=== PATIENT | male | born 1970 | race Caucasian/White ===

== ENCOUNTER → 2016-12-30 | Outpatient (CLI) | payer MEDICARE, MEDICAID ==
[~2016-12-30] MED LIST: CARI350T19 PO; CYMB60CA3 PO; DICY20TA11 PO; HCTZ PO; Ibuprofen PO; Lisinopril PO; PANT40TA2 PO; SIMV20TA2 PO; TOPA100T PO; Vicodin PO; ZOLP-189 PO
[2016-12-30 17:01] LABS: BLOOD UREA NITROGEN 7 MG/DL (7-18); CREATININE FOR GFR 1.09 MG/DL (0.70-1.30); GLOMERULAR FILTRATION RATE > 60.0 (>60)
== END ==
LOC: M LAB 15:53
PROVIDERS: ATTEND Neurological Surgery
DX: I10 Essential (primary) hypertension (principal); R73.9 Hyperglycemia, unspecified; K21.9 Gastro-esophageal reflux disease without esophagitis; E78.00 Pure hypercholesterolemia, unspecified; I73.9 Peripheral vascular disease, unspecified; R74.8 Abnormal levels of other serum enzymes

== ENCOUNTER → 2017-08-11 | Outpatient (REF) | payer MEDICARE, MEDICAID ==
[2017-08-11 14:13] LABS: MEAN CORPUSCULAR HEMOGLOBIN 32.9 pg (27.0-33.0); MEAN CORPUSCULAR HGB CONC 35.4 g/dl (32.0-36.5); MEAN CORPUSCULAR VOLUME 92.8 fl (80.0-96.0); RED CELL DISTRIBUTION WIDTH 12.6 % (11.5-14.5); WHITE BLOOD COUNT 14.8 10^3/uL (4.0-10.0)
[2017-08-11 15:02] LABS: ALBUMIN 4.1 GM/DL (3.2-5.2); ALBUMIN/GLOBULIN RATIO 1.03 (1.00-1.93); ALKALINE PHOSPHATASE 98 U/L (45-117); ALT/SGPT 66 U/L (12-78); ANION GAP 10 MEQ/L (8-16); AST/SGOT 40 U/L (15-37); BILIRUBIN,TOTAL 0.6 MG/DL (0.2-1.0); BLOOD UREA NITROGEN 14 MG/DL (7-18); CALCIUM LEVEL 8.9 MG/DL (8.5-10.1); CARBON DIOXIDE LEVEL 26 MEQ/L (21-32); CHLORIDE LEVEL 102 MEQ/L (98-107); CHOLESTEROL LEVEL 145 MG/DL (<200); CREATININE FOR GFR 1.02 MG/DL (0.70-1.30); GLOMERULAR FILTRATION RATE > 60.0 (>60); GLUCOSE, FASTING 93 MG/DL (70-105); POTASSIUM SERUM 3.6 MEQ/L (3.5-5.1); SODIUM LEVEL 138 MEQ/L (136-145); TOTAL PROTEIN 8.1 GM/DL (6.4-8.2); TRIGLYCERIDES LEVEL 244 MG/DL (<150)
== END ==
LOC: M SFHCPLAZ 11:15
PROVIDERS: ATTEND Nurse Practitioner Adult Health
DX: I10 Essential (primary) hypertension (principal); E78.2 Mixed hyperlipidemia; R73.9 Hyperglycemia, unspecified; Z23 Encounter for immunization
CPT/HCPCS: 36415; 80053; 80061; 83036; 85027; 90686; G0008; G0463

== ENCOUNTER → 2018-02-09 | Outpatient (REF) | payer MEDICARE, MEDICAID ==
[2018-02-09 13:37] LABS: HEMATOCRIT 39.8 % (42.0-52.0); HEMOGLOBIN 13.6 g/dl (14.0-18.0); MEAN CORPUSCULAR HEMOGLOBIN 30.2 pg (27.0-33.0); MEAN CORPUSCULAR HGB CONC 34.2 g/dl (32.0-36.5); MEAN CORPUSCULAR VOLUME 88.4 fl (80.0-96.0); PLATELET COUNT, AUTOMATED 344 10^3/uL (150-450); RED CELL DISTRIBUTION WIDTH 12.6 % (11.5-14.5); WHITE BLOOD COUNT 14.8 10^3/uL (4.0-10.0)
[2018-02-09 14:05] LABS: ALBUMIN/GLOBULIN RATIO 0.93 (1.00-1.93); ALKALINE PHOSPHATASE 102 U/L (45-117); ALT/SGPT 42 U/L (12-78); ANION GAP 6 MEQ/L (8-16); AST/SGOT 15 U/L (7-37); BILIRUBIN,TOTAL 0.5 MG/DL (0.2-1.0); BLOOD UREA NITROGEN 11 MG/DL (7-18); CALCIUM LEVEL 8.8 MG/DL (8.5-10.1); CARBON DIOXIDE LEVEL 28 MEQ/L (21-32); CHLORIDE LEVEL 106 MEQ/L (98-107); CREATININE FOR GFR 0.87 MG/DL (0.70-1.30); GLOMERULAR FILTRATION RATE > 60.0 (>60); GLUCOSE, FASTING 83 MG/DL (70-100); POTASSIUM SERUM 3.9 MEQ/L (3.5-5.1); SODIUM LEVEL 140 MEQ/L (136-145); TOTAL PROTEIN 8.3 GM/DL (6.4-8.2)
== END ==
LOC: M SFHCPLAZ 11:58
DX: I10 Essential (primary) hypertension (principal)
CPT/HCPCS: 80053

== ENCOUNTER 2018-04-28 17:33 | Emergency (ER) | payer MEDICARE, MEDICAID ==
[2018-04-28 20:07] LABS: HEMATOCRIT 36.9 % (42.0-52.0); HEMOGLOBIN 12.3 g/dl (13.5-17.5); MEAN CORPUSCULAR HEMOGLOBIN 29.1 pg (27.0-33.0); MEAN CORPUSCULAR HGB CONC 33.3 g/dl (32.0-36.5); MEAN CORPUSCULAR VOLUME 87.4 fl (80.0-96.0); PLATELET COUNT, AUTOMATED 347 10^3/uL (150-450); RED BLOOD COUNT 4.22 10^6/uL (4.30-6.10); RED CELL DISTRIBUTION WIDTH 12.8 % (11.5-14.5)
[2018-04-28 20:11] LABS: ADD MANUAL DIFFER YES; DIFF SLIDE NUMBER 406; POSITIVE DIFF POS FLAG; POSITIVE MORPH POS FLAG; WHITE BLOOD COUNT 13.4 10^3/uL (4.0-10.0)
[2018-04-28 20:27] LABS: ANION GAP 6 MEQ/L (8-16); BLOOD UREA NITROGEN 9 MG/DL (7-18); CALCIUM LEVEL 8.6 MG/DL (8.5-10.1); CARBON DIOXIDE LEVEL 26 MEQ/L (21-32); CHLORIDE LEVEL 107 MEQ/L (98-107); CREATININE FOR GFR 1.21 MG/DL (0.70-1.30); GLOMERULAR FILTRATION RATE > 60.0 (>60); GLUCOSE, FASTING 89 MG/DL (70-100); POTASSIUM SERUM 4.2 MEQ/L (3.5-5.1); SODIUM LEVEL 139 MEQ/L (136-145)
[2018-04-28 20:30] LABS: LACTIC ACID SEPSIS PROTOCOL 0.8 MMOL/L (0.4-2.0)
[2018-04-28 20:41] LABS: ATYPICAL LYMPH 9 % (0-5); LYMPHOCYTES 39 % (16-52); MONOCYTES 5 % (0-8); NEUTROPHILS 47 % (35-75); PLATELET ESTIMATE NORMAL (NORMAL)
[2018-04-28] MEDS: MORPHINE 10 MG/ML 1ML VIAL (J2270) IM (21:01)
[2018-04-28] MEDS: CLINDAMYCIN 150 MG CAP PO (21:35)
== END 2018-04-28 21:41 | disposition home or self-care (01) ==
LOC: M ED 17:33
DX: L03.116 Cellulitis of left lower limb (principal); I10 Essential (primary) hypertension; G43.909 Migraine, unspecified, not intractable, without status migrainosus; K21.9 Gastro-esophageal reflux disease without esophagitis; F32.9 Major depressive disorder, single episode, unspecified; Z87.01 Personal history of pneumonia (recurrent); Z79.82 Long term (current) use of aspirin; Z79.899 Other long term (current) drug therapy; Z88.0 Allergy status to penicillin; Z88.8 Allergy status to other drugs, medicaments and biological substances
CPT/HCPCS: J2270

== ENCOUNTER 2018-09-05 13:47 | Inpatient (IN) | payer MEDICARE, MEDICAID ==
[2018-09-05] MEDS: amLODIPine 10 MG TAB PO (00:20)
[2018-09-05 14:36] LABS: BEDSIDE GLUCOSE 96 MG/DL (70-105)
[2018-09-05 15:06] LABS: BASO % 0.3 % (0.0-1.0); EOS # 0.1 10^3/uL (0.0-0.50); EOS % 0.7 % (0.0-3.0); HEMATOCRIT 36.4 % (42.0-52.0); IMMATURE GRANULOCYTE % 0.4 % (0-3.0); LYMPH # 1.8 10^3/uL (1.5-4.5); LYMPH % 14.4 % (24.0-44.0); MEAN CORPUSCULAR HEMOGLOBIN 30.1 pg (27.0-33.0); MEAN CORPUSCULAR VOLUME 91.2 fl (80.0-96.0); MONO # 0.9 10^3/uL (0.0-0.8); MONO % 7.1 % (0.0-5.0); NEUTROPHILS # 9.6 10^3/uL (1.8-7.7); NEUTROPHILS % 77.1 % (36.0-66.0); PLATELET COUNT, AUTOMATED 224 10^3/uL (150-450); RED BLOOD COUNT 3.99 10^6/uL (4.30-6.10); RED CELL DISTRIBUTION WIDTH 13.2 % (11.5-14.5); WHITE BLOOD COUNT 12.5 10^3/uL (4.0-10.0)
[2018-09-05 15:07] LABS: VENOUS BASE EXCESS -5.1 (-2.0-2.0); VENOUS O2 SATURATION 72.7 % (60.0-80.0); VENOUS PARTIAL PRESSURE CO2 63.9 mmHg (38.0-50.0); VENOUS PARTIAL PRESSURE O2 43.6 mmHg (30.0-50.0); VENOUS PH 7.192 UNITS (7.330-7.430); VENOUS STANDARD HCO3 19.7 MEQ/L; VENOUS TOTAL CO2 25.9 MEQ/L (24.0-28.0)
[2018-09-05 15:27] LABS: AMMONIA 30 uMOL/L (<32)
[2018-09-05 15:30] LABS: LACTIC ACID SEPSIS PROTOCOL 1.9 MMOL/L (0.4-2.0)
[2018-09-05 15:49] LABS: KETONE, URINE AUTO RFX NEGATIVE (NEGATIVE); LEUKOCYTE ESTERASE UR AUTO RFX NEGATIVE (NEGATIVE); MUCUS, URINE RFX SMALL (NEGATIVE); NITRITE, URINE AUTO RFX NEGATIVE (NEGATIVE); RBC, URINE AUTO RFX 0 /HPF (0-3); SQUAM EPITHELIAL CELL UR AURFX 0 /HPF (0-6); WBC, URINE AUTO RFX 6 /HPF (0-3)
[2018-09-05 16:18] LABS: AMPHETAMINES LEVEL URINE NEGATIVE (NEGATIVE); BARBITURATES URINE NEGATIVE (NEGATIVE); BENZODIAZEPINES URINE NEGATIVE (NEGATIVE); CANNABINOIDS URINE POSITIVE (NEGATIVE); COCAINE METABOLITE URINE NEGATIVE (NEGATIVE); METHADONE URINE NEGATIVE (NEGATIVE); OPIATES URINE POSITIVE (NEGATIVE); PHENCYCLIDINE URINE NEGATIVE (NEGATIVE)
[2018-09-05 16:46] LABS: ACETAMINOPHEN LEVEL < 2.0 UG/ML (10.0-30.0); ALBUMIN 3.8 GM/DL (3.2-5.2); ALBUMIN/GLOBULIN RATIO 1.06 (1.00-1.93); ALKALINE PHOSPHATASE 91 U/L (45-117); ALT/SGPT 132 U/L (12-78); ANION GAP 7 MEQ/L (8-16); AST/SGOT 496 U/L (7-37); BILIRUBIN,DIRECT 0.2 MG/DL (0.0-0.2); BILIRUBIN,TOTAL 0.6 MG/DL (0.2-1.0); BLOOD UREA NITROGEN 22 MG/DL (7-18); CALCIUM LEVEL 8.1 MG/DL (8.5-10.1); CARBON DIOXIDE LEVEL 25 MEQ/L (21-32); CHLORIDE LEVEL 104 MEQ/L (98-107); CPK CREATINE PHOSPHOKINASE 18491 U/L (39-308); CREATININE FOR GFR 1.96 MG/DL (0.70-1.30); ETHYL ALCOHOL (ETHANOL) < 0.003 % (0.000-0.010); GLOMERULAR FILTRATION RATE 38.7 (>56); GLUCOSE, FASTING 93 MG/DL (70-100); MB/CK RELATIVE INDEX 3.01 (< OR =4); POTASSIUM SERUM 4.7 MEQ/L (3.5-5.1); SALICYLATE LEVEL 4.1 MG/DL (5.0-30.0); SODIUM LEVEL 136 MEQ/L (136-145); THYROID STIMULATING HORMONE 0.547 uIU/ML (0.358-3.740); TOTAL PROTEIN 7.4 GM/DL (6.4-8.2); TROPONIN I < 0.02 NG/ML (< 0.10)
[2018-09-05 16:47] LABS: CK-MB VALUE MASS 557.3 NG/ML (<3.6)
[2018-09-05] MEDS: NS 1,000 ML IV ×3 (16:48→21:18)
[2018-09-05 17:04] LABS: MYOGLOBIN SCREEN, URINE POSITIVE (NEGATIVE)
[2018-09-05] MEDS ORDERED: ONDANSETRON 4MG/2ML VIAL (J2405) IV (17:30)
[2018-09-05] MEDS ORDERED: BISACODYL 10 MG SUPP PR (17:30)
[2018-09-05 19:33] LABS: ABG BASE EXCESS -7.1 (-2.0-2.0); ABG HCO3 19.4 MEQ/L (22.0-26.0); ABG O2 SATURATION 98.4 % (95.0-99.0); ABG PARTIAL PRESSURE CO2 42.8 mmHg (35.0-45.0); ABG PARTIAL PRESSURE O2 131.7 mmHg (75.0-100.0); ABG STANDARD HCO3 18.7 MEQ/L (22.0-26.0); ABG TOTAL CO2 20.7 MEQ/L (22.0-29.0); ABG pH (ARTERIAL) 7.274 UNITS (7.350-7.450)
[2018-09-05] MEDS ORDERED: IPRATROPIUM 0.5MG/ALBUTEROL 2.5MG INH SOL UD 3ML (DUONEB)(J7620) NEB (19:45)
[2018-09-05] MEDS: HEPARIN SOD (PORCINE) 5000 UNITS/ML VIAL SC (21:17)
[2018-09-05] MEDS: ATORVASTATIN 20 MG TAB PO (21:19)
[2018-09-06] MEDS: CLOPIDOGREL 75 MG TAB PO ×2 (00:19→09:24)
[2018-09-06] MEDS: ACETAMINOPHEN TAB 650MG DOSE (2X325MG) PO (04:03)
[2018-09-06 04:39] LABS: HEMOGLOBIN 11.1 g/dl (13.5-17.5); MEAN CORPUSCULAR HEMOGLOBIN 29.6 pg (27.0-33.0); MEAN CORPUSCULAR HGB CONC 32.6 g/dl (32.0-36.5); MEAN CORPUSCULAR VOLUME 90.7 fl (80.0-96.0); PLATELET COUNT, AUTOMATED 197 10^3/uL (150-450); RED BLOOD COUNT 3.75 10^6/uL (4.30-6.10); RED CELL DISTRIBUTION WIDTH 13.2 % (11.5-14.5); WHITE BLOOD COUNT 11.8 10^3/uL (4.0-10.0)
[2018-09-06] MEDS: NS 1,000 ML IV ×2 (04:59→11:44)
[2018-09-06 05:03] LABS: ANION GAP 4 MEQ/L (8-16); BLOOD UREA NITROGEN 16 MG/DL (7-18); CALCIUM LEVEL 7.7 MG/DL (8.5-10.1); CARBON DIOXIDE LEVEL 25 MEQ/L (21-32); CHLORIDE LEVEL 110 MEQ/L (98-107); CREATININE FOR GFR 1.08 MG/DL (0.70-1.30); GLOMERULAR FILTRATION RATE > 60.0 (>56); GLUCOSE, FASTING 93 MG/DL (70-100); POTASSIUM SERUM 4.2 MEQ/L (3.5-5.1); SODIUM LEVEL 139 MEQ/L (136-145)
[2018-09-06] MEDS: HEPARIN SOD (PORCINE) 5000 UNITS/ML VIAL SC ×2 (06:40→14:20)
[2018-09-06 08:12] LABS: ABG BASE EXCESS -3.8 (-2.0-2.0); ABG HCO3 23.2 MEQ/L (22.0-26.0); ABG O2 SATURATION 99.4 % (95.0-99.0); ABG PARTIAL PRESSURE CO2 50.6 mmHg (35.0-45.0); ABG PARTIAL PRESSURE O2 208.2 mmHg (75.0-100.0); ABG STANDARD HCO3 21.4 MEQ/L (22.0-26.0); ABG TOTAL CO2 24.8 MEQ/L (22.0-29.0)
[2018-09-06] MEDS: amLODIPine 10 MG TAB PO (09:24)
[2018-09-06] MEDS: ASPIRIN 81 MG ENTERIC TAB PO (09:24)
[2018-09-06] MEDS: OMEPRAZOLE 20 MG CAP PO (09:24)
[2018-09-06 10:02] LABS: ALBUMIN 3.1 GM/DL (3.2-5.2); ALBUMIN/GLOBULIN RATIO 0.78 (1.00-1.93); ALKALINE PHOSPHATASE 79 U/L (45-117); ALT/SGPT 194 U/L (12-78); AST/SGOT 841 U/L (7-37); BILIRUBIN,DIRECT 0.2 MG/DL (0.0-0.2); BILIRUBIN,TOTAL 0.6 MG/DL (0.2-1.0); CPK CREATINE PHOSPHOKINASE 25765 U/L (39-308); TOTAL PROTEIN 7.1 GM/DL (6.4-8.2)
[2018-09-06] MEDS: GABAPENTIN 300 MG CAP PO (14:21)
[2018-09-06] MEDS: CYCLOBENZAPRINE 10 MG TAB PO (14:21)
[2018-09-06] MEDS: CARISOPRODOL 350 MG TAB PO (15:05)
[2018-09-06] MEDS ORDERED: HEPARIN DRIP 25,000 UNITS in APPROPRIATE DILUENT 1 EA IV (15:29)
[2018-09-06] MEDS ORDERED: HEPARIN SOD (PORCINE) 5000 UNITS/ML VIAL IV (15:30)
[2018-09-06 16:02] LABS: HEMATOCRIT 36.3 % (42.0-52.0); HEMOGLOBIN 12.2 g/dl (13.5-17.5); MEAN CORPUSCULAR HEMOGLOBIN 29.9 pg (27.0-33.0); MEAN CORPUSCULAR HGB CONC 33.6 g/dl (32.0-36.5); PLATELET COUNT, AUTOMATED 215 10^3/uL (150-450); RED BLOOD COUNT 4.08 10^6/uL (4.30-6.10); RED CELL DISTRIBUTION WIDTH 12.9 % (11.5-14.5); WHITE BLOOD COUNT 11.4 10^3/uL (4.0-10.0)
[2018-09-06 16:16] LABS: PARTIAL THROMBOPLASTIN TIME 27.7 SECONDS (25.4-37.6)
[2018-09-06] MEDS: HEPARIN DRIP 25,000 UNITS in APPROPRIATE DILUENT 1 EA IV (16:35)
[2018-09-07 10:15] LABS: HEPATITIS B SURFACE ANTIGEN NEGATIVE (NEGATIVE)
[2018-09-07 10:41] LABS: HEPATITIS C VIRUS ABY INDEX < 0.0 INDEX (<0.8)
[2018-09-07 10:42] LABS: HEPATITIS B CORE ANTIBODY IGM NEGATIVE (NEGATIVE)
[2018-09-07 10:45] LABS: HEPATITIS A ANTIBODY IGM NEGATIVE (NEGATIVE)
== END 2018-09-06 19:03 | disposition short-term general hospital (02) | DRG 189 ==
LOC: M ED 13:47 → M ED INP 17:18 → M ICU 23:39
PROVIDERS: Internal Medicine
PROC: 5A09357 Assistance with Respiratory Ventilation, Less than 24 Consecutive Hours, Continuous Positive Airway Pressure (ICD-10-PCS; principal; 2018-09-05)
DX: J96.02 Acute respiratory failure with hypercapnia (principal); G93.41 Metabolic encephalopathy; M62.82 Rhabdomyolysis; E87.4 Mixed disorder of acid-base balance; R41.82 Altered mental status, unspecified; I10 Essential (primary) hypertension; E78.00 Pure hypercholesterolemia, unspecified; G47.33 Obstructive sleep apnea (adult) (pediatric); G89.29 Other chronic pain; I25.10 Atherosclerotic heart disease of native coronary artery without angina pectoris; I70.303 Unspecified atherosclerosis of unspecified type of bypass graft(s) of the extremities, bilateral legs; Z98.62 Peripheral vascular angioplasty status; Z79.891 Long term (current) use of opiate analgesic; Z89.422 Acquired absence of other left toe(s); K58.9 Irritable bowel syndrome, unspecified; Z79.02 Long term (current) use of antithrombotics/antiplatelets; Z79.82 Long term (current) use of aspirin; Z79.899 Other long term (current) drug therapy; Z88.0 Allergy status to penicillin; Z88.8 Allergy status to other drugs, medicaments and biological substances

== ENCOUNTER 2018-12-02 11:49 | Inpatient (IN) | payer MEDICARE, MEDICAID ==
[~2018-12-02] VITALS: Ht 182.9 cm; Wt 113.4 kg
[~2018-12-02 11:49] MED LIST changes: +AMLO10TA5 PO; +ASPI1TAB15 PO; +ASPI81TAEC PO; +ATOR40TA75 PO; +CLEO300C2 PO; +CLOP75TA2 PO; +CYCL10TA PO; +DOXY100T PO; +GABA-843 PO; +IBUPOTC PO; +LASI20TA3 PO; +LEVA1TAB2 PO; +LISI-538 PO; +MORP15TASA PO; +NORC1TAB4 PO; +NORCOTAB PO; +OMEP40CA2 PO; +PLAV1TAB2 PO
[2018-12-02 12:18] LABS: BASO # 0.1 10^3/uL (0.0-0.2); BASO % 0.4 % (0.0-1.0); EOS # 0.1 10^3/uL (0.0-0.50); EOS % 0.6 % (0.0-3.0); HEMATOCRIT 40.4 % (42.0-52.0); HEMOGLOBIN 13.3 g/dl (13.5-17.5); LYMPH # 3.1 10^3/uL (1.5-4.5); LYMPH % 16.4 % (24.0-44.0); MEAN CORPUSCULAR HEMOGLOBIN 29.9 pg (27.0-33.0); MEAN CORPUSCULAR HGB CONC 32.9 g/dl (32.0-36.5); MEAN CORPUSCULAR VOLUME 90.8 fl (80.0-96.0); MONO # 1.3 10^3/uL (0.0-0.8); MONO % 6.7 % (0.0-5.0); NEUTROPHILS # 14.2 10^3/uL (1.8-7.7); NEUTROPHILS % 75.4 % (36.0-66.0); PLATELET COUNT, AUTOMATED 325 10^3/uL (150-450); RED BLOOD COUNT 4.45 10^6/uL (4.30-6.10); WHITE BLOOD COUNT 18.9 10^3/uL (4.0-10.0)
[2018-12-02 12:28] LABS: INR 0.92; PROTHROMBIN TIME 12.4 SECONDS (12.1-14.4)
--- NOTE | 2018-12-02 12:30 | REP ---
Chest one-view HISTORY: Chest pain Comparison: 09/05/2018 Linear densities are present in the left lower lobe consistent with scar. The right lung is clear. There is blunting of the left costophrenic angle due to pleural thickening. The heart is normal in size. The pulmonary vasculature is normal in appearance. Impression: No acute disease. Electronically Signed by Eliezer Morgan MD 12/02/2018 12:21 P
[2018-12-02] MEDS ORDERED: ASPI1TAB20 PO (12:32)
[2018-12-02] MEDS ORDERED: LISI-538 PO (12:32)
[2018-12-02] MEDS ORDERED: FURO20TA2 PO (12:32)
[2018-12-02] MEDS ORDERED: AMLO10TA5 PO (12:32)
[2018-12-02 12:59] LABS: ALBUMIN 3.8 GM/DL (3.2-5.2); ALT/SGPT 28 U/L (12-78); BILIRUBIN,TOTAL 0.4 MG/DL (0.2-1.0); BLOOD UREA NITROGEN 20 MG/DL (7-18); CALCIUM LEVEL 8.5 MG/DL (8.5-10.1); CARBON DIOXIDE LEVEL 21 MEQ/L (21-32); CHLORIDE LEVEL 106 MEQ/L (98-107); CPK CREATINE PHOSPHOKINASE 435 U/L (39-308); CREATININE FOR GFR 2.46 MG/DL (0.70-1.30); GLOMERULAR FILTRATION RATE 29.8 (>56); GLUCOSE, FASTING 116 MG/DL (70-100); LIPASE 149 U/L (73-393); POTASSIUM SERUM 4.7 MEQ/L (3.5-5.1); SODIUM LEVEL 139 MEQ/L (136-145); TOTAL PROTEIN 8.2 GM/DL (6.4-8.2); TROPONIN I < 0.02 NG/ML (< 0.10)
[2018-12-02] MEDS ORDERED: HEPARIN DRIP 25,000 UNITS in APPROPRIATE DILUENT 1 EA IV SCH (13:19)
[2018-12-02] MEDS ORDERED: NS 500 ML IV ONE (13:30)
[2018-12-02] MEDS ORDERED: HEPARIN SOD (PORCINE) 5000 UNITS/ML VIAL IV ONE (13:30)
[2018-12-02] MEDS ORDERED: GABA-843 PO (13:41)
[2018-12-02] MEDS ORDERED: FLUTISP (13:41)
[2018-12-02 14:48] LABS: INR 1.05; PROTHROMBIN TIME 13.8 SECONDS (12.1-14.4)
[2018-12-02 14:49] LABS: PARTIAL THROMBOPLASTIN TIME 65.9 SECONDS (25.4-37.6)
[2018-12-02 14:51] LABS: D-DIMER QUANT 411.4 ng/ml (<500)
[2018-12-02] MEDS ORDERED: ACETAMINOPHEN TAB 650MG DOSE (2X325MG) PO PRN (15:45)
[2018-12-02] MEDS ORDERED: ONDANSETRON 4MG/2ML VIAL (J2405) IV PRN (15:45)
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
[2018-12-02 18:00] VITALS: BP 125/77
[2018-12-02] MEDS ORDERED: GLUCAGON FOR INJ 1 MG VIAL (J1610) SC PRN (19:00)
[2018-12-02] MEDS ORDERED: DEXTROSE 50% 50 ML SYRINGE IV PRN (19:00)
[2018-12-02] MEDS ORDERED: GLUCOSE 4 GM CHEW TABLET PO PRN (19:00)
[2018-12-02 20:00] VITALS: BP 138/73
[2018-12-02] MEDS: HEPARIN SOD (PORCINE) 5000 UNITS/ML VIAL IV PRN (20:01)
[2018-12-02] MEDS: HumaLOG INSULIN (NovoLOG) PER UNIT SC SCH (20:36)
[2018-12-02] MEDS: DOCUSATE SODIUM 100 MG CAP PO SCH (21:00)
[2018-12-02] MEDS: NORCO, ANEXSIA 5/325MG TABLET (HYDROcodone/ACETAMINOPHEN) PO PRN (22:27)
[2018-12-03] VITALS: BP 121/64
[2018-12-03 04:00] VITALS: BP 119/64
[2018-12-03] MEDS ORDERED: LIDOCAINE 2% MDV 20 ML VIAL As Ordered ONE (06:49)
[2018-12-03] MEDS ORDERED: HEPARIN 1,000 UNITS/ML 10ML VIAL (FOR RADIOLOGY& DIALYSIS ONLY) As Ordered ONE (06:49)
[2018-12-03] MEDS ORDERED: MIDAZOLAM INJ 2 MG/2 ML VIAL (J2250) As Ordered ONE (06:49)
[2018-12-03] MEDS ORDERED: fentaNYL 100 MCG/2 ML INJECTION (J3010) As Ordered ONE (06:49)
[2018-12-03] MEDS ORDERED: ISOVUE-300 61% 50ML VIAL (Q9967) As Ordered ONE (06:50)
[2018-12-03] MEDS: HEPARIN DRIP 25,000 UNITS in APPROPRIATE DILUENT 1 EA IV SCH ×2 (07:11→21:48)
[2018-12-03] MEDS: HumaLOG INSULIN (NovoLOG) PER UNIT SC SCH ×4 (07:27→20:46)
--- NOTE | 2018-12-03 07:33 | ECGEPIP ---
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
[2018-12-03 08:00] VITALS: BP 119/67
[2018-12-03] MEDS ORDERED: LISINOPRIL 20 MG TAB PO SCH (09:00)
[2018-12-03] MEDS: DOCUSATE SODIUM 100 MG CAP PO SCH ×2 (09:00→20:46)
[2018-12-03] MEDS ORDERED: ASPIRIN 325 MG TAB PO PRN (09:30)
[2018-12-03] MEDS ORDERED: FLUTICASONE PROP 0.05% NASAL SPRAY 16 GM (FLONASE) PRN (09:30)
[2018-12-03] MEDS ORDERED: FUROSEMIDE 20 MG TAB PO PRN (09:30)
[2018-12-03] MEDS: HEPARIN SOD (PORCINE) 5000 UNITS/ML VIAL IV PRN (09:40)
[2018-12-03] MEDS: CLOPIDOGREL 75 MG TAB PO SCH (10:19)
[2018-12-03] MEDS: OMEPRAZOLE 20 MG CAP PO SCH (10:19)
[2018-12-03] MEDS: amLODIPine 10 MG TAB PO SCH (10:20)
[2018-12-03] MEDS: GABAPENTIN 300 MG CAP PO SCH ×3 (10:20→20:46)
[2018-12-03 11:25] VITALS: BP 109/53
--- NOTE | 2018-12-03 12:17 | IPNPDOC ---
Subjective Date Seen The patient was seen on 12/03/18. Subjective Chief Complaint/HPI C/o pain in Lt foot. Objective Physical Examination General Exam: Positive: Alert, Mild Distress Eye Exam: Positive: PERRLA, EOMI ENT Exam: Positive: Atraumatic Neck Exam: Positive: Supple, +2 carotid pulse wo bruit Chest Exam: Positive: Clear to auscultation, Normal air movement; Negative: Rales, Rhonchi, Wheezing, Diminished, Other Heart Exam: Positive: Rate Normal, Regular Rhythm, Normal S1, Normal S2; Negative: Gallops, Murmurs, Rubs, Other Abdomen Exam: Positive: Normal bowel sounds, Soft; Negative: Tenderness, Mass, Other Extremity Exam: Positive: Edema (Lt stump foot mild edema and cold), Other (Lt stump nonhealing wound 2 x 1 x 0.2 cm w/o purulent discharge.); Negative: Clubbing, Cyanosis, Normal pulses (Lt: PA and FA pulses not palpable, exam unsatisfactory d/t noncooperation. DP and PT pulseless by Doppler. Rt Dp and PT audible by Doppler), Tenderness, Swelling Assessment /Plan Assessment 1. Occlusive PVD with acute LLE ischemia Pt was planed for an urgent angiogram but is put on hold now because of elevated Cr 2.46. On Heparin drip. 2. Nonhealing wound Lt stump with leukocytosis 18.9, afebrile 3. J CARLOS? Cr 2.46, No known Hx CKD Plan/VTE VTE Prophylaxis Ordered?: Yes Plan 1. Continue current management 2. Continue Heparin drip as directed. 4. Restart home Plavix 75 mg daily 5. Dressing change daily 6. Nephrology consult for elevated Cr 2.46. 7. Planing to do thrombolysis tomorrow VS[facility]O Vital Signs Date Time Temp Pulse Resp B/P (MAP) Pulse Ox O2 Delivery O2 Flow Rate FiO2 12/03/18 11:25 98.7 86 18 109/53 (71) 97 Room Air I&O- Last 24 Hours up to 6 AM 12/03/18 05:59 Intake Total 645 ml Output Total 1000 ml Balance -355 ml Laboratory Data 24H LABS Laboratory Tests 2 12/02/18 12:06: Immature Granulocyte % (Auto) 0.5, White Blood Count 18.9H, Red Blood Count 4.45, Hemoglobin 13.3L, Hematocrit 40.4L, Mean Corpuscular Volume 90.8, Mean Corpuscular Hemoglobin 29.9, Mean Corpuscular Hemoglobin Concent 32.9, Red Cell Distribution Width 13.2, Platelet Count 325, Neutrophils (%) (Auto) 75.4H, Lymphocytes (%) (Auto) 16.4L, Monocytes (%) (Auto) 6.7H, Eosinophils (%) (Auto) 0.6, Basophils (%) (Auto) 0.4, Neutrophils # (Auto) 14.2H, Lymphocytes # (Auto) 3.1, Monocytes # (Auto) 1.3H, Eosinophils # (Auto) 0.1, Basophils # (Auto) 0.1, Nucleated Red Blood Cells % (auto) 0.0, Prothrombin Time 12.4, Prothromb Time International Ratio 0.92, Anion Gap 12, Glomerular Filtration Rate 29.8L, Blood Urea Nitrogen 20H, Creatinine 2.46H, Sodium Level 139, Potassium Level 4.7, Chloride Level 106, Carbon Dioxide Level 21, Calcium Level 8.5, Aspartate Amino Transf (AST/SGOT) 34, Alanine Aminotransferase (ALT/SGPT) 28, Total Creatine Kinase 435H, Alkaline Phosphatase 104, Total Bilirubin 0.4, Total Protein 8.2, Albumin 3.8, Creatine Kinase MB 17.0H, Creatine Kinase MB Relative Index 4.00, Troponin I < 0.02, Albumin/Globulin Ratio 0.86L, Lipase 149 12/02/18 14:16: Prothrombin Time 13.8, Prothromb Time International Ratio 1.05, Activated Partial Thromboplast Time 65.9H, D-Dimer, Quantitative 411.40, Lactic Acid Level 1.6 12/02/18 18:57: Activated Partial Thromboplast Time 34.4 12/02/18 20:19: Bedside Glucose (Misc Panel) 99 12/03/18 01:47: Activated Partial Thromboplast Time 69.2H 12/03/18 06:35: Bedside Glucose (Misc Panel) 84 12/03/18 08:08: Activated Partial Thromboplast Time 49.5H CBC/BMP Laboratory Tests 12/02/18 12:06 Red Blood Count 4.45, Mean Corpuscular Volume 90.8, Mean Corpuscular Hemoglobin 29.9, Mean Corpuscular Hemoglobin Concent 32.9, Red Cell Distribution Width 13.2, Neutrophils (%) (Auto) 75.4 H, Lymphocytes (%) (Auto) 16.4 L, Monocytes (%) (Auto) 6.7 H, Eosinophils (%) (Auto) 0.6, Basophils (%) (Auto) 0.4, Neutrophils # (Auto) 14.2 H, Lymphocytes # (Auto) 3.1, Monocytes # (Auto) 1.3 H, Eosinophils # (Auto) 0.1, Basophils # (Auto) 0.1, Calcium Level 8.5, Aspartate Amino Transf (AST/SGOT) 34, Alanine Aminotransferase (ALT/SGPT) 28, Total Creatine Kinase 435 H, Alkaline Phosphatase 104, Total Bilirubin 0.4, Total Protein 8.2, Albumin 3.8 Microbiology Microbiology 12/02/18 Blood Culture, Received Pending 12/02/18 Blood Culture, Received Pending TIGRE WICK PA-C Dec 03, 2018 12:16
[2018-12-03] MEDS: NORCO, ANEXSIA 5/325MG TABLET (HYDROcodone/ACETAMINOPHEN) PO PRN ×2 (13:09→20:48)
[2018-12-03 16:00] VITALS: BP 139/73
[2018-12-03] MEDS: CYCLOBENZAPRINE 10 MG TAB PO PRN (16:49)
[2018-12-03 20:00] VITALS: BP 135/75
[2018-12-03] MEDS: ATORVASTATIN 20 MG TAB PO SCH (20:46)
[2018-12-03] MEDS ORDERED: NS 1,000 ML IV SCH (22:45)
[2018-12-04] VITALS (11 sets, daily range): BP systolic 116–170; BP diastolic 55–78
[2018-12-04] MEDS: CYCLOBENZAPRINE 10 MG TAB PO PRN (00:59)
[2018-12-04] MEDS: HEPARIN SOD (PORCINE) 5000 UNITS/ML VIAL IV PRN (00:59)
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
[2018-12-04 05:23] LABS: BASO # 0.1 10^3/uL (0.0-0.2); BASO % 0.4 % (0.0-1.0); EOS # 0.3 10^3/uL (0.0-0.50); HEMATOCRIT 34.6 % (42.0-52.0); HEMOGLOBIN 11.7 g/dl (13.5-17.5); LYMPH # 3.4 10^3/uL (1.5-4.5); LYMPH % 27.8 % (24.0-44.0); MEAN CORPUSCULAR HEMOGLOBIN 29.8 pg (27.0-33.0); MEAN CORPUSCULAR HGB CONC 33.8 g/dl (32.0-36.5); MEAN CORPUSCULAR VOLUME 88.3 fl (80.0-96.0); MONO # 0.8 10^3/uL (0.0-0.8); MONO % 6.7 % (0.0-5.0); NEUTROPHILS # 7.7 10^3/uL (1.8-7.7); NEUTROPHILS % 62.8 % (36.0-66.0); PLATELET COUNT, AUTOMATED 253 10^3/uL (150-450); RED BLOOD COUNT 3.92 10^6/uL (4.30-6.10); WHITE BLOOD COUNT 12.2 10^3/uL (4.0-10.0)
[2018-12-04 06:00] LABS: BLOOD UREA NITROGEN 13 MG/DL (7-18); CALCIUM LEVEL 8.3 MG/DL (8.5-10.1); CARBON DIOXIDE LEVEL 27 MEQ/L (21-32); CHLORIDE LEVEL 106 MEQ/L (98-107); CREATININE FOR GFR 1.07 MG/DL (0.70-1.30); GLOMERULAR FILTRATION RATE > 60.0 (>56); GLUCOSE, FASTING 97 MG/DL (70-100); POTASSIUM SERUM 3.7 MEQ/L (3.5-5.1); SODIUM LEVEL 139 MEQ/L (136-145)
[2018-12-04 06:12] LABS: BLOOD UREA NITROGEN 14 MG/DL (7-18); CALCIUM LEVEL 8.2 MG/DL (8.5-10.1); CARBON DIOXIDE LEVEL 26 MEQ/L (21-32); CHLORIDE LEVEL 106 MEQ/L (98-107); CREATININE FOR GFR 1.05 MG/DL (0.70-1.30); GLOMERULAR FILTRATION RATE > 60.0 (>56); GLUCOSE, FASTING 92 MG/DL (70-100); POTASSIUM SERUM 3.9 MEQ/L (3.5-5.1); SODIUM LEVEL 139 MEQ/L (136-145)
[2018-12-04 06:13] LABS: ALBUMIN 3.5 GM/DL (3.2-5.2); PHOSPHORUS LEVEL 2.2 MG/DL (2.5-4.9)
[2018-12-04] MEDS ORDERED: fentaNYL 100 MCG/2 ML INJECTION (J3010) As Ordered ONE ×2 (06:39→11:35)
[2018-12-04] MEDS ORDERED: LIDOCAINE 2% MDV 20 ML VIAL As Ordered ONE (06:39)
[2018-12-04] MEDS ORDERED: HEPARIN 1,000 UNITS/ML 10ML VIAL (FOR RADIOLOGY& DIALYSIS ONLY) As Ordered ONE (06:39)
[2018-12-04] MEDS ORDERED: MIDAZOLAM INJ 2 MG/2 ML VIAL (J2250) As Ordered ONE ×2 (06:39→11:36)
[2018-12-04] MEDS ORDERED: ISOVUE-300 61% 50ML VIAL (Q9967) As Ordered ONE (06:40)
[2018-12-04] MEDS: HumaLOG INSULIN (NovoLOG) PER UNIT SC SCH ×3 (07:30→17:30)
[2018-12-04] MEDS: GABAPENTIN 300 MG CAP PO SCH ×3 (08:53→20:37)
[2018-12-04] MEDS: amLODIPine 10 MG TAB PO SCH (08:53)
[2018-12-04] MEDS: OMEPRAZOLE 20 MG CAP PO SCH (08:53)
[2018-12-04] MEDS: DOCUSATE SODIUM 100 MG CAP PO SCH ×3 (08:53→20:37)
[2018-12-04] MEDS: CLOPIDOGREL 75 MG TAB PO SCH (08:53)
[2018-12-04] MEDS ORDERED: LACTATED RINGER'S 1000 ML IV ONE (10:15)
--- NOTE | 2018-12-04 10:17 | IPNPDOC ---
Subjective Date Seen The patient was seen on 12/04/18. Subjective Chief Complaint/HPI C/o LLE soreness /pain from Lt groin down to the foot. Slept a lot since admission. Pt hasn't had good sleep over past 4 days d/t increasing leg pain. Objective Physical Examination General Exam: Positive: Alert, Mild Distress Eye Exam: Positive: PERRLA, EOMI ENT Exam: Positive: Atraumatic Neck Exam: Positive: Supple, +2 carotid pulse wo bruit Chest Exam: Positive: Clear to auscultation, Normal air movement; Negative: Rales, Rhonchi, Wheezing, Diminished, Other Heart Exam: Positive: Rate Normal, Regular Rhythm, Normal S1, Normal S2; Negative: Gallops, Murmurs, Rubs, Other Abdomen Exam: Positive: Normal bowel sounds, Soft; Negative: Tenderness, Mass, Other Extremity Exam: Positive: Edema (Lt stump foot mild edema and cold), Other (Lt stump nonhealing wound 2 x 1 x 0.2 cm w/o purulent discharge.); Negative: Clubbing, Cyanosis, Normal pulses (Lt: PT monophsic, DP not audible. Rt DP and PT audible triphsic), Tenderness, Swelling Assessment /Plan Assessment 1. Occlusive PVD with acute LLE ischemia On Heparin drip with some improvement. Pt was planed for an urgent angiogram but is put on hold now because of elevated Cr 2.46. 2. Nonhealing wound Lt stump with leukocytosis 12.2 vs 18.9, afebrile 3. J CARLOS resolved Cr 1.05 vs 2.46 Plan/VTE VTE Prophylaxis Ordered?: Yes Plan Continue current management Clindamycin 600 mg IV q6 hrs Cipro 400 mg IV q12 hrs LR 1000 cc gtt, 500 cc bolus then 125 cc /hr during angiogram with contrast per Dr Wasserman. Plan to have angiogram LLE today. VS, I&O, 24H, Fishbone Vital Signs/I&O Vital Signs Date Time Temp Pulse Resp B/P (MAP) Pulse Ox O2 Delivery O2 Flow Rate FiO2 12/04/18 08:53 70 126/68 12/04/18 08:00 98.7 18 96 Room Air I&O- Last 24 Hours up to 6 AM 12/04/18 06:00 Intake Total 1780 ml Output Total 3175 ml Balance -1395 ml Laboratory Data 24H LABS Laboratory Tests 2 12/03/18 12:06: Bedside Glucose (Misc Panel) 94 12/03/18 15:27: Activated Partial Thromboplast Time 127.2*H 12/03/18 16:52: Bedside Glucose (Misc Panel) 91 12/03/18 20:44: Bedside Glucose (Misc Panel) 98 12/04/18 00:20: Activated Partial Thromboplast Time 48.3H 12/04/18 04:55: Activated Partial Thromboplast Time 133.5*H, Immature Granulocyte % (Auto) 0.3, White Blood Count 12.2H, Red Blood Count 3.92L, Hemoglobin 11.7L, Hematocrit 34.6L, Mean Corpuscular Volume 88.3, Mean Corpuscular Hemoglobin 29.8, Mean Corpuscular Hemoglobin Concent 33.8, Red Cell Distribution Width 12.9, Platelet Count 253, Neutrophils (%) (Auto) 62.8, Lymphocytes (%) (Auto) 27.8, Monocytes (%) (Auto) 6.7H, Eosinophils (%) (Auto) 2.0, Basophils (%) (Auto) 0.4, Neutro phils # (Auto) 7.7, Lymphocytes # (Auto) 3.4, Monocytes # (Auto) 0.8, Eosinophils # (Auto) 0.3, Basophils # (Auto) 0.1, Nucleated Red Blood Cells % (auto) 0.0, Blood Urea Nitrogen 14, Creatinine 1.05, Sodium Level 139, Potassium Level 3.9, Chloride Level 106, Carbon Dioxide Level 26, Anion Gap 7L, Glomerular Filtration Rate > 60.0, Calcium Level 8.3L, Phosphorus Level 2.2L, Albumin 3.5 CBC/BMP Laboratory Tests 12/04/18 04:55 Red Blood Count 3.92 L, Mean Corpuscular Volume 88.3, Mean Corpuscular Hemoglobin 29.8, Mean Corpuscular Hemoglobin Concent 33.8, Red Cell Distribution Width 12.9, Neutrophils (%) (Auto) 62.8, Lymphocytes (%) (Auto) 27.8, Monocytes (%) (Auto) 6.7 H, Eosinophils (%) (Auto) 2.0, Basophils (%) (Auto) 0.4, Neutrophils # (Auto) 7.7, Lymphocytes # (Auto) 3.4, Monocytes # (Auto) 0.8, Eosinophils # (Auto) 0.3, Basophils # (Auto) 0.1, Anion Gap 7 L, Calcium Level 8.3 L Microbiology Microbiology 12/02/18 Blood Culture - Preliminary, Resulted No growth after 24 hours . All specim... 12/02/18 Blood Culture - Preliminary, Resulted No growth after 24 hours . All specim... TIGRE WICK PA-C Dec 04, 2018 10:17
[2018-12-04] MEDS ORDERED: CLINDAMYCIN 600 MG in APPROPRIATE DILUENT 1 EA IV SCH (11:00)
[2018-12-04] MEDS: CIPROFLOXACIN 400 MG in APPROPRIATE DILUENT 1 EA IV SCH ×2 (11:14→22:30)
[2018-12-04] MEDS ORDERED: LR 500 ML IV SCH (11:15)
[2018-12-04] MEDS ORDERED: ALTEPLASE 2 MG/2 ML VIAL (J2997 PER 1MG) As Ordered ONE (12:16)
[2018-12-04] MEDS ORDERED: ALTEPLASE RECOMBINANT 10 MG in APPROPRIATE DILUENT 1 EA IV ONE (12:30)
[2018-12-04] MEDS: ALTEPLASE RECOMBINANT 25 MG in NS 225 ML IV SCH (13:19)
[2018-12-04] MEDS: HEPARIN DRIP 25,000 UNITS in APPROPRIATE DILUENT 1 EA IV SCH (13:20)
[2018-12-04] MEDS: NORCO, ANEXSIA 5/325MG TABLET (HYDROcodone/ACETAMINOPHEN) PO PRN ×2 (13:57→20:37)
[2018-12-04 14:04] LABS: INR 1.07
[2018-12-04 18:25] LABS: INR 1.11; PROTHROMBIN TIME 14.5 SECONDS (12.1-14.4)
[2018-12-04 18:33] LABS: HEMATOCRIT 32.8 % (42.0-52.0); HEMOGLOBIN 11.4 g/dl (13.5-17.5)
[2018-12-04] MEDS: CLINDAMYCIN 600 MG in APPROPRIATE DILUENT 1 EA IV SCH (19:24)
[2018-12-04] MEDS: ATORVASTATIN 20 MG TAB PO SCH (20:37)
[2018-12-05] VITALS (20 sets, daily range): BP systolic 85–176; BP diastolic 46–86
[2018-12-05 00:14] LABS: HEMATOCRIT 32.6 % (42.0-52.0); HEMOGLOBIN 11.3 g/dl (13.5-17.5)
[2018-12-05 00:27] LABS: INR 1.1; PROTHROMBIN TIME 14.3 SECONDS (12.1-14.4)
[2018-12-05] MEDS: CLINDAMYCIN 600 MG in APPROPRIATE DILUENT 1 EA IV SCH ×4 (01:36→19:46)
[2018-12-05 06:04] LABS: BASO % 0.4 % (0.0-1.0); EOS # 0.2 10^3/uL (0.0-0.50); EOS % 1.9 % (0.0-3.0); HEMATOCRIT 28.9 % (42.0-52.0); HEMOGLOBIN 9.9 g/dl (13.5-17.5); LYMPH # 2.7 10^3/uL (1.5-4.5); LYMPH % 23.7 % (24.0-44.0); MEAN CORPUSCULAR HGB CONC 34.3 g/dl (32.0-36.5); MEAN CORPUSCULAR VOLUME 87.6 fl (80.0-96.0); MONO # 1.1 10^3/uL (0.0-0.8); MONO % 9.6 % (0.0-5.0); NEUTROPHILS # 7.3 10^3/uL (1.8-7.7); NEUTROPHILS % 64.2 % (36.0-66.0); PLATELET COUNT, AUTOMATED 242 10^3/uL (150-450); WHITE BLOOD COUNT 11.4 10^3/uL (4.0-10.0)
[2018-12-05] MEDS: HEPARIN DRIP 25,000 UNITS in APPROPRIATE DILUENT 1 EA IV SCH (06:10)
[2018-12-05 06:17] LABS: INR 1.12; PROTHROMBIN TIME 14.6 SECONDS (12.1-14.4)
[2018-12-05 06:31] LABS: BLOOD UREA NITROGEN 9 MG/DL (7-18); CALCIUM LEVEL 8.4 MG/DL (8.5-10.1); CARBON DIOXIDE LEVEL 25 MEQ/L (21-32); CHLORIDE LEVEL 104 MEQ/L (98-107); CREATININE FOR GFR 0.87 MG/DL (0.70-1.30); GLOMERULAR FILTRATION RATE > 60.0 (>56); GLUCOSE, FASTING 99 MG/DL (70-100); POTASSIUM SERUM 3.6 MEQ/L (3.5-5.1); SODIUM LEVEL 138 MEQ/L (136-145)
[2018-12-05] MEDS: CLOPIDOGREL 75 MG TAB PO SCH (08:10)
[2018-12-05] MEDS: GABAPENTIN 300 MG CAP PO SCH ×3 (08:10→21:05)
[2018-12-05] MEDS: OMEPRAZOLE 20 MG CAP PO SCH (08:10)
[2018-12-05] MEDS: DOCUSATE SODIUM 100 MG CAP PO SCH ×2 (08:11→21:05)
[2018-12-05] MEDS: amLODIPine 10 MG TAB PO SCH (08:11)
[2018-12-05] MEDS: CIPROFLOXACIN 400 MG in APPROPRIATE DILUENT 1 EA IV SCH ×2 (09:17→21:05)
--- NOTE | 2018-12-05 10:59 | IPN ---
DATE OF SERVICE: 12/04/2018 SUBJECTIVE: Patient was seen and examined at the bedside today morning. The patient was given IV fluid hydration overnight. He has a good urine output. His renal function has improved back to the baseline. He still reports mild amount of pain in the left leg. He is still on heparin drip. He denies any active complaints. OBJECTIVE: VITAL SIGNS: Temperature is 98.7 degrees Fahrenheit, blood pressure 126/68, pulse is 70, respiratory rate of 18, saturating 96% on room air. INTAKE AND OUTPUT: Urine output recorded as 2.6 liters yesterday, 2.3 liters so far today since overnight. Weight on the bed scale is 117.1 kg. PHYSICAL EXAMINATION: GENERAL: Patient is awake, alert and oriented times three, morbidly obese, laying in bed, in no apparent distress. HEAD/NECK EXAM: Extraocular muscles intact. Pupils equally round and reactive to light. Mucous membranes are moist. Neck is supple. There is no jugular venous distention (JVD). CARDIOVASCULAR: S1, S2, regular heart rate. No murmur, rub or gallop. Trace edema of the bilateral lower extremities. RESPIRATORY: Chest is clear to auscultation bilaterally. Bilateral equal air entry. No rales or rhonchi. ABDOMEN: Abdomen is soft, obese. Positive bowel sounds. Nontender. No organomegaly. MUSCULOSKELETAL: Decreased pulses seen in the left leg. Right lower extremity has old surgical scar in the right groin. CENTRAL NERVOUS SYSTEM: No focal deficit. Power is 5/5 in all extremities. PSYCH: Normal mood and affect. LABORATORY REVIEW: CBC showed a WBC of 12.2, hemoglobin 11.7 and platelets are 253. PTT 14.1. BMP today morning showed sodium 139, potassium 3.9, chloride 106, bicarbonate 26, BUN 14, creatinine 1.05, calcium 8.2, phosphorus 2.2, albumin 3.5. Microbiology: Blood cultures are negative so far. CURRENT INPATIENT MEDICATIONS: Patient's medications were all reviewed by me. His IV fluids have finished now. No other change in the medications today as compared with yesterday. His CRESENCIO inhibitor and Lasix were stopped yesterday. ASSESSMENT AND PLAN: 1. Acute renal failure. It was secondary to use of CRESENCIO inhibitor and diuretic along with aspirin at home. The patient's blood pressures are soft. CRESENCIO inhibitor was held yesterday. With IV fluid hydration overnight, his renal function has improved back to his baseline. It is okay to do the angiogram at this point. 2. Acute left lower extremity ischemia. The patient is currently on heparin drip. He is scheduled for an angiogram in the afternoon. I discussed the contrast induced prophylaxis with the vascular surgery PA. The patient needs to get 500 mL of normal saline bolus right before the procedure and after the procedure he will need to continue normal saline at 125 mL/hr for a total of one liter. 3. Hypertension. Blood pressure is acceptable. He has a soft blood pressure. CRESENCIO inhibitors are on hold. It is okay to continue metoprolol with holding parameters. 4. Peripheral vascular disease. Continue current dose of Plavix and heparin drip. The patient is going to get tPA in the left leg. 5. Leukocytosis. The patient has a nonhealing wound in the left transmetatarsal amputation site. Decision to do antibiotics is as per vascular surgery.
[2018-12-05 12:52] LABS: INR 1.05; PROTHROMBIN TIME 13.9 SECONDS (12.1-14.4)
[2018-12-05] MEDS: ALTEPLASE RECOMBINANT 25 MG in NS 225 ML IV SCH (13:18)
[2018-12-05 13:47] LABS: HEMATOCRIT 34.7 % (42.0-52.0)
[2018-12-05] MEDS: CYCLOBENZAPRINE 10 MG TAB PO PRN (13:47)
[2018-12-05] MEDS: NORCO, ANEXSIA 5/325MG TABLET (HYDROcodone/ACETAMINOPHEN) PO PRN (13:48)
[2018-12-05 18:16] LABS: HEMATOCRIT 34.8 % (42.0-52.0); HEMOGLOBIN 12.2 g/dl (13.5-17.5)
[2018-12-05 18:33] LABS: INR 1.05; PROTHROMBIN TIME 13.9 SECONDS (12.1-14.4)
[2018-12-05] MEDS: ATORVASTATIN 20 MG TAB PO SCH (21:05)
[2018-12-06] VITALS (22 sets, daily range): BP systolic 102–143; BP diastolic 51–81
[2018-12-06] MEDS: HEPARIN DRIP 25,000 UNITS in APPROPRIATE DILUENT 1 EA IV SCH ×2 (00:22→18:01)
[2018-12-06 00:36] LABS: HEMATOCRIT 33.8 % (42.0-52.0); HEMOGLOBIN 11.8 g/dl (13.5-17.5)
[2018-12-06 00:48] LABS: INR 1.02; PROTHROMBIN TIME 13.5 SECONDS (12.1-14.4)
[2018-12-06 00:50] LABS: PARTIAL THROMBOPLASTIN TIME 31.5 SECONDS (25.4-37.6)
[2018-12-06] MEDS: CLINDAMYCIN 600 MG in APPROPRIATE DILUENT 1 EA IV SCH ×4 (02:00→20:07)
[2018-12-06 06:40] LABS: BASO % 0.4 % (0.0-1.0); EOS # 0.3 10^3/uL (0.0-0.50); EOS % 3.2 % (0.0-3.0); HEMATOCRIT 34.9 % (42.0-52.0); HEMOGLOBIN 12.1 g/dl (13.5-17.5); LYMPH # 2.8 10^3/uL (1.5-4.5); LYMPH % 26.6 % (24.0-44.0); MEAN CORPUSCULAR HGB CONC 34.7 g/dl (32.0-36.5); MEAN CORPUSCULAR VOLUME 86.4 fl (80.0-96.0); MONO # 0.8 10^3/uL (0.0-0.8); MONO % 7.6 % (0.0-5.0); NEUTROPHILS # 6.5 10^3/uL (1.8-7.7); NEUTROPHILS % 61.8 % (36.0-66.0); PLATELET COUNT, AUTOMATED 240 10^3/uL (150-450); RED BLOOD COUNT 4.04 10^6/uL (4.30-6.10); WHITE BLOOD COUNT 10.5 10^3/uL (4.0-10.0)
[2018-12-06 06:53] LABS: INR 1.05; PROTHROMBIN TIME 13.8 SECONDS (12.1-14.4)
[2018-12-06 06:54] LABS: PARTIAL THROMBOPLASTIN TIME 33.5 SECONDS (25.4-37.6)
[2018-12-06 07:04] LABS: BLOOD UREA NITROGEN 10 MG/DL (7-18); CALCIUM LEVEL 8.4 MG/DL (8.5-10.1); CARBON DIOXIDE LEVEL 24 MEQ/L (21-32); CHLORIDE LEVEL 105 MEQ/L (98-107); CREATININE FOR GFR 0.88 MG/DL (0.70-1.30); GLOMERULAR FILTRATION RATE > 60.0 (>56); GLUCOSE, FASTING 106 MG/DL (70-100); POTASSIUM SERUM 3.7 MEQ/L (3.5-5.1); SODIUM LEVEL 138 MEQ/L (136-145)
[2018-12-06] MEDS: CIPROFLOXACIN 400 MG in APPROPRIATE DILUENT 1 EA IV SCH ×2 (09:34→21:40)
[2018-12-06] MEDS: GABAPENTIN 300 MG CAP PO SCH ×3 (09:34→20:08)
[2018-12-06] MEDS: amLODIPine 10 MG TAB PO SCH (09:39)
[2018-12-06] MEDS: OMEPRAZOLE 20 MG CAP PO SCH (09:40)
[2018-12-06] MEDS: DOCUSATE SODIUM 100 MG CAP PO SCH ×2 (09:40→20:08)
[2018-12-06] MEDS: CLOPIDOGREL 75 MG TAB PO SCH (09:40)
--- NOTE | 2018-12-06 12:30 | IPN ---
DATE OF SERVICE: 12/05/2018 SUBJECTIVE: Patient was seen and examined at the bedside today morning in the intensive care unit (ICU). The patient is afebrile, hemodynamically stable. The patient has a very good urine output. His renal function is stable. Creatinine has improved back to baseline. The patient got the angiogram of the left lower extremity done yesterday. He is currently on tPA and heparin drip. He reports that his left leg pain and numbness is getting better. OBJECTIVE: VITAL SIGNS: Temperature is 98.2 degrees Fahrenheit, blood pressure 138/69, pulse is 81, respiratory rate of 20, saturating 95% on room air. INTAKE AND OUTPUT: Urine output recorded as 2.3 liters yesterday, 2.8 liters so far today since overnight. Weight on the bed scale is 116.8 kg. PHYSICAL EXAMINATION: GENERAL: Patient is awake, alert and oriented times three, laying in bed, obese, in no apparent distress. HEAD/NECK EXAM: Extraocular muscles intact. Pupils equally round and reactive to light. Mucous membranes are moist. Neck is supple. There is no jugular venous distention (JVD). CARDIOVASCULAR: S1, S2, regular heart rate. No murmur, rub or gallop. RESPIRATORY: Chest is clear to auscultation bilaterally. Bilateral equal air entry. No rales or rhonchi. ABDOMEN: Abdomen is soft, obese. Positive bowel sounds. Nontender. No organomegaly. MUSCULOSKELETAL: Left leg has improved pulsation. Transmetatarsal amputation site is covered with a dressing. CENTRAL NERVOUS SYSTEM: No focal deficit. Power is 5/5 in bilateral upper extremities. LABORATORY REVIEW: CBC showed a WBC of 11.4, hemoglobin 12 and platelets are 242. BMP showed sodium 138, potassium 3.6, chloride 104, bicarbonate 25, BUN 9, creatinine 0.87, calcium 8.4. CURRENT INPATIENT MEDICATIONS: Patient is currently on heparin drip. He is also on ciprofloxacin 400 mg every 12 hours and clindamycin 600 mg every 6 hours. He is also on tPA. No other change in the medications today as compared with yesterday. ASSESSMENT AND PLAN: 1. Acute kidney injury. The patient's renal function continues to improve. Creatinine is down to 0.8, which is close to his baseline. He got IV fluid hydration before and during the IV contrast study. Continue to monitor renal function. 2. Acute left lower extremity ischemia. Status post angiogram of the left leg. The patient is currently on heparin and tPA. Contrast induced nephropathy can manifest up to 48 hours. I would monitor the patient for the next 24 hours as well. 3. Hypertension. Blood pressure is acceptable. Continue metoprolol. Lisinopril was held on admission because of acute renal failure. If his renal function stays stable, I would resume his CRESENCIO inhibitor tomorrow morning.
[2018-12-06 12:45] LABS: HEMATOCRIT 36.2 % (42.0-52.0); HEMOGLOBIN 12.5 g/dl (13.5-17.5)
[2018-12-06 12:59] LABS: PROTHROMBIN TIME 13.3 SECONDS (12.1-14.4)
[2018-12-06 13:00] LABS: PARTIAL THROMBOPLASTIN TIME 34.3 SECONDS (25.4-37.6)
[2018-12-06] MEDS: ALTEPLASE RECOMBINANT 25 MG in NS 225 ML IV SCH (13:33)
[2018-12-06] MEDS: NORCO, ANEXSIA 5/325MG TABLET (HYDROcodone/ACETAMINOPHEN) PO PRN (18:02)
[2018-12-06] MEDS: CYCLOBENZAPRINE 10 MG TAB PO PRN (18:02)
[2018-12-06 18:22] LABS: HEMATOCRIT 34.3 % (42.0-52.0); HEMOGLOBIN 12.1 g/dl (13.5-17.5)
[2018-12-06 18:55] LABS: INR 0.97
[2018-12-06 18:56] LABS: PARTIAL THROMBOPLASTIN TIME 30.2 SECONDS (25.4-37.6)
[2018-12-06] MEDS: ATORVASTATIN 20 MG TAB PO SCH (20:08)
[2018-12-07] VITALS (18 sets, daily range): BP systolic 119–153; BP diastolic 56–88
[2018-12-07] MEDS: NORCO, ANEXSIA 5/325MG TABLET (HYDROcodone/ACETAMINOPHEN) PO PRN ×2 (00:23→17:38)
[2018-12-07 01:00] LABS: HEMATOCRIT 34.4 % (42.0-52.0); HEMOGLOBIN 11.9 g/dl (13.5-17.5)
[2018-12-07 01:11] LABS: INR 0.95; PROTHROMBIN TIME 12.8 SECONDS (12.1-14.4)
[2018-12-07] MEDS: CLINDAMYCIN 600 MG in APPROPRIATE DILUENT 1 EA IV SCH ×4 (01:49→20:26)
[2018-12-07 06:20] LABS: BASO % 0.4 % (0.0-1.0); EOS # 0.4 10^3/uL (0.0-0.50); EOS % 3.5 % (0.0-3.0); HEMATOCRIT 33.6 % (42.0-52.0); HEMOGLOBIN 11.8 g/dl (13.5-17.5); LYMPH # 3.7 10^3/uL (1.5-4.5); LYMPH % 32.9 % (24.0-44.0); MEAN CORPUSCULAR HEMOGLOBIN 29.5 pg (27.0-33.0); MEAN CORPUSCULAR HGB CONC 35.1 g/dl (32.0-36.5); MONO # 0.8 10^3/uL (0.0-0.8); MONO % 7.3 % (0.0-5.0); NEUTROPHILS # 6.3 10^3/uL (1.8-7.7); NEUTROPHILS % 55.6 % (36.0-66.0); PLATELET COUNT, AUTOMATED 216 10^3/uL (150-450); WHITE BLOOD COUNT 11.3 10^3/uL (4.0-10.0)
[2018-12-07 06:34] LABS: INR 0.99; PROTHROMBIN TIME 13.2 SECONDS (12.1-14.4)
[2018-12-07 06:45] LABS: BLOOD UREA NITROGEN 11 MG/DL (7-18); CALCIUM LEVEL 8.2 MG/DL (8.5-10.1); CARBON DIOXIDE LEVEL 23 MEQ/L (21-32); CHLORIDE LEVEL 106 MEQ/L (98-107); CREATININE FOR GFR 0.98 MG/DL (0.70-1.30); GLOMERULAR FILTRATION RATE > 60.0 (>56); GLUCOSE, FASTING 93 MG/DL (70-100); POTASSIUM SERUM 3.8 MEQ/L (3.5-5.1); SODIUM LEVEL 139 MEQ/L (136-145)
[2018-12-07] MEDS: GABAPENTIN 300 MG CAP PO SCH ×3 (08:29→20:28)
[2018-12-07] MEDS: OMEPRAZOLE 20 MG CAP PO SCH (08:30)
[2018-12-07] MEDS: DOCUSATE SODIUM 100 MG CAP PO SCH ×2 (08:30→20:27)
[2018-12-07] MEDS: CLOPIDOGREL 75 MG TAB PO SCH (08:30)
[2018-12-07] MEDS: amLODIPine 10 MG TAB PO SCH (08:30)
[2018-12-07] MEDS ORDERED: FUROSEMIDE 20 MG TAB PO SCH (09:00)
[2018-12-07] MEDS: CIPROFLOXACIN 400 MG in APPROPRIATE DILUENT 1 EA IV SCH ×2 (10:00→22:00)
[2018-12-07] MEDS: HEPARIN DRIP 25,000 UNITS in APPROPRIATE DILUENT 1 EA IV SCH (10:58)
[2018-12-07 13:29] LABS: HEMATOCRIT 35.8 % (42.0-52.0); HEMOGLOBIN 12.7 g/dl (13.5-17.5)
[2018-12-07] MEDS: ALTEPLASE RECOMBINANT 25 MG in NS 225 ML IV SCH (13:38)
[2018-12-07 13:43] LABS: INR 0.96; PROTHROMBIN TIME 12.9 SECONDS (12.1-14.4)
[2018-12-07] MEDS ORDERED: fentaNYL 100 MCG/2 ML INJECTION (J3010) As Ordered ONE (15:16)
[2018-12-07] MEDS ORDERED: MIDAZOLAM INJ 2 MG/2 ML VIAL (J2250) As Ordered ONE (15:17)
[2018-12-07] MEDS ORDERED: LIDOCAINE 2% MDV 20 ML VIAL As Ordered ONE (15:17)
[2018-12-07] MEDS ORDERED: ISOVUE-300 61% 50ML VIAL (Q9967) As Ordered ONE (15:17)
[2018-12-07] MEDS: CYCLOBENZAPRINE 10 MG TAB PO PRN (17:38)
[2018-12-07] MEDS ORDERED: MOM 30ML SUSPENSION UDC PO PRN (18:00)
[2018-12-07] MEDS ORDERED: BISACODYL 10 MG SUPP PR PRN (18:45)
--- NOTE | 2018-12-07 19:47 | IPN ---
DATE: 12/07/2018 SUBJECTIVE: Patient seen and examined this morning at the bedside. Denies any acute overnight events or complaints. He has been having some issues from the right inguinal surgical site and Dr. Gaviria is taking him back to the operating room (OR) this evening for further vascular intervention. VITAL SIGNS: Temperature 98.4, pulse 72, respiratory rate 18, blood pressure 136/85, saturating 97% on room air. Intake yesterday was 2300, urine output yesterday was 1600, net positive 730 mL. Weight on the bed scale today is not recorded. General: Patient is seen lying in bed, comfortable, awake, alert, oriented. No focal deficit. Extraocular muscles are intact. Tongue is moist. Neck is supple. Jugular veins are not elevated. Cardiac: S1, S2, regular rate and rhythm. No murmur, rub, or gallop. Respiratory: Lungs are clear to auscultation bilaterally. No crackle or rale. Abdomen: Soft and nontender. Positive bowel sounds. Musculoskeletal: Left leg with improved pulsation. Dressing present on the right groin. Neurologic: No focal deficit. Oriented, interactive, conversational. LABORATORY: White count 11.3, hemoglobin 11.8. Sodium 139, potassium 3.8, bicarbonate 23, BUN 11, creatinine 0.9. INPATIENT MEDICATIONS: He received a dose of Lasix 20 mg times one this morning orally. His remainder of medications are unchanged from prior. PROBLEMS: 1. Occlusive peripheral vascular disease with left lower extremity ischemia, status post angiogram and vascular intervention, now on a heparin drip and alteplase. Patient informs me that he is going back for further vascular intervention this evening. Given that there is probably going to be contrast administration, I would hold off on resuming his angiotensin-converting enzyme (CRESENCIO) inhibitor or his diuretic. He did get one dose of 20 mg Lasix this morning and further doses have been discontinued. 2. Status post acute kidney injury (J CARLOS). Renal function has recovered to the patient's baseline. His electrolytes and volume status are acceptable. I had planned to resume him back on his home diuretic and low dose CRESENCIO inhibitor; however, he is going for repeat vascular intervention this evening. Hence, we will continue to hold all potential nephrotoxics given that he is going to likely have further contrast administration.
[2018-12-07] MEDS: ATORVASTATIN 20 MG TAB PO SCH (20:26)
--- NOTE | 2018-12-07 21:44 | IPN ---
DATE: 12/06/2018 SUBJECTIVE: Patient is seen and examined this morning at the bedside in the intensive care unit. He denies any acute overnight events or issues. He has had a brisk urine output, made four liters in the past 24 hours. Denies any shortness of breath. He reports his left leg pain is improving. VITAL SIGNS: Temperature 98.0, pulse 78, respiratory rate 18, blood pressure 115/57, saturating 96% on room air. Intake yesterday was 2600. Urine output yesterday was 4050. Net negative 1435. Weight on the bed scale today is 113.4 kg, which is decreased from prior. General: The patient is seen lying in bed, awake, alert, oriented times three, in no distress. Extraocular muscles are intact. Mucous membranes are moist. Neck is supple. There is no jugular venous distention. Cardiac: S1, S2, regular heart rate. No murmur, rub, or gallop. Lungs are clear to auscultation bilaterally. No rales or rhonchi. Abdomen is soft and obese, and there are bowel sounds. Nontender. Genitourinary shows no suprapubic fullness. Musculoskeletal: There is some fullness of the left leg. There is no edema on the right lower extremity. Neurologic: Oriented. No focal deficit. LABORATORY: Hemoglobin 12.1. Sodium 138, potassium 3.7, bicarbonate 24, creatinine 0.8. INPATIENT MEDICATIONS: Reviewed by myself. He continues on alteplase and a heparin drip. His remainder of medications are unchanged from prior. PROBLEMS: 1. Acute kidney injury (J CARLOS) on chronic kidney disease stage II. His J CARLOS has resolved. His renal function is at his baseline. He received IV fluid pre- and post-contrast administration. He does not require any further IV fluid. 2. Hypertension. Blood pressures are well controlled. He continues on amlodipine. At home, he takes lisinopril 20 mg daily. This was held because of the initial J CARLOS, and I would continue to hold the lisinopril given that his systolic is 110 to 120s and well controlled with amlodipine alone. He also takes Lasix 20 mg at home daily, but given his four liter urine output yesterday and his down trending daily weight, I would continue to hold the Lasix at present.
[2018-12-08] VITALS: BP 137/76
[2018-12-08] MEDS: CLINDAMYCIN 600 MG in APPROPRIATE DILUENT 1 EA IV SCH (02:59)
[2018-12-08 03:00] VITALS: BP 135/79
[2018-12-08] MEDS: NORCO, ANEXSIA 5/325MG TABLET (HYDROcodone/ACETAMINOPHEN) PO PRN ×2 (03:04→17:29)
[2018-12-08 04:52] LABS: BASO # 0.1 10^3/uL (0.0-0.2); BASO % 0.4 % (0.0-1.0); EOS # 0.3 10^3/uL (0.0-0.50); EOS % 2.2 % (0.0-3.0); HEMATOCRIT 39.5 % (42.0-52.0); HEMOGLOBIN 13.5 g/dl (13.5-17.5); LYMPH # 3.2 10^3/uL (1.5-4.5); LYMPH % 23.4 % (24.0-44.0); MEAN CORPUSCULAR HEMOGLOBIN 30.2 pg (27.0-33.0); MEAN CORPUSCULAR HGB CONC 34.2 g/dl (32.0-36.5); MEAN CORPUSCULAR VOLUME 88.4 fl (80.0-96.0); MONO # 0.8 10^3/uL (0.0-0.8); NEUTROPHILS # 9.3 10^3/uL (1.8-7.7); NEUTROPHILS % 67.7 % (36.0-66.0); PLATELET COUNT, AUTOMATED 217 10^3/uL (150-450); RED BLOOD COUNT 4.47 10^6/uL (4.30-6.10); WHITE BLOOD COUNT 13.8 10^3/uL (4.0-10.0)
[2018-12-08 05:17] LABS: BLOOD UREA NITROGEN 13 MG/DL (7-18); CALCIUM LEVEL 8.8 MG/DL (8.5-10.1); CARBON DIOXIDE LEVEL 18 MEQ/L (21-32); CHLORIDE LEVEL 105 MEQ/L (98-107); CREATININE FOR GFR 1.18 MG/DL (0.70-1.30); GLOMERULAR FILTRATION RATE > 60.0 (>56); GLUCOSE, FASTING 117 MG/DL (70-100); MAGNESIUM LEVEL 1.9 MG/DL (1.8-2.4); POTASSIUM SERUM 4.2 MEQ/L (3.5-5.1); SODIUM LEVEL 132 MEQ/L (136-145)
[2018-12-08 08:00] VITALS: BP 163/78
[2018-12-08] MEDS: DOCUSATE SODIUM 100 MG CAP PO SCH ×2 (08:23→20:55)
[2018-12-08] MEDS: GABAPENTIN 300 MG CAP PO SCH ×3 (08:24→20:55)
[2018-12-08] MEDS: CLOPIDOGREL 75 MG TAB PO SCH (08:24)
[2018-12-08] MEDS: OMEPRAZOLE 20 MG CAP PO SCH (08:24)
[2018-12-08] MEDS: amLODIPine 10 MG TAB PO SCH (08:25)
[2018-12-08] MEDS ORDERED: NS 1,000 ML IV SCH (09:45)
[2018-12-08] MEDS: CIPROFLOXACIN 500 MG TAB PO SCH ×2 (11:35→17:25)
[2018-12-08] MEDS: CLINDAMYCIN 150 MG CAP PO SCH ×3 (11:35→20:54)
[2018-12-08] MEDS: APIXABAN 2.5 MG TAB (ELIQUIS) PO SCH ×2 (11:35→20:55)
[2018-12-08 12:00] VITALS: BP 155/83
--- NOTE | 2018-12-08 15:36 | IPNPDOC ---
Subjective Date Seen The patient was seen on 12/08/18. Subjective Chief Complaint/HPI LLE pain and coldness and numbness resolved. No c/o. Objective Physical Examination General Exam: Positive: Alert, Mild Distress Eye Exam: Positive: PERRLA, EOMI ENT Exam: Positive: Atraumatic Neck Exam: Positive: Supple, +2 carotid pulse wo bruit Chest Exam: Positive: Clear to auscultation, Normal air movement; Negative: Rales, Rhonchi, Wheezing, Diminished, Other Heart Exam: Positive: Rate Normal, Regular Rhythm, Normal S1, Normal S2; Negative: Gallops, Murmurs, Rubs, Other Abdomen Exam: Positive: Normal bowel sounds, Soft; Negative: Tenderness, Mass, Other Extremity Exam: Positive: Edema (Lt stump foot mild edema and warm.), Normal pulses (Lt: PT + DP audible. Rt DP and PT audible triphsic), Other (Lt stump nonhealing wound 2 x 1 x 0.2 cm w/o purulent discharge.); Negative: Clubbing, Cyanosis, Tenderness, Swelling Assessment /Plan Assessment 1. Occlusive PVD with acute LLE ischemia Symptoms resolved with thrombolysis and anticoagulation 2. Nonhealing wound Lt stump with leukocytosis 13.8, afebrile On IV clindamycin and IV Cipro. No Sx/S infection Plan/VTE VTE Prophylaxis Ordered?: Yes Plan Continue Plavix 75 mg daily Start Eliquis 2.5 mg po bid DC IV Clindamycin and IV Cirpo Start Clindamycin 300 mg po tid Start Cipro 500 mg po bid. Dressing change daily Transfer to floor Plan to DC home tomorrow. VS, I&O, 24H, Hector Vital Signs/I&O Vital Signs Date Time Temp Pulse Resp B/P (MAP) Pulse Ox O2 Delivery O2 Flow Rate FiO2 12/08/18 12:00 98.8 79 16 155/83 (107) 98 Room Air I&O- Last 24 Hours up to 6 AM 12/08/18 06:00 Intake Total 1724 ml Output Total 900 ml Balance 824 ml Laboratory Data 24H LABS Laboratory Tests 2 12/08/18 04:37: Immature Granulocyte % (Auto) 0.3, White Blood Count 13.8H, Red Blood Count 4.47, Hemoglobin 13.5, Hematocrit 39.5L, Mean Corpuscular Volume 88.4, Mean Corpuscular Hemoglobin 30.2, Mean Corpuscular Hemoglobin Concent 34.2, Red Cell Distribution Width 12.6, Platelet Count 217, Neutrophils (%) (Auto) 67.7H, Lymphocytes (%) (Auto) 23.4L, Monocytes (%) (Auto) 6.0H, Eosinophils (%) (Auto) 2.2, Basophils (%) (Auto) 0.4, Neutrophils # (Auto) 9.3H, Lymphocytes # (Auto) 3.2, Monocytes # (Auto) 0.8, Eosinophils # (Auto) 0.3, Basophils # (Auto) 0.1, Nucleated Red Blood Cells % (auto) 0.0, Anion Gap 9, Glomerular Filtration Rate > 60.0, Blood Urea Nitrogen 13, Creatinine 1.18, Sodium Level 132#L, Potassium Level 4.2, Chloride Level 105, Carbon Dioxide Level 18L, Calcium Level 8.8, Magnesium Level 1.9 CBC/BMP Laboratory Tests 12/08/18 04:37 Red Blood Count 4.47, Mean Corpuscular Volume 88.4, Mean Corpuscular Hemoglobin 30.2, Mean Corpuscular Hemoglobin Concent 34.2, Red Cell Distribution Width 12. 6, Neutrophils (%) (Auto) 67.7 H, Lymphocytes (%) (Auto) 23.4 L, Monocytes (%) (Auto) 6.0 H, Eosinophils (%) (Auto) 2.2, Basophils (%) (Auto) 0.4, Neutrophils # (Auto) 9.3 H, Lymphocytes # (Auto) 3.2, Monocytes # (Auto) 0.8, Eosinophils # (Auto) 0.3, Basophils # (Auto) 0.1, Calcium Level 8.8 Microbiology Microbiology 12/02/18 Blood Culture - Final, Complete NO GROWTH AFTER 5 DAYS 12/02/18 Blood Culture - Final, Complete NO GROWTH AFTER 5 DAYS TIGRE WICK PA-C Dec 08, 2018 15:36
[2018-12-08 16:00] VITALS: BP 147/70
--- NOTE | 2018-12-08 18:46 | IPNPDOC ---
Text Note Date of Service The patient was seen on 12/08/18. NOTE SUBJECTIVE: Patient was examined this morning in the ICU. There were no overn ight activities to report. He continues to be afebrile. Denies chest pain, denies nausea, denied vomiting, denies changes in vision. Denies shortness of breath, or difficulty breathing. He underwent a recent vascular procedure performed by Dr. Gaviria. He tolerated the procedure without difficulty. SUBJECTIVE VITAL SIGNS: See Below General: Elderly gentleman, resting comfortably in bed with the lights off. Easily awoken, alert and oriented 3 ENT: Mucous membranes are moist. Neck is supple. There is no jugular venous distention. Cardiac: S1, S2, regular heart rate. No murmur, rub, or gallop. Lungs: CTAB Abdomen: soft and obese,Nontender. Genitourinary shows no suprapubic fullness. no bryant cath Musculoskeletal: No edema, no cyanosis, no deformities Neurologic: Oriented. No focal deficit. LABORATORY: Reviewed see below PROBLEMS: 1. Acute kidney injury (J CARLOS) on chronic kidney disease stage II. Renal function has returned back to baseline. He had a total of 1100 milliliters of urine output yesterday, as of today, patient has a total of 650 mL of urine production. He is currently optimized fluid lopez. 2. Hypertension. Patient was previously controlled on amlodipine, lasix and lisinopril. His blood pressure appears to be well-controlled on the amlodipine. If that stops being the case, beta blockers can use for blood pressure control. His lisinopril and Lasix, which where both being used for blood pressure control where held due to his kidney injury. Continue to hold VS,Fishbone, I+O VS, Fishbone, I+O Laboratory Tests 12/08/18 04:37 Red Blood Count 4.47, Mean Corpuscular Volume 88.4, Mean Corpuscular Hemoglobin 30.2, Mean Corpuscular Hemoglobin Concent 34.2, Red Cell Distribution Width 12.6, Neutrophils (%) (Auto) 67.7 H, Lymphocytes (%) (Auto) 23.4 L, Monocytes (%) (Auto) 6.0 H, Eosinophils (%) (Auto) 2.2, Basophils (%) (Auto) 0.4, Neutrophils # (Auto) 9.3 H, Lymphocytes # (Auto) 3.2, Monocytes # (Auto) 0.8, Eosinophils # (Auto) 0.3, Basophils # (Auto) 0.1, Calcium Level 8.8 Vital Signs Date Time Temp Pulse Resp B/P (MAP) Pulse Ox O2 Delivery O2 Flow Rate FiO2 12/08/18 18:00 16 12/08/18 17:29 103 149/75 100 Room Air 12/08/18 16:00 98.9 I&O- Last 24 Hours up to 6 AM 12/08/18 06:00 Intake Total 1724 ml Output Total 900 ml Balance 824 ml GME ATTESTATION GME ATTESTATION My faculty preceptor for this patient encounter was physically present during the encounter and was fully available. All aspects of the patient interview, examination, medical decision making process, and medical care plan development were reviewed and approved by the faculty preceptor. The faculty preceptor is aware and concurs with the plan as stated in the body of this note and will attest to such by his/her cosignature. BELLA TOMPKINS DO Dec 08, 2018 18:46
[2018-12-08 20:00] VITALS: BP 124/67
[2018-12-08] MEDS: ATORVASTATIN 20 MG TAB PO SCH (20:55)
[2018-12-09 04:00] VITALS: BP 129/71
[2018-12-09 05:08] LABS: BASO % 0.3 % (0.0-1.0); EOS # 0.3 10^3/uL (0.0-0.50); EOS % 2.1 % (0.0-3.0); HEMATOCRIT 34.8 % (42.0-52.0); HEMOGLOBIN 12.1 g/dl (13.5-17.5); LYMPH # 3.4 10^3/uL (1.5-4.5); LYMPH % 24.7 % (24.0-44.0); MEAN CORPUSCULAR HGB CONC 34.8 g/dl (32.0-36.5); MEAN CORPUSCULAR VOLUME 86.4 fl (80.0-96.0); MONO % 7.4 % (0.0-5.0); NEUTROPHILS # 8.8 10^3/uL (1.8-7.7); NEUTROPHILS % 65.1 % (36.0-66.0); PLATELET COUNT, AUTOMATED 278 10^3/uL (150-450); RED BLOOD COUNT 4.03 10^6/uL (4.30-6.10); WHITE BLOOD COUNT 13.6 10^3/uL (4.0-10.0)
[2018-12-09 05:23] LABS: BLOOD UREA NITROGEN 12 MG/DL (7-18); CALCIUM LEVEL 8.6 MG/DL (8.5-10.1); CARBON DIOXIDE LEVEL 27 MEQ/L (21-32); CHLORIDE LEVEL 105 MEQ/L (98-107); CREATININE FOR GFR 1.03 MG/DL (0.70-1.30); GLOMERULAR FILTRATION RATE > 60.0 (>56); GLUCOSE, FASTING 94 MG/DL (70-100); POTASSIUM SERUM 3.8 MEQ/L (3.5-5.1); SODIUM LEVEL 136 MEQ/L (136-145)
[2018-12-09] MEDS: CIPROFLOXACIN 500 MG TAB PO SCH (06:51)
[2018-12-09] MEDS: APIXABAN 2.5 MG TAB (ELIQUIS) PO SCH (08:28)
[2018-12-09] MEDS: CLOPIDOGREL 75 MG TAB PO SCH (08:28)
[2018-12-09] MEDS: GABAPENTIN 300 MG CAP PO SCH (08:28)
[2018-12-09] MEDS: OMEPRAZOLE 20 MG CAP PO SCH (08:28)
[2018-12-09] MEDS: CLINDAMYCIN 150 MG CAP PO SCH (08:28)
[2018-12-09 08:32] VITALS: BP 127/72
[2018-12-09] MEDS: DOCUSATE SODIUM 100 MG CAP PO SCH (08:32)
[2018-12-09] MEDS: amLODIPine 10 MG TAB PO SCH (08:32)
[2018-12-09 08:33] VITALS: BP 127/72
[2018-12-09] MEDS ORDERED: CIPR-249 PO (14:32)
[2018-12-09] MEDS ORDERED: ELIQ2.5T PO (14:32)
[2018-12-09] MEDS ORDERED: CLEO150C PO ×2 (14:32→14:35)
--- NOTE | 2018-12-09 14:46 | IPNPDOC ---
Subjective Date Seen The patient was seen on 12/09/18. Subjective Chief Complaint/HPI Doing well and no c/o. Ready to go home. Objective Physical Examination General Exam: Positive: Alert, Mild Distress Eye Exam: Positive: PERRLA, EOMI ENT Exam: Positive: Atraumatic Neck Exam: Positive: Supple, +2 carotid pulse wo bruit Chest Exam: Positive: Clear to auscultation, Normal air movement; Negative: Rales, Rhonchi, Wheezing, Diminished, Other Heart Exam: Positive: Rate Normal, Regular Rhythm, Normal S1, Normal S2; Negative: Gallops, Murmurs, Rubs, Other Abdomen Exam: Positive: Normal bowel sounds, Soft; Negative: Tenderness, Mass, Other Extremity Exam: Positive: Edema (Lt stump foot mild edema and warm.), Normal pulses (Lt: PT + DP audible. Rt DP and PT audible triphsic), Other (Lt stump nonhealing wound improved w/ mini drainage); Negative: Clubbing, Cyanosis, Tenderness, Swelling Assessment /Plan Assessment 1. Occlusive PVD with acute LLE ischemia, s/p thrombolysis Pt was successfully revascularized with thrombolysis and anticoagulation. His distal pulses remain audible and solid. Ready for DC home. 2. Nonhealing wound Lt stump with leukocytosis 13.3 vs 13.8, afebrile, No Sx/S infection, likely reactive. On po clindamycin and Cipro. Plan/VTE VTE Prophylaxis Ordered?: Yes Plan DC home today Continue on Eliquis 2.5 mg bid x 30 days with 5 refills Continue on Plavix 75 mg daily Continue on Cipro 500 mg bid x 30 days Continue on Clindamycin 300 mg tid x 30 days Dressing change with optifoam daily F/u with Dr Gaviria in 1 week VS, I&O, 24H, Hector Vital Signs/I&O Vital Signs Date Time Temp Pulse Resp B/P (MAP) Pulse Ox O2 Delivery O2 Flow Rate FiO2 12/09/18 08:33 98.3 80 16 127/72 (90) 96 Room Air I&O- Last 24 Hours up to 6 AM 12/09/18 06:00 Intake Total 880 ml Output Total 800 ml Balance 80 ml Laboratory Data 24H LABS Laboratory Tests 2 12/09/18 04:47: Immature Granulocyte % (Auto) 0.4, White Blood Count 13.6H, Red Blood Count 4.03L, Hemoglobin 12.1L, Hematocrit 34.8L, Mean Corpuscular Volume 86.4, Mean Corpuscular Hemoglobin 30.0, Mean Corpuscular Hemoglobin Concent 34.8, Red Cell Distribution Width 12.6, Platelet Count 278, Neutrophils (%) (Auto) 65.1, Lymphocytes (%) (Auto) 24.7, Monocytes (%) (Auto) 7.4H, Eosinophils (%) (Auto) 2.1, Basophils (%) (Auto) 0.3, Neutrophils # (Auto) 8.8H, Lymphocytes # (Auto) 3.4, Monocytes # (Auto) 1.0H, Eosinophils # (Auto) 0.3, Basophils # (Auto) 0.0, Nucleated Red Blood Cells % (auto) 0.0, Anion Gap 4L, Glomerular Filtration Rate > 60.0, Blood Urea Nitrogen 12, Creatinine 1.03, Sodium Level 136, Potassium Level 3.8, Chloride Level 105, Carbon Dioxide Level 27, Calcium Level 8.6 CBC/BMP Laboratory Tests 12/09/18 04:47 Red Blood Count 4.03 L, Mean Corpuscular Volume 86.4, Mean Corpuscular Hemoglobin 30.0, Mean Corpuscular Hemoglobin Concent 34.8, Red Cell Distribution Width 12.6, Neutrophils (%) (Auto) 65.1, Lymphocytes (%) (Auto) 24.7, Monocytes (%) (Auto) 7.4 H, Eosinophils (%) (Auto) 2.1, Basophils (%) (Auto) 0.3, Neutrophils # (Auto) 8.8 H, Lymphocytes # (Auto) 3.4, Monocytes # (Auto) 1.0 H, Eosinophils # (Auto) 0.3, Basophils # (Auto) 0.0, Calcium Level 8.6 Microbiology Microbiology 12/02/18 Blood Culture - Final, Complete NO GROWTH AFTER 5 DAYS 12/02/18 Blood Culture - Final, Complete NO GROWTH AFTER 5 DAYS TIGRE WICK PA-C Dec 09, 2018 14:45
--- NOTE | 2018-12-09 15:24 | DS.PDOC ---
Discharge Summary General Date of Admission Dec 02, 2018 at 16:07 Date of Discharge 12/09/18 Attending Physician: Jose Gaviria MD Discharge Summary PROCEDURES PERFORMED DURING STAY: Angiogram LLE ADMITTING DIAGNOSES: 1. Occlusive PVD with acute LLE ischemia 2. Nonhealing stump wound of lt foot s/p TMA 3. Chest pain on unclear cause DISCHARGE DIAGNOSES: 1. Occlusive PVD with resolution of acute LLE ischemia 2. Nonhealing stump wound of lt foot s/p TMA COMPLICATIONS/CHIEF COMPLAINT: Peripheral Vascular Disease. HISTORY OF PRESENT ILLNESS: A 48 yo male with severe BLE PVD presents to ER this morning with Left chest pain and left groin pain, thigh pain and numbness all the ways down to Left foot stump. 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 In February,, pt has ischemia and gangrene of his left 1st-3rd toes. An angiogram showed complete occlusion of his Lt LOU and EIA. The tibial vessel down to ankle was complete occluded with collateral flow into the foot and toes. Pt underwent Lt femoral endarterectomy as well as recanalization and thrombectomy and angioplasty stenting of the Lt LOU and EIA on 02/19/18. Pt has a wound on the dorsum of his foot from ischemia and also underwent amputation of his toes with closure of the wound on 03/19/18. Pt has been following up with Dr Gaviria. His Lt stump wound has mostly healed except a small opening in mid-lateral aspect of dorsal stump. Pt was hospitalized on 09/05/18 with syncope and rhabdomyolysis. Pt was taking excessive narcotics for his LLE pain. An arterial US was performed with finding of completely occluded iliac stent. Pt was transferred to Dr Lu at [facility] d/t Dr Gaviria's absence for illness. Pt was doing well during his most recent office visit in October. Pt stated he started pain up all night with Lt groin, then Lt thigh, numbness and coldness all the way down to the stump foot. He started constant left sided chest pain since 6:00 am. So he was brought to ER for evaluation. Trop wnl, EKG wnl. LLE distal is pulseless. Dr Gaviria of vascular surgery was consulted for further evaluation and management. Pt was admitted with acute LLE ischemia. Heparin drip was started in ER. HOSPITAL COURSE: Pt was started with thrombolysis and anticoagulation. Angiogram LLE 12/04/18 demonstrated complete occlusion of the Lt LOU stent that has resolved on repeat angiogram on 12/07/18. His LLE pain, coldness and numbness and tingling have resolved completely with solid distal pulses. Pt was switched on Eliquis 2.5 mg bid. Since admission, pt was also put on empirical IV Clindamycin and IV Cipro for his nonhealing stump wound. The wound has improved significantly as well. His chest pain was self limited and all workups were negative. Pt was doing well and ready for discharge. Pt was discharged on Eliquis, Plavix, PO Cipro and Clindamycin. Pt's will jeronimo the dressing for his stump wound daily. DISCHARGE MEDICATIONS: Please see below. ALLERGIES: Please see below. PHYSICAL EXAMINATION ON DISCHARGE: VITAL SIGNS: Please see below. GENERAL: AAO x3 HEENT: NCAD, LOIDA, EOMI NECK: Supple, no carotid bruits CARDIOVASCULAR EXAMINATION: RRR, no G/M/R, PP: Lt DP and PT audible solid, Rt DP and PT palpable RESPIRATORY EXAMINATION: CTAB ABDOMINAL EXAMINATION: BS nl, NT/ND, no mass EXTREMITIES: No C/C/E in RLE. LLE: s/p TMA, warm with good perfusion, a stump wound improved with mini serous drainage on dressing SKIN: moist and warm NEUROLOGICAL EXAMINATION: CN 2-12, motor and sensation intact, no focal deficits PSYCHIATRIC EXAMINATION: Appropriate mood and affect LABORATORY DATA: Please see below. IMAGING: Angiogram LLE x2 PROGNOSIS: Good ACTIVITY: As tolerated. DIET: DASH Diet DISCHARGE PLAN: discharge today DISPOSITION: home. DISCHARGE INSTRUCTIONS: Continue dressing change of Lt foot ulcer daily with optifoam Smoking cessation ITEMS TO FOLLOWUP ON ON OUTPATIENT: F/u with Dr Gaviria in 1 week DISCHARGE CONDITION: good TIME SPENT ON DISCHARGE: Greater than 60 minutes. Vital Signs/I&Os Vital Signs Date Time Temp Pulse Resp B/P (MAP) Pulse Ox O2 Delivery O2 Flow Rate FiO2 12/09/18 08:33 98.3 80 16 127/72 (90) 96 Room Air I&O- Last 24 Hours up to 6 AM 12/09/18 06:00 Intake Total 880 ml Output Total 800 ml Balance 80 ml Laboratory Data Labs 24H Laboratory Tests 2 12/09/18 04:47: Immature Granulocyte % (Auto) 0.4, White Blood Count 13.6H, Red Blood Count 4.03L, Hemoglobin 12.1L, Hematocrit 34.8L, Mean Corpuscular Volume 86.4, Mean Corpuscular Hemoglobin 30.0, Mean Corpuscular Hemoglobin Concent 34.8, Red Cell Distribution Width 12.6, Platelet Count 278, Neutrophils (%) (Auto) 65.1, Lymphocytes (%) (Auto) 24.7, Monocytes (%) (Auto) 7.4H, Eosinophils (%) (Auto) 2.1, Basophils (%) (Auto) 0.3, Neutrophils # (Auto) 8.8H, Lymphocytes # (Auto) 3.4, Monocytes # (Auto) 1.0H, Eosinophils # (Auto) 0.3, Basophils # (Auto) 0.0, Nucleated Red Blood Cells % (auto) 0.0, Anion Gap 4L, Glomerular Filtration Rate > 60.0, Blood Urea Nitrogen 12, Creatinine 1.03, Sodium Level 136, Potassium Level 3.8, Chloride Level 105, Carbon Dioxide Level 27, Calcium Level 8.6 CBC/BMP Laboratory Tests 12/09/18 04:47 Red Blood Count 4.03 L, Mean Corpuscular Volume 86.4, Mean Corpuscular Hemoglobin 30.0, Mean Corpuscular Hemoglobin Concent 34.8, Red Cell Distribution Width 12.6, Neutrophils (%) (Auto) 65.1, Lymphocytes (%) (Auto) 24.7, Monocytes (%) (Auto) 7.4 H, Eosinophils (%) (Auto) 2.1, Basophils (%) (Auto) 0.3, Neutrophils # (Auto) 8.8 H, Lymphocytes # (Auto) 3.4, Monocytes # (Auto) 1.0 H, Eosinophils # (Auto) 0.3, Basophils # (Auto) 0.0, Calcium Level 8.6 Microbiology Microbiology 12/02/18 Blood Culture - Final, Complete NO GROWTH AFTER 5 DAYS 12/02/18 Blood Culture - Final, Complete NO GROWTH AFTER 5 DAYS Discharge Medications Scheduled Amlodipine Besylate (Amlodipine Besylate) 10 Mg Tab, 10 MG PO DAILY, (Reported) Apixaban Base (Eliquis) 2.5 Mg Tab, 2.5 MG PO BID for PVD with ALI s/p thrombolysis Atorvastatin Calcium (Atorvastatin Calcium) 40 Mg Tab, 40 MG PO QHS, (Reported) Ciprofloxacin HCl (Cipro) 500 Mg Tab, 500 MG PO BID@,18 for Nonhealing wound Clindamycin Hcl (Cleocin) 150 Mg Cap, 300 MG PO TID for nonhealing wound Clopidogrel Bisulfate (Plavix) 75 Mg Tab, 75 MG PO DAILY, (Reported) Gabapentin (Gabapentin) 300 Mg Cap, 300 MG PO TID, (Reported) Lisinopril (Lisinopril) 20 Mg Tab, 20 MG PO DAILY, (Reported) Omeprazole (Omeprazole) 40 Mg Cap, 40 MG PO DAILY, (Reported) Scheduled PRN Aspirin (Aspirin) 325 Mg Tab, 325 MG PO BID PRN for PAIN / FEVER, (Reported) Cyclobenzaprine HCl (Cyclobenzaprine HCl) 10 Mg Tab, 10 MG PO TID PRN for MUSCLE SPASMS, (Reported) Fluticasone Propionate (Fluticasone Propionate) 50 Mcg/Act Spr, 2 SPRAY NA DAILY PRN for NASAL CONGESTION, (Reported) Furosemide (Furosemide) 20 Mg Tab, 20 MG PO DAILY PRN for LEG EDEMA, (Reported) Allergies Coded Allergies: Pregabalin (Verified Allergy, Severe, SEIZURES BLACKOUTS, 04/28/18) Penicillins (Verified Allergy, Intermediate, HIVES, 04/28/18) HIVES Penicillins Cross Reactors (Verified Allergy, Intermediate, HIVES, 04/28/18) TIGRE BURNS PA-C Dec 09, 2018 15:24
--- NOTE | 2018-12-11 07:51 | REPIR ---
DATE OF PROCEDURE: 12/07/2018 ATTENDING SURGEON: Dr. Jessica Gaviria VULCANIZER RUBBER PLATE: Jen Germain and Marie De Guzman PREOPERATIVE DIAGNOSIS: Occluded left common iliac artery status post angioplasty and stenting. Left lower extremity ischemia. Slow healing left transmetatarsal amputation wound. Aortoiliac atherosclerotic arterial occlusive disease. Chronic renal insufficiency. Acute kidney injury. Tobacco use with smoking of cigarettes. POSTOPERATIVE DIAGNOSIS: Occluded left common iliac artery status post angioplasty and stenting. Left lower extremity ischemia. Slow healing left transmetatarsal amputation wound. Aortoiliac atherosclerotic arterial occlusive disease. Chronic renal insufficiency. Acute kidney injury. Tobacco use with smoking of cigarettes. PROCEDURE: Left iliofemoral arterial thrombolysis followup, abdominal aortogram, pelvic aortogram with iliofemoral angiography, MYNX closure of the right common femoral arteriotomy. INDICATION: The patient is a 48-year-old male who presented with pain and coldness of the left lower extremity and was found to have occlusion of his left common iliac artery stent which had previously occluded and required restenting and reoccluded a second time. The patient has been undergoing thrombolysis with improved flow into the left lower extremity and relief of symptoms. The patient will undergo a left iliofemoral arterial thrombolysis followup with possible angioplasty stent and/or atherectomy. Risks, benefits and alternative treatment options were discussed with the patient. The procedure was described and explained to the patient in detail including drawing of pictures demonstrating the procedure and pertinent anatomy. Alternative options included but were not limited to, no intervention. Benefits included, but were not limited to, improved blood flow to the left lower extremity with improved relief of symptoms and healing of his left transmetatarsal amputation wound and continued preservation of his left lower extremity. Risks included but were not limited to, infection, bleeding, renal failure requiring hemodialysis, possibly need for surgical intervention, retroperitoneal hematoma, bleeding complications secondary to the arterial thrombolysis, possible need for transfusion of blood products, adverse reaction to the prepping and draping materials, adverse reaction to the anesthetic and sedation medications, cerebrovascular accident, myocardial infarction, pulmonary embolus, deep vein thrombosis (DVT), loss of limb, loss of life, poor outcome, poor results and/or satisfaction. The risks of not performing the procedure included, but were not limited to, continued ischemia of the left lower extremity resulting in possible nonhealing of the wound, continued pain and possible loss of limb. The patient voices acceptance and understanding of these risks, benefits and alternative treatment options and consents to proceed with lysis followup with possible angioplasty, stenting and/or atherectomy. There were no promises or guarantees made to the patient regarding the procedure results and/or outcome. ANESTHESIA: Local with 10 mL of 2% lidocaine. FLUORO TIME: 0.3 minutes. CONTRAST: 3 mL of Isovue-300. COMPLICATIONS: None. DRAINS: None. SPECIMENS: None. IMPLANT: 5 [place] MYNX closure device to close the right common femoral arteriotomy. DESCRIPTION OF PROCEDURE: The patient was taken to the angiography suite, placed supine on the angiography room table and then prepped and draped in a standard surgical fashion. A Bueda wire was advanced through the infusion catheter which was removed and an Omni flush catheter was then placed in the aorta and an aortogram was performed. The catheter was pulled down to the level of bifurcation of the iliac arteries and a pelvic aortogram with iliofemoral angiography was performed. The catheter and wire were removed. The MYNX closure device was used close the arteriotomy in the right common femoral artery with an additional 20 minutes of adjunctive pressure applied for hemostasis. Dressings were then applied. The patient tolerated the procedure well. All instrument, sponge and needle counts were correct at the end the case. There were no complications. Dr. Gaviria was present for and directed the entire case. The patient was transferred to the holding area and subsequently to the ICU in stable condition. The procedure results and findings were discussed with the patient in the holding area with all of his questions answered. RADIOLOGIC SUPERVISION INTERPRETATION: The initial aortogram showed the celiac and superior mesenteric arteries to be widely patent as well as the renal arteries bilaterally. The infrarenal aorta was widely patent as well as the right common iliac, external iliac, internal iliac and common femoral arteries. There was no visualization of the right lower extremity below the puncture site. The left common iliac artery stents were widely patent with no stenosis or abnormalities noted. The left external and internal iliac arteries were patent as well as the left common femoral artery and proximal superficial femoral and profunda femoris arteries with no visualization below the level of the bifurcation of the common femoral artery. Catheters and wires removed and a MYNX closure device was used to close the arteriotomy in the right common femoral artery.
--- NOTE | 2018-12-11 08:31 | REPIR ---
DATE OF PROCEDURE: 12/04/2018 ATTENDING PHYSICIAN: Dr. Jessica Gaviria PROCESS ENG: Blas Ward and Jen Germain PREOPERATIVE DIAGNOSES: Aortoiliac atherosclerotic occlusive disease status post left common iliac artery angioplasty and stenting times two, left lower extremity pain and ischemia, status post left transmetatarsal amputation with slow healing wound, total occlusion of the left common iliac artery stents, chronic renal insufficiency, acute kidney injury, tobacco use with smoking of cigarettes. POSTOPERATIVE DIAGNOSES: Aortoiliac atherosclerotic occlusive disease status post left common iliac artery angioplasty and stenting times two, left lower extremity pain and ischemia, status post left transmetatarsal amputation with slow healing wound, total occlusion of the left common iliac artery stents, chronic renal insufficiency, acute kidney injury, tobacco use with smoking of cigarettes. PROCEDURE: Abdominal aortogram, pelvic aortogram with iliofemoral angiography, placement of a 20 cm infusion catheter in the left common and external iliac arteries with initiation of arterial thrombolysis, selective left external iliac artery catheter placement with angiography. INDICATION : The patient is a 48-year-old male with presentation with acute onset of pain in the left lower extremity with non palpable femoral pulse on the left consistent with occlusion of his left common iliac artery stent. The patient had a previous left common iliac artery recanalization and stent placement due to occlusion and ischemia of the toes in the left foot which subsequently required a left transmetatarsal amputation. The wound on the left foot has been slow to heal due to complete occlusion of his distal anterior tibial and posterior tibial arteries at the ankle with only collateral flow into the left foot. The patient subsequently underwent thrombolysis of the left common iliac artery stent due to occlusion and underwent re stenting of the left common iliac artery. The patient now presents with re occlusion of the left common iliac artery stent and will undergo angiogram with possible angioplasty, stent atherectomy and/or thrombolysis. The procedure was described and explained to the patient in detail, including drawing of pictures demonstrating the procedure and pertinent anatomy. Risks, benefits and alternative options were discussed with the patient, alternative treatment options included but were not limited to no intervention, benefits included but were not limited to reopening of the inflow to the left lower extremity with improved healing of the left foot and relief of symptoms. Risks included but were not limited to infection, bleeding, renal failure requiring hemodialysis, possibly for open surgical intervention, cerebrovascular accident, myocardial infarction, pulmonary embolus, deep vein thrombosis (DVT), retroperitoneal hematoma, bleeding complication from the thrombolysis, adverse reaction to the prepping and draping materials, adverse reaction to the anesthetic and sedation medications, possible need for transfusion of blood products, loss of limb, loss of life, poor outcome, poor results and poor satisfaction. Risks of not performing the procedure included were not limited to continued pain and ischemia in the left lower extremity with nonhealing of the left foot wound and possible need for amputation of the left lower extremity. The patient's questions were answered. The patient voices acceptance and understanding of the risks, benefits and alternative treatment options and consents to proceed with aortogram with possible angioplasty, stenting, atherectomy and/or thrombolysis. There were no promises or guarantees made to the patient regarding the procedure outcome and/or results. Anesthesia was local with sedation with 1 mg of Versed, 50 mcg of fentanyl and 10 mL of 2% lidocaine. FLUORO TIME: 1.3 minutes. CONTRAST: 3.5 mL of Isovue-300. SEDATION TIME: From 12:16 p.m. to 12:42 p.m. for a total of 36 minutes. The sedation was administered by the registered nurse attending the case. The cardiopulmonary monitoring was performed by the registered nurse attending the case. The sedation and cardiopulmonary monitoring were performed under my direct supervision and I was present for and directed the entire case. There were no sedation related complications and the patient was returned to pre sedation status at the completion of the procedure. COMPLICATIONS: None. DRAINS: None. SPECIMENS: None. IMPLANTS: None. PROCEDURE: The patient was taken to the angiography suite, placed supine on the angiography room table and prepped and draped in a standard surgical fashion. The right common femoral artery was cannulated with a micropuncture needle after anesthetizing the overlying skin with 2% lidocaine. The micropuncture wire was advanced to the micropuncture needle, which was upsized. The Bentson wire was advanced through the micropuncture sheath, which was upsized to a #5-Yi sheath. An Omni flush catheter was advanced over the Bentson wire, placed in the aorta and an aortogram was performed. Catheter was pulled down to the level of the bifurcation of the iliac arteries and a pelvic aortogram and iliofemoral angiogram were performed. The Bentson wire was advanced through the Omni flush catheter and used to recannulate through the occluded left common iliac artery stent with reentry into the left external iliac artery. The catheter was advanced up and over and placed in the left external iliac artery and angiography performed confirming intra luminal positioning. The Omni flush catheter was recannulated with the [place] wire and removed. A 20 cm infusion catheter was then advanced up and over the bifurcation of the iliac arteries and placed across the distal aorta, the left common iliac artery and into the left external iliac artery and thrombolysis was initiated with a 10 mg TPA bolus given through the infusion catheter. The t-PA infusion was hooked to the infusion catheter. Dressings were then applied. The patient tolerated the procedure well. All instrument, sponge, needle counts were correct at the end of the case. There were no complications. Dr. Gaviria was present for and directed the entire case. The patient was transferred to the intensive care unit (ICU) for left lower extremity arterial thrombolysis. Radiologic supervision interpretation: The abdominal aortogram showed the aorta to be widely patent. Superior mesenteric and celiac arteries were widely patent, as well as the renal arteries bilaterally. The infrarenal aorta was widely patent, as well as the right common iliac, external, internal iliac arteries. The right common femoral artery was widely patent as well as the proximal superficial femoral and profunda femoris arteries. There was no visualization below the puncture site on the right. The left common iliac artery stent was occluded with reconstitution of the left external iliac artery via collaterals to the left internal iliac artery, the left common femoral artery, proximal superficial femoral and profunda femoris arteries were widely patent with no visualization below this level. The occluded left common iliac artery was recannulated with a wire passed through the previously stented region with reentry into the left external iliac artery. Catheter was placed in the left external iliac artery and an angiogram performed confirming intraluminal positioning after crossing through the occluded left common iliac artery stent, after which an infusion catheter was placed through the right common femoral artery access and opened over the bifurcation into the left common iliac and external iliac arteries with initiation of left-sided arterial thrombolysis.
== END 2018-12-09 16:04 | disposition home or self-care (01) | DRG 315 ==
LOC: M ED 11:49 → M ED INP 16:07 → M PCU 17:36 → M ICU 12-04 12:58
PROVIDERS: ADMIT Surgery Vascular Surgery; ATTEND Surgery Vascular Surgery
PROC: B41D1ZZ Fluoroscopy of Aorta and Bilateral Lower Extremity Arteries using Low Osmolar Contrast (ICD-10-PCS; principal; 2018-12-04)
PROC: 3E05317 Introduction of Other Thrombolytic into Peripheral Artery, Percutaneous Approach (ICD-10-PCS; 2018-12-04)
PROC: B41D1ZZ Fluoroscopy of Aorta and Bilateral Lower Extremity Arteries using Low Osmolar Contrast (ICD-10-PCS; 2018-12-07)
PROC: 0YP Anatomical Regions, Lower Extremities, Removal (ICD-10-PCS; 2018-12-07)
DX: T82.856A Stenosis of peripheral vascular stent, initial encounter (principal); F11.20 Opioid dependence, uncomplicated; N17.9 Acute kidney failure, unspecified; I12.9 Hypertensive chronic kidney disease with stage 1 through stage 4 chronic kidney disease, or unspecified chronic kidney disease; E78.5 Hyperlipidemia, unspecified; D72.829 Elevated white blood cell count, unspecified; G47.33 Obstructive sleep apnea (adult) (pediatric); R07.9 Chest pain, unspecified; I70.292 Other atherosclerosis of native arteries of extremities, left leg; M19.90 Unspecified osteoarthritis, unspecified site; I70.0 Atherosclerosis of aorta; N18.2 Chronic kidney disease, stage 2 (mild); E66.9 Obesity, unspecified; F17.210 Nicotine dependence, cigarettes, uncomplicated; Z79.899 Other long term (current) drug therapy; Z88.0 Allergy status to penicillin; Z88.8 Allergy status to other drugs, medicaments and biological substances; Z89.422 Acquired absence of other left toe(s); Z79.02 Long term (current) use of antithrombotics/antiplatelets; Y83.1 Surgical operation with implant of artificial internal device as the cause of abnormal reaction of the patient, or of later complication, without mention of misadventure at the time of the procedure

== ENCOUNTER → 2019-01-21 | Outpatient (CLI) | payer MEDICARE, MEDICAID ==
[~2019-01-21] MED LIST changes: +ASPI1TAB20 PO; +CIPR-249 PO; +CLEO150C PO; +ELIQ2.5T PO; +FLUTISP; +FURO20TA2 PO
--- NOTE | 2019-01-21 15:01 | REP ---
Bilateral lower extremity arterial Doppler ultrasound: History: Atherosclerosis. Intermittent claudication bilaterally. Evaluate iliac stent. Findings: The patient's iliac stent was evaluated as part of the aortic ultrasound which is dictated separately. The right ankle brachial index is 1.2. The left KAMRON could not be achieved due to distal occlusions. The left distal posterior tibial artery and anterior tibial artery are occluded. Severe vascular disease is noted bilaterally. The [place] distal superficial femoral artery popliteal artery proximal AT A and tibioperoneal trunk are occluded. There is a patent graft from the mid superficial femoral artery to the the posterior tibial artery on the right. Velocity chart right lower extremity arteries: Common iliac artery 176 cm/S External iliac artery 199 cm/S CF A 125 Profunda 117 Proximal SFA 121 Mid SFA 55 Distal SFA occluded Popliteal occluded Proximal AT A occluded Tibioperoneal trunk occluded Proximal GARBAGE COLLECTOR SUPERVISOR 54 Distal GARBAGE COLLECTOR SUPERVISOR 112 Distal AT A 27 revascularized Proximal graft anastomoses 176 Proximal graft 168 Mid graft 127 Distal graft 77 Distal graft anastomoses 54 Velocity chart left lower extremity arteries: Left common iliac artery 189 cm/S External iliac artery 222 CF A 176 Profunda 99 Proximal SFA 173 Mid SFA 139 Distal SFA 109 Popliteal 99 Proximal AT A 47 Tibioperoneal trunk 75 Proximal GARBAGE COLLECTOR SUPERVISOR 80 Distal GARBAGE COLLECTOR SUPERVISOR 86 to occluded Distal AT A 41 to occluded Electronically Signed by Ezekiel Mendieta MD 01/21/2019 02:53 P
--- NOTE | 2019-01-21 15:05 | REP ---
Abdominal aortic sonography with Doppler: History: Atherosclerotic arterial disease with intermittent claudication bilateral legs. Iliac stent. Findings: The abdominal aorta at the level of the diaphragm is not well seen. The bowel gas obscures eight at the level of the main renal arteries as well. At mid aortic level, abdominal aortic dimensions are 2.0 cm anteroposterior by 2.4 cm transverse. The distal aorta measures 1.8 x 1.7 cm. Right and left common iliac arteries measure 1.1 and 0.9 cm in AP dimension respectively. No aneurysm is visible. The left common iliac artery stent is patent. Normal triphasic flow is seen. External iliac arteries are patent bilaterally. Peak systolic flow velocity in the common iliac artery stent is 189 cm/sec. Electronically Signed by Ezekiel Mendieta MD 01/21/2019 02:57 P
== END ==
LOC: M RAD 10:52
PROVIDERS: ATTEND Surgery Vascular Surgery
DX: I70.213 Atherosclerosis of native arteries of extremities with intermittent claudication, bilateral legs (principal); Z95.828 Presence of other vascular implants and grafts

== ENCOUNTER → 2019-10-28 | Outpatient (CLI) | payer MEDICARE, MEDICAID ==
[~2019-10-28] MED LIST changes: -ASPI1TAB20 PO; +ASPI325T57 PO; +HYDR-3715 PO; -NORC1TAB4 PO; +NORC1TAB7 PO; -NORCOTAB PO; -OMEP40CA2 PO; +OMEP40CA97 PO
--- NOTE | 2019-10-28 15:58 | REP ---
Bilateral lower extremity arterial Doppler ultrasound: History: Atherosclerosis. Claudication. The patient has a right superficial femoral artery to posterior tibial artery bypass graft. Findings: Moderate to severe plaquing is seen bilaterally. The right mid SFA to posterior tibial artery bypass graft is patent. The [place] superficial femoral artery on the right is occluded at mid level. A the mid and distal anterior tibial artery on the right is noted to be occluded. The distal posterior and anterior tibial arteries on the left are occluded. Ankle brachial index on the right is 1.38. On the left the KAMRON could not be obtained due to occluded and revascularized arteries. Velocity chart right SFA to METALLOGRAPHER graft: Mid SFA at the anastomosis, 122 cm/S Distal thigh graft, 102 cm/S Knee level, 92.5 cm/S P T A anastomosis 54 cm/S Right lower extremity arterial Doppler velocity chart: CF A 125 cm/S Profunda 160 Proximal SFA 180 Mid SFA 100 Distal SFA occluded Popliteal occluded Proximal AT A reversed flow 63.9 cm/S Tibioperoneal trunk occluded Proximal METALLOGRAPHER 59 Distal METALLOGRAPHER 79 Distal AT A six 0.3/27.3 Left lower extremity arterial Doppler velocity chart: Left CF A 76 cm/S Profunda 82 Proximal SFA 86 Mid SFA 113 Distal SFA and 57 Popliteal 43 Proximal AT A 46 Tibioperoneal trunk 45 Proximal METALLOGRAPHER 50 Distal METALLOGRAPHER occluded just above the medial malleolus and revascularize, 53 cm/S, inferior to the medial malleolus Distal AT A occluded at distal calf and revascularized, 27 cm/S at the ankle. Electronically Signed by Ezekiel Mendieta MD 10/28/2019 03:50 P
== END ==
LOC: M RAD 13:09
PROVIDERS: ATTEND Physician Assistant
DX: I70.213 Atherosclerosis of native arteries of extremities with intermittent claudication, bilateral legs (principal)

== ENCOUNTER 2020-01-27 23:43 | Inpatient (IN) | payer MEDICARE, MEDICAID ==
[~2020-01-27] VITALS: Ht 182.9 cm; Wt 93.2 kg
[2020-01-28 01:26] LABS: BASO # 0.1 10^3/uL (0.0-0.2); BASO % 0.2 % (0.0-1.0); HEMATOCRIT 37.2 % (42.0-52.0); HEMOGLOBIN 12.6 g/dl (13.5-17.5); LYMPH # 1.7 10^3/uL (1.5-5.0); LYMPH % 6.9 % (24.0-44.0); MEAN CORPUSCULAR HEMOGLOBIN 30.9 pg (27.0-33.0); MEAN CORPUSCULAR HGB CONC 33.9 g/dl (32.0-36.5); MEAN CORPUSCULAR VOLUME 91.2 fl (80.0-96.0); MONO # 1.9 10^3/uL (0.0-0.8); MONO % 7.6 % (0.0-5.0); NEUTROPHILS # 20.6 10^3/uL (1.5-8.5); NEUTROPHILS % 84.3 % (36.0-66.0); PLATELET COUNT, AUTOMATED 218 10^3/uL (150-450); RED BLOOD COUNT 4.08 10^6/uL (4.30-6.10); WHITE BLOOD COUNT 24.5 10^3/uL (4.0-10.0)
[2020-01-28] MEDS ORDERED: ELIQ2.5T PO (01:59)
[2020-01-28] MEDS ORDERED: GABA-1171 PO (01:59)
[2020-01-28] MEDS ORDERED: IBUP200C25 PO (02:01)
[2020-01-28 02:08] LABS: BLOOD UREA NITROGEN 10 MG/DL (7-18); CALCIUM LEVEL 8.3 MG/DL (8.5-10.1); CARBON DIOXIDE LEVEL 27 MEQ/L (21-32); CHLORIDE LEVEL 103 MEQ/L (98-107); CREATININE FOR GFR 0.95 MG/DL (0.70-1.30); GLOMERULAR FILTRATION RATE > 60.0 (>56); GLUCOSE, FASTING 100 MG/DL (70-100); POTASSIUM SERUM 3.5 MEQ/L (3.5-5.1); SODIUM LEVEL 136 MEQ/L (136-145)
[2020-01-28 02:23] LABS: ERYTHROCYTE SEDIMENTATION RATE 63 mm/hr (0-20)
[2020-01-28] MEDS ORDERED: ACETAMINOPHEN TAB 650MG DOSE (2X325MG) PO PRN (02:45)
[2020-01-28] MEDS ORDERED: MAALOX 30 ML SUSP *UDC PO PRN (02:45)
--- NOTE | 2020-01-28 02:45 | HPEPDOC ---
[facility] Medical History & Physical Date of Admission Jan 28, 2020 Date of Service: Jan 28, 2020 Primary Care Physician: Tiffany Valverde Attending Physician: SENTHIL BHATIA MD History and Physical TIME OF SERVICE: 4:25 AM CHIEF COMPLAINT: Left foot pain HISTORY OF PRESENT ILLNESS: This is a 49-year-old male who presents with complaints of 7-8 out of 10 in severity, sharp left foot pain for 2 days. He has had similar symptoms on his left foot in the past and was given antibiotics for cellulitis. REVIEW OF SYSTEMS: 12 point review of systems negative except as listed in HPI PAST MEDICAL/ SURGICAL HISTORY: Nonocclusive PVD with acute lower extremity ischemia Right femoropopliteal bypass Left metatarsal amputation. Chronic HTN Dyslipidemia. CATIA, does not use CPAP Carotid endarterectomy He denies a prior history of diabetes, CVA or CAD SOCIAL HISTORY: He smokes tobacco and THC products FAMILY HISTORY: Diabetes ALLERGIES: Please see below. HOME MEDICATIONS: Please see below. Vital Signs Date Time Temp Pulse Resp B/P (MAP) Pulse Ox O2 Delivery O2 Flow Rate FiO2 01/27/20 23:43 99.9 96 18 147/103 (118) 97 Room Air PHYSICAL EXAMINATION: GEN: Asleep but arousable with vocal stimuli INTEGUMENT: Skin surrounding left foot stump is red, warm and thickened HEENT: NCAT CVS: RRR/NMRG LUNGS: clear to auscultation bilaterally on room air ABDOMEN: soft & not tender with palpation MSK/EXTREMITIES: range of motion intact in all 4 extremities / no scoliosis / no kyphosis PSYCH: able to understand and follow all commands LABORATORY DATA: Erythrocyte Sedimentation Rate 63H, Anion Gap 6L, Glomerular Filtration Rate > 60.0, Calcium Level 8.3L, C-Reactive Protein, Quantitative 22.10H IMAGING: X-ray of foot report pending MICROBIOLOGY: 01/28/20 Blood Culture, Received Pending 01/28/20 Blood Culture, Received Pending ASSESSMENT: Mr. Hamilton is a 49-year-old with a history of PVD, HTN dyslipidemia, carotid artery disease and left metatarsal amputation, who is admitted for left stump cellulitis. PLAN: 1. Cellulitis of the left stump His WBC count, ESR and CRP are elevated Plan: Admit to medical floor / fall precautions / elevate leg / f/u blood cx /cefazolin and & vancomycin / will ask the daytime team to follow-up x-ray report and consider MRI to rule out osteomyelitis 2 . NN anemia - pending stool occult and iron studies, the daytime team can determine if he needs an outpatient GI referral for c-scope 3. PVD -apixaban 4. Chronic HTN - lisinopril 5. Neuropathy ? / Phantom Pain ? - Gabapentin, ibuprofen / last the daytime team to consulting vascular surgery if they're available to determine whether the cellulitis is caused by a vascular issue DVT PROPHYLAXIS: n/a he is on apixaban DISPOSITION: home after more than 2 midnight's stay Home Medications Scheduled Apixaban (Eliquis) 2.5 Mg Tablet, 2.5 MG PO BID 2ND DOSE @ 1700 Gabapentin (Gabapentin) 300 Mg Cap, 300 MG PO TID TAKE WITH 100MG Gabapentin (Gabapentin) 100 Mg Capsule, 100 MG PO TID TAKE WITH 300MG Ibuprofen (Ibuprofen) 200 Mg Capsule, 400 MG PO Q6H Lisinopril (Lisinopril) 20 Mg Tab, 20 MG PO DAILY Omeprazole (Omeprazole) 40 Mg Cap, 40 MG PO DAILY Allergies Coded Allergies: pregabalin (Verified Allergy, Severe, seizures, 01/27/20) Penicillins (Verified Allergy, Intermediate, hives, 01/27/20) A-FIB/CHADSVASC A-FIB History Current/History of A-Fib/PAF?: No Current PO Anticoag Therapy: No SENTHIL BHATIA MD Jan 28, 2020 02:45
[2020-01-28] MEDS ORDERED: VANCOMYCIN HCL 1,000 MG, VIAL MATE ADAPTER 1 EACH in D5W 250 ML IV ONE (03:00)
--- NOTE | 2020-01-28 03:36 | PHACANCOPD ---
PHARMACY VANCOMYCIN DOSING Pt Demographics Demographics Patient Age:49 , Weight:93.600 , Gender: male Adjusted Body Weight Date: 01/28/20, Adjusted Body Weight: Kg Events Past 24 Hours Events Past 24 Hours: NO: Dialysis, Diuretic Therapy, Change in CrCl, Fever, Elevation in WBC, Pending Diagnostics, Pending Procedures, Other Vancomycin Vancomycin Target Ranges: 15-20 mcg/ml Vancomycin Load Y/N: Yes Load Dose Date Time Vancomycin Load Dose: 2000mg Date: 01-27 Time: 399 Vancomycin Dose Date: 01/28/20. Current Vancomycin Dose: [1000mg q8h] Intermittent Dosing?: No Labs Labs Item Value Date Time White Blood Count 24.5 10^3/uL H 01/28/20 0116 Glomerular Filtration Rate > 60.0 01/28/20 0116 Creatinine 0.95 MG/DL 01/28/20 0116 Blood Urea Nitrogen 10 MG/DL 01/28/20 0116 Vital Signs Label Value Date Time Patient Temperature 99.9 degrees F 01/27/20 2343 Temperature Source Oral 01/27/20 2343 Micro Microbiology 01/28/20 Blood Culture, Received Pending 01/28/20 Blood Culture, Received Pending Creatinine Clearance Date:01/28/20. Creatinine Clearance: [~100]. Pending Labs Trough 01-27 @1900 Assessment and Plan Maintaining Current Dose?: Yes Reason for dose change: No Dose Change Pharmacist Note Pharmacist Note Date: 01/28/20. Pharmacist note:Will monitor and make adjustments as needed. ALONDRA ORELLANA PHARMACY Jan 28, 2020 03:36
[2020-01-28 04:46] VITALS: BP 137/66
[2020-01-28] MEDS: VANCOMYCIN HCL 1,000 MG, VIAL MATE ADAPTER 1 EACH in D5W 250 ML IV SCH ×3 (05:04→19:41)
[2020-01-28] MEDS: IBUPROFEN 400 MG TAB PO SCH ×4 (05:04→23:25)
[2020-01-28] MEDS: ceFAZolin SOD 1 GM in D5W MINI-BAG PLUS 50 ML IV SCH ×3 (06:26→21:32)
[2020-01-28 07:19] LABS: PERCENT SATURATION 4.5 % (19.7-50.0)
--- NOTE | 2020-01-28 08:04 | REP ---
Left foot four views: Comparison is 04/15/2012. There has been interval amputation of the forefoot at the mid metatarsal level. There is a round lucency in the shaft of the fifth digit metatarsal, lytic lesion versus bone cyst. There is circumferential soft tissue edema. Mineralization is otherwise normal. Electronically Signed by Rashel Farias MD 01/28/2020 07:56 A
[2020-01-28] MEDS ORDERED: GABAPENTIN 100 MG CAP PO SCH (09:00)
[2020-01-28] MEDS: OMEPRAZOLE 20 MG CAP PO SCH (09:28)
[2020-01-28] MEDS: APIXABAN 2.5 MG TAB (ELIQUIS) PO SCH ×2 (09:28→17:27)
[2020-01-28] MEDS: GABAPENTIN 400 MG CAP PO SCH ×3 (09:28→21:32)
[2020-01-28] MEDS: lisinopriL 20 MG TAB PO SCH (09:29)
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
[2020-01-28] MEDS: NORCO, ANEXSIA 5/325MG TABLET (HYDROcodone/ACETAMINOPHEN) PO PRN ×2 (11:18→19:41)
[2020-01-28 14:00] VITALS: BP 130/53
--- NOTE | 2020-01-28 19:32 | ECGEPIP ---
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
[2020-01-28 22:00] VITALS: BP 103/59
[2020-01-29] MEDS: NORCO, ANEXSIA 5/325MG TABLET (HYDROcodone/ACETAMINOPHEN) PO PRN ×3 (02:02→20:43)
[2020-01-29] MEDS: VANCOMYCIN HCL 1,000 MG, VIAL MATE ADAPTER 1 EACH in D5W 250 ML IV SCH ×3 (03:51→20:43)
[2020-01-29] MEDS: ceFAZolin SOD 1 GM in D5W MINI-BAG PLUS 50 ML IV SCH ×3 (05:52→23:39)
[2020-01-29] MEDS: IBUPROFEN 400 MG TAB PO SCH ×3 (05:53→17:06)
[2020-01-29 06:00] VITALS: BP 110/61
[2020-01-29 07:21] LABS: HEMATOCRIT 35.8 % (42.0-52.0); HEMOGLOBIN 11.8 g/dl (13.5-17.5); MEAN CORPUSCULAR HEMOGLOBIN 30.3 pg (27.0-33.0); PLATELET COUNT, AUTOMATED 220 10^3/uL (150-450); RED BLOOD COUNT 3.89 10^6/uL (4.30-6.10); WHITE BLOOD COUNT 11.9 10^3/uL (4.0-10.0)
[2020-01-29 07:50] LABS: BLOOD UREA NITROGEN 10 MG/DL (7-18); CALCIUM LEVEL 8.5 MG/DL (8.5-10.1); CARBON DIOXIDE LEVEL 28 MEQ/L (21-32); CHLORIDE LEVEL 105 MEQ/L (98-107); CREATININE FOR GFR 0.84 MG/DL (0.70-1.30); GLOMERULAR FILTRATION RATE > 60.0 (>56); GLUCOSE, FASTING 102 MG/DL (70-100); POTASSIUM SERUM 3.3 MEQ/L (3.5-5.1); SODIUM LEVEL 139 MEQ/L (136-145)
[2020-01-29] MEDS: lisinopriL 20 MG TAB PO SCH (09:00)
[2020-01-29] MEDS: APIXABAN 2.5 MG TAB (ELIQUIS) PO SCH (09:21)
[2020-01-29] MEDS: OMEPRAZOLE 20 MG CAP PO SCH (09:21)
[2020-01-29] MEDS: GABAPENTIN 400 MG CAP PO SCH ×3 (09:21→20:43)
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
[2020-01-29 14:00] VITALS: BP 140/63
--- NOTE | 2020-01-29 15:31 | CR ---
DATE OF CONSULTATION: 01/29/2020 REASON FOR CONSULTATION: Left foot infection. HISTORY OF PRESENT ILLNESS: Joselo Montesinos is a pleasant 49-year-old male who is admitted to [facility] with complaints of infection of his left foot. He states he has an ulceration on the bottom of his foot. He believes it has been present about the last few weeks, which has gotten infected over the last two or three days. He has history of amputation to this site by Dr. Gaviria he estimates about two years ago. He has history of peripheral vascular disease to his lower extremities. He has been started on antibiotics since admission, but there has not been much improvement in his redness and there is blistering ulceration on the dorsal aspect of his foot. PAST MEDICAL HISTORY: Includes: 1. Peripheral vascular disease with history of acute lower extremity ischemia. 2. Chronic hypertension. 3. Dyslipidemia. 4. Obstructive sleep apnea. 5. Carotid endarterectomy. SURGICAL HISTORY: Includes: 1. Right femoral/popliteal bypass. 2. Left transmetatarsal amputation. SOCIAL HISTORY: Positive for smoking and marijuana use. FAMILY HISTORY: Positive for diabetes. ALLERGIES: PENICILLIN AND PREGABALIN. REVIEW OF SYSTEMS: Denies nausea, vomiting, fever or chills. VITAL ON EXAMINATION: Maximum temperature (T-max) is 99.9, today is 99.1. LABORATORIES: Are reviewed. On admission, white blood cell count was 24.5, today it is 11.9. Erythrocyte sedimentation rate is 63. CRP is 21.1. Blood cultures are all pending. X-ray images reviewed. Evidence of transmetatarsal amputation present. There are some irregular bone margins at the amputation sites. This could just be postsurgical or could be evidence of osteomyelitis. No evidence of soft tissue emphysema. LOWER EXTREMITY EXAMINATION: Foot appears generally well-perfused. There is an ulceration on the plantar aspect of the fifth metatarsal head left with a communicating ulcer to the dorsal foot with necrotic tissue and purulence, edema and erythema surrounding this. Wounds communicate centrally through the entire foot. ASSESSMENT: This is a 49-year-old male with peripheral vascular disease with left foot cellulitis abscess. PLAN: We will bring him to the operating room for incision and drainage, possible bone debridement or biopsy. He will be nothing by mouth after midnight. Hold anticoagulations. Continue empiric antibiotics. Will take operating room (OR) cultures.
[2020-01-29 22:00] VITALS: BP 114/77
[2020-01-30] MEDS: IBUPROFEN 400 MG TAB PO SCH ×5 (00:41→23:27)
[2020-01-30] MEDS: VANCOMYCIN HCL 1,000 MG, VIAL MATE ADAPTER 1 EACH in D5W 250 ML IV SCH ×4 (02:52→20:36)
[2020-01-30] MEDS: NORCO, ANEXSIA 5/325MG TABLET (HYDROcodone/ACETAMINOPHEN) PO PRN ×2 (02:53→09:07)
[2020-01-30 06:00] VITALS: BP 153/74
[2020-01-30] MEDS: ceFAZolin SOD 1 GM in D5W MINI-BAG PLUS 50 ML IV SCH ×3 (06:31→23:27)
[2020-01-30 08:36] LABS: BLOOD UREA NITROGEN 9 MG/DL (7-18); CALCIUM LEVEL 8.3 MG/DL (8.5-10.1); CARBON DIOXIDE LEVEL 26 MEQ/L (21-32); CHLORIDE LEVEL 109 MEQ/L (98-107); GLOMERULAR FILTRATION RATE > 60.0 (>56); GLUCOSE, FASTING 104 MG/DL (70-100); POTASSIUM SERUM 3.3 MEQ/L (3.5-5.1); SODIUM LEVEL 142 MEQ/L (136-145)
[2020-01-30] MEDS: lisinopriL 20 MG TAB PO SCH (09:06)
[2020-01-30] MEDS: GABAPENTIN 400 MG CAP PO SCH ×3 (09:06→20:36)
[2020-01-30] MEDS: OMEPRAZOLE 20 MG CAP PO SCH (09:06)
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
[2020-01-30] MEDS ORDERED: LIDOCAINE 1% MDV 20ML VIAL As Ordered ONE (15:45)
[2020-01-30] MEDS ORDERED: BUPIVACAINE HCL 0.5% 10 ML VIAL As Ordered ONE (15:45)
[2020-01-30] MEDS ORDERED: VANCOMYCIN 1000 MG/20 ML VIAL (J3370) As Ordered ONE (15:57)
[2020-01-30] MEDS ORDERED: LIDOCAINE 2% INJ 100 MG/5 ML SDV (FOR ANES.) As Ordered ONE (16:57)
[2020-01-30] MEDS ORDERED: ONDANSETRON 4MG/2ML VIAL (J2405) As Ordered ONE (16:57)
[2020-01-30] MEDS ORDERED: propofoL 200 MG/20 ML VIAL As Ordered ONE (16:57)
[2020-01-30] MEDS ORDERED: MIDAZOLAM INJ 2 MG/2 ML VIAL (J2250) As Ordered ONE (16:57)
[2020-01-30] MEDS ORDERED: fentaNYL 250 MCG/5 ML INJECTION (J3010) As Ordered ONE (16:57)
[2020-01-30] MEDS ORDERED: fentaNYL 100 MCG/2 ML INJECTION (J3010) As Ordered ONE ×2 (16:57→17:46)
[2020-01-30] MEDS ORDERED: dexameTHASONE 4 MG/ML 1ML VIAL (J1100) As Ordered ONE (16:57)
[2020-01-30] MEDS ORDERED: MORPHINE 2 MG/ML 1ML VIAL (J2270) As Ordered ONE (17:33)
[2020-01-30] MEDS: MORPHINE 2 MG/ML 1ML VIAL (J2270) IV PRN (17:36)
[2020-01-30] MEDS ORDERED: ONDANSETRON 4MG/2ML VIAL (J2405) IV PRN (17:45)
[2020-01-30] MEDS ORDERED: oxyCODONE 5MG TAB PO PRN (17:45)
[2020-01-30] MEDS ORDERED: LR 1,000 ML IV SCH (17:45)
[2020-01-30] MEDS: fentaNYL 100 MCG/2 ML INJECTION (J3010) IV PRN ×4 (17:47→18:04)
[2020-01-30 18:18] VITALS: BP 151/66
[2020-01-30 21:00] VITALS: BP 145/57
[2020-01-30 22:00] VITALS: BP 148/60
[2020-01-30 23:00] VITALS: BP 146/58
[2020-01-31] MEDS: ONDANSETRON 4MG/2ML VIAL (J2405) IV PRN ×3 (00:48→19:32)
[2020-01-31 02:00] VITALS: BP 135/60
[2020-01-31] MEDS: VANCOMYCIN HCL 1,000 MG, VIAL MATE ADAPTER 1 EACH in D5W 250 ML IV SCH ×4 (03:44→21:53)
[2020-01-31] MEDS: ceFAZolin SOD 1 GM in D5W MINI-BAG PLUS 50 ML IV SCH ×3 (05:15→22:46)
[2020-01-31] MEDS: IBUPROFEN 400 MG TAB PO SCH ×3 (05:15→17:24)
[2020-01-31] MEDS: NORCO, ANEXSIA 5/325MG TABLET (HYDROcodone/ACETAMINOPHEN) PO PRN ×3 (05:49→20:43)
[2020-01-31 06:00] VITALS: BP 147/64
[2020-01-31 07:03] LABS: BASO % 0.1 % (0.0-1.0); EOS % 0.1 % (0.0-3.0); HEMATOCRIT 37.1 % (42.0-52.0); HEMOGLOBIN 12.5 g/dl (13.5-17.5); LYMPH # 1.8 10^3/uL (1.5-5.0); LYMPH % 12.9 % (24.0-44.0); MEAN CORPUSCULAR HEMOGLOBIN 30.3 pg (27.0-33.0); MEAN CORPUSCULAR HGB CONC 33.7 g/dl (32.0-36.5); MONO # 0.8 10^3/uL (0.0-0.8); NEUTROPHILS # 11.1 10^3/uL (1.5-8.5); NEUTROPHILS % 80.4 % (36.0-66.0); PLATELET COUNT, AUTOMATED 290 10^3/uL (150-450); RED BLOOD COUNT 4.12 10^6/uL (4.30-6.10); WHITE BLOOD COUNT 13.8 10^3/uL (4.0-10.0)
[2020-01-31 07:24] LABS: BLOOD UREA NITROGEN 10 MG/DL (7-18); CALCIUM LEVEL 8.7 MG/DL (8.5-10.1); CARBON DIOXIDE LEVEL 27 MEQ/L (21-32); CHLORIDE LEVEL 107 MEQ/L (98-107); CREATININE FOR GFR 0.66 MG/DL (0.70-1.30); GLOMERULAR FILTRATION RATE > 60.0 (>56); GLUCOSE, FASTING 116 MG/DL (70-100); POTASSIUM SERUM 3.6 MEQ/L (3.5-5.1); SODIUM LEVEL 139 MEQ/L (136-145)
[2020-01-31] MEDS: OMEPRAZOLE 20 MG CAP PO SCH (09:11)
[2020-01-31] MEDS: lisinopriL 20 MG TAB PO SCH (09:11)
[2020-01-31] MEDS: GABAPENTIN 400 MG CAP PO SCH ×3 (09:11→20:42)
[2020-01-31] MEDS: APIXABAN 2.5 MG TAB (ELIQUIS) PO SCH ×2 (09:11→17:24)
[2020-01-31 10:00] VITALS: BP 147/64
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
[2020-01-31 14:00] VITALS: BP 116/60
--- NOTE | 2020-01-31 15:08 | PHACANCOPD ---
PHARMACY VANCOMYCIN DOSING Pt Demographics Demographics Patient Age:49 , Weight:92.600 , Gender: male Adjusted Body Weight Date: 01/28/20, Adjusted Body Weight: Kg Events Past 24 Hours Events Past 24 Hours: NO: Dialysis, Diuretic Therapy, Change in CrCl, Fever, Elevation in WBC, Pending Diagnostics, Pending Procedures, Other Vancomycin Vancomycin Target Ranges: 15-20 mcg/ml Vancomycin Load Y/N: Yes Load Dose Date Time Vancomycin Load Dose: 2000mg Date: 01-27 Time: 040 Vancomycin Dose Date: 01/28/20. Current Vancomycin Dose: [1000mg q8h] Intermittent Dosing?: No Labs Labs Vital Signs Label Value Date Time Patient Temperature 97.7 degrees F 01/31/20 1000 Temperature Source Temporal 01/31/20 1000 Patient Temperature 98.0 degrees F 01/31/20 0600 Temperature Source Temporal 01/31/20 0600 Patient Temperature 98.1 degrees F 01/31/20 0200 Temperature Source Temporal 01/31/20 0200 Item Value Date Time White Blood Count 13.8 10^3/uL H 01/31/20 0630 White Blood Count 11.9 10^3/uL H 01/29/20 0651 White Blood Count 24.5 10^3/uL H 01/28/20 0116 Erythrocyte Sedimentation Rate 63 mm/hr H 01/28/20 0116 C-Reactive Protein, Quantitative 12.20 MG/DL H 01/31/20 0630 C-Reactive Protein, Quantitative 22.10 MG/DL H 01/28/20 0116 Creatinine 0.66 MG/DL L 01/31/20 0630 Creatinine 0.70 MG/DL 01/30/20 0801 Creatinine 0.84 MG/DL 01/29/20 0651 Vancomycin Level Trough 15.1 UG/ML 01/31/20 1404 Vancomycin Level Trough 16.5 UG/ML 01/30/20 0801 Micro Microbiology 01/30/20 Gram Stain - Final, Resulted 01/30/20 Wound Culture, Resulted Pending 01/30/20 Anaerobic Culture, Resulted Pending 01/28/20 Blood Culture - Preliminary, Resulted No Growth after 72 hours. All specime... 01/28/20 Blood Culture - Preliminary, Resulted No Growth after 72 hours. All specime... 01/28/20 Blood Culture - Preliminary, Resulted No Growth after 72 hours. All specime... Creatinine Clearance Date:01/28/20. Creatinine Clearance: [~100]. Pending Labs Trough 03- @1900 Assessment and Plan Maintaining Current Dose?: Yes Reason for dose change: No Dose Change Pharmacist Note Pharmacist Note 01/30/19: Trough resulted at 15.1mcg/ml for cellulitis. Will continue current dose of Vanco 1G IV Q6H@2100. Will continue to monitor and adjust dose as needed. Date: 01/28/20. Pharmacist note:Will monitor and make adjustments as needed. ADDIE JARQUIN PHARMACY Jan 31, 2020 15:08
--- NOTE | 2020-01-31 17:54 | IPN ---
DATE: 01/31/2020 Patient seen and examined. Denies significant pain in his foot. Did note some nausea last night. States his pain is otherwise controlled. Vital signs are reviewed. Afebrile. Labs are reviewed. White blood cell count is 13.8. CRP is improved to 12.2. Operating room (OR) culture and pathology are all pending. Lower extremity examination: Erythema and edema are somewhat improved. Large ulceration on the dorsal aspect of the foot without significant purulence or necrosis. ASSESSMENT: A 49-year-old male with osteomyelitis, status post incision and drainage, removal of 4th and 5th metatarsal infected bone. PLAN: Start Vashe dressing changes. Continue empiric antibiotics. Await culture results. Tentative plans for wound vacuum-assisted closure (VAC) once infection and nonviable tissue more fully resolved. Perhaps will initiate on Friday. Will follow.
[2020-01-31 22:00] VITALS: BP 100/55
[2020-02-01] MEDS: IBUPROFEN 400 MG TAB PO SCH ×4 (01:06→17:54)
[2020-02-01] MEDS: VANCOMYCIN HCL 1,000 MG, VIAL MATE ADAPTER 1 EACH in D5W 250 ML IV SCH ×5 (03:26→21:50)
[2020-02-01 06:00] VITALS: BP 111/58
[2020-02-01] MEDS: ceFAZolin SOD 1 GM in D5W MINI-BAG PLUS 50 ML IV SCH ×3 (06:05→22:56)
[2020-02-01 06:39] LABS: BASO % 0.4 % (0.0-1.0); EOS # 0.2 10^3/uL (0.0-0.5); HEMATOCRIT 34.5 % (42.0-52.0); HEMOGLOBIN 11.5 g/dl (13.5-17.5); LYMPH # 3.7 10^3/uL (1.5-5.0); LYMPH % 33.9 % (24.0-44.0); MEAN CORPUSCULAR HEMOGLOBIN 30.5 pg (27.0-33.0); MEAN CORPUSCULAR HGB CONC 33.3 g/dl (32.0-36.5); MEAN CORPUSCULAR VOLUME 91.5 fl (80.0-96.0); MONO % 8.8 % (0.0-5.0); NEUTROPHILS % 54.5 % (36.0-66.0); PLATELET COUNT, AUTOMATED 264 10^3/uL (150-450); RED BLOOD COUNT 3.77 10^6/uL (4.30-6.10)
[2020-02-01 07:05] LABS: BLOOD UREA NITROGEN 11 MG/DL (7-18); CALCIUM LEVEL 8.5 MG/DL (8.5-10.1); CARBON DIOXIDE LEVEL 27 MEQ/L (21-32); CHLORIDE LEVEL 109 MEQ/L (98-107); CREATININE FOR GFR 0.61 MG/DL (0.70-1.30); GLOMERULAR FILTRATION RATE > 60.0 (>56); GLUCOSE, FASTING 94 MG/DL (70-100); POTASSIUM SERUM 3.4 MEQ/L (3.5-5.1); SODIUM LEVEL 140 MEQ/L (136-145)
--- NOTE | 2020-02-01 07:48 | RO ---
DATE OF PROCEDURE: 01/30/2020 PREPROCEDURE DIAGNOSIS: Left foot infection. POSTPROCEDURE DIAGNOSIS: Left foot infection. PROCEDURE: Left foot incision and drainage and removal of infected bone. SURGEON: Dr. Isaac Nguyễn SHEETING PULLER: ANESTHESIA: General, LMA anesthesia. Preoperative injection of 20 mL of 1:1 mixture of 1% lidocaine plain and 1/2% Marcaine plain. ESTIMATED BLOOD LOSS: 20 mL. MATERIALS: None. COMPLICATIONS: None. SPECIMEN: Left fourth and fifth metatarsal bone, necrotic tissue, as well as, culture aerobic and anaerobic of left foot abscess. CONDITION: Stable. DESCRIPTION OF PROCEDURE: Joselo Montesinos is a 49-year-old male who is admitted to the hospital with left foot infection. He had previous left transmetatarsal amputation. He had ulceration under the lateral and plantar aspect of the foot with communicating ulceration with necrotic tissue and purulence extending through the dorsal foot. Decision was made to bring him to the operating room for incision and drainage with removal of nonviable tissue. The patient site and side were identified and marked in preoperative holding area. Consent was reviewed and obtained. The risks, complications and alternatives to the procedure were explained to the patient in detail and all questions were answered. The patient was brought to the operating room and placed on the operating room in supine position. Monitored anesthesia care was delivered by the anesthesia team. Preoperative injection of 20 mL of 1:1 mixture of 1% lidocaine plain and 0.50% Marcaine plain were injected into the foot. The foot was prepped and draped in normal sterile fashion. A tourniquet was applied to the left ankle, but was not inflated during the procedure. The wounds were inspected. There was an ulceration under the remaining portion of the fifth metatarsal. This fully communicated to the dorsal foot. There was a large ulceration on the dorsal foot with necrotic tissue and purulence. Cultures were taken of this fluid. This necrotic tissue was debrided and irregular and nonviable appearing bone was noted on both fourth and fifth metatarsals. These bones were freed of soft tissue attachments with tenotomy scissors and then were resected using sagittal saw. These were sent for pathology. Further debridement was performed. Following this, 3000 liters of pulse irrigation was irrigated using pulse lavage. No further purulence of necrotic tissue was identified. The wounds were packed with saline soaked gauze and covered with dry sterile dressing. The patient was brought to the postanesthesia care unit (PACU) with vital signs stable and neurovascular status intact. He will be weight bearing and admitted to the floor for continued antibiotics and wound care. Will follow.
[2020-02-01] MEDS: lisinopriL 20 MG TAB PO SCH (09:50)
[2020-02-01] MEDS: APIXABAN 2.5 MG TAB (ELIQUIS) PO SCH ×2 (09:50→17:54)
[2020-02-01] MEDS: OMEPRAZOLE 20 MG CAP PO SCH (09:51)
[2020-02-01] MEDS: GABAPENTIN 400 MG CAP PO SCH ×3 (09:51→21:50)
[2020-02-01] MEDS: NORCO, ANEXSIA 5/325MG TABLET (HYDROcodone/ACETAMINOPHEN) PO PRN ×3 (09:51→21:51)
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
[2020-02-01] MEDS ORDERED: LIDOCAINE 1% MDV 20ML VIAL As Ordered ONE (11:31)
[2020-02-01] MEDS ORDERED: POTASSIUM CHLORIDE 10 MEQ SR TABLET PO ONE (12:00)
[2020-02-01] MEDS: MORPHINE 2 MG/ML 1ML VIAL (J2270) IV PRN ×2 (13:21→17:54)
[2020-02-01 14:00] VITALS: BP 111/75
--- NOTE | 2020-02-01 15:39 | PHACANCOPD ---
PHARMACY VANCOMYCIN DOSING Pt Demographics Demographics Patient Age:49 , Weight:92.500 , Gender: male Adjusted Body Weight Date: 01/28/20, Adjusted Body Weight: Kg Vancomycin Vancomycin Target Ranges: 15-20 mcg/ml Vancomycin Load Y/N: Yes Load Dose Date Time Vancomycin Load Dose: 2000mg Date: 01-27 Time: 0400 Vancomycin Dose Date: 01/28/20. Current Vancomycin Dose: [1000mg q8h] Intermittent Dosing?: No Labs Micro Microbiology 01/30/20 Gram Stain - Final, Resulted 01/30/20 Wound Culture - Preliminary, Resulted Strep Agalactiae Group B 01/30/20 Anaerobic Culture, Resulted Pending 01/28/20 Blood Culture - Preliminary, Resulted No Growth after 72 hours. All specime... 01/28/20 Blood Culture - Preliminary, Resulted No Growth after 72 hours. All specime... 01/28/20 Blood Culture - Preliminary, Resulted No Growth after 72 hours. All specime... Creatinine Clearance Date:01/28/20. Creatinine Clearance: [~100]. Pending Labs Trough 01-27 @1900 Assessment and Plan Maintaining Current Dose?: Yes Reason for dose change: No Dose Change Pharmacist Note Pharmacist Note Date: 02/01/20. Pharmacist note: The 09:00 dose was administered ~12:00 and the Vancomycin trough came back artificially high at 26.4mcg/ml at ~14:00. Another trough will be scheduled for 02/02/20 @08:00. We Will continue to monitor and adjust the dose as needed. 01/30/19: Trough resulted at 15.1mcg/ml for cellulitis. Will continue current dose of Vanco 1G IV Q6H@2100. Will continue to monitor and adjust dose as needed. Date: 01/28/20. Pharmacist note:Will monitor and make adjustments as needed. CARO SOTO [facility] Feb 01, 2020 15:39
[2020-02-01] MEDS ORDERED: SODIUM CHLORIDE 0.9% INJ 10 ML SYR IV PRN (17:00)
[2020-02-01] MEDS: SODIUM CHLORIDE 0.9% INJ 10 ML SYR IV SCH (17:55)
[2020-02-01 22:00] VITALS: BP 160/92
[2020-02-02] MEDS: IBUPROFEN 400 MG TAB PO SCH ×5 (00:38→23:57)
[2020-02-02] MEDS: MORPHINE 2 MG/ML 1ML VIAL (J2270) IV PRN ×5 (00:46→21:27)
[2020-02-02] MEDS: VANCOMYCIN HCL 1,000 MG, VIAL MATE ADAPTER 1 EACH in D5W 250 ML IV SCH (03:22)
[2020-02-02] MEDS: ceFAZolin SOD 1 GM in D5W MINI-BAG PLUS 50 ML IV SCH ×3 (05:07→21:27)
[2020-02-02] MEDS: SODIUM CHLORIDE 0.9% INJ 10 ML SYR IV SCH ×2 (05:08→17:54)
[2020-02-02 06:00] VITALS: BP 147/67
[2020-02-02 07:30] LABS: BASO # 0.1 10^3/uL (0.0-0.2); BASO % 0.6 % (0.0-1.0); EOS # 0.4 10^3/uL (0.0-0.5); EOS % 4.6 % (0.0-3.0); LYMPH # 2.8 10^3/uL (1.5-5.0); LYMPH % 35.9 % (24.0-44.0); MEAN CORPUSCULAR HEMOGLOBIN 30.7 pg (27.0-33.0); MEAN CORPUSCULAR HGB CONC 33.3 g/dl (32.0-36.5); MEAN CORPUSCULAR VOLUME 92.1 fl (80.0-96.0); MONO # 0.7 10^3/uL (0.0-0.8); MONO % 9.2 % (0.0-5.0); NEUTROPHILS # 3.8 10^3/uL (1.5-8.5); NEUTROPHILS % 49.2 % (36.0-66.0); PLATELET COUNT, AUTOMATED 306 10^3/uL (150-450); RED BLOOD COUNT 3.91 10^6/uL (4.30-6.10); WHITE BLOOD COUNT 7.8 10^3/uL (4.0-10.0)
[2020-02-02 07:59] LABS: BLOOD UREA NITROGEN 10 MG/DL (7-18); CALCIUM LEVEL 8.7 MG/DL (8.5-10.1); CARBON DIOXIDE LEVEL 30 MEQ/L (21-32); CHLORIDE LEVEL 109 MEQ/L (98-107); CREATININE FOR GFR 0.67 MG/DL (0.70-1.30); GLOMERULAR FILTRATION RATE > 60.0 (>56); GLUCOSE, FASTING 90 MG/DL (70-100); SODIUM LEVEL 141 MEQ/L (136-145)
[2020-02-02] MEDS: OMEPRAZOLE 20 MG CAP PO SCH (08:42)
[2020-02-02] MEDS: lisinopriL 20 MG TAB PO SCH (08:42)
[2020-02-02] MEDS: APIXABAN 2.5 MG TAB (ELIQUIS) PO SCH ×2 (08:42→17:53)
[2020-02-02] MEDS: NORCO, ANEXSIA 5/325MG TABLET (HYDROcodone/ACETAMINOPHEN) PO PRN ×2 (08:42→19:33)
[2020-02-02] MEDS: GABAPENTIN 400 MG CAP PO SCH ×3 (08:42→21:27)
--- NOTE | 2020-02-02 09:12 | REP ---
PICC line insertion under ultrasound guidance. The procedure was performed by VERITO Ramey, under the direct supervision of Dr. Cali. The risks and benefits of the procedure were explained to the patient and informed consent was obtained both verbally and written. Directly prior to the start of the procedure, a formal timeout was completed in the procedure room. The right medial brachial vein was localized using ultrasound guidance. The skin was prepped and draped in the sterile fashion. 1 ml 1% lidocaine 10 mg/ml was used as a local anesthetic. Using ultrasound guidance the right medial brachial vein was cannulated and a 0.018 guidewire was inserted and advanced to the SVC using fluoroscopic guidance. The needle was removed and a 4.5 Chadian dilator and peel-away sheath was inserted over the guidewire. A 4.5 Chadian single lumen catheter was cut to the length of 40 cm. The dilator was removed and the catheter was inserted over the guide wire with the tip ending in the SVC. The peel-away sheath was removed and the catheter was flushed with heparinized saline as per hospital protocol. The catheter was affixed to the skin and a sterile dressing was applied. The patient tolerated the procedure well and there were no immediate complications. 0.2 minutes of fluoroscopy time was utilized for this procedure. Some fluoroscopic images are performed with last image hold technology. These images require no additional radiation. Reviewed by VERITO Carcamo 02/01/2020 03:28 P Electronically Signed by Rashel Cali MD 02/02/2020 09:03 A
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
--- NOTE | 2020-02-02 13:43 | IPN ---
DATE: 02/02/2020 Patient seen and examined. Denies overnight complaints. Vitals are reviewed, he has remained afebrile. Labs are reviewed - white blood cell count is 7.8. Cultures grew group B strep, anaerobic cultures pending. Lower extremity examination: Erythema essentially resolved. The wound is inspected. There is no further purulence and no significant necrosis. ASSESSMENT: 49-year-old male status post incision and drainage with partial below knee amputation. PLAN: Will initiate wound VAC therapy, 125 mmHg continuous pressure, white foam, then black foam. This will be the plan for discharge. He will need a home wound VAC. I suspect he can be home with home nursing changing the wound VAC three times a week. Await final culture results. Suspect he will be able to be discharged on Friday. LISA
[2020-02-02 22:00] VITALS: BP 149/81
[2020-02-03] MEDS: MORPHINE 2 MG/ML 1ML VIAL (J2270) IV PRN ×4 (02:34→18:18)
[2020-02-03 06:00] VITALS: BP 139/80
[2020-02-03] MEDS: SODIUM CHLORIDE 0.9% INJ 10 ML SYR IV SCH ×2 (06:18→18:00)
[2020-02-03] MEDS: IBUPROFEN 400 MG TAB PO SCH ×4 (06:18→23:37)
[2020-02-03] MEDS: ceFAZolin SOD 1 GM in D5W MINI-BAG PLUS 50 ML IV SCH ×3 (06:18→20:30)
[2020-02-03 07:32] LABS: BASO # 0.1 10^3/uL (0.0-0.2); BASO % 0.5 % (0.0-1.0); EOS # 0.2 10^3/uL (0.0-0.5); EOS % 2.6 % (0.0-3.0); HEMATOCRIT 37.9 % (42.0-52.0); HEMOGLOBIN 12.8 g/dl (13.5-17.5); LYMPH # 2.5 10^3/uL (1.5-5.0); MEAN CORPUSCULAR HGB CONC 33.8 g/dl (32.0-36.5); MEAN CORPUSCULAR VOLUME 88.8 fl (80.0-96.0); MONO # 0.7 10^3/uL (0.0-0.8); MONO % 7.3 % (0.0-5.0); NEUTROPHILS # 5.9 10^3/uL (1.5-8.5); NEUTROPHILS % 62.3 % (36.0-66.0); PLATELET COUNT, AUTOMATED 402 10^3/uL (150-450); RED BLOOD COUNT 4.27 10^6/uL (4.30-6.10); WHITE BLOOD COUNT 9.4 10^3/uL (4.0-10.0)
[2020-02-03 07:49] LABS: BLOOD UREA NITROGEN 9 MG/DL (7-18); C REACTIVE PROTEIN QUANTITATIV 1.88 MG/DL (0.00-0.30); CARBON DIOXIDE LEVEL 29 MEQ/L (21-32); CHLORIDE LEVEL 106 MEQ/L (98-107); CREATININE FOR GFR 0.72 MG/DL (0.70-1.30); GLOMERULAR FILTRATION RATE > 60.0 (>56); GLUCOSE, FASTING 103 MG/DL (70-100); POTASSIUM SERUM 3.9 MEQ/L (3.5-5.1); SODIUM LEVEL 139 MEQ/L (136-145)
[2020-02-03] MEDS: lisinopriL 20 MG TAB PO SCH (08:52)
[2020-02-03] MEDS: APIXABAN 2.5 MG TAB (ELIQUIS) PO SCH ×2 (08:53→18:17)
[2020-02-03] MEDS: OMEPRAZOLE 20 MG CAP PO SCH (08:53)
[2020-02-03] MEDS: GABAPENTIN 400 MG CAP PO SCH ×3 (08:53→20:30)
[2020-02-03] MEDS: NORCO, ANEXSIA 5/325MG TABLET (HYDROcodone/ACETAMINOPHEN) PO PRN ×3 (08:58→20:26)
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
[2020-02-03 14:00] VITALS: BP 181/96
[2020-02-03 20:00] VITALS: BP 167/84
[2020-02-04] MEDS: MORPHINE 2 MG/ML 1ML VIAL (J2270) IV PRN ×5 (00:47→20:10)
[2020-02-04] MEDS: ceFAZolin SOD 1 GM in D5W MINI-BAG PLUS 50 ML IV SCH ×3 (05:32→21:55)
[2020-02-04] MEDS: SODIUM CHLORIDE 0.9% INJ 10 ML SYR IV SCH ×2 (05:33→18:36)
[2020-02-04] MEDS: IBUPROFEN 400 MG TAB PO SCH ×4 (05:33→23:47)
[2020-02-04 06:00] VITALS: BP 162/80
[2020-02-04 06:14] LABS: BASO # 0.1 10^3/uL (0.0-0.2); BASO % 0.5 % (0.0-1.0); EOS # 0.2 10^3/uL (0.0-0.5); HEMATOCRIT 37.8 % (42.0-52.0); HEMOGLOBIN 12.9 g/dl (13.5-17.5); LYMPH # 2.7 10^3/uL (1.5-5.0); LYMPH % 26.5 % (24.0-44.0); MEAN CORPUSCULAR HEMOGLOBIN 30.4 pg (27.0-33.0); MEAN CORPUSCULAR HGB CONC 34.1 g/dl (32.0-36.5); MEAN CORPUSCULAR VOLUME 88.9 fl (80.0-96.0); MONO # 0.9 10^3/uL (0.0-0.8); MONO % 8.3 % (0.0-5.0); NEUTROPHILS # 6.4 10^3/uL (1.5-8.5); NEUTROPHILS % 62.1 % (36.0-66.0); PLATELET COUNT, AUTOMATED 413 10^3/uL (150-450); RED BLOOD COUNT 4.25 10^6/uL (4.30-6.10); WHITE BLOOD COUNT 10.3 10^3/uL (4.0-10.0)
[2020-02-04 06:32] LABS: BLOOD UREA NITROGEN 9 MG/DL (7-18); CALCIUM LEVEL 8.6 MG/DL (8.5-10.1); CARBON DIOXIDE LEVEL 27 MEQ/L (21-32); CHLORIDE LEVEL 108 MEQ/L (98-107); CREATININE FOR GFR 0.71 MG/DL (0.70-1.30); GLOMERULAR FILTRATION RATE > 60.0 (>56); GLUCOSE, FASTING 102 MG/DL (70-100); POTASSIUM SERUM 3.5 MEQ/L (3.5-5.1); SODIUM LEVEL 138 MEQ/L (136-145)
[2020-02-04] MEDS: APIXABAN 2.5 MG TAB (ELIQUIS) PO SCH ×2 (09:02→18:36)
[2020-02-04] MEDS: OMEPRAZOLE 20 MG CAP PO SCH (09:03)
[2020-02-04] MEDS: NORCO, ANEXSIA 5/325MG TABLET (HYDROcodone/ACETAMINOPHEN) PO PRN ×3 (09:04→18:35)
[2020-02-04] MEDS: GABAPENTIN 400 MG CAP PO SCH ×3 (09:07→20:09)
[2020-02-04] MEDS: lisinopriL 20 MG TAB PO SCH (09:07)
[2020-02-04 14:00] VITALS: BP_SYST 158; BP_SYST 181; BP_DIAS 76; BP_DIAS 87
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
[2020-02-04 22:00] VITALS: BP 165/80
[2020-02-05] MEDS: MORPHINE 2 MG/ML 1ML VIAL (J2270) IV PRN ×2 (00:47→08:17)
[2020-02-05] MEDS: ceFAZolin SOD 1 GM in D5W MINI-BAG PLUS 50 ML IV SCH (05:13)
[2020-02-05] MEDS: IBUPROFEN 400 MG TAB PO SCH (05:14)
[2020-02-05] MEDS: SODIUM CHLORIDE 0.9% INJ 10 ML SYR IV SCH (05:14)
[2020-02-05] MEDS: NORCO, ANEXSIA 5/325MG TABLET (HYDROcodone/ACETAMINOPHEN) PO PRN (05:15)
[2020-02-05 06:00] VITALS: BP 120/88
[2020-02-05 07:34] LABS: BASO # 0.1 10^3/uL (0.0-0.2); BASO % 0.7 % (0.0-1.0); EOS # 0.4 10^3/uL (0.0-0.5); EOS % 3.4 % (0.0-3.0); HEMATOCRIT 41.3 % (42.0-52.0); HEMOGLOBIN 13.8 g/dl (13.5-17.5); LYMPH # 3.4 10^3/uL (1.5-5.0); LYMPH % 30.6 % (24.0-44.0); MEAN CORPUSCULAR HEMOGLOBIN 29.7 pg (27.0-33.0); MEAN CORPUSCULAR HGB CONC 33.4 g/dl (32.0-36.5); MONO # 0.6 10^3/uL (0.0-0.8); MONO % 5.7 % (0.0-5.0); NEUTROPHILS # 6.6 10^3/uL (1.5-8.5); PLATELET COUNT, AUTOMATED 496 10^3/uL (150-450); RED BLOOD COUNT 4.64 10^6/uL (4.30-6.10); WHITE BLOOD COUNT 11.1 10^3/uL (4.0-10.0)
[2020-02-05 07:38] LABS: BLOOD UREA NITROGEN 10 MG/DL (7-18); CARBON DIOXIDE LEVEL 26 MEQ/L (21-32); CHLORIDE LEVEL 107 MEQ/L (98-107); CREATININE FOR GFR 0.81 MG/DL (0.70-1.30); GLOMERULAR FILTRATION RATE > 60.0 (>56); GLUCOSE, FASTING 94 MG/DL (70-100); POTASSIUM SERUM 4.4 MEQ/L (3.5-5.1); SODIUM LEVEL 138 MEQ/L (136-145)
[2020-02-05] MEDS: GABAPENTIN 400 MG CAP PO SCH (07:53)
[2020-02-05] MEDS: OMEPRAZOLE 20 MG CAP PO SCH (07:53)
[2020-02-05] MEDS: APIXABAN 2.5 MG TAB (ELIQUIS) PO SCH (07:53)
[2020-02-05 07:54] VITALS: BP 150/74
[2020-02-05] MEDS: lisinopriL 20 MG TAB PO SCH (07:54)
[2020-02-05] MEDS ORDERED: CEFD1CAP8 PO (08:04)
[2020-02-05] MEDS ORDERED: METR-265 PO (08:04)
[2020-02-05] MEDS ORDERED: NORC1TAB7 PO (09:39)
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
== END 2020-02-05 08:55 | disposition home health service (06) | DRG 504 ==
LOC: M ED 23:43 → M ED INP 01-28 02:41 → ENRESERV 01-28 04:04 → M MS5PR 01-28 04:46
PROVIDERS: ADMIT Internal Medicine; ATTEND Internal Medicine Nephrology
PROC: 0QBP0ZZ Excision of Left Metatarsal, Open Approach (ICD-10-PCS; principal; 2020-01-30 09:30)
PROC: 02HV33Z Insertion of Infusion Device into Superior Vena Cava, Percutaneous Approach (ICD-10-PCS; 2020-02-01)
DX: T87.44 Infection of amputation stump, left lower extremity (principal); L03.116 Cellulitis of left lower limb; Z89.422 Acquired absence of other left toe(s); I10 Essential (primary) hypertension; E78.5 Hyperlipidemia, unspecified; G47.33 Obstructive sleep apnea (adult) (pediatric); I70.244 Atherosclerosis of native arteries of left leg with ulceration of heel and midfoot; F17.200 Nicotine dependence, unspecified, uncomplicated; F12.10 Cannabis abuse, uncomplicated; D64.9 Anemia, unspecified; L97.524 Non-pressure chronic ulcer of other part of left foot with necrosis of bone; B95.1 Streptococcus, group B, as the cause of diseases classified elsewhere; G62.9 Polyneuropathy, unspecified; G54.6 Phantom limb syndrome with pain; Z79.01 Long term (current) use of anticoagulants; Z79.1 Long term (current) use of non-steroidal anti-inflammatories (NSAID); Z79.899 Other long term (current) drug therapy; Z88.0 Allergy status to penicillin; Z88.8 Allergy status to other drugs, medicaments and biological substances; Y83.5 Amputation of limb(s) as the cause of abnormal reaction of the patient, or of later complication, without mention of misadventure at the time of the procedure; Z98.62 Peripheral vascular angioplasty status

== ENCOUNTER 2020-02-19 20:11 | Emergency (ER) | payer MEDICARE, MEDICAID ==
[~2020-02-19] VITALS: Ht 182.9 cm; Wt 93.2 kg
[2020-02-19 20:11] VITALS: BP 106/55
[~2020-02-19 20:11] MED LIST changes: +CEFD1CAP8 PO; +GABA-1171 PO; +IBUP200C25 PO; +METR-265 PO
[2020-02-19] MEDS ORDERED: ATOR40TA75 PO (20:19)
[2020-02-19] MEDS ORDERED: NS 1,000 ML IV ONE (20:45)
[2020-02-19 21:09] LABS: BASO % 0.4 % (0.0-1.0); EOS # 0.2 10^3/uL (0.0-0.5); HEMATOCRIT 32.5 % (42.0-52.0); HEMOGLOBIN 10.7 g/dl (13.5-17.5); LYMPH # 2.4 10^3/uL (1.5-5.0); LYMPH % 23.6 % (24.0-44.0); MEAN CORPUSCULAR HEMOGLOBIN 30.1 pg (27.0-33.0); MEAN CORPUSCULAR HGB CONC 32.9 g/dl (32.0-36.5); MEAN CORPUSCULAR VOLUME 91.3 fl (80.0-96.0); MONO # 0.8 10^3/uL (0.0-0.8); MONO % 8.1 % (0.0-5.0); NEUTROPHILS # 6.7 10^3/uL (1.5-8.5); NEUTROPHILS % 65.6 % (36.0-66.0); PLATELET COUNT, AUTOMATED 295 10^3/uL (150-450); RED BLOOD COUNT 3.56 10^6/uL (4.30-6.10); WHITE BLOOD COUNT 10.3 10^3/uL (4.0-10.0)
[2020-02-19 21:52] LABS: ERYTHROCYTE SEDIMENTATION RATE 80 mm/hr (0-20)
[2020-02-19 21:56] LABS: ALBUMIN 3.1 GM/DL (3.2-5.2); ALT/SGPT 12 U/L (12-78); BILIRUBIN,TOTAL 0.3 MG/DL (0.2-1.0); BLOOD UREA NITROGEN 23 MG/DL (7-18); C REACTIVE PROTEIN QUANTITATIV 3.28 MG/DL (0.00-0.30); CALCIUM LEVEL 8.5 MG/DL (8.5-10.1); CARBON DIOXIDE LEVEL 29 MEQ/L (21-32); CHLORIDE LEVEL 101 MEQ/L (98-107); GLOMERULAR FILTRATION RATE > 60.0 (>56); GLUCOSE, FASTING 144 MG/DL (70-100); POTASSIUM SERUM 4.4 MEQ/L (3.5-5.1); SODIUM LEVEL 134 MEQ/L (136-145); TOTAL PROTEIN 7.2 GM/DL (6.4-8.2)
[2020-02-19] MEDS ORDERED: FLAG500T PO (22:02)
[2020-02-19] MEDS ORDERED: CEFD300CAP PO (22:02)
[2020-02-19] MEDS ORDERED: metroNIDAZOLE (FLAGYL) 500 MG TAB PO ONE (22:15)
[2020-02-19] MEDS ORDERED: CEFDINIR 300 MG CAP (OMNICEF) PO ONE (22:15)
== END 2020-02-19 22:25 | disposition home or self-care (01) ==
LOC: M ED 20:11
DX: L03.116 Cellulitis of left lower limb (principal); I10 Essential (primary) hypertension; E78.5 Hyperlipidemia, unspecified; K21.9 Gastro-esophageal reflux disease without esophagitis; G43.909 Migraine, unspecified, not intractable, without status migrainosus; M54.30 Sciatica, unspecified side; F41.9 Anxiety disorder, unspecified; F32.9 Major depressive disorder, single episode, unspecified; F17.200 Nicotine dependence, unspecified, uncomplicated; Z88.0 Allergy status to penicillin; Z88.8 Allergy status to other drugs, medicaments and biological substances; Z87.2 Personal history of diseases of the skin and subcutaneous tissue; Z79.899 Other long term (current) drug therapy; Z79.2 Long term (current) use of antibiotics

== ENCOUNTER 2020-02-21 14:15 | Inpatient (IN) | payer MEDICARE, MEDICAID ==
[~2020-02-21] VITALS: Ht 182.9 cm; Wt 92.1 kg
[~2020-02-21 14:15] MED LIST changes: +CEFD300CAP PO; +CYCL-707 PO; -CYCL10TA PO; +FLAG500T PO
[2020-02-21] MEDS ORDERED: HEPARIN SOD (PORCINE) 5000 UNITS/ML VIAL (J1644 PER 1000UNITS) SC SCH (15:00)
[2020-02-21] MEDS ORDERED: MOM 30ML SUSPENSION UDC PO PRN (15:00)
[2020-02-21] MEDS ORDERED: MAALOX 30 ML SUSP *UDC PO PRN (15:00)
[2020-02-21] MEDS ORDERED: ACETAMINOPHEN TAB 650MG DOSE (2X325MG) PO PRN (15:00)
--- NOTE | 2020-02-21 15:27 | HPEPDOC ---
General Date of Admission Date of Service: Feb 21, 2020 Chief Complaint The patient is a 49-year-old male admitted with a reason for visit of Cellulitis Left Foot. Source: Patient Timing/Duration: Other (3 days) Severity: Moderate Associated Symptoms: Other (redness on left leg) History of Present Illness This is 49 years old male with past medical history of nonocclusive PVD, history of lower extremity ischemia, right femoropopliteal bypass, left metatarsal amputation, chronic hypertension, dyslipidemia, obstructive sleep apnea, carotid endarterectomy being directly admitted to medical floor with diagnosis of failed outpatient treatment for left foot cellulitis', patient was admitted and dischar ged from this hospital about a month ago with the diagnosis of left foot cellulitis status post left forefoot amputation. Blood cultures were positive for strep B infection. Patient was treated with cefazolin Vanco and Y discharge on by mouth antibiotics. As per patient will never really healed up and since last 3 days. He has severe pain increased redness of left foot and left leg. Saw his PMD and being admitted directly to the floor for further evaluation and management by podiatry. Home Medications Scheduled Apixaban (Eliquis) 2.5 Mg Tablet, 2.5 MG PO BID, (Reported) Atorvastatin Calcium (Atorvastatin Calcium) 40 Mg Tablet, 40 MG PO DAILY, (Reported) Gabapentin (Gabapentin) 100 Mg Capsule, 100 MG PO TID, (Reported) TAKE WITH 600mg Gabapentin (Gabapentin) 600 Mg Tablet, 600 MG PO TID, (Reported) take with 100mg Lisinopril (Lisinopril) 20 Mg Tab, 20 MG PO DAILY, (Reported) Omeprazole (Omeprazole) 40 Mg Cap, 40 MG PO DAILY, (Reported) Scheduled PRN Hydrocodone/Acetaminophen (Hydrocodone-Acetamin 5-325 mg) 1 Each Tablet, 1 TAB PO Q8H PRN for PAIN, (Reported) Allergies Coded Allergies: pregabalin (Verified Allergy, Severe, seizures, 01/27/20) Penicillins (Verified Allergy, Intermediate, hives, 01/27/20) Past Medical History Medical History Nonocclusive peripheral vascular disease, acute lower extremity ischemia, right femoropopliteal bypass, left metatarsal amputation, chronic hypertension, dyslipidemia, obstructive sleep apnea, does not use CPAP, carotid endarterectomy Surgical History As above Family History Family history of diabetes Social History * Smoker: current smoker Alcohol: Denies Drugs: marijuana A-FIB/CHADSVASC A-FIB History Current/History of A-Fib/PAF?: No Review of Systems Constitutional: Denies: Chills, Fever, Malaise, Night Sweats, Weakness, Fatigue, Weight Loss, Lethargy, Other ENT: Denies: Head Aches, Ear Pain, Dysphagia, Sinus Congestion, Post Nasal Drip, Sore Throat, Epistaxis, Other Symptoms Skin: Denies: Rash, Lesions, Jaundice, Bruising, Itching, Dry, Breakdown, Nail Changes, Other Pulmonary: Denies: Dyspnea, Cough, Pleuritic Chest Pain, Other Symptoms Cardiovascular: Denies: Chest Pain, Palpitations, Orthopnea, Paroxysmal Noc. Dyspnea, Edema, Lt Headedness, Other Symptoms Gastrointestinal: Denies: Nausea, Vomiting, Abdominal Pain, Diarrhea, Constipation, Melena, Hematochezia, Other Symptoms Genitourinary: Denies: Dysuria, Frequency, Incontinence, Hematuria, Retention, Other Symptoms Hematologic: Denies: Bruising, Bleeding Excessively, Petecchia, Purpura, Enlarged Lymph Nodes, Other Hematologic Endocrine: Denies: Polydipsia, Polyphagia, Polyuria, Heat Intolerance, Cold Intolerance, Other Endocrine Sx Musculoskeletal: Reports: Foot Pain, Other Symptoms (increased redness at the left lower extremity) Neurological: Denies: Weakness, Numbness, Incoordination, Change in speech, Confusion, Seizures, Other Symptoms Psych: Denies: Mood Normal, Anxiety, Depression, Memory Issues, Thoughts of Self Harm, Anger, Thoughts of Harming Other, Other Psych Physical Examination General Exam: Positive: Alert, Cooperative Eye Exam: Positive: PERRLA, Conjunctiva & lids normal ENT Exam: Positive: Atraumatic Neck Exam: Positive: Supple Chest Exam: Positive: Clear to auscultation, Normal air movement Heart Exam: Positive: Normal S1 Abdomen Exam: Positive: Normal bowel sounds, Soft Extremity Exam: Positive: Normal pulses, Other (, status post left partial foot amputation, dressings all of the left foot, distal pulses equal bilaterally) Skin Exam: Positive: Other skin issue (as above) Neuro Exam: Positive: Strength at 5/5 X4 ext, Sensation Intact, Cranial Nerves 3-12 NL Psych Exam: Positive: Mental status NL, Memory Intact, Oriented x 3 Vital Signs Vital signs are pending as this is a direct admission Problems (1) Cellulitis of left foot Status: Acute Problem Text: Admit to [facility] floor with telemetry IV fluids normal saline at 70 mL per hour Vancomycin 1 g IV every 12 hours Cefazolin 1 g IV every 8 hours Wound cultures and Gram stain Blood cultures 2 CBC, CMP, UA Dr. Nguyễn for podiatry consult Morphine sulfate for severe pain Percocet, Tylenol when necessary for mild to moderate pain 2 g sodium diet Activity as tolerated DVT prophylaxis, patient is on apaxiban already Continue home meds (2) Peripheral vascular disease Status: Chronic Problem Text: Continue home meds (3) HTN (hypertension) Status: Chronic Problem Text: Continue home meds (4) Dyslipidemia Status: Chronic Problem Text: Continue home meds Plan / VTE VTE Prophylaxis Ordered?: Yes ENRIQUETA JAMIL MD Feb 21, 2020 15:27
[2020-02-21 15:30] VITALS: BP 120/62
[2020-02-21 15:53] LABS: HEMATOCRIT 34.6 % (42.0-52.0); HEMOGLOBIN 11.2 g/dl (13.5-17.5); MEAN CORPUSCULAR HEMOGLOBIN 29.9 pg (27.0-33.0); MEAN CORPUSCULAR HGB CONC 32.4 g/dl (32.0-36.5); MEAN CORPUSCULAR VOLUME 92.3 fl (80.0-96.0); PLATELET COUNT, AUTOMATED 289 10^3/uL (150-450); RED BLOOD COUNT 3.75 10^6/uL (4.30-6.10); WHITE BLOOD COUNT 12.2 10^3/uL (4.0-10.0)
[2020-02-21] MEDS ORDERED: GABAPENTIN 400 MG CAP PO SCH (16:00)
[2020-02-21] MEDS ORDERED: HYDR-3713 PO (16:20)
[2020-02-21] MEDS ORDERED: GABA600T4 PO (16:20)
[2020-02-21 16:23] LABS: ALBUMIN 3.1 GM/DL (3.2-5.2); ALT/SGPT 11 U/L (12-78); BILIRUBIN,TOTAL 0.5 MG/DL (0.2-1.0); BLOOD UREA NITROGEN 19 MG/DL (7-18); CALCIUM LEVEL 8.7 MG/DL (8.5-10.1); CARBON DIOXIDE LEVEL 32 MEQ/L (21-32); CHLORIDE LEVEL 99 MEQ/L (98-107); CREATININE FOR GFR 1.15 MG/DL (0.70-1.30); GLOMERULAR FILTRATION RATE > 60.0 (>56); GLUCOSE, FASTING 97 MG/DL (70-100); POTASSIUM SERUM 4.2 MEQ/L (3.5-5.1); SODIUM LEVEL 134 MEQ/L (136-145); TOTAL PROTEIN 7.7 GM/DL (6.4-8.2)
[2020-02-21] MEDS: GABAPENTIN 300 MG CAP PO SCH ×2 (17:03→20:57)
[2020-02-21] MEDS: GABAPENTIN 100 MG CAP PO SCH ×2 (17:03→20:57)
[2020-02-21] MEDS: NORCO, ANEXSIA 5/325MG TABLET (HYDROcodone/ACETAMINOPHEN) PO PRN (17:04)
[2020-02-21] MEDS: ceFAZolin SOD 1 GM in D5W MINI-BAG PLUS 50 ML IV SCH (17:12)
[2020-02-21] MEDS: NS 1,000 ML IV SCH (17:12)
[2020-02-21] MEDS: VANCOMYCIN HCL 1,000 MG, VIAL MATE ADAPTER 1 EACH in D5W 250 ML IV SCH ×2 (18:13→19:28)
[2020-02-21] MEDS: MORPHINE 2 MG/ML 1ML VIAL (J2270) IV PRN (18:14)
[2020-02-21] MEDS: DOCUSATE SODIUM 100 MG CAP PO SCH (20:56)
[2020-02-21] MEDS: APIXABAN 2.5 MG TAB (ELIQUIS) PO SCH (20:57)
[2020-02-21 22:00] VITALS: BP 133/75
--- NOTE | 2020-02-21 23:01 | PHACANCOPD ---
PHARMACY VANCOMYCIN DOSING Pt Demographics Demographics Patient Age:49 , Weight:92.100 , Gender: male Adjusted Body Weight Date: 02/21/20, Adjusted Body Weight: Kg Events Past 24 Hours Events Past 24 Hours: YES: Elevation in WBC Vancomycin Vancomycin indication: Left foot cellulitis Vancomycin Target Ranges: 10-20 mcg/ml Vancomycin Load Y/N: Yes Load Dose Date Time Vancomycin Load Dose: 2000mg Date: 02/21/20 Time: 1800 Vancomycin Dose Date: 02/21/20. Current Vancomycin Dose: [ 1 gram every 8 hours ] Intermittent Dosing?: No Labs Labs Vital Signs Label Value Date Time Patient Temperature 97.4 degrees F 02/21/20 1530 Temperature Source Oral 02/21/20 1530 Blood Pressure Assessment 120/62 (81) 02/21/20 1530 Bedside Pulse Oximetry 99 % 02/21/20 1530 Respiratory Rate 20 bpm 02/21/20 1530 Item Value Date Time White Blood Count 12.2 10^3/uL H 02/21/20 1541 Creatinine 1.15 MG/DL 02/21/20 1541 Glomerular Filtration Rate > 60.0 02/21/20 1541 Lactic Acid Level 0.8 MMOL/L 02/21/20 1541 Micro Microbiology 02/21/20 Gram Stain, Received Pending 02/21/20 Wound Culture, Received Pending 02/21/20 Blood Culture, Received Pending Creatinine Clearance Date:02/21/20. Creatinine Clearance: [ 83 mL/min ]. Assessment and Plan Maintaining Current Dose?: Yes Reason for dose change: No Dose Change Pharmacist Note Pharmacist Note Date: 02/21/20. Pharmacist note: Patient is a 49-year-old male who was directly admitted to [facility] for a left lower extremity cellulitis where he had failed outpatient therapy after a previous hospitalization for the same wound. Mr. Montesinos has an extensive history of peripheral artery disease, and was restarted on cefazolin and vancomycin for his antibiotic therapy. His serum creatinine is elevated from his previous admission, so his previousantimicrobial therapy of vancomycin was adjusted for his current creatinine levels. He was scheduled for a 2 gram loading dose this past evening at 1800, with a subsequent maintenance dose of 1 gram every 8 hours starting tomorrow @ 0200. A trough was scheduled for tomorrow at 1700, prior to the fourth dose, with a desired trough of between 10-20mcg/dL. We will continue to monitor and make adjustments as needed. LUIS BARAJAS PHARMACY Feb 21, 2020 23:01
[2020-02-22] MEDS: NORCO, ANEXSIA 5/325MG TABLET (HYDROcodone/ACETAMINOPHEN) PO PRN ×2 (00:35→20:08)
[2020-02-22] MEDS: ceFAZolin SOD 1 GM in D5W MINI-BAG PLUS 50 ML IV SCH ×3 (00:36→17:00)
[2020-02-22] MEDS ORDERED: VANCOMYCIN HCL 1,000 MG, VIAL MATE ADAPTER 1 EACH in D5W 250 ML IV SCH (02:00)
[2020-02-22] MEDS: MORPHINE 2 MG/ML 1ML VIAL (J2270) IV PRN ×4 (02:13→23:03)
[2020-02-22] MEDS ORDERED: KETOROLAC 30 MG/ML VIAL (J1885) IV ONE (05:00)
[2020-02-22 06:00] VITALS: BP 123/70
[2020-02-22 06:17] LABS: HEMOGLOBIN 11.3 g/dl (13.5-17.5); MEAN CORPUSCULAR HEMOGLOBIN 30.1 pg (27.0-33.0); MEAN CORPUSCULAR HGB CONC 33.2 g/dl (32.0-36.5); MEAN CORPUSCULAR VOLUME 90.4 fl (80.0-96.0); PLATELET COUNT, AUTOMATED 283 10^3/uL (150-450); RED BLOOD COUNT 3.76 10^6/uL (4.30-6.10); WHITE BLOOD COUNT 10.6 10^3/uL (4.0-10.0)
[2020-02-22 06:47] LABS: ALBUMIN 2.7 GM/DL (3.2-5.2); ALT/SGPT 11 U/L (12-78); BILIRUBIN,TOTAL 0.8 MG/DL (0.2-1.0); BLOOD UREA NITROGEN 11 MG/DL (7-18); CALCIUM LEVEL 8.5 MG/DL (8.5-10.1); CARBON DIOXIDE LEVEL 32 MEQ/L (21-32); CHLORIDE LEVEL 101 MEQ/L (98-107); CREATININE FOR GFR 0.76 MG/DL (0.70-1.30); GLOMERULAR FILTRATION RATE > 60.0 (>56); GLUCOSE, FASTING 85 MG/DL (70-100); MAGNESIUM LEVEL 1.8 MG/DL (1.8-2.4); POTASSIUM SERUM 4.1 MEQ/L (3.5-5.1); SODIUM LEVEL 134 MEQ/L (136-145); TOTAL PROTEIN 7.1 GM/DL (6.4-8.2)
[2020-02-22] MEDS: GABAPENTIN 300 MG CAP PO SCH ×3 (10:11→20:04)
[2020-02-22] MEDS: APIXABAN 2.5 MG TAB (ELIQUIS) PO SCH ×2 (10:12→20:04)
[2020-02-22] MEDS: ATORVASTATIN 20 MG TAB PO SCH (10:12)
[2020-02-22] MEDS: lisinopriL 20 MG TAB PO SCH (10:12)
[2020-02-22] MEDS: GABAPENTIN 100 MG CAP PO SCH ×3 (10:13→20:04)
[2020-02-22] MEDS: DOCUSATE SODIUM 100 MG CAP PO SCH ×2 (10:13→20:04)
[2020-02-22] MEDS: OMEPRAZOLE 20 MG CAP PO SCH (10:13)
[2020-02-22] MEDS: NS 1,000 ML IV SCH (10:14)
[2020-02-22] MEDS: VANCOMYCIN HCL 750 MG, VIAL MATE ADAPTER 1 EACH in D5W 250 ML IV SCH ×2 (11:06→18:26)
--- NOTE | 2020-02-22 11:44 | CR ---
DATE OF CONSULTATION: 02/22/2020 REASON FOR CONSULTATION: Foot infection. Joselo Montesinos is a 49-year-old male who had been recently seen by myself in the hospital with severe left foot infection. He had incision and drainage with removal of part of his fourth and fifth metatarsals at that time. He was seen in followup by myself last week at which the wound was improving and there was no further erythema. However, over the weekend he states the wound became worse. He had more redness pain and some more discharge. He was seen in the ER initially and was given vancomycin and discharged. He states that it then worsened and he was seen by his primary doctor who admitted him directly to the hospital. PAST MEDICAL HISTORY: Significant for: 1. Peripheral vascular disease. 2. Chronic hypertension. 3. Sleep apnea. 4. Dyslipidemia. SURGICAL HISTORY: Includes: 1. Right fem bypass. 2. Left foot transmetatarsal amputation with amputation of fourth and fifth metatarsals. SOCIAL HISTORY: Current smoker. FAMILY HISTORY: Diabetes. ALLERGIES: PENICILLIN AND PREGABALIN. REVIEW OF SYSTEMS: Denies nausea, vomiting, fever or chills. Vitals are reviewed. T-max is 99.2. Labs are reviewed. White blood cell count on admission was 12.2, today is 10.6. LOWER EXTREMITY EXAMINATION: Left toot is inspected. Transmetatarsal amputation present. The wound is on the dorsal lateral and plantar lateral foot. There are some ischemic changes at the periphery of the wound with some necrotic tissue and trace purulence within the wound. Pulses are nonpalpable. ASSESSMENT: 49-year-old male with peripheral vascular disease status post incision and drainage with recent amputation of fourth and fifth metatarsals. PLAN: An MRI has been ordered. Will also order lower extremity arterial studies. He has been started on antibiotics. Pending these results he may require vascular intervention or further debridement. Did discuss that he is at risk for losing his leg given the severe nature of his vascular disease combined with osteomyelitis. Will follow.
--- NOTE | 2020-02-22 12:20 | PHACANCOPD ---
PHARMACY VANCOMYCIN DOSING Pt Demographics Demographics Patient Age:49 , Weight:92.100 , Gender: male Adjusted Body Weight Date: 02/21/20, Adjusted Body Weight: Kg Vancomycin Vancomycin indication: Left foot cellulitis Vancomycin Target Ranges: 10-20 mcg/ml Vancomycin Load Y/N: Yes Load Dose Date Time Vancomycin Load Dose: 2000mg Date: 02/21/20 Time: 1800 Vancomycin Dose Date: 02/21/20. Current Vancomycin Dose: [ 1 gram every 8 hours ] Intermittent Dosing?: No Labs Micro Microbiology 02/21/20 Gram Stain - Final, Resulted 02/21/20 Wound Culture, Resulted Pending 02/21/20 Blood Culture, Received Pending Creatinine Clearance Date:02/21/20. Creatinine Clearance: [ 83 mL/min ]. Assessment and Plan Maintaining Current Dose?: No Reason for dose change: Change in serum Cr Pharmacist Note Pharmacist Note Date 02/22/20: Due to improvement in patient's SCr this morning, I increased dose to 1250mg IV vancomycin q8h @10 with a trough to still be drawn at 1700. I will continue to monitor this patient and adjust dose as needed. Date: 02/21/20. Pharmacist note: Patient is a 49-year-old male who was directly admitted to [facility] for a left lower extremity cellulitis where he had failed outpatient therapy after a previous hospitalization for the same wound. Mr. Benedicto girard has an extensive history of peripheral artery disease, and was restarted on cefazolin and vancomycin for his antibiotic therapy. His serum creatinine is elevated from his previous admission, so his previousantimicrobial therapy of vancomycin was adjusted for his current creatinine levels. He was scheduled for a 2 gram loading dose this past evening at 1800, with a subsequent maintenance dose of 1 gram every 8 hours starting tomorrow @ 0200. A trough was scheduled for tomorrow at 1700, prior to the fourth dose, with a desired trough of between 10-20mcg/dL. We will continue to monitor and make adjustments as needed. ZAHEER VALDEZ PHARMACY Feb 22, 2020 12:20
[2020-02-22] MEDS: VANCOMYCIN HCL 500 MG in D5W MINI-BAG PLUS 100 ML IV SCH ×2 (13:30→19:39)
[2020-02-22 14:00] VITALS: BP 118/78
--- NOTE | 2020-02-22 15:48 | REP ---
KUB ABDOMEN AND PELVIS: Two KUB films of abdomen and pelvis are performed. There is moderate fecal material scattered throughout the colon. No dilated small bowel loops are seen. There is a stent in the region of the left common iliac artery. EKG leads overlie the abdomen and pelvis. There are degenerative changes of the spine. Electronically Signed by Rashel Cali MD 02/22/2020 04:25 P
[2020-02-22] MEDS ORDERED: PROHANCE 279.3MG/ML 15ML VIAL (A9576) As Ordered ONE (16:25)
[2020-02-22] MEDS ORDERED: PROHANCE 279.3MG/ML 5ML VIAL (A9576) As Ordered ONE (16:25)
--- NOTE | 2020-02-22 17:26 | REP ---
BILATERAL LOWER EXTREMITY DUPLEX DOPPLER ARTERIAL ULTRASOUND. Real-time ultrasound evaluation and duplex Doppler interrogation of the bilateral lower extremity arterial systems is performed. KAMRON on the right is 1.4. KAMRON on the left could not be calculated due to noncompressible artery. There is a patent bypass graft extending from the mid superficial femoral artery to the posterior tibial artery. Normal flow velocities are seen throughout the bypass graft. The [place] mid to distal right superficial femoral artery, popliteal artery and proximal anterior tibial artery are occluded. Triphasic waveforms are seen in the right common femoral artery and proximal superficial femoral artery. Monophasic waveforms are seen in the right calf arteries. There is reconstitution of the distal right anterior tibial artery at the ankle. On the left, there are diffuse monophasic waveforms with somewhat diminished flow velocities diffusely suggesting a more proximal stenosis. PSV Right Left FINISHER MACHINE 115.9 cm/s 63.7 cm/s Profunda 96.8 28.0 Proximal SFA 84.3 49.1 Mid SFA occluded 44.3 Distal SFA occluded 44.6 Popliteal occluded 32.7 Proximal MINERVA occluded 54.6 Tibial peroneal trunk reversed 64.9 34.8 Proximal MACHINE PIE MAKER 69.3 16.1 Distal MACHINE PIE MAKER 85.3 39.3 Distal MINERVA 28.1 15.6 Electronically Signed by Rashel Cali MD 02/23/2020 09:26 A
--- NOTE | 2020-02-22 18:13 | REP ---
HISTORY: Assess for osteomyelitis. CONTRAST: ProHance 18 mL COMPARISON: I have no plain films to review. I have been given no surgical history. The patient has undergone some form of amputation. In addition, there is significant motion artifact seen throughout the exam further limiting it. There is abnormal T1 and T2 prolongation seen within the cuboid. This is seen with gadolinium enhancement. There is diffuse enhancement and T2 hypersignal seen throughout the soft tissues particularly the plantar soft tissues. There is subtle soft tissue enhancement seen involving the area likely of the postsurgical bed where there is a concomitant ulceration of the soft tissues. IMPRESSION: 1. Markedly limited exam. 2. Extensive edema. 3. Evidence of a large ulcer. 4. Evidence of osteomyelitis involving the cuboid. Certainly, other ossific structures may also be involved, however, due to the limitations of the exam, that cannot be stated with certainty. Electronically Signed by Cassius Burrell DO 02/22/2020 07:30 P
--- NOTE | 2020-02-22 18:21 | IPNPDOC ---
Text Note Date of Service The patient was seen on 02/22/20. NOTE S: Pt examined at bedside. Has no complaints. No f/c/n/v/leg pain. Wound on foot continues to ooze serosanguinous drainage onto dressing. No blood loss. Otherwise stable. PE: Vitals: see below General: NAD, A&Ox3, resting comfortably HEENT: NCAT, EOMI, anicteric sclera, MMM, poor dentition CV: RRR, no murmurs or clicks or rub. No edema RESP: CTAB, no w/r/r/ ABD: soft, NT, ND. Benign EXTREMITIES: 2+ radial pulses b/l, able to move all extremities. Left foot all digits amputated. 2 ulcers on lateral front part of foot, packed, and dressing with serosang fluid NEURO: follows commands. Diminished sensation left foot and distal LLE A/P: 49 yo M has hx of PVD s/p amputation of left foot digits & LE stents, with no sensation in left foot, with recent ulceration underwent I&D by Dr. Nguyễn 01/30/20. Was recently hospitalized January 27- for left foot cellulitis , and reportedly failed o/p tx of cellulitis and on f/u with PCP, was then urged to come in due to concern of continued infected ulcer site. Left foot cellulitis no signs of systemic infection. Pt is asymptomatic and reports he feels like his normal self continue borad abx - Vanc & Cefazolin day 2. WBC downtrending on recheck; afebrile Dr. Nguyễn consulted. 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 F/u o/p DVT ppx: chronic eliquis DISPO: pending clinical improvement, possible OR. VS,Fishbone, I+O VS, Fishbone, I+O Laboratory Tests 02/22/20 05:27 Vital Signs Date Time Temp Pulse Resp B/P (MAP) Pulse Ox O2 Delivery O2 Flow Rate FiO2 02/22/20 17:20 18 02/22/20 14:00 98.4 79 118/78 (91) 97 Room Air I&O- Last 24 Hours up to 6 AM 02/22/20 06:00 Intake Total 1860 ml Output Total 2650 ml Balance -790 ml GME ATTESTATION GME ATTESTATION My faculty preceptor for this patient encounter was physically present during the encounter and was fully available. All aspects of the patient interview, examination, medical decision making process, and medical care plan development were reviewed and approved by the faculty preceptor. The faculty preceptor is aware and concurs with the plan as stated in the body of this note and will attest to such by his/her cosignature. ATTENDING NOTE I, Aidan Ling, have independently examined this patient and performed my own physical exam, as well as reviewed the documentation and edited where necessary. I have discussed in detail with the resident / student the findings and plan of treatment as documented by the resident / student and edited their note. I agree with their findings and treatment plan and have edited their documentation. I will continue to follow the patient during this hospital stay. FE LAM DO Feb 22, 2020 18:21 AIDAN LING MD Feb 22, 2020 18:25
[2020-02-22] MEDS ORDERED: MIRTAZAPINE 15 MG TAB PO SCH (21:00)
[2020-02-22 22:00] VITALS: BP 151/81
[2020-02-23] MEDS: ceFAZolin SOD 1 GM in D5W MINI-BAG PLUS 50 ML IV SCH (00:27)
[2020-02-23] MEDS ORDERED: hydrOXYzine 50 MG TAB PO ONE (00:30)
[2020-02-23] MEDS: VANCOMYCIN HCL 750 MG, VIAL MATE ADAPTER 1 EACH in D5W 250 ML IV SCH ×2 (01:41→11:24)
[2020-02-23] MEDS: NORCO, ANEXSIA 5/325MG TABLET (HYDROcodone/ACETAMINOPHEN) PO PRN ×3 (02:00→19:58)
[2020-02-23] MEDS ORDERED: KETOROLAC 30 MG/ML VIAL (J1885) IV ONE (02:15)
[2020-02-23] MEDS: RAMELTEON 8 MG TAB (ROZEREM) PO SCH ×2 (02:22→20:02)
[2020-02-23] MEDS: VANCOMYCIN HCL 500 MG in D5W MINI-BAG PLUS 100 ML IV SCH ×2 (02:48→12:39)
[2020-02-23] MEDS ORDERED: CYCLOBENZAPRINE 5MG TABLET PO ONE (03:00)
[2020-02-23 06:00] VITALS: BP 146/88
[2020-02-23] MEDS ORDERED: fentaNYL 100 MCG/2 ML INJECTION (J3010) IV SCH (06:00)
[2020-02-23] MEDS ORDERED: MIDAZOLAM INJ 2 MG/2 ML VIAL (J2250) IV SCH (06:00)
[2020-02-23] MEDS: NS 1,000 ML IV SCH ×2 (06:51→10:54)
--- NOTE | 2020-02-23 08:29 | CR.PDOC ---
General Date of Consultation: Feb 23, [address] Bailey HPI: 49 year old M with history of PAD and previous left TMA, who had been recently admitted to the hospital with left foot infection, status post incision and drainage with removal of part of the fourth and fifth metatarsals, seen in follow-up for wound care with Dr. Caron Barber. The patient's wound had appeared to be improving until the weekend when the patient noted it was worsening. Subsequently the patient is admitted to the hospital with IV antibiotics, vascular surgery is consulted regarding nonhealing left foot wound. No acute medical complaints today. Denies any fevers, chills, weakness, fatigue, Headache, Chest Pain, Shortness of breath, cough, palpitations, abdominal pain, N/V/D or changes in bowel or bladder habits. PMHx: Irritable bowel syndrome Hypertension Dyslipidemia Degenerative disc disease Osteoarthritis CATIA, does not use CPAP. PAD PSHX: Left TMA 03/04 [place] 03/04 [place] left common femoral arterial thromboembolectomy and endarterectomy,recannulization of occluded left common iliac and external iliac arteries, left common iliac artery, external iliac artery angioplasty and stenting h/o Rt SFA to SCHOOL CURRICULUM DEVELOPER bypass procedure. SOCHX: Smoker FAMHX: Father with history of Caldwell's disease, mother with history of diabetes. ROS: As noted in HPI, otherwise 11pt ROS of systems reviewed and unremarkable. PE: GEN: 49 yo M, appears stated age. No acute distress. Alert and oriented x 3. HEENT: Normocephalic, atraumatic. Moist mucous membranes. CHEST: Regular rate and rhythm, +S1, +S2 LUNGS: Clear to auscultation bilaterally. No wheezes, rales, or rhonchi. ABD: Round, soft, non-tender, non-distended. +Bowel sounds throughout. SKIN: Left TMA with open wound at the lateral aspect, purulent drainage noted on the dressing material. diffuse erythema of the remainder of the foot. NEURO: Alert and oriented x 3. No focal deficits appreciated. Arterial ultrasound BILATERAL LOWER EXTREMITY DUPLEX DOPPLER ARTERIAL ULTRASOUND. Real-time ultrasound evaluation and duplex Doppler interrogation of the bilateral lower extremity arterial systems is performed. KAMRON on the right is 1.4. KAMRON on the left could not be calculated due to noncompressible artery. There is a patent bypass graft extending from the mid superficial femoral artery to the posterior tibial artery. Normal flow velocities are seen throughout the bypass graft. The [place] mid to distal right superficial femoral artery, popliteal artery and proximal anterior tibial artery are occluded. Triphasic waveforms are seen in the right common femoral artery and proximal superficial femoral artery. Monophasic waveforms are seen in the right calf arteries. There is reconstitution of the distal right anterior tibial artery at the ankle. On the left, there are diffuse monophasic waveforms with somewhat diminished flow velocities diffusely suggesting a more proximal stenosis. PSV Right Left PRESCHOOL SUBSTITUTE TEACHER 115.9 cm/s 63.7 cm/s Profunda 96.8 28.0 Proximal SFA 84.3 49.1 Mid SFA occluded 44.3 Distal SFA occluded 44.6 Popliteal occluded 32.7 Proximal MINERVA occluded 54.6 Tibial peroneal trunk reversed 64.9 34.8 Proximal SCHOOL CURRICULUM DEVELOPER 69.3 16.1 Distal SCHOOL CURRICULUM DEVELOPER 85.3 39.3 Distal MINERVA 28.1 15.6 Unreviewed DD: Rashel Cali MD, MD 02/22/20 9406 A&P: 1. Nonhealing left foot wound Arterial ultrasound is reviewed and indicates diffusely monophasic waveforms in the left lower extremity. The patient is nothing by mouth this a.m. Serum creatinine 0.76 with GFR greater than 60. Reviewed with the patient that Dr. Bailey would recommend proceeding with left lower extremity angiogram to determine if there is any intervention which may facilitate healing of his left foot. The procedure, risks, benefits and alternatives are reviewed with the patient. The patient verbalizes understanding and agreement. Informed consent is obtained and placed in the chart. I have held his Eliquis this morning, the patient will likely be able to restart following the procedure. Continue with wound care as per Dr. Nguyễn. Continue with IV antibiotics and pain control as per hospitalist. 2. PAD/history of right femoral to below-knee bypass procedure. Arterial ultrasound indicates KAMRON on the right 1.4 with patent bypass graft. The patient is noted to be on Eliquis as an outpatient, this is temporarily on hold for the procedure this a.m. Will likely be able to restart following the procedure. Continue statin. 3. Tobacco use. Reinforced the importance of tobacco cessation. Vital Signs/I&O Vital Signs Date Time Temp Pulse Resp B/P (MAP) Pulse Ox O2 Delivery O2 Flow Rate FiO2 02/23/20 06:00 98.0 86 17 146/88 (107) 95 Room Air I&O- Last 24 Hours up to 6 AM 02/23/20 06:00 Intake Total 2255 ml Output Total 2225 ml Balance 30 ml Laboratory Data Microbiology Microbiology 02/21/20 Gram Stain - Final, Resulted 02/21/20 Wound Culture, Resulted Pending 02/21/20 Blood Culture - Preliminary, Resulted No growth after 24 hours . All specim... Allergies Coded Allergies: pregabalin (Verified Allergy, Severe, seizures, 01/27/20) Penicillins (Verified Allergy, Intermediate, hives, 01/27/20) Home Medications Scheduled Apixaban (Eliquis) 2.5 Mg Tablet, 2.5 MG PO BID, (Reported) Atorvastatin Calcium (Atorvastatin Calcium) 40 Mg Tablet, 40 MG PO DAILY, (Reported) Gabapentin (Gabapentin) 100 Mg Capsule, 100 MG PO TID, (Reported) TAKE WITH 600mg Gabapentin (Gabapentin) 600 Mg Tablet, 600 MG PO TID, (Reported) take with 100mg Lisinopril (Lisinopril) 20 Mg Tab, 20 MG PO DAILY, (Reported) Omeprazole (Omeprazole) 40 Mg Cap, 40 MG PO DAILY, (Reported) Scheduled PRN Hydrocodone/Acetaminophen (Hydrocodone-Acetamin 5-325 mg) 1 Each Tablet, 1 TAB PO Q8H PRN for PAIN, (Reported) Josie Carvalho Feb 23, 2020 08:29
[2020-02-23] MEDS: APIXABAN 2.5 MG TAB (ELIQUIS) PO SCH (09:00)
[2020-02-23] MEDS ORDERED: fentaNYL 100 MCG/2 ML INJECTION (J3010) As Ordered ONE (09:06)
[2020-02-23] MEDS ORDERED: MIDAZOLAM INJ 2 MG/2 ML VIAL (J2250) As Ordered ONE (09:06)
[2020-02-23] MEDS ORDERED: ISOVUE-300 61% 50ML VIAL (Q9967) As Ordered ONE (09:07)
[2020-02-23] MEDS ORDERED: HEPARIN 1,000 UNITS/ML 10ML VIAL (FOR RADIOLOGY& DIALYSIS ONLY)(J1644-10) As Ordered ONE (09:07)
[2020-02-23] MEDS ORDERED: LIDOCAINE 1% MDV 20ML VIAL As Ordered ONE (09:07)
--- NOTE | 2020-02-23 10:48 | ROOPDOC ---
[facility] Report Of Operation Report of Operation DATE OF PROCEDURE: 02/23/20 PREPROCEDURE DIAGNOSES: Atherosclerosis of the [place] vessels with nonhealing open wound left transmetatarsal amputation POSTPROCEDURE DIAGNOSES: Same PROCEDURE: 1. Ultrasound-guided access right common femoral artery 2. Aortoiliofemoral arteriogram 3. Mynx closure right common femoral artery SURGEON: Segundo Bailey MD ANESTHESIA: Local anesthesia 14 mL lidocaine. Moderate intravenous conscious sedation was supervised by Dr. Bailey. The patient was independently monitored by registered nurse assigned to the Department of radiology using automated blood pressure, EKG, and pulse oximetry. The detailed sedation record is permanently stored in the hospital information system. The following is a brief sedation record: Start time O9: 42, stop time 09:57, Versed 2 mg IV, fe ntanyl 100 g IV. CONTRAST: 8 mL Isovue-300 INDICATION FOR PROCEDURE: This a very pleasant 49-year-old gentleman with long-standing severe peripheral vascular disease and chronic tobacco abuse who developed a nonhealing wound on his left transmetatarsal amputation and underwent surgical debridement with removal of the fourth and fifth metatarsals with Dr. Nguyễn, and arterial studies show that the patient has diffuse monophasic flow in the left lower extremity and distal occlusions at the anterior tibial and posterior tibial artery. I reviewed the patient's arteriogram with Dr. Gaviria from November 2018, and from 2018 as well. He has had multiple stents placed in the left common iliac artery, and restenting, and also thrombolysis for reocclusion of the stents. He has had extensive counseling on smoking cessation, but continues to smoke. He has been appropriately maintained on eliquis. Risks benefits and alternatives to an arteriogram potential intervention were explained to the patient. We did discuss that if he has occluded his left iliac stent, we would not be able to do thrombolysis today due to the fact that he has recent open surgery and an open wound on his left foot and it would not be safe. That is a contraindication to TPA thrombolysis. He understands. He is agreeable to proceed. Informed consent was obtained. INTERPRETATION: 1. The distal aorta is widely patent leading often to widely patent right common iliac artery, hypogastric, and right external iliac artery. The left common iliac artery is occluded and there is faint contrast opacification due to reconstitution in the external iliac artery through collateral circulation r unning off through the left lower extremity. A runoff of the left lower extremity was not performed due to limited contrast enhancement from occlusion of the left iliac artery. REPORT OPERATION: The patient was brought to the angiographic suite in stable condition and placed supine on the fluoroscopic table. He immediately began complaining of not being able to lay flat on the table due to back pain. We tried to make him as comfortable as possible and place a pillow under his knees, but he continued to complain fairly incessantly. He was also squirming about quite forcefully, making the concern that he might actually fall off the table. We continue to try to verbally calm him, that before we could even prep him we did a timeout and gave sedation. Without that, the patient would not have been able to hold still well enough to prep and draped sterilely. We then proceeded with prepping and draping the patient. Local anesthesia was administered to the skin and subcutaneous tissue over the right groin. The patient said the pain was excruciating from the local anesthesia so we gave more local anesthesia. We then accessed the right common femoral artery with a microneedle and a wire was passed through this access and the needle was removed and a 4 Polish sheath was placed and flushed with saline. We then advanced a Glidewire and conjugate catheter into the distal aorta and in aortoiliofemoral arteriogram was performed. With occlusion of the left common iliac artery, we did not have enough contrast run off through to the lower left extremity to do a runoff. However, based on the arterial images from the arterial duplex, we have a good idea of what is patent and what is occluded, and it seems to correlate with the patient's previous arteriograms from the past with Dr. Gaviria. Therefore, since we could not do thrombolysis, we concluded her procedure. I did upsized to a 5 Polish sheath over the Glidewire in order to place a Mynx closure device. With how much the patient is moving and squirming and complaining about laying flat, I did not think it was safe not to place a closure device. We deployed a minx under fluoroscopic guidance with good hemostasis. Pressure was held for 10 minutes and sterile dressings were applied. The patient was then taken to recovery in stable condition. He will to be taken back to his hospital room later this morning. ESTIMATED BLOOD LOSS: Approximately 2 mL. COMPLICATIONS: None. PLAN: It is okay to resume diet and medications. I have spoken to Dr. Nguyễn about the prognosis for the patient's left foot. He feels there is a chance it could heal now that the infected bone is removed and the wound is been thoroughly debrided, and he feels it may be a functional foot for the patient, but we are both concerned that with the patient's heavy tobacco use and noncompliance, it may be difficult to get the wound to heal with a wound VAC. Regardless of this we tried to heal the left foot or do a left below-knee amputation, I feel feel it will be necessary to provide additional blood flow to the left lower extremity. Since we cannot revascularize the left iliac, I think the next best option is a right to left femorofemoral bypass. We will see when we can do this in the next few days. Right now there is very limited OR time available due to the precautions for Coronavirus, but we will try to get this done as soon as we can. The patient will continue to be counseled extensively about the importance of smoking cessation. SEGUNDO BAILEY MD Feb 23, 2020 10:48
[2020-02-23] MEDS: OMEPRAZOLE 20 MG CAP PO SCH (11:25)
[2020-02-23] MEDS: GABAPENTIN 100 MG CAP PO SCH ×3 (11:26→20:01)
[2020-02-23] MEDS: lisinopriL 20 MG TAB PO SCH (11:27)
[2020-02-23] MEDS: GABAPENTIN 300 MG CAP PO SCH ×3 (11:27→20:02)
[2020-02-23 11:29] LABS: HEMOGLOBIN 11.4 g/dl (13.5-17.5); MEAN CORPUSCULAR HEMOGLOBIN 30.7 pg (27.0-33.0); MEAN CORPUSCULAR HGB CONC 34.5 g/dl (32.0-36.5); MEAN CORPUSCULAR VOLUME 88.9 fl (80.0-96.0); PLATELET COUNT, AUTOMATED 324 10^3/uL (150-450); RED BLOOD COUNT 3.71 10^6/uL (4.30-6.10); WHITE BLOOD COUNT 11.2 10^3/uL (4.0-10.0)
[2020-02-23] MEDS: ATORVASTATIN 20 MG TAB PO SCH (11:29)
[2020-02-23] MEDS: DOCUSATE SODIUM 100 MG CAP PO SCH ×2 (11:29→20:50)
[2020-02-23 11:49] LABS: BLOOD UREA NITROGEN 9 MG/DL (7-18); CALCIUM LEVEL 8.7 MG/DL (8.5-10.1); CARBON DIOXIDE LEVEL 28 MEQ/L (21-32); CHLORIDE LEVEL 104 MEQ/L (98-107); CREATININE FOR GFR 0.72 MG/DL (0.70-1.30); GLOMERULAR FILTRATION RATE > 60.0 (>56); GLUCOSE, FASTING 103 MG/DL (70-100); MAGNESIUM LEVEL 1.9 MG/DL (1.8-2.4); POTASSIUM SERUM 4.2 MEQ/L (3.5-5.1); SODIUM LEVEL 138 MEQ/L (136-145)
[2020-02-23 12:00] VITALS: BP 173/85
[2020-02-23 14:00] VITALS: BP 137/72
[2020-02-23] MEDS ORDERED: ceFAZolin SOD 1 GM in D5W MINI-BAG PLUS 50 ML IV SCH (14:00)
[2020-02-23 15:00] VITALS: BP 130/77
[2020-02-23] MEDS: MORPHINE 2 MG/ML 1ML VIAL (J2270) IV PRN ×2 (15:54→22:19)
--- NOTE | 2020-02-23 17:27 | IPNPDOC ---
Text Note Date of Service The patient was seen on 02/23/20. NOTE S: Pt examined at bedside s/p LLE angiogram today. Has no complaints. No f/c/n/v/leg pain. Otherwise stable. Had restless legs overnight. PE: Vitals: see below General: NAD, A&Ox3, laying in bed comfortably HEENT: NCAT, EOMI, anicteric sclera, MMM, poor dentition CV: RRR, no murmurs or clicks or rub. No edema RESP: CTAB, no w/r/r/ ABD: soft, NT, ND. Benign EXTREMITIES: 2+ radial pulses b/l, able to move all extremities. Left foot all digits amputated. 2 ulcers on lateral front part of foot under clean dry intact dressing post-op NEURO: follows commands. Diminished sensation left foot and distal LLE A/P: 49 yo M has hx of PVD and chronic tobacco abuse s/p amputation of left foot digits & LE stents on Eliquis, with no sensation in left foot, with recent ulceration underwent I&D by Dr. Nguyễn 01/30/20. Was recently hospitalized January 27- for left foot cellulitis , and reportedly failed o/p tx of cellulitis and on f/u with PCP, was then urged to come in due to concern of continued infected ulcer site. Left foot osteomyelitis of cuboid & surrounding cellulitis - noted on MRI 02/21 - 2/2 severe PVD & care home smoking, see below - foot culture + Pseudomonas aeruginosa, corynebacterium, sensitive to fluoroquinolones. - Will discontinue vancomycin and cefazolin, switch to Ceftazidime per sensitivity - no signs of systemic infection. Pt is asymptomatic and reports he feels like his normal self; afebrile; borderline leukocytosis - Dr. Nguyễn consulted. Per recs, vascular inteverntion first, and possible amputation vs wound vac after Occlusive PVD with LLE ischemia - left toe 5th digit amputation 2/2 gangrene 2011 - s/p right Fem-Pop bypass 2016 - s/p left aortoiliac angioplasty & stent & guillitione amputation digits 1-4 2 018 - LE arterial US shows: occluded popliteal artery, right superficial femoral artery, and proximal anterior tibial artery - Dr. De La Garza of [facility] Sx consulted, appreciate input. Per angiogram done today: occluded left common iliac artery, unable to use thrombolytics given contraindication in acute open wound - Plans for fem-fem bypass tomorrow - NPO after midnight, Eliquis on hold per [facility] Sx recs Restless Legs - may be relted to PVD - monitor with addition of Ropinerole DLD continue statin HTN controlled; continue Lisinopril GERD continue PPI DJD with neuropathy continue home Gabapentin & pain meds CATIA noncompliant with CPAP. F/u o/p Usp tobacco abuse counseled in depth on smoking harm avoid nicotine patch given his PVD per [facility] Sx recs DVT ppx: chronic eliquis on hold for OR DISPO: pending OR with Dr. De La Garza tomorrow. VS,Fishbone, I+O VS, Fishbone, I+O Laboratory Tests 02/23/20 11:12 Vital Signs Date Time Temp Pulse Resp B/P (MAP) Pulse Ox O2 Delivery O2 Flow Rate FiO2 02/23/20 15:54 17 Room Air 02/23/20 15:00 98.1 88 130/77 (94) 99 02/23/20 10:10 2 I&O- Last 24 Hours up to 6 AM 02/23/20 06:00 Intake Total 2255 ml Output Total 2225 ml Balance 30 ml GME ATTESTATION GME ATTESTATION My faculty preceptor for this patient encounter was physically present during the encounter and was fully available. All aspects of the patient interview, examination, medical decision making process, and medical care plan development were reviewed and approved by the faculty preceptor. The faculty preceptor is aware and concurs with the plan as stated in the body of this note and will attest to such by his/her cosignature. ATTENDING NOTE I, Aidan Reeder, have independently examined this patient and performed my own physical exam, as well as reviewed the documentation and edited where necessary. I have discussed in detail with the resident / student the findings and plan of treatment as documented by the resident / student and edited their note. I agree with their findings and treatment plan and have edited their documentation. I will continue to follow the patient during this hospital stay. FE LAM DO Feb 23, 2020 17:27 AIDAN REEDER MD Feb 23, 2020 17:31
[2020-02-23] MEDS: cefTAZidime 1 GM in D5W MINI-BAG PLUS 50 ML IV SCH (17:29)
[2020-02-23] MEDS: rOPINIRole 0.25 MG TAB(REQUIP) PO SCH (20:01)
[2020-02-23 22:00] VITALS: BP 156/84
[2020-02-24] MEDS: NS 1,000 ML IV SCH ×2 (00:55→15:57)
[2020-02-24] MEDS: cefTAZidime 1 GM in D5W MINI-BAG PLUS 50 ML IV SCH ×2 (02:38→09:33)
[2020-02-24] MEDS: NORCO, ANEXSIA 5/325MG TABLET (HYDROcodone/ACETAMINOPHEN) PO PRN (02:42)
[2020-02-24 06:00] VITALS: BP 155/88
[2020-02-24] MEDS: MORPHINE 2 MG/ML 1ML VIAL (J2270) IV PRN ×2 (06:02→15:58)
[2020-02-24 06:12] LABS: HEMATOCRIT 34.7 % (42.0-52.0); HEMOGLOBIN 11.9 g/dl (13.5-17.5); MEAN CORPUSCULAR HEMOGLOBIN 30.4 pg (27.0-33.0); MEAN CORPUSCULAR HGB CONC 34.3 g/dl (32.0-36.5); MEAN CORPUSCULAR VOLUME 88.5 fl (80.0-96.0); PLATELET COUNT, AUTOMATED 335 10^3/uL (150-450); RED BLOOD COUNT 3.92 10^6/uL (4.30-6.10); WHITE BLOOD COUNT 9.5 10^3/uL (4.0-10.0)
[2020-02-24 06:30] LABS: BLOOD UREA NITROGEN 7 MG/DL (7-18); CALCIUM LEVEL 8.4 MG/DL (8.5-10.1); CARBON DIOXIDE LEVEL 26 MEQ/L (21-32); CHLORIDE LEVEL 105 MEQ/L (98-107); CREATININE FOR GFR 0.71 MG/DL (0.70-1.30); GLOMERULAR FILTRATION RATE > 60.0 (>56); GLUCOSE, FASTING 93 MG/DL (70-100); POTASSIUM SERUM 3.9 MEQ/L (3.5-5.1); SODIUM LEVEL 138 MEQ/L (136-145)
[2020-02-24] MEDS: DOCUSATE SODIUM 100 MG CAP PO SCH (08:10)
[2020-02-24] MEDS: lisinopriL 20 MG TAB PO SCH (09:00)
[2020-02-24] MEDS: ATORVASTATIN 20 MG TAB PO SCH (09:20)
[2020-02-24] MEDS: OMEPRAZOLE 20 MG CAP PO SCH (09:21)
[2020-02-24] MEDS: GABAPENTIN 300 MG CAP PO SCH ×3 (09:21→20:27)
[2020-02-24] MEDS: GABAPENTIN 100 MG CAP PO SCH ×3 (09:21→20:27)
--- NOTE | 2020-02-24 09:32 | IPNPDOC ---
Text Note Date of Service The patient was seen on 02/24/20. NOTE Vascular surgery. Dr. Bailey HPI: 49 year old M with history of PAD and previous left TMA, who had been recently admitted to the hospital with left foot infection, status post incision and drainage with removal of part of the fourth and fifth metatarsals, seen in follow-up for wound care with Dr. Nguyễn. The patient's wound had appeared to be improving until this past weekend when the patient noted it was worsening. Subsequently the patient was admitted to the hospital with IV antibiotics, vascular surgery was consulted regarding nonhealing left foot wound. The pt is s/p exam as per Dr. Bailey 02/23/20 with occluded left common iliac, unable to do thrombolysis related to recent open surgery of the left foot with open left foot wound, recommendation as per Dr. Bailey was to proceed with right to left femorofemoral bypass. No acute distress. Alert and oriented x 3. Normocephalic, atraumatic. Moist mucous membranes. Regular rate and rhythm, +S1, +S2 Clear to auscultation bilaterally. No wheezes, rales, or rhonchi. Left TMA with open wound with dressing intact No focal deficits appreciated. A&P: 1. Nonhealing left foot wound Plan is to proceed with right to left femoral-femoral bypass procedure later this afternoon. The procedure, risks, benefits and alternatives are reviewed with the patient as per Dr. Bailey. Consent is obtained and placed in the chart. Transfusion consent is obtained and placed in the chart. The patient is nothing by mouth this a.m. Eliquis remains temporarily on hold. Continue with wound care as per Dr. Nguyễn. Continue with IV antibiotics and pain control as per hospitalist. 2. PAD/history of right femoral to below-knee bypass procedure. Arterial ultrasound indicates KAMRON on the right 1.4 with patent bypass graft. The patient is noted to be on Eliquis as an outpatient, as noted above this is temporarily on hold for his surgical procedure. Continue statin. 3. Tobacco use. The patient is strongly encouraged to continue smoking cessation following discharge. Potential health hazards have been discussed with the patient including the advancement of atherosclerotic disease. We have discussed the con tinuing to smoke is associated with progression of disease, greater risk of complication and poor response to therapy. The patient has been advised that vascular procedures are likely to fail if the patient continues to smoke. VS,Fishbone, I+O VS, Fishbone, I+O Laboratory Tests 02/23/20 11:12 02/24/20 05:56 Vital Signs Date Time Temp Pulse Resp B/P (MAP) Pulse Ox O2 Delivery O2 Flow Rate FiO2 02/24/20 06:12 20 02/24/20 06:00 97.0 81 155/88 (110) 98 02/23/20 16:04 Room Air 02/23/20 10:10 2 I&O- Last 24 Hours up to 6 AM 02/24/20 06:00 Intake Total 1050 ml Output Total 1300 ml Balance -250 ml Josie Carvalho Feb 24, 2020 09:32
--- NOTE | 2020-02-24 11:42 | IPNPDOC ---
Text Note Date of Service The patient was seen on 02/24/20. NOTE S: Pt examined at bedside. No issues overnight and is NPO for pending fem-fem bypass later today. No f/c/n/v/cp/sob. Stable. PE: Vitals: see below General: NAD, A&Ox3, laying in bed comfortably, woken up from sleep HEENT: NCAT, EOMI, anicteric sclera, MMM, poor dentition CV: RRR, no murmurs or clicks or rub. No edema RESP: CTAB, no w/r/r/ ABD: soft, NT, ND. Benign EXTREMITIES: 2+ radial pulses b/l, able to move all extremities. Left foot all digits amputated. 2 ulcers on lateral front part of foot under dressing post-op without any active oozing NEURO: follows commands. Diminished sensation left foot and distal LLE A/P: 49 yo M has hx of PVD and chronic tobacco abuse s/p amputation of left foot digits & LE stents on Eliquis, with no sensation in left foot, with recent ulceration underwent I&D by Dr. Nguyễn 01/30/20. Was recently hospitalized January 27- for left foot cellulitis , and reportedly failed o/p tx of cellulitis and on f/u with PCP, was then urged to come in due to concern of continued infected ulcer site. Occlusive PVD with LLE ischemia - left toe 5th digit amputation 2/2 gangrene 2011 - s/p right Fem-Pop bypass 2015 - s/p left aortoiliac angioplasty & stent & guillitione amputation digits 1-4 2017 - LE arterial US shows: occluded popliteal artery, right superficial femoral artery, and proximal anterior tibial artery - Dr. De La Garza of [facility] Sx consulted, appreciate input. Per angiogram done 02/22 occluded left common iliac artery, unable to use thrombolytics given contraindication in acute open wound - Plans for fem-fem bypass later today - Eliquis on hold per [facility] Sx recs Left foot osteomyelitis of cuboid & surrounding cellulitis - noted on MRI 02/21 - no signs of systemic infection. Pt is asymptomatic and reports he feels like his normal self; afebrile; borderline leukocytosis - 2/2 severe PVD & care home smoking, see below - foot culture + Pseudomonas aeruginosa, corynebacterium, & MSSA - Continue Ceftazidime, s/p vancomycin and cefazolin - Dr. Nguyễn consulted. Per recs, vascular inteverntion first, and possible amputation vs wound vac after Restless Legs - may be related to PVD - improved with addition of Ropinerole DLD continue statin HTN controlled; continue Lisinopril GERD continue PPI DJD with neuropathy continue home Gabapentin & pain meds CATIA noncompliant with CPAP. F/u o/p Long-term tobacco abuse counseled in depth on smoking harm avoid nicotine patch given his PVD per [facility] Sx recs DVT ppx: chronic eliquis on hold for OR DISPO: pending OR with Dr. De La Garza today. Possible rehab vs dc home 24-72 hrs. VS,Fishbone, I+O VS, Fishbone, I+O Laboratory Tests 02/24/20 05:56 Vital Signs Date Time Temp Pulse Resp B/P (MAP) Pulse Ox O2 Delivery O2 Flow Rate FiO2 02/24/20 06:12 20 02/24/20 06:00 97.0 81 155/88 (110) 98 02/23/20 16:04 Room Air 02/23/20 10:10 2 I&O- Last 24 Hours up to 6 AM 02/24/20 06:00 Intake Total 1050 ml Output Total 1300 ml Balance -250 ml GME ATTESTATION GME ATTESTATION My faculty preceptor for this patient encounter was physically present during the encounter and was fully available. All aspects of the patient interview, examination, medical decision making process, and medical care plan development were reviewed and approved by the faculty preceptor. The faculty preceptor is aware and concurs with the plan as stated in the body of this note and will attest to such by his/her cosignature. ATTENDING NOTE I, Aidan Reeder, have independently examined this patient and performed my own physical exam, as well as reviewed the documentation and edited where necessary. I have discussed in detail with the resident / student the findings and plan of treatment as documented by the resident / student and edited their note. I agree with their findings and treatment plan and have edited their documentation. I will continue to follow the patient during this hospital stay. FE LAM DO Feb 24, 2020 11:42 AIDAN REEDER MD Feb 24, 2020 12:19
--- NOTE | 2020-02-24 12:05 | IPN ---
DATE: 02/24/2020 Patient seen and examined. He had his angio yesterday. He is scheduled for his bypass later today. Discussed patient with Dr. Bailey yesterday. Patient does have significant vascular disease and may ultimately require [id number]. Discussed with patient. We will further discuss after his procedure today pending the results. Discussed that even if his blood flow does improve it may not be enough to have a salvageable foot that will function. He may be better served with a prosthetic. Will further discuss. The wound is inspected today. There was no significant purulence. However, there was eschar on the plantar and lateral surface of the foot. Will discuss with patient further tomorrow.
[2020-02-24 14:00] VITALS: BP 143/80
[2020-02-24] MEDS: MEROPENEM INJ 1 GM in IV 1 EA IV SCH (17:00)
--- NOTE | 2020-02-24 18:12 | CR ---
DATE OF CONSULTATION: 02/24/2020 Joselo Montesinos is a 49-year-old male whom we were asked to consult on for osteomyelitis. He was recently admitted to the hospital on 01/28/2020 for cellulitis of the left foot. At that time he was found to have an ulceration and underwent incision and drainage by Dr. Nguyễn. He was also found to have infected fourth and fifth metatarsal bones, and these were removed by Dr. Nguyễn. He was discharged on oral antibiotics and states he completed these; however, his wound continued to develop over the following week. He was seen by his primary care provider, Dr. Liriano, on 02/21/2020, who sent him back to the emergency room due to progression of his left foot ulcer with necrosis. He was admitted at that time and found to have recurrent osteomyelitis. He underwent lower extremity edema angiography with Dr. Bailey, who was unable to perform any intervention during this procedure. She plans to proceed with a left [id number] bypass procedure to improved vascular flow to the area. Joselo states he has burning, aching pain in his foot. He states it has not been swollen or erythematous. He denies fevers, chills, night sweats, nausea, vomiting, diarrhea. HOME MEDICATIONS: - Eliquis 2.5 mg twice a day - atorvastatin 40 mg - gabapentin 700 mg three times a day - lisinopril 20 mg daily - omeprazole 40 mg daily - hydrocodone/acetaminophen 5/325 mg every 8 hours as needed ALLERGIES: PENICILLIN (reports he stops breathing), PREGABALIN. PAST MEDICAL HISTORY: 1. Hypertension. 2. Hyperlipidemia. 3. Peripheral arterial disease. 4. Osteoarthritis. 5. Obstructive sleep apnea (CATIA), noncompliant with continuous positive airway pressure (CPAP). PAST SURGICAL HISTORY: Left transmetatarsal amputation (TMA) February 2018. FAMILY HISTORY: Mother has history of diabetes. SOCIAL HISTORY: Current daily smoker, half pack per day. Lives with his , who is , and four young children. REVIEW OF SYSTEMS: As noted in history of present illness (HPI). Otherwise, 10-point review of systems unremarkable. PHYSICAL EXAMINATION: VITAL SIGNS: Temperature 98.2, pulse 76, respiratory rate 15, blood pressure 143/80, oxygen saturation 97% on room air. GENERAL: Appears comfortable, lying in bed. Appears stated age. Well hydrated and nourished in no acute distress. HEENT: Normocephalic, atraumatic. Sclerae anicteric. Moist mucous membranes. NECK: Supple. No lymphadenopathy. LUNGS: Clear to auscultation bilaterally. HEART: Regular rate and rhythm, normal S1, S2. No murmurs, rubs, or gallops appreciated. ABDOMEN: Soft, nontender, nondistended. Bowel sounds present. EXTREMITIES: No edema. Left foot has all five digits amputated. There is a 3 x 3.5 cm ulceration and an extension of 5 x 3 cm necrotic tissue. No active drainage from the lesion. Dressing with clear dressing. NEUROLOGIC: Alert and oriented. No focal deficits appreciated. LABORATORY DATA: White blood cell count 9.5, hemoglobin 11.9, hematocrit 34.7, platelet count 335. Sodium 138, potassium 3.9, chloride 105, carbon dioxide 26, BUN 7, creatinine 0.71, glucose 93. CRP level pending. Methicillin-resistant Staphylococcus aureus (MRSA) screen is negative. Microbiology: Culture of the wound grew Pseudomonas aeruginosa and methicillin-sensitive Staphylococcus aureus (MSSA). Blood culture times one negative. IMPRESSION/PLAN: 1. Left foot wound with osteomyelitis, status post incision and drainage and recent amputation of 4th and 5th metatarsals. He was initially started on vancomycin, which was switched to cefazolin to cover for broad Gram negatives and anaerobes present on previous culture, we have started him on meropenem. Continue with wound care. Agree with peripherally inserted central catheter (PICC) line placement. Patient will likely need outpatient intravenous (IV) antibiotics for treatment of his osteomyelitis although chances of healing is very low due to PVD, tobacco abuse and known non compliance 2. Significant peripheral vascular disease. Plan for bypass procedure with vascular surgery tomorrow with Dr. Bailey, which will hopefully aid his wound healing. Thank you for this consult. We will follow along. LISA
[2020-02-24] MEDS: RAMELTEON 8 MG TAB (ROZEREM) PO SCH (20:27)
[2020-02-24] MEDS: rOPINIRole 0.25 MG TAB(REQUIP) PO SCH (20:28)
[2020-02-24] MEDS: MORPHINE 2 MG/ML 1ML VIAL (J2270) SC PRN (21:18)
[2020-02-24 22:00] VITALS: BP 140/76
[2020-02-25] VITALS (7 sets, daily range): BP systolic 126–160; BP diastolic 64–93
[2020-02-25] MEDS: MEROPENEM INJ 1 GM in IV 1 EA IV SCH ×3 (00:21→19:12)
[2020-02-25] MEDS: NS 1,000 ML IV SCH ×2 (05:48→10:21)
[2020-02-25 06:46] LABS: HEMOGLOBIN 12.6 g/dl (13.5-17.5); MEAN CORPUSCULAR HGB CONC 34.1 g/dl (32.0-36.5); MEAN CORPUSCULAR VOLUME 88.1 fl (80.0-96.0); PLATELET COUNT, AUTOMATED 414 10^3/uL (150-450); WHITE BLOOD COUNT 10.1 10^3/uL (4.0-10.0)
[2020-02-25 07:12] LABS: BLOOD UREA NITROGEN 9 MG/DL (7-18); CALCIUM LEVEL 8.6 MG/DL (8.5-10.1); CARBON DIOXIDE LEVEL 24 MEQ/L (21-32); CHLORIDE LEVEL 108 MEQ/L (98-107); CREATININE FOR GFR 0.65 MG/DL (0.70-1.30); GLOMERULAR FILTRATION RATE > 60.0 (>56); GLUCOSE, FASTING 89 MG/DL (70-100); POTASSIUM SERUM 4.2 MEQ/L (3.5-5.1); SODIUM LEVEL 140 MEQ/L (136-145)
[2020-02-25] MEDS: MORPHINE 2 MG/ML 1ML VIAL (J2270) SC PRN ×2 (07:46→18:15)
[2020-02-25] MEDS ORDERED: LIDOCAINE 1% MDV 20ML VIAL As Ordered ONE (07:58)
[2020-02-25] MEDS: OMEPRAZOLE 20 MG CAP PO SCH (08:26)
--- NOTE | 2020-02-25 08:48 | IPNPDOC ---
Text Note Date of Service The patient was seen on 02/25/20. NOTE Vascular surgery. Dr. Bailey HPI: 49 year old M with history of PAD and previous left TMA, who had been recently admitted to the hospital with left foot infection, status post incision and drainage with removal of part of the fourth and fifth metatarsals, seen in follow-up for wound care with Dr. Nguyễn. The patient's wound had appeared to be improving until a few days prior to admission. Subsequently the patient was admitted to the hospital with IV antibiotics, vascu lar surgery was consulted regarding nonhealing left foot wound. The pt is s/p angiogram as per Dr. Bailey 02/23/20 with occluded left common iliac, unable to do thrombolysis related to recent open surgery of the left foot with open left foot wound, recommendation as per Dr. Bailey was to proceed with right to left femorofemoral bypass. No acute distress. Alert and oriented x 3. Normocephalic, atraumatic. Moist mucous membranes. Left TMA with open wound with dressing intact No focal deficits appreciated. A&P: 1. Nonhealing left foot wound The pt is reviewed and examined as per Dr Bailey this AM. His surgical procedure was rescheduled from 02/23 to 02/24. Plan is to proceed with right to left femoral-femoral bypass procedure later this afternoon. The procedure, risks, benefits and alternatives have been reviewed with the patient as per Dr. Bailey. Consent is on the chart. Transfusion consent is on the chart. The patient is nothing by mouth this a.m. Eliquis remains temporarily on hold. Continue with wound care as per Dr. Nguyễn. Continue with IV antibiotics and pain control as per hospitalist/ID. 2. PAD/history of right femoral to below-knee bypass procedure. Arterial ultrasound indicates KAMRON on the right 1.4 with patent bypass graft. The patient is noted to be on Eliquis as an outpatient, as noted above this is temporarily on hold for his surgical procedure. Continue statin. 3. Tobacco use. The patient is strongly encouraged to continue smoking cessation following discharge. Potential health hazards have been discussed with the patient including the advancement of atherosclerotic disease. We have discussed the continuing to smoke is associated with progression of disease, greater risk of complication and poor response to therapy. The patient has been advised that vascular procedures are likely to fail if the patient continues to smoke. VS,Fishbone, I+O VS, Fishbone, I+O Laboratory Tests 02/25/20 06:09 Vital Signs Date Time Temp Pulse Resp B/P (MAP) Pulse Ox O2 Delivery O2 Flow Rate FiO2 02/25/20 07:46 18 02/25/20 06:00 97.0 81 139/69 (92) 98 02/24/20 14:00 Room Air 02/23/20 10:10 2 I&O- Last 24 Hours up to 6 AM 02/25/20 06:00 Intake Total 1310 ml Output Total 1275 ml Balance 35 ml Josie Carvalho Feb 25, 2020 08:48
[2020-02-25] MEDS: lisinopriL 20 MG TAB PO SCH (09:00)
[2020-02-25] MEDS: GABAPENTIN 300 MG CAP PO SCH ×3 (09:00→21:35)
[2020-02-25] MEDS: GABAPENTIN 100 MG CAP PO SCH ×3 (09:00→21:35)
[2020-02-25] MEDS: ATORVASTATIN 20 MG TAB PO SCH (09:00)
[2020-02-25] MEDS ORDERED: ISOVUE-300 61% 50ML VIAL (Q9967) As Ordered ONE ×3 (09:29→12:36)
[2020-02-25] MEDS ORDERED: MIDAZOLAM INJ 2 MG/2 ML VIAL (J2250) As Ordered ONE (10:58)
[2020-02-25] MEDS ORDERED: dexameTHASONE 4 MG/ML 1ML VIAL (J1100 PER 1MG) As Ordered ONE (10:59)
[2020-02-25] MEDS ORDERED: fentaNYL 250 MCG/5 ML INJECTION (J3010) As Ordered ONE (10:59)
[2020-02-25] MEDS ORDERED: ROCURONIUM BROMIDE 50 MG/5 ML VIAL As Ordered ONE ×2 (10:59→14:51)
[2020-02-25] MEDS ORDERED: propofoL 200 MG/20 ML VIAL As Ordered ONE (10:59)
[2020-02-25] MEDS ORDERED: LIDOCAINE 2% INJ 100 MG/5 ML SDV (FOR ANES.) As Ordered ONE (10:59)
[2020-02-25] MEDS ORDERED: SUGAMMADEX SODIUM 500 MG/5 ML VIAL (BRIDION) As Ordered ONE (10:59)
[2020-02-25] MEDS ORDERED: ONDANSETRON 4MG/2ML VIAL (J2405) As Ordered ONE (10:59)
[2020-02-25] MEDS ORDERED: THROMBIN SOLN 5,000 UNITS VIAL As Ordered ONE (12:13)
[2020-02-25] MEDS ORDERED: BUPIVACAINE/EPIN 0.5% 30 ML VIAL As Ordered ONE (12:13)
[2020-02-25] MEDS ORDERED: HEPARIN SOD (PORCINE) 5000 UNITS/ML VIAL (J1644 PER 1000UNITS) As Ordered ONE ×2 (12:14→15:37)
[2020-02-25] MEDS ORDERED: THROMBIN SOLN 20,000 UNITS KIT As Ordered ONE (12:35)
[2020-02-25] MEDS: ISOVUE-300 61% 50ML VIAL (Q9967) As Ordered ONE (12:46)
--- NOTE | 2020-02-25 13:15 | REP ---
PICC line insertion under ultrasound guidance. The procedure was performed by VERITO Ramey, under the direct supervision of Dr. Cali. The risks and benefits of the procedure were explained to the patient and informed consent was obtained both verbally and written. Directly prior to the start of the procedure, a formal timeout was completed in the procedure room. The right basilic vein was localized using ultrasound guidance. The skin was prepped and draped in the sterile fashion. 3 ml 1% lidocaine 10 mg/ml was used as a local anesthetic. Using ultrasound guidance the right basilic vein was cannulated and a 0.018 guidewire was inserted and advanced to the SVC using fluoroscopic guidance. The needle was removed and a 5.5 [place] dilator and peel-away sheath was inserted over the guidewire. A 5.5 [place] duel lumen catheter was cut to the length of 40 cm. The PICC was inserted but was unable to be advanced. Approximately 5 ml of Isovue 300 was used to see if there was a stenosis. No stenosis was visualized, but the PICC line was still not able to be advanced; the procedure was changed to a midline catheter. A 5.5 [place] dual lumen catheter was cut to the length of 16.5 cm. The dilator was removed and the catheter was inserted over the guidewire. The Peel-Away sheath was removed and the catheter was flushed with heparinized saline as per hospital protocol. The catheter was affixed to the skin and a sterile dressing was applied. The patient tolerated the procedure well and there were no immediate complications. 0.7 minutes of fluoroscopy time was utilized for this procedure. Some fluoroscopic images are performed with last image hold technology. These images require no additional radiation. Reviewed by VERITO Carcamo 02/25/2020 12:10 P Electronically Signed by Rashel Cali MD 02/25/2020 01:06 P
[2020-02-25] MEDS ORDERED: DESFLURANE 240 ML INHALANT As Ordered ONE (14:36)
[2020-02-25] MEDS ORDERED: ceFAZolin 2 GM/D5W 50 ML IV BAG (J0690 PER 500MG) As Ordered ONE (14:44)
[2020-02-25] MEDS ORDERED: HYDROmorphone HCL 2 MG/ML 1ML VIAL (J1170) As Ordered ONE (14:59)
[2020-02-25] MEDS ORDERED: ESMOLOL INJ 100MG/10ML VIAL As Ordered ONE (15:41)
--- NOTE | 2020-02-25 16:00 | IPN ---
DATE: 02/25/2020 Mr. Montesinos is doing well. He denies any complaints. He has no nausea, vomiting or diarrhea. No fever or chills. He has mild pain in his left foot. He is scheduled to have surgery by Dr. Bailey today with a right to left femoral-femoral bypass. PHYSICAL EXAMINATION: Temperature is 96.9, pulse 85, respirations 16, oxygen saturation 98% on room air. Heart: Normal S1, S2. No murmurs, rubs or gallops. Lungs are clear, diminished. No wheezes, rales or rhonchi. Abdomen: Soft, nontender. No visceromegaly. Extremities: No edema. Decreased pulses left foot only heard by Doppler. Transmetatarsal amputation with an open wound measuring at least 4.5 cm x 4. Open ulcers probes all the way down to bone with some serosanguineous drainage. There is also another adjacent to the ulcer a 4 cm eschar that extends to the bottom of the foot. Wound culture from 02/21/2020 had Pseudomonas aeruginosa, MSSA, and Corynebacterium species. MEDICATIONS: - meropenem 1 gram IV every 8 hours, day #1. Yesterday, he did not have an IV, and therefore, two doses were not given. LABORATORY DATA: White count 10.1, hemoglobin 12.6, hematocrit 37, platelets 414. Sodium 140, potassium 4.2, chloride 108, bicarbonate 24, BUN 9, creatinine 0.65, glucose 89, calcium 8.6, CRP 10.1. Foot MRI: Markedly limited exam with extensive edema, evidence of a large ulcer with osteomyelitis involving the cuboid bone, diffuse enhancement throughout the soft tissue in the plantar soft tissues. Foot x-ray done on previous admission, on 01/28/2020, shows also amputation of the mid metatarsal level of forefoot with right round lucency in the shaft of the 5th metatarsal. Operative notes, from 01/30/2020, by Dr. Nguyễn, shows status post I and D and removal of infected bone and that included the 4th and 5th metatarsal. IMPRESSION: 1. Acute osteomyelitis of 4th and 5th metatarsal and cuboid bone with cultures being positive for MSSA and Pseudomonas this time but group B strep and anaerobic cocci on 01/30/2020. The patient is currently on treatment to cover for all those pathogens, including anaerobes, group B streptococcus, Pseudomonas, and staphylococcus aureus. Since he is allergic to IV penicillin, the patient was given meropenem at a dose of 1 gram every 8 hours. The patient has a history of noncompliance. He had a wound vacuum-assisted closure (VAC) at home. Currently, the wound VAC has not been replaced but there has been discussion to do so. 2. Severe peripheral vascular disease that patient undergoing right to left femoral-femoral bypass. He has failed multiple stenting procedures in the past with Dr. Gaviria. 3. Tobacco abuse with continued use on until this hospitalization although the patient has promised he will not resume, may consider using Chantix. Dr. Bailey does not even want him to use a nicotine patch. PLAN: Consider starting Chantix in the hospital. Continue IV meropenem 1 gram IV 8 hours. Peripherally inserted central catheter (PICC) line midline has been placed today for IV access. The patient will need home IV antibiotics to increase his chance of healing to bone, although his chances are really low due to involvement of multiple bones, his poor compliance, his tobacco abuse and peripheral vascular disease. He may end up with a below-knee amputation in the next couple weeks.
[2020-02-25] MEDS ORDERED: fentaNYL 100 MCG/2 ML INJECTION (J3010) As Ordered ONE ×2 (16:13→17:43)
[2020-02-25] MEDS: fentaNYL 100 MCG/2 ML INJECTION (J3010) IV PRN ×4 (17:45→18:00)
--- NOTE | 2020-02-25 17:49 | ROOPDOC ---
[facility] Report Of Operation Report of Operation DATE OF PROCEDURE: 02/25/20 PREPROCEDURE DIAGNOSES: Atherosclerosis of the rosebud arteries and recurrent occlusion left iliac stent with nonhealing open wound left foot POSTPROCEDURE DIAGNOSES: Same PROCEDURE: 1. Right to left femoral-femoral bypass with 8 mm ringed PTFE graft SURGEON: Segundo Bailey MD ANESTHESIA: GETA and local INDICATION FOR PROCEDURE: This is a very pleasant 49-year-old gentleman with severe chronic atherosclerosis in the rosebud arteries and long-standing tobacco abuse who developed a nonhealing wound on his left transmetatarsal amputation and has had the fourth and fifth metatarsals removed on this admission with Dr. Nguyễn. An arterial study following this procedure revealed monophasic flow in the left lower extremity. We brought the patient for an arteriogram 2 days ago, and found he had recurrent occlusion of his left common iliac artery stent. This was placed many years ago, and has been replaced, re-intervened upon, and thrombolysed multiple times by Dr. Gaviria in the past. Unfortunately, with recent open surgery on the patient's left foot, we have a contraindication to further TPA thrombolysis at times. Also, the patient has not had any acute symptoms, and I suspect this is a chronic occlusion. Therefore, we did not have an endovascular option for improving circulation. With the open wound on the left foot, it is unclear if the foot is salvageable, although our podiatry colleagues feel it might be. If not, we would prefer a below-knee amputation to an above- knee amputation, and thus a right to left femorofemoral bypass is indicated whether the foot heals, or even as it does not, to give the patient the best functional outcome. Risks benefits and alternatives to write left femorofemoral bypass were explained to the patient he is agreeable to proceed. Informed consent was obtained. REPORT OF OPERATION: The patient was brought to the OR in stable condition and placed supine on the OR table. Anesthesia and antibiotics were administered without complication. His bilateral groins were prepped and draped in a sterile fashion. Ioban was placed over the skin. A timeout was performed. An oblique incision was made over the right inguinal ligament and carried down through the subcutaneous tissue. Bridging veins were suture ligated and divided. The femoral sheath was opened longitudinally and the femoral vessels were carefully skeletonized. This took a bit of time, as we had recently access the right common femoral artery and there was a lot of bruising and scar tissue. Eventually however we were able to skeletonized the profunda, the SFA, in the common femoral artery as well as the circumflex vessels. Vesseloops were placed around the distal vessels and the proximal common femoral artery was skeletonized for clip placement. We then made an oblique incision over the left common femoral artery. This was carried down to the subcutaneous tissues Bovie cautery. There was a significant amount of scar around this artery is well, although I am unsure if this is from previous endovascular procedures as I do not see to scar in the groin. Nevertheless, we carefully skeletonized out the femoral vessels. This took a bit more time as there is no pulse in the left femoral artery due to upstream iliac occlusion. However, eventually we're able to safely skeletonized the femoral vessels and Vesseloops were placed around the profunda, SFA, and circumflex vessels. The proximal artery was skeletonized for clip placement. 5000 units of heparin was given and allowed to circulate. A tunneler was used to create a tunnel from the right femoral vessels to the left femoral vessels over the pubis. An 8 mm ringed PTFE graft was placed to the tunneler and the tunneler was removed. The graft was cut to the appropriate length at both groins. A few rings were removed from the graft at each end for anastomosis. An angled DeBakey clamp was placed on the right common femoral artery and the Vesseloops distally were secured. An arteriotomy was made in the graft was beveled for an end-to-side anastomosis. We then performed the anastomosis with 5-0 Prolene hemostatic suture and before the final sutures are placed, we flushed the inflow and outflow of artery after placing a clamp on the graft to prevent flow into the graft which might create a thrombosis. We then irrigated the anastomosis with heparinized saline. With the clamp remaining on the graft, we restarted flow first through the profunda and then the common femoral artery and lastly to the SFA. The circumflex vessels were also open. Good hemostasis was noted. Next, we turned our attention to the left femoral vessels. A clamp was placed proximally and Vesseloops distally were secured. An arteriotomy was made in some loose intima was removed. We irrigated with heparinized saline. We then anastomosis the graft and an end-to-side fashion after beveling the end of the graft for a long anastomosis. 5-0 Prolene hemostatic suture was used to anastomose the graft to the artery and end-to-side fashion, before the final sutures are placed we flushed the inflow and outflow artery, as well as we flushed through the graft and then irrigated with heparinized saline. The final sutures are placed and we removed the proximal clamp on the common femoral artery and the clamp on the graft, then the Vesseloops on the profunda and lastly the SFA. Circumflex vessels were also open. We then irrigated both groins for saline. Good hemostasis was noted except for a small amount of oozing from needle holes in the graft. Surgicel was placed around each anastomosis and gentle pressure was held for 2 minutes and good hemostasis was noted. Local anesthesia was administered to the skin and subcutaneous tissue around both incisions and around the femoral nerve lateral to the artery in both groins. We irrigated again with normal saline. We then closed the groins. The left groin was close first. Deep tissue was approximated with interrupted Vicryl sutures. The more superficial fascia was closed in 3 layers with running Vicryl suture. The deep dermal layer was approximated with interrupted Vicryl sutures. The skin was closed with skin amanda. We then performed the same closure on the right femoral exposure. The deep tissues were approximated with interrupted Vicryl sutures, the more superficial fascia was closed in 3 layers with running Vicryl suture. The deep dermal layer was approximated with interrupted Vicryl sutures and the skin was closed with amanda. Both wounds were clean and dry. Both were hemostatic. 4 x 4 and Tegaderm were placed over each incision. The patient was allowed to awaken from anesthesia and was taken to recovery in stable condition. He tolerated the a nesthesia and the patient procedure well. ESTIMATED BLOOD LOSS: Approximately 25 mL. COMPLICATIONS: None. PLAN: The patient will be on bedrest until tomorrow morning, and then he can resume his normal activity with assist at the level he was at preop. I assume he has offloading of the left foot due to recent surgery. This should continue. It is okay for him to lay on his side tonight, and he does not need flat bedrest. It is okay to resume a normal diet, we like high-protein diet to help with wound healing of his left foot as well as healing of his groin incisions. I will decide tomorrow based on how his incisions look whether not we will restart the eliquis in the morning. I plan to restart in the morning if everything looks good. Continue IV antibiotics per infectious disease recommendations. Continue local wound care left foot per Dr. Nguyễn recommendations. We appreciate the opportunity to participate in the care of this patient. SEGUNDO BAILEY MD Feb 25, 2020 17:49
[2020-02-25] MEDS ORDERED: NS 1,000 ML IV SCH (18:00)
[2020-02-25] MEDS ORDERED: ONDANSETRON 4MG/2ML VIAL (J2405) IV PRN (18:00)
[2020-02-25] MEDS ORDERED: PERCOCET 5MG/325MG TAB PO PRN (18:00)
[2020-02-25] MEDS ORDERED: diazePAM 5 MG TAB As Ordered ONE (18:08)
[2020-02-25] MEDS: diazePAM 5 MG TAB PO PRN (18:10)
[2020-02-25] MEDS ORDERED: MORPHINE 2 MG/ML 1ML VIAL (J2270) As Ordered ONE (18:13)
--- NOTE | 2020-02-25 19:05 | IPNPDOC ---
Date Seen The patient was seen on 02/25/20. Progress Note 02/25/20 I was unable to see the patient today as he was getting a PICC line in the morning followed by femoro-femoral bypass later in the day, will see in the morning. Patient's chart was reviewed and care discussed with his nurse, will see in the morning. VS, I&O, 24H, Fishbone Vital Signs/I&O Vital Signs Date Time Temp Pulse Resp B/P (MAP) Pulse Ox O2 Delivery O2 Flow Rate FiO2 02/25/20 18:40 92 16 169/81 (110) 96 Room Air 02/25/20 18:30 97.7 02/25/20 18:00 2.0 I&O- Last 24 Hours up to 6 AM0 02/25/20 06:00 Intake Total 1310 ml Output Total 1275 ml Balance 35 ml Laboratory Data 24H LABS Laboratory Tests 2 02/25/20 06:09: Nucleated Red Blood Cells % (auto) 0.0, Anion Gap 8, Glomerular Filtration Rate > 60.0, Calcium Level 8.6 CBC/BMP Laboratory Tests 02/25/20 06:09 Microbiology Microbiology 02/21/20 Gram Stain - Final, Complete 02/21/20 Wound Culture - Final, Complete Pseudomonas Aeruginosa Corynebacterium Species Staphylococcus Aureus 02/21/20 Blood Culture - Preliminary, Resulted No Growth after 72 hours. All specime... ED VELASQUEZ MD Feb 25, 2020 19:05
[2020-02-25] MEDS: NORCO, ANEXSIA 5/325MG TABLET (HYDROcodone/ACETAMINOPHEN) PO PRN (19:57)
[2020-02-25] MEDS: RAMELTEON 8 MG TAB (ROZEREM) PO SCH (21:35)
[2020-02-25] MEDS: rOPINIRole 0.25 MG TAB(REQUIP) PO SCH (21:35)
[2020-02-25] MEDS ORDERED: KETOROLAC 30 MG/ML VIAL (J1885) IV ONE (21:45)
[2020-02-25] MEDS: MORPHINE 2 MG/ML 1ML VIAL (J2270) IV PRN (23:08)
[2020-02-26] VITALS: BP 152/69
[2020-02-26] MEDS: MEROPENEM INJ 1 GM in IV 1 EA IV SCH ×3 (01:31→16:21)
[2020-02-26] MEDS: MORPHINE 2 MG/ML 1ML VIAL (J2270) IV PRN ×5 (05:01→22:40)
[2020-02-26 06:00] VITALS: BP 152/67
[2020-02-26 06:51] LABS: HEMATOCRIT 33.9 % (42.0-52.0); HEMOGLOBIN 11.3 g/dl (13.5-17.5); MEAN CORPUSCULAR HEMOGLOBIN 29.7 pg (27.0-33.0); MEAN CORPUSCULAR HGB CONC 33.3 g/dl (32.0-36.5); PLATELET COUNT, AUTOMATED 353 10^3/uL (150-450); RED BLOOD COUNT 3.81 10^6/uL (4.30-6.10); WHITE BLOOD COUNT 11.4 10^3/uL (4.0-10.0)
[2020-02-26 07:19] LABS: BLOOD UREA NITROGEN 15 MG/DL (7-18); CALCIUM LEVEL 8.5 MG/DL (8.5-10.1); CARBON DIOXIDE LEVEL 23 MEQ/L (21-32); CHLORIDE LEVEL 110 MEQ/L (98-107); CREATININE FOR GFR 0.71 MG/DL (0.70-1.30); GLOMERULAR FILTRATION RATE > 60.0 (>56); GLUCOSE, FASTING 86 MG/DL (70-100); SODIUM LEVEL 140 MEQ/L (136-145)
[2020-02-26] MEDS: lisinopriL 20 MG TAB PO SCH (08:56)
[2020-02-26] MEDS: OMEPRAZOLE 20 MG CAP PO SCH (08:57)
[2020-02-26] MEDS: diazePAM 5 MG TAB PO PRN ×3 (08:57→22:40)
[2020-02-26] MEDS: GABAPENTIN 100 MG CAP PO SCH ×3 (08:57→22:14)
[2020-02-26] MEDS: ATORVASTATIN 20 MG TAB PO SCH (08:57)
[2020-02-26] MEDS: GABAPENTIN 300 MG CAP PO SCH ×3 (08:57→22:13)
--- NOTE | 2020-02-26 09:02 | IPNPDOC ---
Date Seen The patient was seen on 02/26/20. Progress Note Pt seen and examined, doing well POD #1 s/p R to L femfem bypass for L LOU re- occlusion. C/o appropriate postop pain bilat groin incisions. Pt expressed he is ready to quit smoking, which is great news- I strongly positively reinforced this decision today and will continue to do so. On exam, strong signal over bypass, left foot hyperemic and warm, biphasic signals LLE, and perfusion intact RLE as well. Incisions bilat groins are c/d/i, and no drainage on dressings, no bruising, no bleeding noted. Cleaned, redressed. Yohan is still in- reminded RN of order to remove this morning and she is agreeable to d/c it. Straight cath prn no UO Q6H. Ok oob with assist and crutches to offload L foot, but avoid straining while incisions are healing. No lifting >5 lbs x 2 weeks. Ok to shower, no tub baths 2 weeks. Hibiclens for showers. Will restart eliquis- no postop bruising or bleeding noted. We appreciate the opportunity to participate in the care of this patient. VS, I&O, 24H, Fishbone Vital Signs/I&O Vital Signs Date Time Temp Pulse Resp B/P (MAP) Pulse Ox O2 Delivery O2 Flow Rate FiO2 02/26/20 06:00 98.5 76 15 152/67 (95) 98 Room Air 02/25/20 18:00 2.0 I&O- Last 24 Hours up to 6 AM 02/26/20 06:00 Intake Total 4420 ml Output Total 1275 ml Balance 3145 ml Laboratory Data 24H LABS Laboratory Tests 2 02/26/20 06:27: Nucleated Red Blood Cells % (auto) 0.0, Anion Gap 7L, Glomerular Filtration Rate > 60.0, Calcium Level 8.5 CBC/BMP Laboratory Tests 02/26/20 06:27 Microbiology Microbiology 02/21/20 Gram Stain - Final, Complete 02/21/20 Wound Culture - Final, Complete Pseudomonas Aeruginosa Corynebacterium Species Staphylococcus Aureus 02/21/20 Blood Culture - Preliminary, Resulted No Growth after 72 hours. All specime... SEGUNDO LUNDY MD Feb 26, 2020 09:02
[2020-02-26] MEDS: APIXABAN 2.5 MG TAB (ELIQUIS) PO SCH ×2 (09:47→22:14)
[2020-02-26] MEDS: NS 1,000 ML IV SCH (10:02)
[2020-02-26 14:00] VITALS: BP 140/80
--- NOTE | 2020-02-26 15:02 | IPNPDOC ---
Date Seen The patient was seen on 02/26/20. Progress Note SUBJECTIVE: 49-year-old male with past medical history of hypertension, hyperlipidemia, peripheral vascular disease, obstructive sleep apnea and GERD was admitted for left foot osteomyelitis and severe peripheral vascular disease restricting healing of left foot wound. Patient underwent removal of fourth and fifth metatarsals one to 2 weeks ago and wound has not been healing properly. Since then, underwent angiogram of left lower extremity but unable to have any intervention performed due to occlusion. Patient underwent femorofemoral bypass yesterday. Patient is doing well in the morning, having groin pain, which is well-controlled at this time, no other complaints at this time. He denies any shortness of breath, chest pain, nausea, vomiting, abdominal pain or diarrhea. 10 point review of system is negative except for above PHYSICAL EXAMINATION: VITAL SIGNS: Please see below. GENERAL: No distress HEENT: Normocephalic, atraumatic, moist mucous membranes NECK: Supple CARDIOVASCULAR EXAMINATION: S1, S2, no murmurs RESPIRATORY EXAMINATION: Scattered rhonchi, poor air movement, no wheezing ABDOMINAL EXAMINATION: Soft, nontender, nondistended, positive bowel sounds EXTREMITIES: Left groin dressing in place, range of motion intact SKIN: No rash NEUROLOGICAL EXAMINATION: Alert and oriented 3, no focal deficits PSYCHIATRIC EXAMINATION: Calm and cooperative LABORATORY DATA, IMAGING STUDIES, MICROBIOLOGY: Please see below. ASSESSMENT AND PLAN: 49-year-old male with multiple medical comorbidities is admitted for left foot osteomyelitis with poor wound healing secondary to severe peripheral vascular disease. PROBLEMS: 1. Left foot osteomyelitis: Status post removal of fourth and fifth metatarsals by podiatry, poor wound healing due to severe vascular disease, cultures grew MSSA and pseudomonas, previously has grown anaerobic organisms and strep, continue meropenem, infectious disease following. We'll discuss with podiatry/ID regarding wound VAC/long-term antibiotics/BKA. Patient had a PICC line placed yesterday in anticipation of long-term antibiotics. 2. Severe peripheral vascular disease: With limited blood flow to left lower extremity, initially underwent angiogram and unable to have any and endovascular intervention, underwent femorofemoral bypass yesterday, doing well, management as per vascular surgery. 3. Hypertension: Continue lisinopril. 4. GERD: Continue omeprazole. DVT prophylaxis: on Eliquis GI prophylaxis: Home PPI VS, I&O, 24H, Fishbone Vital Signs/I&O Vital Signs Date Time Temp Pulse Resp B/P (MAP) Pulse Ox O2 Delivery O2 Flow Rate FiO2 02/26/20 14:49 17 Room Air 02/26/20 14:00 98.0 101 140/80 (100) 99 02/25/20 18:00 2.0 I&O- Last 24 Hours up to 6 AM 02/26/20 06:00 Intake Total 4420 ml Output Total 1275 ml Balance 3145 ml Laboratory Data 24H LABS Laboratory Tests 2 02/26/20 06:27: Nucleated Red Blood Cells % (auto) 0.0, Anion Gap 7L, Glomerular Filtration Rate > 60.0, Calcium Level 8.5 CBC/BMP Laboratory Tests 02/26/20 06:27 Microbiology Microbiology 02/21/20 Gram Stain - Final, Complete 02/21/20 Wound Culture - Final, Complete Pseudomonas Aeruginosa Corynebacterium Species Staphylococcus Aureus 02/21/20 Blood Culture - Preliminary, Resulted No Growth after 72 hours. All specime... ED VELASQUEZ MD Feb 26, 2020 15:01
--- NOTE | 2020-02-26 15:11 | IPN ---
DATE OF SERVICE: 02/26/2020 The patient is seen and examined. He states that he is doing well from his procedure yesterday. He had bypass performed by Dr. Bailey. He states that he is doing well. Per chart review, it appears that the bypass was successful. The patient did state that he is 100% committed to quitting smoking. He states that his has quit at home as well. Vital signs are reviewed. He has been afebrile. Laboratories reviewed. White blood cell count is 7.4. Lower extremity examination: Foot appears more perfused. There is some dry gangrene and some necrosis to the plantar lateral foot. ASSESSMENT: 49-year-old male with peripheral vascular disease, status post bypass with left foot ulceration and gangrene. PLAN: Excisional wound debridement was performed at bedside using a #15 blade. Debridement included nonviable skin tissue, tendon and bone. The bone was sent for pathology. No anesthesia was used due to patient's neuropathy. The patient tolerated it well. Dressings were saline soaked gauze, which can be performed three times daily, local wound VAC until infection appears fully resolved. Ultimate plan for now will be salvage. He does appear to have improved blood flow. We will know over the next few weeks if this is enough to perfuse the foot to heal, which is also contingent on his success with quitting smoking, as smoking will only further exacerbate his already tenuous small vessels. We will follow.
[2020-02-26] MEDS: SODIUM CHLORIDE 0.9% INJ 10 ML SYR IV SCH (17:22)
[2020-02-26] MEDS ORDERED: MORPHINE 2 MG/ML 1ML VIAL (J2270) IV ONE (19:00)
[2020-02-26 22:00] VITALS: BP 146/78
[2020-02-26] MEDS: rOPINIRole 0.25 MG TAB(REQUIP) PO SCH (22:14)
[2020-02-26] MEDS: RAMELTEON 8 MG TAB (ROZEREM) PO SCH (22:14)
[2020-02-27] MEDS ORDERED: KETOROLAC 30 MG/ML VIAL (J1885) IV ONE (00:30)
[2020-02-27] MEDS: MEROPENEM INJ 1 GM in IV 1 EA IV SCH ×3 (01:24→16:58)
[2020-02-27 06:00] VITALS: BP 156/73
[2020-02-27 06:24] LABS: HEMOGLOBIN 12.2 g/dl (13.5-17.5); MEAN CORPUSCULAR HEMOGLOBIN 29.5 pg (27.0-33.0); MEAN CORPUSCULAR VOLUME 89.4 fl (80.0-96.0); PLATELET COUNT, AUTOMATED 397 10^3/uL (150-450); RED BLOOD COUNT 4.14 10^6/uL (4.30-6.10); WHITE BLOOD COUNT 12.7 10^3/uL (4.0-10.0)
[2020-02-27 06:40] LABS: BLOOD UREA NITROGEN 11 MG/DL (7-18); CALCIUM LEVEL 8.7 MG/DL (8.5-10.1); CARBON DIOXIDE LEVEL 26 MEQ/L (21-32); CHLORIDE LEVEL 108 MEQ/L (98-107); GLOMERULAR FILTRATION RATE > 60.0 (>56); GLUCOSE, FASTING 92 MG/DL (70-100); POTASSIUM SERUM 4.1 MEQ/L (3.5-5.1); SODIUM LEVEL 139 MEQ/L (136-145)
[2020-02-27] MEDS: MORPHINE 2 MG/ML 1ML VIAL (J2270) IV PRN ×3 (09:00→21:07)
[2020-02-27] MEDS: OMEPRAZOLE 20 MG CAP PO SCH (09:01)
[2020-02-27] MEDS: GABAPENTIN 100 MG CAP PO SCH ×3 (09:01→21:08)
[2020-02-27] MEDS: GABAPENTIN 300 MG CAP PO SCH ×3 (09:01→21:08)
[2020-02-27] MEDS: ATORVASTATIN 20 MG TAB PO SCH (09:01)
[2020-02-27] MEDS: APIXABAN 2.5 MG TAB (ELIQUIS) PO SCH ×2 (09:02→21:08)
[2020-02-27] MEDS: diazePAM 5 MG TAB PO PRN ×2 (09:02→18:22)
[2020-02-27] MEDS: lisinopriL 20 MG TAB PO SCH (09:04)
[2020-02-27] MEDS: SODIUM CHLORIDE 0.9% INJ 10 ML SYR IV PRN (10:12)
[2020-02-27 14:00] VITALS: BP 131/77
[2020-02-27] MEDS: SODIUM CHLORIDE 0.9% INJ 10 ML SYR IV SCH (16:00)
[2020-02-27] MEDS: RAMELTEON 8 MG TAB (ROZEREM) PO SCH (21:07)
[2020-02-27] MEDS: rOPINIRole 0.25 MG TAB(REQUIP) PO SCH (21:07)
[2020-02-27 22:00] VITALS: BP 131/75
--- NOTE | 2020-02-27 22:42 | IPNPDOC ---
Date Seen The patient was seen on 02/27/20. Progress Note SUBJECTIVE: 49-year-old male with past medical history of hypertension, hyperlipidemia, peripheral vascular disease, obstructive sleep apnea and GERD was admitted for left foot osteomyelitis and severe peripheral vascular disease restricting healing of left foot wound. Patient underwent removal of fourth and fifth metatarsals one to 2 weeks ago and wound has not been healing properly. Patient underwent femorofemoral bypass by vascular surgery followed by I&D of L foot by Podiatry yesterday. Patient is doing well in the morning, pain is well controlled, no other complaints at this time. He denies any shortness of breath, chest pain, nausea, vomiting, abdominal pain or diarrhea. 10 point review of system is negative except for above PHYSICAL EXAMINATION: VITAL SIGNS: Please see below. GENERAL: No distress HEENT: Normocephalic, atraumatic, moist mucous membranes NECK: Supple CARDIOVASCULAR EXAMINATION: S1, S2, no murmurs RESPIRATORY EXAMINATION: Scattered rhonchi, poor air movement, no wheezing ABDOMINAL EXAMINATION: Soft, nontender, nondistended, positive bowel sounds EXTREMITIES: Left groin dressing in place, L foot w/ dressing in place, soaked SKIN: No rash NEUROLOGICAL EXAMINATION: Alert and oriented 3, no focal deficits PSYCHIATRIC EXAMINATION: Calm and cooperative LABORATORY DATA, IMAGING STUDIES, MICROBIOLOGY: Please see below. ASSESSMENT AND PLAN: 49-year-old male with multiple medical comorbidities is admitted for left foot osteomyelitis with poor wound healing secondary to severe peripheral vascular disease. PROBLEMS: 1. Left foot osteomyelitis: Status post removal of fourth and fifth metatarsals, bedside I&D yesterday by podiatry, poor wound healing due to severe vascular disease, cultures grew MSSA and pseudomonas, previously has grown anaerobic org anisms and strep, continue meropenem, infectious disease following. PICC line in place, wound vac as per Podiatry/ID, will require superintendent container terminal antibiotics, remains at high risk for amputation. 2. Severe peripheral vascular disease: With limited blood flow to left lower extremity, underwent femorofemoral bypass, management as per vascular surgery. 3. Hypertension: Continue lisinopril. 4. GERD: Continue omeprazole. DVT prophylaxis: on Eliquis GI prophylaxis: Home PPI VS, I&O, 24H, Fishbone Vital Signs/I&O Vital Signs Date Time Temp Pulse Resp B/P (MAP) Pulse Ox O2 Delivery O2 Flow Rate FiO2 4/12/20 22:00 98.0 91 17 131/75 (93) 99 Room Air 02/25/20 18:00 2.0 I&O- Last 24 Hours up to 6 AM 02/27/20 06:00 Intake Total 1860 ml Output Total 2000 ml Balance -140 ml Laboratory Data 24H LABS Laboratory Tests 2 02/27/20 05:56: Nucleated Red Blood Cells % (auto) 0.0, Anion Gap 5L, Glomerular Filtration Rate > 60.0, Calcium Level 8.7 CBC/BMP Laboratory Tests 02/27/20 05:56 Microbiology Microbiology 02/21/20 Gram Stain - Final, Complete 02/21/20 Wound Culture - Final, Complete Pseudomonas Aeruginosa Corynebacterium Species Staphylococcus Aureus 02/21/20 Blood Culture - Final, Complete NO GROWTH AFTER 5 DAYS ED VELASQUEZ MD Feb 27, 2020 22:42
[2020-02-28] MEDS: MEROPENEM INJ 1 GM in IV 1 EA IV SCH ×3 (00:43→16:34)
[2020-02-28] MEDS: SODIUM CHLORIDE 0.9% INJ 10 ML SYR IV PRN ×2 (01:37→06:09)
[2020-02-28 06:00] VITALS: BP 131/78
[2020-02-28] MEDS: MORPHINE 2 MG/ML 1ML VIAL (J2270) IV PRN ×4 (06:08→21:57)
[2020-02-28 06:15] LABS: HEMATOCRIT 40.9 % (42.0-52.0); HEMOGLOBIN 13.5 g/dl (13.5-17.5); MEAN CORPUSCULAR HEMOGLOBIN 29.8 pg (27.0-33.0); MEAN CORPUSCULAR VOLUME 90.3 fl (80.0-96.0); PLATELET COUNT, AUTOMATED 435 10^3/uL (150-450); RED BLOOD COUNT 4.53 10^6/uL (4.30-6.10); WHITE BLOOD COUNT 14.6 10^3/uL (4.0-10.0)
[2020-02-28 06:41] LABS: BLOOD UREA NITROGEN 12 MG/DL (7-18); CALCIUM LEVEL 9.8 MG/DL (8.5-10.1); CARBON DIOXIDE LEVEL 27 MEQ/L (21-32); CHLORIDE LEVEL 108 MEQ/L (98-107); CREATININE FOR GFR 0.94 MG/DL (0.70-1.30); GLOMERULAR FILTRATION RATE > 60.0 (>56); GLUCOSE, FASTING 104 MG/DL (70-100); POTASSIUM SERUM 5.8 MEQ/L (3.5-5.1); SODIUM LEVEL 139 MEQ/L (136-145)
[2020-02-28] MEDS: APIXABAN 2.5 MG TAB (ELIQUIS) PO SCH ×2 (08:29→21:57)
[2020-02-28] MEDS: OMEPRAZOLE 20 MG CAP PO SCH (08:30)
[2020-02-28] MEDS: lisinopriL 20 MG TAB PO SCH (08:32)
[2020-02-28] MEDS: GABAPENTIN 300 MG CAP PO SCH ×3 (08:33→21:56)
[2020-02-28] MEDS: GABAPENTIN 100 MG CAP PO SCH ×3 (08:33→21:56)
[2020-02-28] MEDS: ATORVASTATIN 20 MG TAB PO SCH (08:33)
--- NOTE | 2020-02-28 09:34 | IPNPDOC ---
Date Seen The patient was seen on 02/28/20. Progress Note Patient seen and examined postoperative day 3 status post right to left femorofemoral bypass. He still has triphasic flow over the bypass on exam. His left lower extremity is much better perfused, but he still has some distal tibial and pedal vascular disease that somewhat limits flow to the distal foot. However, with dramatic improvement in flow, he is getting much better perfusion overall. His incisions are clean dry and intact. The right incision skin is pink viable and healing well with no drainage. The left incision, however, has a thin layer of skin edge on the inferior lateral aspect of the incision, approximately 6 cm, that is a bit dusky. This may or may not auto debridement, but we are hopeful that this will not cause issues with healing of that incision. We will certainly watch it closely. Despite this then area of likely nonviable skin, the rest of the incision is clean dry and intact and healing well. Neither groin has any swelling, induration, bruising, drainage, or other concerning factors. Both dressings were dry when removed today. The incisions were thoroughly cleaned and dry 4 x 4's and paper tape were replaced. The patient did have a bedside debridement with Dr. Nguyễn this weekend, due to some nonviable tissue noted on exam, but per his note he still feels there is a chance to salvage the foot. I think it is worthwhile to try, especially now that the patient has agreed to quit smoking, and we will continue to encourage him in that regard. However, if the foot decompensates or is not salvageable, we will be happy to provide a below-knee amputation. I believe the patient has suitable blood flow for a below-knee amputation now that we have improved his inflow, especially if he continues with smoking cessation. We discussed this today and he is agreeable to this plan. He also feels it is worthwhile to try to heal the foot if he can, but he has resigned himself to below-knee amputation if it is not successful. I also encouraged him to use much protein as he can to help with wound healing, and to continue offloading the foot as any pressure could cause the wound to further deteriorate. He is agreeable to this plan. We appreciate the opportunity to participate in the care of this patient. VS, I&O, 24H, Fishbone Vital Signs/I&O Vital Signs Date Time Temp Pulse Resp B/P (MAP) Pulse Ox O2 Delivery O2 Flow Rate FiO2 02/28/20 08:32 136/74 02/28/20 06:18 16 Room Air 02/28/20 06:00 98.3 84 100 02/25/20 18:00 2.0 I&O- Last 24 Hours up to 6 AM 02/28/20 06:00 Intake Total 1050 ml Output Total 150 ml Balance 900 ml Laboratory Data 24H LABS Laboratory Tests 2 02/28/20 05:57: Nucleated Red Blood Cells % (auto) 0.0, Anion Gap 4L, Glomerular Filtration Rate > 60.0, Calcium Level 9.8 02/28/20 09:03: CBC/BMP Laboratory Tests 02/28/20 05:57 Microbiology Microbiology 02/21/20 Gram Stain - Final, Complete 02/21/20 Wound Culture - Final, Complete Pseudomonas Aeruginosa Corynebacterium Species Staphylococcus Aureus 02/21/20 Blood Culture - Final, Complete NO GROWTH AFTER 5 DAYS SEGUNDO LUNDY MD Feb 28, 2020 09:34
[2020-02-28 10:08] LABS: BLOOD UREA NITROGEN 12 MG/DL (7-18); CALCIUM LEVEL 8.8 MG/DL (8.5-10.1); CARBON DIOXIDE LEVEL 22 MEQ/L (21-32); CHLORIDE LEVEL 109 MEQ/L (98-107); CREATININE FOR GFR 0.88 MG/DL (0.70-1.30); GLOMERULAR FILTRATION RATE > 60.0 (>56); GLUCOSE, FASTING 146 MG/DL (70-100); POTASSIUM SERUM 4.1 MEQ/L (3.5-5.1); SODIUM LEVEL 139 MEQ/L (136-145)
--- NOTE | 2020-02-28 10:21 | IPN ---
DATE OF SERVICE: 02/28/2020 The patient is seen and examined. He states that his foot is feeling a little bit better. Vital signs are reviewed. He is afebrile. Laboratories are reviewed. White blood cell count is elevated to 14.6. Lower extremity examination: Foot remains better perfused since the bypass. His wound was inspected. There is improvement in necrotic tissue. There is some exposed bone at the lateral margin of the ulcer. There is no purulence noted on examination. ASSESSMENT: 49-year-old male with peripheral vascular disease, status post bypass and status post bone excision. PLAN: Continue antibiotics. Infectious disease has been consulted. He will need home intravenous antibiotics. Would hold wound VAC for now until infection is fully resolved. For the time being, we will do wet to dry dressings. If the patient's lab work improves, he most likely can be discharged tomorrow once home health and IV antibiotics are established. He should have followup with me within the next week and should have followup appointment with the wound care center.
[2020-02-28 14:00] VITALS: BP 116/71
[2020-02-28] MEDS: SODIUM CHLORIDE 0.9% INJ 10 ML SYR IV SCH (16:35)
--- NOTE | 2020-02-28 20:27 | IPNPDOC ---
Date Seen The patient was seen on 02/28/20. Progress Note SUBJECTIVE: 49-year-old male with past medical history of hypertension, hyperlipidemia, peripheral vascular disease, obstructive sleep apnea and GERD was admitted for left foot osteomyelitis and severe peripheral vascular disease restricting healing of left foot wound. Patient underwent removal of fourth and fifth metatarsals one to 2 weeks ago and wound has not been healing properly. Patient underwent femorofemoral bypass by vascular surgery followed by I&D of L foot by Podiatry over the weekend. Patient seen in the morning, no acute events overnight, comfortable, pain is well controlled, no complaints at this time. 10 point review of system is negative except for above PHYSICAL EXAMINATION: VITAL SIGNS: Please see below. GENERAL: No distress HEENT: Normocephalic, atraumatic, moist mucous membranes NECK: Supple CARDIOVASCULAR EXAMINATION: S1, S2, no murmurs RESPIRATORY EXAMINATION: Scattered rhonchi, no wheezing ABDOMINAL EXAMINATION: Soft, nontender, nondistended, positive bowel sounds EXTREMITIES: Left groin dressing in place, L foot w/ dressing in place, soaked SKIN: No rash NEUROLOGICAL EXAMINATION: Alert and oriented 3, no focal deficits PSYCHIATRIC EXAMINATION: Calm and cooperative LABORATORY DATA, IMAGING STUDIES, MICROBIOLOGY: Please see below. ASSESSMENT AND PLAN: 49-year-old male with multiple medical comorbidities is admitted for left foot osteomyelitis with poor wound healing secondary to severe peripheral vascular disease. PROBLEMS: 1. Left foot osteomyelitis: Status post removal of fourth and fifth metatarsals, repeat bedside I&D by podiatry, poor wound healing due to severe vascular disease, cultures grew MSSA and pseudomonas, continue meropenem, infectious disease following. PICC line placed, plan for d/c once outpatient antibiotics/wound care have been arranged. 2. Severe peripheral vascular disease: With limited blood flow to left lower extremity, underwent femorofemoral bypass, management as per vascular surgery. 3. Hypertension: Continue lisinopril. 4. GERD: Continue omeprazole. DVT prophylaxis: on Eliquis GI prophylaxis: Home PPI VS, I&O, 24H, Fishbone Vital Signs/I&O Vital Signs Date Time Temp Pulse Resp B/P (MAP) Pulse Ox O2 Delivery O2 Flow Rate FiO2 02/28/20 17:30 16 Room Air 02/28/20 14:00 97.9 99 116/71 (86) 100 02/25/20 18:00 2.0 I&O- Last 24 Hours up to 6 AM 02/28/20 06:00 Intake Total 1050 ml Output Total 150 ml Balance 900 ml Laboratory Data 24H LABS Laboratory Tests 2 02/28/20 05:57: Nucleated Red Blood Cells % (auto) 0.0, Anion Gap 4L, Glomerular Filtration Rate > 60.0, Calcium Level 9.8 02/28/20 09:03: Anion Gap 8, Glomerular Filtration Rate > 60.0, Calcium Level 8.8 CBC/BMP Laboratory Tests 02/28/20 05:57 02/28/20 09:03 Microbiology Microbiology 02/21/20 Gram Stain - Final, Complete 02/21/20 Wound Culture - Final, Complete Pseudomonas Aeruginosa Corynebacterium Species Staphylococcus Aureus 02/21/20 Blood Culture - Final, Complete NO GROWTH AFTER 5 DAYS ED VELASQUEZ MD Feb 28, 2020 20:27
[2020-02-28] MEDS: RAMELTEON 8 MG TAB (ROZEREM) PO SCH (21:57)
[2020-02-28] MEDS: rOPINIRole 0.25 MG TAB(REQUIP) PO SCH (21:57)
[2020-02-28 22:00] VITALS: BP 117/70
[2020-02-29] MEDS: MEROPENEM INJ 1 GM in IV 1 EA IV SCH ×3 (01:04→17:21)
[2020-02-29] MEDS: MORPHINE 2 MG/ML 1ML VIAL (J2270) IV PRN ×2 (05:44→13:45)
[2020-02-29 06:00] VITALS: BP 151/83
[2020-02-29 09:24] LABS: HEMOGLOBIN 13.3 g/dl (13.5-17.5); MEAN CORPUSCULAR HEMOGLOBIN 29.4 pg (27.0-33.0); MEAN CORPUSCULAR HGB CONC 32.4 g/dl (32.0-36.5); MEAN CORPUSCULAR VOLUME 90.5 fl (80.0-96.0); PLATELET COUNT, AUTOMATED 459 10^3/uL (150-450); RED BLOOD COUNT 4.53 10^6/uL (4.30-6.10); WHITE BLOOD COUNT 12.2 10^3/uL (4.0-10.0)
[2020-02-29 09:32] VITALS: BP 134/85
[2020-02-29] MEDS: GABAPENTIN 300 MG CAP PO SCH ×2 (09:32→15:14)
[2020-02-29] MEDS: ATORVASTATIN 20 MG TAB PO SCH (09:32)
[2020-02-29] MEDS: OMEPRAZOLE 20 MG CAP PO SCH (09:32)
[2020-02-29] MEDS: APIXABAN 2.5 MG TAB (ELIQUIS) PO SCH (09:32)
[2020-02-29] MEDS: GABAPENTIN 100 MG CAP PO SCH ×2 (09:32→15:14)
[2020-02-29] MEDS: lisinopriL 20 MG TAB PO SCH (09:32)
--- NOTE | 2020-02-29 11:41 | IPNPDOC ---
Date Seen The patient was seen on 02/29/20. Progress Note Patient seen and examined postoperative day 4 s/p R to L femfem bypass. He still has triphasic doppler flow over the bypass on exam. His left lower extremity is much better perfused, but he still has some distal tibial and pedal vascular disease that somewhat limits flow to the distal foot. However, with improvement in inflow, he is getting much better perfusion overall to this limb. His WBC is down from 14 to 12 today, which is encouraging. His incisions are clean dry and intact. The right incision skin is pink viable and healing well with no drainage. The left incision has a thin layer of skin edge on the inferior lateral aspect of the incision, approximately 6 cm, that is a bit dusky. This may or may not auto debride, but so far is stable and we are hopeful that this will not cause issues with healing of that incision. We will watch it closely. Despite this thin area of possibly nonviable skin, the rest of the incision is clean dry and intact and healing well. Neither groin has any swelling, induration, bruising, drainage, or other concerning factors. Both dressings were dry when removed today. The incisions were thoroughly cleaned and dry 4 x 4's and paper tape were replaced. I spoke with Dr Nguyễn today and he still feels there is a chance to salvage the foot. I think it is worthwhile to try, especially now that the patient has agreed to quit smoking, and we will continue to encourage him in that regard. However, if the foot decompensates or is not salvageable, we will be happy to provide a BKA. I believe the patient has suitable blood flow for a BKA now that we have improved his inflow, especially if he continues with smoking cessation. We discussed this again today and he is agreeable to this plan. He also feels it is worthwhile to try to heal the foot if he can, but he has resigned himself to a BKA if it is not successful. I also encouraged him to use much protein as he can to help with wound healing, and to continue offloading the foot as any pressure could cause the wound to further deteriorate. He is awaiting outpatient home health and setting up IV antibiotics before discharge. He is agreeable to this plan. We appreciate the opportunity to participate in the care of this patient. VS, I&O, 24H, Fishbone Vital Signs/I&O Vital Signs Date Time Temp Pulse Resp B/P (MAP) Pulse Ox O2 Delivery O2 Flow Rate FiO2 02/29/20 09:32 134/85 02/29/20 06:00 97.9 75 20 99 02/29/20 05:54 Room Air 02/25/20 18:00 2.0 I&O- Last 24 Hours up to 6 AM 02/29/20 06:00 Intake Total 2240 ml Output Total 600 ml Balance 1640 ml Laboratory Data 24H LABS Laboratory Tests 2 02/29/20 09:02: Nucleated Red Blood Cells % (auto) 0.0 CBC/BMP Laboratory Tests 02/29/20 09:02 Microbiology Microbiology 02/21/20 Gram Stain - Final, Complete 02/21/20 Wound Culture - Final, Complete Pseudomonas Aeruginosa Corynebacterium Species Staphylococcus Aureus 02/21/20 Blood Culture - Final, Complete NO GROWTH AFTER 5 DAYS SEGUNDO LUNDY MD Feb 29, 2020 11:41
[2020-02-29] MEDS: SODIUM CHLORIDE 0.9% INJ 10 ML SYR IV PRN ×2 (13:46→17:59)
[2020-02-29 14:00] VITALS: BP 137/74
[2020-02-29] MEDS: SODIUM CHLORIDE 0.9% INJ 10 ML SYR IV SCH (15:15)
[2020-02-29] MEDS ORDERED: LEVA750T7 PO (15:45)
--- NOTE | 2020-02-29 17:30 | DS.PDOC ---
Discharge Summary General Date of Admission Feb 21, 2020 at 15:04 Date of Discharge 02/29/20 Attending Physician: ED VELASQUEZ MD Discharge Summary PROCEDURES PERFORMED DURING STAY: Left lower extremity angiogram, femorofemoral bypass, left foot I&D ADMITTING DIAGNOSES: 1. Left foot osteomyelitis, severe peripheral vascular disease. DISCHARGE DIAGNOSES: 1. Left foot osteomyelitis, severe peripheral vascular disease. COMPLICATIONS/CHIEF COMPLAINT: Cellulitis Left Foot. HISTORY OF PRESENT ILLNESS: 49-year-old male with past medical history of smoking, peripheral vascular disease and chronic osteomyelitis was admitted for left foot osteomyelitis and severe peripheral vascular disease. Patient underwent left lower extremity angiogram with an attempt to do an angioplasty which was unsuccessful given the severity of peripheral vascular disease. Patient then underwent femorofemoral bypass, which was successful. Patient also had a bedside I&D by podiatry of his left foot. Patient was evaluated by infectious disease and initially treated with meropenem. His cultures are growing Pseudomonas and MSSA, sensitive to Levaquin. Patient has been cleared for discharge by podiatry, vascular surgery and infectious disease at this time. Patient will be discharged on Levaquin by mouth with outpatient follow-up. Patient is very high risk for left lower extremity amputation given severity of vascular disease and poor wound healing, he is strongly advised to quit smoking. He is clinically stable for discharge at this time. HOSPITAL COURSE: As above. DISCHARGE MEDICATIONS: Please see below. ALLERGIES: Please see below. PHYSICAL EXAMINATION: VITAL SIGNS: Please see below. GENERAL: No distress HEENT: Normocephalic, atraumatic, moist mucous membranes NECK: Supple CARDIOVASCULAR EXAMINATION: S1, S2, no murmurs RESPIRATORY EXAMINATION: Scattered rhonchi, no wheezing ABDOMINAL EXAMINATION: Soft, nontender, nondistended, positive bowel sounds EXTREMITIES: Left groin dressing in place, L foot w/ dressing in place SKIN: No rash NEUROLOGICAL EXAMINATION: Alert and oriented 3, no focal deficits PSYCHIATRIC EXAMINATION: Calm and cooperative LABORATORY DATA: Please see below. PROGNOSIS: Fair ACTIVITY: As tolerated. DIET: Cardiac DISCHARGE PLAN: Follow-up with podiatry, vascular surgery, infectious disease and PCP in 1-2 weeks DISPOSITION: Home with services. DISCHARGE INSTRUCTIONS: 1. As above. DISCHARGE CONDITION: Stable. TIME SPENT ON DISCHARGE: Greater than 35 minutes. Vital Signs/I&Os Vital Signs Date Time Temp Pulse Resp B/P (MAP) Pulse Ox O2 Delivery O2 Flow Rate FiO2 02/29/20 14:00 98.5 87 20 137/74 (95) 100 Room Air 02/25/20 18:00 2.0 I&O- Last 24 Hours up to 6 AM 02/29/20 06:00 Intake Total 2240 ml Output Total 600 ml Balance 1640 ml Laboratory Data Labs 24H Laboratory Tests 2 02/29/20 09:02: Nucleated Red Blood Cells % (auto) 0.0 CBC/BMP Laboratory Tests 02/29/20 09:02 Microbiology Microbiology 02/21/20 Gram Stain - Final, Complete 02/21/20 Wound Culture - Final, Complete Pseudomonas Aeruginosa Corynebacterium Species Staphylococcus Aureus 02/21/20 Blood Culture - Final, Complete NO GROWTH AFTER 5 DAYS Discharge Medications Scheduled Apixaban (Eliquis) 2.5 Mg Tablet, 2.5 MG PO BID, (Reported) Atorvastatin Calcium (Atorvastatin Calcium) 40 Mg Tablet, 40 MG PO DAILY, (Reported) Gabapentin (Gabapentin) 100 Mg Capsule, 100 MG PO TID, (Reported) TAKE WITH 600mg Gabapentin (Gabapentin) 600 Mg Tablet, 600 MG PO TID, (Reported) take with 100mg Levofloxacin (Levaquin) 750 Mg Tablet, 1 TAB PO DAILY Lisinopril (Lisinopril) 20 Mg Tab, 20 MG PO DAILY, (Reported) Omeprazole (Omeprazole) 40 Mg Cap, 40 MG PO DAILY, (Reported) Scheduled PRN Hydrocodone/Acetaminophen (Hydrocodone-Acetamin 5-325 mg) 1 Each Tablet, 1 TAB PO Q8H PRN for PAIN, (Reported) Allergies Coded Allergies: pregabalin (Verified Allergy, Severe, seizures, 01/27/20) Penicillins (Verified Allergy, Intermediate, hives, 01/27/20) ED VEALSQUEZ MD Feb 29, 2020 17:30
[2020-03-01] MEDS ORDERED: HYDR-3713 PO (10:16)
== END 2020-02-29 18:58 | disposition home health service (06) | DRG 253 ==
LOC: M MSPAV 15:04
PROVIDERS: ADMIT Internal Medicine; ATTEND Internal Medicine
PROC: B40DYZZ Plain Radiography of Aorta and Bilateral Lower Extremity Arteries using Other Contrast (ICD-10-PCS; 2020-02-23)
PROC: 02HV33Z Insertion of Infusion Device into Superior Vena Cava, Percutaneous Approach (ICD-10-PCS; 2020-02-25)
PROC: 041 Lower Arteries, Bypass (ICD-10-PCS; principal; 2020-02-25 08:46)
PROC: 0LBW0ZZ Excision of Left Foot Tendon, Open Approach (ICD-10-PCS; 2020-02-26)
DX: T82.858A Stenosis of other vascular prosthetic devices, implants and grafts, initial encounter (principal); M86.172 Other acute osteomyelitis, left ankle and foot; L03.116 Cellulitis of left lower limb; I70.262 Atherosclerosis of native arteries of extremities with gangrene, left leg; T87.44 Infection of amputation stump, left lower extremity; I70.245 Atherosclerosis of native arteries of left leg with ulceration of other part of foot; I10 Essential (primary) hypertension; E78.5 Hyperlipidemia, unspecified; K21.9 Gastro-esophageal reflux disease without esophagitis; G43.909 Migraine, unspecified, not intractable, without status migrainosus; M54.30 Sciatica, unspecified side; F41.9 Anxiety disorder, unspecified; F32.9 Major depressive disorder, single episode, unspecified; F17.200 Nicotine dependence, unspecified, uncomplicated; G47.33 Obstructive sleep apnea (adult) (pediatric); Z88.0 Allergy status to penicillin; Z88.8 Allergy status to other drugs, medicaments and biological substances; Z87.2 Personal history of diseases of the skin and subcutaneous tissue; Z79.899 Other long term (current) drug therapy; Z79.2 Long term (current) use of antibiotics; Z79.01 Long term (current) use of anticoagulants; Z89.422 Acquired absence of other left toe(s); Z95.820 Peripheral vascular angioplasty status with implants and grafts; G25.81 Restless legs syndrome; L97.504 Non-pressure chronic ulcer of other part of unspecified foot with necrosis of bone; B95.61 Methicillin susceptible Staphylococcus aureus infection as the cause of diseases classified elsewhere; B96.5 Pseudomonas (aeruginosa) (mallei) (pseudomallei) as the cause of diseases classified elsewhere; Y83.1 Surgical operation with implant of artificial internal device as the cause of abnormal reaction of the patient, or of later complication, without mention of misadventure at the time of the procedure

== ENCOUNTER → 2020-03-10 | Outpatient (REF) | payer MEDICARE, MEDICAID ==
[~2020-03-10] MED LIST changes: +GABA600T4 PO; +HYDR-3713 PO; +LEVA750T7 PO
[2020-03-10 14:47] LABS: BASO # 0.1 10^3/uL (0.0-0.2); BASO % 0.8 % (0.0-1.0); EOS # 0.1 10^3/uL (0.0-0.5); EOS % 0.9 % (0.0-3.0); HEMATOCRIT 41.9 % (42.0-52.0); HEMOGLOBIN 14.6 g/dl (13.5-17.5); LYMPH # 2.9 10^3/uL (1.5-5.0); MEAN CORPUSCULAR HEMOGLOBIN 30.1 pg (27.0-33.0); MEAN CORPUSCULAR HGB CONC 34.8 g/dl (32.0-36.5); MEAN CORPUSCULAR VOLUME 86.4 fl (80.0-96.0); MONO # 0.9 10^3/uL (0.0-0.8); MONO % 6.6 % (0.0-5.0); NEUTROPHILS # 9.9 10^3/uL (1.5-8.5); NEUTROPHILS % 70.4 % (36.0-66.0); PLATELET COUNT, AUTOMATED 443 10^3/uL (150-450); RED BLOOD COUNT 4.85 10^6/uL (4.30-6.10)
[2020-03-10 15:13] LABS: ALBUMIN 3.7 GM/DL (3.2-5.2); ALT/SGPT 27 U/L (12-78); BILIRUBIN,TOTAL 0.7 MG/DL (0.2-1.0); BLOOD UREA NITROGEN 13 MG/DL (7-18); C REACTIVE PROTEIN QUANTITATIV < 0.30 MG/DL (0.00-0.30); CALCIUM LEVEL 9.5 MG/DL (8.5-10.1); CARBON DIOXIDE LEVEL 30 MEQ/L (21-32); CHLORIDE LEVEL 92 MEQ/L (98-107); CREATININE FOR GFR 0.98 MG/DL (0.70-1.30); GLOMERULAR FILTRATION RATE > 60.0 (>56); GLUCOSE, FASTING 116 MG/DL (70-100); POTASSIUM SERUM 4.1 MEQ/L (3.5-5.1); SODIUM LEVEL 130 MEQ/L (136-145); TOTAL PROTEIN 8.4 GM/DL (6.4-8.2)
[2020-03-10 15:17] LABS: ERYTHROCYTE SEDIMENTATION RATE 41 mm/hr (0-20)
== END ==
LOC: M LAB REF 14:34 → M SHH 14:34
PROVIDERS: ATTEND Internal Medicine Infectious Disease
DX: M86.60 Other chronic osteomyelitis, unspecified site (principal)

== ENCOUNTER → 2020-03-21 | Outpatient (REF) | payer MEDICARE, MEDICAID | LOC: M LAB REF 12:28 | PROVIDERS: ATTEND Podiatrist Foot & Ankle Surgery | DX: M86.10 Other acute osteomyelitis, unspecified site (principal) ==

== ENCOUNTER → 2020-04-11 | Outpatient (REF) | payer MEDICARE, MEDICAID | LOC: M LAB REF 09:56 | PROVIDERS: ATTEND Podiatrist Foot & Ankle Surgery | DX: L03.116 Cellulitis of left lower limb (principal) ==

== ENCOUNTER → 2020-06-14 | Outpatient (CLI) | payer MEDICARE, MEDICAID ==
[~2020-06-14] MED LIST changes: +AMLO10TA PO; -AMLO10TA5 PO; +AMLO1TAB25 PO; +ASPI-546 PO; -ASPI1TAB15 PO; +IBUP-1022 PO; +LIPI20TA PO; +OXYC1TAB23 PO
--- NOTE | 2020-08-04 11:17 | REP ---
BILATERAL LOWER EXTREMITY ARTERIAL DOPPLER ULTRASOUND: HISTORY: Peripheral vascular disease. Recent right to left fem-fem bypass graft. Previous history of right fem-pop bypass graft. Report was delayed due to a malware attack on this facility. FINDINGS: The right to left fem-fem bypass graft is seen to be occluded. A patent graft is seen from the right mid-femoral to the right popliteal artery. Moderate plaquing is seen. No other significant stenosis is seen on the right. Slow flow is observed in the anterior tibial artery. The posterior tibial artery is a dominant vessel in the calf on the right. Monophasic wave forms are noted in the left lower extremity with increased diastolic flow throughout. Recent partial foot amputation on the left. Flow pattern consistent with hyperemia. Slow flow in the anterior tibial artery with mid-anterior tibial artery occlusion is seen on the left. Revascularized flow is seen in the distal anterior tibial. The posterior tibial artery is the dominant vessel to the foot on the left. Ankle brachial indices are normal measured at 1.1 bilaterally. RIGHT LOWER EXTREMITY ARTERIAL DOPPLER VELOCITY CHART: PSV Right to left fem-fem crossover graft Occluded Right fem-pop graft proximal velocity 94 cm/s Mid-graft 64 cm/s Distal graft 39 cm/s Right COMMUNICATIONS EQUIPMENT INSTALLER 109 cm/s Profunda 75 cm/s Proximal SFA 109 cm/s Mid-SFA 92 cm/s Distal SFA Occluded Popliteal 39 cm/s Proximal MINERVA 15 cm/s Proximal CHIEF SCIENTIFIC OFFICER 74 cm/s Distal CHIEF SCIENTIFIC OFFICER 90 cm/s Distal MINERVA 37 cm/s LEFT LOWER EXTREMITY ARTERIAL DOPPLER VELOCITY CHART: PSV Left COMMUNICATIONS EQUIPMENT INSTALLER 147 cm/s Profunda 55 cm/s Proximal SFA 89 cm/s Mid-SFA 87 cm/s Distal SFA 71 cm/s Popliteal 52 cm/s Proximal MINERVA 20 cm/s Tibioperoneal trunk 68 cm/s Proximal CHIEF SCIENTIFIC OFFICER 52 cm/s Distal CHIEF SCIENTIFIC OFFICER 51 cm/s Distal MINERVA 34 cm/s MTDD
== END ==
LOC: M RAD 12:28
PROVIDERS: ATTEND Physician Assistant
DX: I73.9 Peripheral vascular disease, unspecified (principal); Z86.79 Personal history of other diseases of the circulatory system

== ENCOUNTER → 2020-07-04 | Outpatient (REF) | payer MEDICARE, MEDICAID | LOC: M LAB REF 13:57 | PROVIDERS: ATTEND Podiatrist Foot & Ankle Surgery | DX: M86.172 Other acute osteomyelitis, left ankle and foot (principal); M79.89 Other specified soft tissue disorders ==

== ENCOUNTER 2020-07-07 16:27 | Inpatient (IN) | payer MEDICARE, MEDICAID ==
[~2020-07-07] VITALS: Ht 182.9 cm; Wt 83.4 kg
[~2020-07-07 16:27] MED LIST changes: -AMLO10TA PO; -IBUP-1022 PO; -LIPI20TA PO; -OXYC1TAB23 PO
[2020-07-07] MEDS ORDERED: GABA-843 PO (16:55)
[2020-07-07] MEDS ORDERED: OXYC1TAB23 PO (16:55)
[2020-07-07] MEDS ORDERED: MORPHINE 4 MG/ML 1ML VIAL/SYRINGE (J2270) IV ONE (17:00)
[2020-07-07] MEDS ORDERED: NS 1,000 ML IV ONE (17:00)
[2020-07-07] MEDS ORDERED: VANCOMYCIN HCL 1,750 MG in D5W 250 ML IV ONE (17:00)
[2020-07-07] MEDS ORDERED: VANCOMYCIN HCL 750 MG, VIAL MATE ADAPTER 1 EACH in D5W 250 ML IV ONE (17:15)
[2020-07-07] MEDS ORDERED: VANCOMYCIN HCL 1,000 MG, VIAL MATE ADAPTER 1 EACH in D5W 250 ML IV ONE (17:15)
[2020-07-07] MEDS ORDERED: CEFEPIME HCL 2 GM in D5W MINI-BAG PLUS 50 ML IV ONE (17:30)
[2020-07-07] MEDS ORDERED: GABA600T4 PO (17:36)
[2020-07-07 17:40] LABS: BASO % 0.3 % (0.0-1.0); EOS % 0.3 % (0.0-3.0); HEMATOCRIT 32.3 % (42.0-52.0); HEMOGLOBIN 10.4 g/dl (13.5-17.5); LYMPH # 1.5 10^3/uL (1.5-5.0); LYMPH % 12.6 % (24.0-44.0); MEAN CORPUSCULAR HGB CONC 32.2 g/dl (32.0-36.5); MONO # 0.9 10^3/uL (0.0-0.8); NEUTROPHILS # 9.2 10^3/uL (1.5-8.5); NEUTROPHILS % 78.4 % (36.0-66.0); PLATELET COUNT, AUTOMATED 326 10^3/uL (150-450); RED BLOOD COUNT 3.59 10^6/uL (4.30-6.10); WHITE BLOOD COUNT 11.7 10^3/uL (4.0-10.0)
[2020-07-07 18:06] LABS: BLOOD UREA NITROGEN 9 MG/DL (7-18); CALCIUM LEVEL 8.8 MG/DL (8.5-10.1); CARBON DIOXIDE LEVEL 30 MEQ/L (21-32); CHLORIDE LEVEL 103 MEQ/L (98-107); CREATININE FOR GFR 0.66 MG/DL (0.70-1.30); ERYTHROCYTE SEDIMENTATION RATE 106 mm/hr (0-20); GLOMERULAR FILTRATION RATE > 60.0 (>56); GLUCOSE, FASTING 89 MG/DL (70-100); POTASSIUM SERUM 4.1 MEQ/L (3.5-5.1); SODIUM LEVEL 132 MEQ/L (136-145)
[2020-07-07] MEDS: ONDANSETRON 4MG/2ML VIAL IV PRN (18:15)
--- NOTE | 2020-07-07 18:15 | HPEPDOC ---
General Date of Admission Jul 07, 2020 at 17:22 Date of Service: Jul 07, 2020 Chief Complaint The patient is a 50-year-old male admitted with a reason for visit of Osteomyelitis. Source: Patient Exam Limitations: No limitations Timing/Duration: Week(s), Getting worse Severity: Moderate Associated Symptoms: Denies Symptoms History of Present Illness Patient is a $50 male with past medical history of hypertension and current every day smoker presented with concerns of worsening infection from outpatient podiatry visit. He was scheduled for chronic left foot wound debridement at [facility] office Earlier in the day. Dr. Herndon noted worsening of infection with concerns of osteomyelitis. Was recommended to be seen in emergency department for IV antibiotics and further surgical interventions in the a.m. wound cultures were obtained earlier today at [facility].Currently patient denies any pain, fevers or chills. ED course: Dr. Herndon informed. Got one course of antibiotics Home Medications Scheduled Apixaban (Eliquis) 2.5 Mg Tablet, 2.5 MG PO BID, (Reported) Gabapentin (Gabapentin) 600 Mg Tablet, 600 MG PO TID, (Reported) Lisinopril (Lisinopril) 20 Mg Tab, 20 MG PO DAILY, (Reported) Scheduled PRN Oxycodone HCl/Acetaminophen (Oxycodone-Acetaminophen 5-325) 1 Each Tablet, 1 TAB PO BID PRN for PAIN, (Reported) Allergies Coded Allergies: Penicillins (Verified Allergy, Severe, ANAPHYLAXIS, 07/07/20) pregabalin (Verified Adverse Reaction, Severe, seizures, 07/07/20) Past Medical History Medical History HTN and HLD Surgical History left lung upper resection in 2013 after trauma left foot surgeries x 2 Family History Significant Family History: Noncontributory Social History * Smoker: less than 1 pack/day Alcohol: Denies Drugs: marijuana Psychosocial History: No pertinent psych hx A-FIB/CHADSVASC A-FIB History Current/History of A-Fib/PAF?: No Review of Systems Constitutional: Denies: Chills, Fever, Night Sweats Eyes: Denies: Pain, Vision change ENT: Denies: Head Aches, Ear Pain, Dysphagia Skin: Denies: Rash, Lesions, Breakdown Pulmonary: Denies: Dyspnea, Cough Cardiovascular: Denies: Chest Pain, Palpitations, Orthopnea, Paroxysmal Noc. Dyspnea, Lt Headedness Gastrointestinal: Denies: Nausea, Vomiting, Abdominal Pain, Diarrhea Genitourinary: Denies: Dysuria, Frequency, Incontinence, Retention Hematologic: Denies: Bruising, Bleeding Excessively Musculoskeletal: Denies: Neck Pain, Back Pain, Joint Pain, Muscle Pain, Spasms Neurological: Denies: Weakness, Numbness, Change in speech, Confusion Psych: Reports: Mood Normal; Denies: Depression, Memory Issues Physical Examination General Exam: Positive: Alert, No Acute Distress Eye Exam: Positive: PERRLA, Conjunctiva & lids normal, EOMI; Negative: Sclera icteric ENT Exam: Positive: Atraumatic, Mucous membr. moist/pink, Pharynx Normal Neck Exam: Positive: Supple; Negative: JVD, thyromegaly Chest Exam: Positive: Clear to auscultation, Normal air movement Heart Exam: Positive: Rate Normal, Regular Rhythm, Normal S1, Normal S2; Negative: Murmurs, Rubs Telemetry: Positive: No significant arrhythmia Abdomen Exam: Positive: Normal bowel sounds, Soft; Negative: Tenderness, Hepatospenomegaly Extremity Exam: Positive: Normal pulses, Other (left foot in dressing); Negative: Clubbing, Cyanosis, Edema Skin Exam: Positive: Nl turgor and temperature; Negative: Breakdown, Lesion Neuro Exam: Positive: Normal Gait, Normal Speech, Cranial Nerves 3-12 NL, Reflexes 2+ Psych Exam: Positive: Mental status NL, Mood NL, Oriented x 3 Vital Signs Vital Signs Date Time Temp Pulse Resp B/P (MAP) Pulse Ox O2 Delivery O2 Flow Rate FiO2 07/07/20 17:51 07/07/20 17:34 16 07/07/20 16:27 98.2 85 98 Room Air Laboratory Data Labs 24H Laboratory Tests 2 07/07/20 17:20: Immature Granulocyte % (Auto) 0.4, Neutrophils (%) (Auto) 78.4H, Lymphocytes (%) (Auto) 12.6L, Monocytes (%) (Auto) 8.0H, Eosinophils (%) (Auto) 0.3, Basophils (%) (Auto) 0.3, Neutrophils # (Auto) 9.2H, Lymphocytes # (Auto) 1.5, Monocytes # (Auto) 0.9H, Eosinophils # (Auto) 0.0, Basophils # (Auto) 0.0, Nucleated Red Blood Cells % (auto) 0.0, Erythrocyte Sedimentation Rate 106H, Anion Gap , Glomerular Filtration Rate > 60.0, Calcium Level 8.8, C-Reactive Protein, Quantitative 18.70H CBC/BMP Laboratory Tests 07/07/20 17:20 Microbiology Microbiology 07/07/20 Blood Culture, Received Pending 07/07/20 Blood Culture, Received Pending Assessment/Plan 1. Acute on chronic osteomyelitis MRI of left foot ordered. Podiatry following-or detriment/amputation tomorrow previous cultures reviewed: staph and gram negative species. no hx of MDR, will cover with vancomycin and cefepime empirically pre-op and descalate following surgery 2. History of hypertension - continue lisinopril 3. History of peripheral vascular disease Reports being on Xarelto for PD, will hold Xarelto overnight for likely interventions tomorrow 4. History of hyperlipidemia Will discharge on intensity Statin 5. Current smoker - Currently cutting down from 1-2 pack per day to five cigarettes a day -encouraged cessation Diet: NPO except for meds after midnight VTE: holding Xeralto for likely procedure tomorrow Plan / VTE VTE Prophylaxis Ordered?: No VTE Exclusion Mechanical Proph: Low Risk for VTE VTE Exclusion Pharmacological: Drug Interaction HARRISON LIN DO Jul 07, 2020 18:15
[2020-07-07] MEDS ORDERED: PROHANCE 279.3MG/ML 5ML VIAL As Ordered ONE (19:53)
[2020-07-07] MEDS ORDERED: PROHANCE 279.3MG/ML 15ML VIAL As Ordered ONE (19:54)
--- NOTE | 2020-07-07 20:50 | REPVR ---
PROCEDURE INFORMATION: Exam: MR Left Lower Extremity Other Than Joint Without and With Contrast; Foot Exam date and time: 07/07/2020 7:38 PM Age: 50 years old Clinical indication: Condition or disease; Other: Ulcer; Prior surgery; Surgery date: 3-7 days post-operative; Surgery type: PT has had multiple surgeries and amputations due to oseto and cellulitis, most recent amputation of partial metatarsals. ; Additional info: Without followed by with--infection left foot R/O osteo TECHNIQUE: Imaging protocol: MR of the Left lower extremity without and with intravenous contrast. Exam focused on the foot. Contrast material: PROHANCE; Contrast volume: 7 ml; Contrast route: INTRAVENOUS (IV); COMPARISON: MRI-Foot W/O FOL WITH 02/22/2020 3:53 PM FINDINGS: Bones and cartilage: Status post forefoot amputation at the level of the mid 1st through 3rd metatarsals incomplete amputation of the 4th and 5th toes. Degenerative changes at the tibiotalar joint. Increased stir weighted marrow space signal demonstrated in the navicular bone, cuboid and cuneiforms as well as the 1st through 3rd proximal metatarsals. There is evidence of enhancement following intravenous gadolinium. Findings may be stress related or related to prior surgery. Osteomyelitis not absolutely excluded. Abnormal signal demonstrated in the anterior aspect of the calcaneus with fracture lines demonstrated consistent with a calcaneal fracture. Marrow enhancement demonstrated in the anterior calcaneus raises the suspicion for infection. Joint spaces: Ankle joint effusion. LIGAMENTS: Lisfranc ligament: Unremarkable. No evidence of tear. TENDONS: Flexor tendons of foot: Fluid in the tendon sheath of the flexor digitorum longus and flexor hallucis longus consistent with synovitis. Otherwise unremarkable. No evidence of tear. Tibialis posterior tendon: Fluid in the tendon sheath of the peroneal tendons consistent with synovitis. Increased signal demonstrated in the peroneal tendons consistent with tendinosis or a tear. Peroneal tendons: Unremarkable as visualized. Extensor tendons of foot: Unremarkable. No evidence of tear. Tibialis anterior tendon: Unremarkable as visualized. Tarsal canal (Sinus tarsi): Unremarkable. Tarsal tunnel: Unremarkable. Soft tissues: Large soft tissue defect demonstrated on the lateral side of the foot may be related to surgery although a a large ulcer is not excluded. Focus of soft tissue edema demonstrated in the medial plantar aspect of the soft tissues overlying the calcaneus. Plantar fascia: Unremarkable as visualized. IMPRESSION: 1. Status post forefoot amputation at the level of the mid 1st through 3rd metatarsals incomplete amputation of the 4th and 5th toes. 2. Large soft tissue defect demonstrated on the lateral side of the foot may be related to surgery although a a large ulcer is not excluded. 3. Increased stir weighted marrow space signal demonstrated in the navicular bone, cuboid and cuneiforms as well as the 1st through 3rd proximal metatarsals. There is evidence of enhancement following intravenous gadolinium. Findings may be stress related or related to prior surgery. Osteomyelitis not absolutely excluded. 4. Focus of soft tissue edema demonstrated in the medial plantar aspect of the soft tissues overlying the calcaneus. 5. Abnormal signal demonstrated in the anterior aspect of the calcaneus with fracture lines demonstrated consistent with a calcaneal fracture. Marrow enhancement demonstrated in the anterior calcaneus raises the suspicion for infection. 6. Synovitis as described above with possible tears in the peroneal tendons. Electronically signed by: En Azevedo On 07/07/2020 20:49:55 PM
[2020-07-07] MEDS ORDERED: GABAPENTIN 300 MG CAP PO SCH (21:00)
[2020-07-07 22:10] VITALS: BP 175/89
[2020-07-07] MEDS: PERCOCET 5MG/325MG TAB PO PRN (22:14)
[2020-07-08] MEDS: VANCOMYCIN HCL 1,000 MG, VIAL MATE ADAPTER 1 EACH in D5W 250 ML IV SCH ×3 (02:23→18:11)
[2020-07-08] MEDS: ONDANSETRON 4MG/2ML VIAL IV PRN (03:35)
[2020-07-08] MEDS ORDERED: PERCOCET 5MG/325MG TAB PO ONE (04:15)
[2020-07-08] MEDS: MORPHINE 2 MG/ML 1ML VIAL (J2270) IV PRN ×5 (04:36→22:26)
[2020-07-08 06:26] VITALS: BP 175/84
[2020-07-08] MEDS: lisinopriL 20 MG TAB PO SCH (08:57)
[2020-07-08 11:00] VITALS: BP 148/62
[2020-07-08 14:00] VITALS: BP 150/83
[2020-07-08] MEDS: PERCOCET 5MG/325MG TAB PO PRN (17:06)
--- NOTE | 2020-07-08 19:04 | IPNPDOC ---
Subjective Date Seen The patient was seen on 07/08/20. Subjective Chief Complaint/HPI right foot osteomyelitis Events since last encounter s/p OR General: Reports: Normal Appetite; Denies: Chills, Night Sweats, Fatigue, Malaise Constitutional: Denies: Chills, Fever, Night Sweats Eyes: Denies: Pain, Vision change ENT: Denies: Head Aches, Ear Pain, Dysphagia Skin: Denies: Rash, Lesions, Breakdown Pulmonary: Denies: Dyspnea, Cough Cardiovascular: Denies: Chest Pain, Palpitations, Orthopnea, Paroxysmal Noc. Dyspnea, Lt Headedness Gastrointestinal: Denies: Nausea, Vomiting, Abdominal Pain, Diarrhea, Constipation Genitourinary: Denies: Dysuria, Frequency, Incontinence, Retention Hematologic: Denies: Bruising, Bleeding Excessively Musculoskeletal: Denies: Neck Pain, Back Pain, Joint Pain, Muscle Pain, Spasms Neurological: Denies: Weakness, Numbness, Change in speech, Confusion Psych: Reports: Mood Normal; Denies: Depression, Memory Issues Objective Physical Examination General Exam: Positive: Alert, No Acute Distress Eye Exam: Positive: PERRLA, Conjunctiva & lids normal, EOMI; Negative: Sclera icteric ENT Exam: Positive: Atraumatic, Mucous membr. moist/pink, Pharynx Normal Neck Exam: Positive: Supple; Negative: JVD, thyromegaly Chest Exam: Positive: Clear to auscultation, Normal air movement Heart Exam: Positive: Rate Normal, Regular Rhythm, Normal S1, Normal S2; Negative: Murmurs, Rubs Telemetry: Positive: No significant arrhythmia Abdomen Exam: Positive: Normal bowel sounds, Soft; Negative: Tenderness, Hepatospenomegaly Male Exam: Positive: Normal Genital Exam Extremity Exam: Positive: Normal pulses, Other (left foot in dressing); Negative: Clubbing, Cyanosis, Edema Skin Exam: Positive: Nl turgor and temperature; Negative: Breakdown, Lesion Neuro Exam: Positive: Normal Gait, Normal Speech, Cranial Nerves 3-12 NL, Reflexes 2+ Psych Exam: Positive: Mental status NL, Mood NL, Oriented x 3 Assessment /Plan Assessment 1. Acute on chronic osteomyelitis s/p OR. continue broad spectrum abx for now. will await cultures for descalation 2. History of hypertension - continue lisinopril 3. History of peripheral vascular disease home elequis resumed 4. History of hyperlipidemia Will discharge on intensity Statin 5. Current smoker - Currently cutting down from 1-2 pack per day to five cigarettes a day -encouraged cessation Plan/VTE VTE Prophylaxis Ordered?: Yes VS, I&O, 24H, Fishbone Vital Signs/I&O Vital Signs Date Time Temp Pulse Resp B/P (MAP) Pulse Ox O2 Delivery O2 Flow Rate FiO2 07/08/20 18:51 18 07/08/20 17:06 Room Air 07/08/20 14:00 98.2 79 150/83 (105) 99 I&O- Last 24 Hours up to 6 AM 07/08/20 06:00 Intake Total 1380 ml Output Total 700 ml Balance 680 ml Laboratory Data Microbiology Microbiology 07/07/20 Blood Culture - Preliminary, Resulted No growth after 24 hours . All specim... 07/07/20 Blood Culture - Preliminary, Resulted No growth after 24 hours . All specim... HARRISON LIN DO Jul 08, 2020 19:04
[2020-07-08 20:00] VITALS: BP 157/72
[2020-07-08] MEDS: APIXABAN 2.5 MG TAB (ELIQUIS) PO SCH (20:26)
[2020-07-09] MEDS: VANCOMYCIN HCL 1,000 MG, VIAL MATE ADAPTER 1 EACH in D5W 250 ML IV SCH ×2 (01:32→11:40)
[2020-07-09] MEDS: PERCOCET 5MG/325MG TAB PO PRN (02:51)
[2020-07-09 05:58] VITALS: BP 151/73
[2020-07-09] MEDS ORDERED: CIPROFLOXACIN 250MG TAB PO SCH (06:00)
[2020-07-09 07:39] LABS: MEAN CORPUSCULAR HEMOGLOBIN 28.3 pg (27.0-33.0); MEAN CORPUSCULAR HGB CONC 32.4 g/dl (32.0-36.5); MEAN CORPUSCULAR VOLUME 87.4 fl (80.0-96.0); PLATELET COUNT, AUTOMATED 417 10^3/uL (150-450); RED BLOOD COUNT 3.89 10^6/uL (4.30-6.10); WHITE BLOOD COUNT 10.2 10^3/uL (4.0-10.0)
[2020-07-09 07:55] LABS: ALBUMIN 2.8 GM/DL (3.2-5.2); ALT/SGPT 14 U/L (12-78); BILIRUBIN,TOTAL 0.7 MG/DL (0.2-1.0); BLOOD UREA NITROGEN 9 MG/DL (7-18); CALCIUM LEVEL 9.1 MG/DL (8.5-10.1); CARBON DIOXIDE LEVEL 27 MEQ/L (21-32); CHLORIDE LEVEL 103 MEQ/L (98-107); CREATININE FOR GFR 0.59 MG/DL (0.70-1.30); GLOMERULAR FILTRATION RATE > 60.0 (>56); GLUCOSE, FASTING 79 MG/DL (70-100); POTASSIUM SERUM 3.7 MEQ/L (3.5-5.1); SODIUM LEVEL 135 MEQ/L (136-145); TOTAL PROTEIN 7.6 GM/DL (6.4-8.2)
[2020-07-09 08:29] VITALS: BP 162/85
[2020-07-09] MEDS: lisinopriL 20 MG TAB PO SCH (08:29)
[2020-07-09] MEDS: APIXABAN 2.5 MG TAB (ELIQUIS) PO SCH (08:30)
[2020-07-09] MEDS: MORPHINE 2 MG/ML 1ML VIAL (J2270) IV PRN ×2 (08:31→14:22)
[2020-07-09 09:09] LABS: ERYTHROCYTE SEDIMENTATION RATE 105 mm/hr (0-20)
[2020-07-09] MEDS ORDERED: CEFEPIME HCL 2 GM in D5W MINI-BAG PLUS 50 ML IV SCH (11:00)
[2020-07-09 14:00] VITALS: BP 160/81
--- NOTE | 2020-07-17 16:34 | CR ---
DATE: 07/08/2020 REASON FOR CONSULTATION: Foot ulceration infection. Mr. Montesinos is a 50-year-old male who has been under my care for a chronic left foot infection and ulcer. He had previous transmetatarsal amputation with development of a large ulceration on the lateral aspect of his foot. He had some initial improvement following removal of the metatarsal bone but has progressively degenerated. Most recently he had remaining portion of his cuboid extruding from his wound, which was removed in my office. On followup, the foot had significant purulence and malodor. He was sent to the hospital for intravenous (IV) antibiotics and MRI. PAST MEDICAL HISTORY: Significant for: 1. Hypertension. 2. Hyperlipidemia. 3. Peripheral vascular disease. SURGICAL HISTORY: 1. Left transmetatarsal amputation. 2. Left lung upper resection. FAMILY HISTORY: Noncontributory. SOCIAL HISTORY: Positive for smoking. ALLERGIES: PENICILLIN, PREGABALIN. Vital signs are reviewed. He has been afebrile. Labs are reviewed. White blood cell count is 11.7, ESR is 100.6. CRP 18.7. Wound cultures are pending. MRI imaging: There is increased STIR signal with enhancement in the navicular bone, cuboid, cuneiforms, and 1st through 3rd proximal metatarsals, all consistent with osteomyelitis. Lower extremity examination: Large ulcer on the lateral aspect of his foot. Positive purulence and exposed bone, which appears necrotic. ASSESSMENT: A 50-year-old male with osteomyelitis, left foot PLAN: Patient appears to have osteomyelitis involving several of his remaining bones of his left foot. At this point, any further resection will leave him with a nonfunctional limb. Conservative care is no longer in patient's best interest. He would best be served with limb amputation, below knee if possible. Will consult vascular surgery for evaluation and treatment. He is presently on empiric antibiotics. Cultures results should be available the next few days. [facility]
== END 2020-07-09 15:30 | disposition left against medical advice (07) | DRG 541 ==
LOC: M ED 16:27 → M ED INP 17:22 → ENRESERVDT 17:55 → ENRESERVTM 17:55 → M MS5PR 22:00
PROVIDERS: ADMIT Internal Medicine; ATTEND Internal Medicine
DX: M86.172 Other acute osteomyelitis, left ankle and foot (principal); I10 Essential (primary) hypertension; Z79.899 Other long term (current) drug therapy; Z88.0 Allergy status to penicillin; Z88.8 Allergy status to other drugs, medicaments and biological substances; I73.9 Peripheral vascular disease, unspecified; E78.5 Hyperlipidemia, unspecified; F17.200 Nicotine dependence, unspecified, uncomplicated

== ENCOUNTER → 2020-07-07 | Outpatient (REF) | payer MEDICARE, MEDICAID | LOC: M LAB REF 12:03 | PROVIDERS: ATTEND Podiatrist Foot & Ankle Surgery | DX: L03.116 Cellulitis of left lower limb (principal) ==

== ENCOUNTER → 2020-07-11 | Outpatient (CLI) | payer MEDICARE, MEDICAID ==
[~2020-07-11] MED LIST changes: +AMLO10TA PO; +IBUP-1022 PO; +LIPI20TA PO; +OXYC1TAB23 PO
== END ==
LOC: M LABSMTC 12:46
PROVIDERS: ATTEND Anesthesiology
DX: Z01.812 Encounter for preprocedural laboratory examination (principal); Z20.828 Contact with and (suspected) exposure to other viral communicable diseases
CPT/HCPCS: C9803; U0002

== ENCOUNTER 2020-07-13 12:00 | Inpatient (IN) | payer MEDICARE, MEDICAID ==
[~2020-07-13] VITALS: Ht 182.9 cm; Wt 86.5 kg
[~2020-07-13 12:00] MED LIST changes: -AMLO10TA PO; -IBUP-1022 PO; -LIPI20TA PO
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
[2020-08-06] MEDS: fentaNYL 100 MCG/2 ML INJECTION (J3010) IV PRN (15:52)
[2020-08-07] VITALS (7 sets, daily range): BP systolic 140–162; BP diastolic 60–90
[2020-08-07] MEDS ORDERED: LR 1,000 ML IV SCH ×2 (07:00→15:45)
[2020-08-07] MEDS ORDERED: VANCOMYCIN HCL 1,000 MG, VIAL MATE ADAPTER 1 EACH in D5W 250 ML IV ONE ×6 (07:00)
[2020-08-07] MEDS ORDERED: LIPI20TA PO (08:46)
[2020-08-07] MEDS ORDERED: AMLO10TA PO (08:46)
[2020-08-07] MEDS ORDERED: IBUP-1022 PO (08:46)
[2020-08-07] MEDS ORDERED: LASI20TA3 PO (08:46)
[2020-08-07] MEDS ORDERED: VANCOMYCIN 1000MG/20ML VIAL As Ordered ONE (08:49)
[2020-08-07] MEDS ORDERED: BUPIVACAINE/EPIN 0.5% 30 ML VIAL As Ordered ONE ×2 (09:03→13:32)
[2020-08-07] MEDS ORDERED: HEPARIN SOD (PORCINE) 5000UNITS/ML 1ML VIAL/SYRINGE As Ordered ONE ×3 (09:04→12:54)
[2020-08-07 09:17] LABS: HEMATOCRIT 34.9 % (42.0-52.0); HEMOGLOBIN 11.1 g/dl (13.5-17.5); MEAN CORPUSCULAR HEMOGLOBIN 27.7 pg (27.0-33.0); MEAN CORPUSCULAR HGB CONC 31.8 g/dl (32.0-36.5); PLATELET COUNT, AUTOMATED 585 10^3/uL (150-450); RED BLOOD COUNT 4.01 10^6/uL (4.30-6.10); WHITE BLOOD COUNT 10.3 10^3/uL (4.0-10.0)
[2020-08-07] MEDS ORDERED: LIDOCAINE 2% 100MG/5ML SDV (FOR ANES.) As Ordered ONE (09:19)
[2020-08-07] MEDS ORDERED: ROCURONIUM BROMIDE 50 MG/5 ML VIAL As Ordered ONE ×2 (09:19→12:29)
[2020-08-07] MEDS ORDERED: METOCLOPRAMIDE INJ 10MG/2ML VIAL (J2765 PER 1) As Ordered ONE (09:19)
[2020-08-07] MEDS ORDERED: propofoL 200 MG/20 ML VIAL As Ordered ONE (09:19)
[2020-08-07] MEDS ORDERED: fentaNYL 100 MCG/2 ML INJECTION (J3010) As Ordered ONE ×3 (09:19→15:32)
[2020-08-07] MEDS ORDERED: ONDANSETRON 4MG/2ML VIAL As Ordered ONE (09:19)
[2020-08-07] MEDS ORDERED: MIDAZOLAM INJ 2MG/2ML VIAL (J2250 PER 1MG) As Ordered ONE (09:19)
[2020-08-07 09:26] LABS: BLOOD UREA NITROGEN 11 MG/DL (7-18); CALCIUM LEVEL 9.3 MG/DL (8.5-10.1); CARBON DIOXIDE LEVEL 27 MEQ/L (21-32); CHLORIDE LEVEL 102 MEQ/L (98-107); CREATININE FOR GFR 0.89 MG/DL (0.70-1.30); GLOMERULAR FILTRATION RATE > 60.0 (>56); GLUCOSE, FASTING 100 MG/DL (70-100); POTASSIUM SERUM 3.6 MEQ/L (3.5-5.1); SODIUM LEVEL 135 MEQ/L (136-145)
[2020-08-07 09:28] LABS: PROTHROMBIN TIME 13.4 SECONDS (12.5-14.3)
[2020-08-07] MEDS ORDERED: PHENYLEPHRINE 10MG/ML 1ML VIAL (J2370 PER 1) As Ordered ONE (10:51)
[2020-08-07] MEDS ORDERED: PHENYLephrine HCL 500 MCG/5 ML (100MCG/ML) SYRINGE (J2370) As Ordered ONE (10:51)
[2020-08-07] MEDS ORDERED: GLYCOPYRROLATE INJ 0.2 MG/ML 2 ML VIAL As Ordered ONE (12:34)
[2020-08-07] MEDS ORDERED: HYDROmorphone HCL 2 MG/ML 1ML VIAL (J1170) As Ordered ONE (13:23)
[2020-08-07] MEDS ORDERED: PERCOCET 5MG/325MG TAB PO PRN (15:30)
[2020-08-07] MEDS ORDERED: ONDANSETRON 4MG/2ML VIAL IV PRN ×2 (15:30→15:45)
[2020-08-07] MEDS: fentaNYL 100 MCG/2 ML INJECTION (J3010) IV PRN ×3 (15:35→15:46)
--- NOTE | 2020-08-07 15:39 | ROOPDOC ---
[facility] Report Of Operation Report of Operation DATE OF PROCEDURE: 08/07/20 PREPROCEDURE DIAGNOSES: Atherosclerosis of the creek arteries with thrombosed right to left femorofemoral bypass and nonviable left foot POSTPROCEDURE DIAGNOSES: Same PROCEDURE: 1. Bilateral redo groin exploration with exposure femoral vessels, 40 minutes each groin 2. Left femoral endarterectomy with xenosure patch angioplasty 3. Right to left femoral-femoral bypass thrombectomy and revision left femoral anastomosis to new patch angioplasty 4. Left below-knee amputation SURGEON: Mary Grace Bailey MD ANESTHESIA: General anesthesia and local INDICATION FOR PROCEDURE: This is a very pleasant 50-year-old patient with a long-standing history of tobacco abuse, noncompliance, and a nonhealing wound of the left foot who is status post a femoral-femoral bypass that has failed. The patient's home companion is recommended below-knee versus above-knee amputation. We went over the risks benefits and alternatives to this, as well as the fact that without revision and amish of flow through the femorofemoral bypass, he would not have adequate flow to heal a below-knee amputation. I suggested that we try either a thrombectomy and revision of the femorofemoral bypass versus placement of a new femorofemoral bypass, and then an above-knee versus below- knee amputation. Risks benefits alternatives were explained and the patient was agreeable to proceed. Informed consent was obtained. REPORT OF OPERATION: Patient was brought to the operating room in stable condition and placed supine on the OR table. General anesthesia and antibiotics were administered without complication. His bilateral groins and left lower extremity were prepped and draped in a sterile fashion. A timeout was performed. Local anesthesia was administered to the skin and subcutaneous tissue over the left groin at the area of previous incision. The previous incision was opened with the skin knife and carried down to subcutaneous tissue with Bovie cautery. Bridging veins were suture ligated and divided. We continued the dissection down to the femorofemoral bypass graft and followed this down to the femoral arteries proximally distally. This was an extremely challenging dissection due to dense scar tissue, and it took 40 minutes. We established analysis dissection on the proximal and distal aspect of the common femoral artery to place clamps if needed while attempting to declot the femorofemoral bypass. A transverse incision was made in the dorsal aspect of the graft. What protruded from the graft was white cheesy thick substance, very unexpected. It was not dark venous clot. #3 Krysten balloon was used to remove this from the graft proximally and distally. This was sent for both culture and Gram stain. The Gram stain came back intraoperatively negative for organisms. Next, we passive Krysten into the femoral vessels bilaterally. This was challenging. We did give backbleeding from both sides, but not substantial. Therefore, I did not think a simple declot woul d be effective. The graftotomy was closed with a running Prolene suture. We then gave 5000 units of heparin and allow this to circulate. Proximal and distal clamps were placed on the femoral vessel and the end of the graft was removed from the femoral artery. What we found was dense fibrin at the anastomosis in the graft, and significant intimal hyperplasia within the common femoral artery itself. We had done an endarterectomy at the time of the femoral-femoral bypass, so it was surprising to see near occlusive intimal hyperplasia within the artery. The safest thing to do with another endarterectomy. Plaque was elevated along with intimal hyperplasia and removed from the vessel. This was sent for pathology. We also removed all loose debris and irrigated with heparinized saline. We anastomosed a xenosure patch in a running fashion with Prolene suture, but before the final sutures were placed with flushed inflow and outflow of the artery and irrigated with heparinized saline. The final sutures are placed in good hemostasis was noted. We restored flow to the left lower extremity. Despite only inflow from collaterals, there was a decent amount of flow through the vessel. I considered not redoing the femorofemoral bypass, but I was afraid that the patient would not heal even an above-knee amputation without better inflow. Therefore, we turned our attention to the right groin. Local anesthesia was administered to subcutaneous tissue along the right groin at the area of previous incision over the inguinal ligament. The skin knife was used to open this incision is was carried down through the subcutaneous tissue with Bovie cautery. This dissection was extremely difficult as well due to dense scar tissue. It was of very challenged, and took 40 minutes to dissect out the bypass graft and the common femoral artery proximally distally. Eventually, we had enough dissection for proximal and distal control of the vessel. An additional amount of heparin was given an clamps were placed proximally and distally. The graftotomy was made and a Krysten balloon was passed and we retrieved copious amounts of fibrous clot and we continued to explore and remove all platelet aggregates and debris. We irrigated with copious amounts of saline. There was excellent flow following this. We closed the graftotomy with a running Prolene suture. The clamp was placed on the graft, and then we returned to the left groin. The end of the graft was beveled for a tension-free anastomosis. Clamps were replaced on the common femoral artery proximally and distally. They patch was incised longitudinally and the graft was anastomosed to the patch and an end-to-side fashion with running Prolene suture. Before the final sutures are placed with flushed inflow and outflow artery and then we flushed blood through the graft. There was still excellent flow through the graft. We irrigated with heparinized saline and placed her final sutures. There was good hemostasis will be restored bloodflow through the graft and the common femoral artery. We then restored flow down through the profunda and he has to say. There was an excellent pulse in the graft and triphasic signals in the proximal SFA and pr ofunda on Doppler. There are also triphasic signals on the SFA and profunda on the right. We then irrigated both groins with copious amounts of saline. We closed both groins in 5 layers. The deep tissues were reapproximated with 2-0 Vicryl sutures, the fascia layers were closed with 2-0 Vicryl suture, and the deep dermal layers were proximally with interrupted 3-0 Vicryl suture. The skin was closed with skin amanda. Both incisions were clean and dried and 4 x 4's and Tegaderms were placed his final dressings. Next, we turned our attention to the left lower extremity. Since we had revascularize the left leg, I felt comfortable trying to do a below-knee amputation. Because the patient has had intermittently pretty significant infections, this is a little bit of her wrists, but he does not have any swelling or erythema today and I think his infection is largely subsided and this may be a great opportunity for us to successfully do a below-knee amputation. A marking pen was used to nasim the anterior incision transversely 15 cm below the tibial plateau with the plan for bone transection at 12 cm. The posterior flap was also drawn extensively long in order to give us a tension-free closure. A skin knife was used to excise circumferentially. We noted excellent perfusion at this point, more than I expected, and therefore we deposited to place a tourniquet. The tourniquet was placed with protection of the skin just above the knee, and we exsanguinate the leg with an esmark. The tourniquet was inflated to 275 mmHg. We then used Bovie cautery to continue her dissection through the subcutaneous tissue muscle circumferentially. The saphenous vein was suture ligated and divided. The anterior tibial neurovascular bundle was suture ligated and divided. The peroneal neurovascular bundle was suture ligated and divided. The posterior tibials neurovascular bundle was suture ligated and divided. We elevated the periosteum on the tibia 4 cm. We also elevated the periosteum on the fibula 5-6 cm. We then transected the tibia at 12 cm and created a small anterior bevel to prevent pressure on the anterior skin. A rasp was used to smooth the bone. We transected the fibula a centimeter more proximal in a rasp was used to smooth the bone. We then continued with her dissection to create the posterior flap and the leg was then sent for pathology. We irrigated with copious amounts of saline. Visible vessels were suture ligated. We then removed the tourniquet and please clamps were any bleeding vessels were noted. We then suture ligated these vessels as well. We again irrigated with saline. The long flap muscle bundle was closed over the tibia to the periosteum with [id number] 2-0 Vicryl sutures to cover the bone. We then approximated the deep fascia with 2-0 Vicryl sutures. We then closed the superficial fascia along the length of the incision with [id number] Vicryl sutures, taking care to relieve in the closure. We irrigated again with saline. We then approximated the skin edges with nylon mattress sutures. Between the nylon mattress sutures, skin amanda were placed as a final closure. We then utilized Xeroform, fluffs, 4 x 4's, Kerlix, and an Ted wrap his final dressings. The patient was then allowed to awaken from anesthesia was taken to recovery in stable condition. He tolerated the procedure well. ESTIMATED BLOOD LOSS: Approximately 350 mL. SPECIMENS: 1. Cultures from thrombosed bypass graft sent for microbiology 2. Plaque from left femoral artery sent for pathology 3. Left lower leg and foot sent for pathology COMPLICATIONS: None PLAN: We will remove the arterial line in recovery, we will maintain the Almanzar until tomorrow morning. Patient will be on bed rest overnight, and then will have activity as tolerated with assist starting in the morning. We will order physical therapy and occupational therapy, and he will likely need a rehabilitation consult. He will need a high-protein diet to help with wound he aling. He had extensive scar in both groins and they will be challenging to heal. The more protein, the better chance of good wound healing at the left BKA and in the groins. Also, we felt the calf muscle in the left leg looked fairly good and suitable for below-knee amputation, but it was not perfect. We will have to watch the stump closely. Hopefully with revascularization, the muscle for the posterior flap will be viable and heal well. I did warn the patient that it is a little bit of a risk having done the below-knee amputation, but I'm optimistic that it will heal now that we have revised the femorofemoral bypass and remove the intimal hyperplasia from the femoral vessels, and he has flow again. We appreciate the opportunity to participate in care of this patient. MARY GRACE BAILEY MD Aug 07, 2020 15:38
[2020-08-07] MEDS ORDERED: PILL CUTTER 1 EACH XX PRN (15:45)
[2020-08-07] MEDS ORDERED: oxyCODONE 5MG TAB PO PRN (15:45)
[2020-08-07] MEDS ORDERED: HYDROMORPHONE HCL 0.5 MG/ 0.5 ML SYRINGE (J1170 PER 1) As Ordered ONE ×2 (15:55→16:07)
[2020-08-07] MEDS: HYDROMORPHONE HCL 0.5 MG/ 0.5 ML SYRINGE (J1170 PER 1) IV PRN ×4 (15:58→16:15)
[2020-08-07] MEDS ORDERED: fentaNYL 100 MCG/2 ML INJECTION (J3010) IV PRN (16:30)
[2020-08-07] MEDS ORDERED: KETOROLAC 30 MG/ML 1ML VIAL IV PRN (16:30)
[2020-08-07] MEDS: diazePAM 5 MG TAB PO PRN ×2 (17:08→23:15)
[2020-08-07] MEDS ORDERED: ATOR40TA75 PO (17:22)
--- NOTE | 2020-08-07 17:39 | HPEPDOC ---
[facility] Medical History & Physical Date of Admission Aug 07, 2020 Date of Service: Aug 07, 2020 Attending Physician: ABI STALLINGS MD History and Physical CHIEF COMPLAINT: post op BKA HISTORY OF PRESENT ILLNESS: 50 yo M with a hx of severe PAD, HTN, tobacco use, s/p L femoral endarterectomy, R to L fem/fem bypass thrombectomy and revision L femoral anastomosis to new patch angioplasty, and L BKA. POD #0. Patient has a prolonged hx of LE surgeries due to osteomyelitis complicated by smoking and severe PAD. He is being followed by Dr. Sherman and podiatry. Concern for infection in thrombosed graft explored in OR. Gram stain in OR negative. Cultures sent. Placed on vanc. PAST MEDICAL HISTORY: HTN PAD HLD IBS Degenerative disk disease CATIA Migraines PAST SURGICAL HISTORY: partial pneumonectomy (2/2 trauma) reports multiple back surgeries vascular bypass RLE in 04/2016 SOCIAL HISTORY: Active smoker Denies etoh use in past 25 years Hx of narcotic use FAMILY HISTORY: Mother - DM2 Daughter - DM1 ALLERGIES: Please see below. REVIEW OF SYSTEMS: CONSTITUTIONAL: denies fevers, chills HEENT: denies blurred vision. CARDIOVASCULAR: denies CP, palpitations, lightheadedness. RESPIRATORY: denies SOB, cough. GASTROINTESTINAL: denies abdo pain n/v/c/d GENITOURINARY: denies dysuria SKIN: denies rashes. MUSCULOSKELETAL: reports mild pain in LLE (site of BKA) NEUROLOGICAL: denies focal weakness, numbness. HOME MEDICATIONS: Please see below. PHYSICAL EXAMINATION: VITAL SIGNS: please see below General: NAD, comfortable HEENT: PERRLA, EOMI, sclerae clear Neck: supple, normal ROM, no JVD Resp: lungs CTAB, no wheeze, no rales, no crackles CVS: RRR, normal S1, S2, no murmurs Abdo: soft, no masses, no hepatosplenomegaly, BS+, no rebound tenderness Extremities: no edema in RLE MSK: L knee BKA, dressing clean dry intact Neuro: no focal neuro deficits, moving all 4 extremities Psych: calm, cooperative, AAO x 3 LABORATORY DATA: See below. MICROBIOLOGY: Please see below. ASSESSMENT: 50 yo M with severe PAD, HTN, extensive smoking hx, admitted post of for L BKA, and fem fem bypass, as well as infectious work u stent. empiric vanc. Cultures pending. PLAN: #L BKA - POD #0 - increase eliquis to [address] Bailey - pain control per Dr. Bailey - PT/OT, will likely require PMR eval #Possible stent infection - intraoperative cultures sent - IV vanc for antimicrobial ppx - f/u cx #HTN - resume home meds - lisinopril 20 mg daily - amlodipine 10 mg daily #CATIA - untreated as patient is noncompliant with CPAP - refusing nocturnal CPAP # HLD - statin #GI ppx - pantoprazole 40 mg daily DVT ppx: eliquis, JUSTUS, SCDs Vital Signs Vital Signs Date Time Temp Pulse Resp B/P (MAP) Pulse Ox O2 Delivery O2 Flow Rate FiO2 08/07/20 17:15 97.4 80 18 140/60 (86) 98 Room Air 08/07/20 16:35 2 Laboratory Data Labs 24H Laboratory Tests 2 08/07/20 08:45: Nucleated Red Blood Cells % (auto) 0.0, Prothrombin Time 13.4, Prothromb Time International Ratio 1.00, Anion Gap 6L, Glomerular Filtration Rate > 60.0, Calcium Level 9.3 CBC/BMP Laboratory Tests 08/07/20 08:45 Microbiology Microbiology 08/07/20 Gram Stain - Final, Resulted 08/07/20 Wound Culture, Resulted Pending 08/07/20 Anaerobic Culture, Resulted Pending Home Medications Scheduled Amlodipine Besylate (Norvasc) 10 Mg Tablet, 10 MG PO DAILY Apixaban (Eliquis) 2.5 Mg Tablet, 2.5 MG PO BID Atorvastatin Calcium (Atorvastatin Calcium) 40 Mg Tablet, 40 MG PO DAILY Furosemide (Lasix) 20 Mg Tablet, 20 MG PO DAILY Gabapentin (Gabapentin) 600 Mg Tablet, 600 MG PO TID Lisinopril (Lisinopril) 20 Mg Tab, 20 MG PO DAILY Allergies Coded Allergies: Penicillins (Verified Allergy, Severe, ANAPHYLAXIS, 07/07/20) pregabalin (Verified Adverse Reaction, Severe, seizures, 07/07/20) A-FIB/CHADSVASC A-FIB History Current/History of A-Fib/PAF?: No Current PO Anticoag Therapy: No ABI STALLINGS MD Aug 07, 2020 17:39
[2020-08-07] MEDS ORDERED: ACETAMINOPHEN TAB 650MG DOSE (2X325MG) PO PRN (17:45)
[2020-08-07] MEDS ORDERED: MOM 30ML SUSPENSION UDC PO PRN (17:45)
[2020-08-07] MEDS: PERCOCET 5MG/325MG TAB PO PRN ×2 (18:54→23:03)
[2020-08-07] MEDS: DOCUSATE SODIUM 100 MG CAP PO SCH (20:10)
[2020-08-07] MEDS: HYDROmorphone 2 MG TAB PO PRN (20:11)
[2020-08-07] MEDS ORDERED: GABAPENTIN 300 MG CAP PO ONE (22:45)
[2020-08-08 01:45] VITALS: BP 132/66
[2020-08-08] MEDS: diazePAM 5 MG TAB PO PRN ×3 (05:16→17:50)
[2020-08-08] MEDS: PERCOCET 5MG/325MG TAB PO PRN ×3 (05:17→17:50)
[2020-08-08 05:45] VITALS: BP 128/60
[2020-08-08 06:05] LABS: BASO % 0.2 % (0.0-1.0); EOS % 0.1 % (0.0-3.0); HEMATOCRIT 28.8 % (42.0-52.0); HEMOGLOBIN 9.3 g/dl (13.5-17.5); LYMPH # 1.4 10^3/uL (1.5-5.0); LYMPH % 9.9 % (24.0-44.0); MEAN CORPUSCULAR HEMOGLOBIN 27.7 pg (27.0-33.0); MEAN CORPUSCULAR HGB CONC 32.3 g/dl (32.0-36.5); MEAN CORPUSCULAR VOLUME 85.7 fl (80.0-96.0); MONO % 7.2 % (0.0-5.0); NEUTROPHILS # 11.3 10^3/uL (1.5-8.5); NEUTROPHILS % 82.2 % (36.0-66.0); RED BLOOD COUNT 3.36 10^6/uL (4.30-6.10); WHITE BLOOD COUNT 13.7 10^3/uL (4.0-10.0)
[2020-08-08 06:16] LABS: PLATELET COUNT, AUTOMATED 418 10^3/uL (150-450)
[2020-08-08] MEDS: APIXABAN 5 MG TAB (ELIQUIS) PO SCH ×2 (06:22→21:40)
[2020-08-08 06:38] LABS: ALBUMIN 2.5 GM/DL (3.2-5.2); ALT/SGPT 8 U/L (12-78); BILIRUBIN,TOTAL 0.4 MG/DL (0.2-1.0); BLOOD UREA NITROGEN 17 MG/DL (7-18); CALCIUM LEVEL 8.7 MG/DL (8.5-10.1); CARBON DIOXIDE LEVEL 27 MEQ/L (21-32); CHLORIDE LEVEL 106 MEQ/L (98-107); CREATININE FOR GFR 0.92 MG/DL (0.70-1.30); GLOMERULAR FILTRATION RATE > 60.0 (>56); GLUCOSE, FASTING 93 MG/DL (70-100); POTASSIUM SERUM 4.5 MEQ/L (3.5-5.1); SODIUM LEVEL 138 MEQ/L (136-145)
[2020-08-08] MEDS: DOCUSATE SODIUM 100 MG CAP PO SCH ×2 (08:57→21:40)
[2020-08-08] MEDS: FUROSEMIDE 20 MG TAB PO SCH (08:58)
[2020-08-08] MEDS: amLODIPine 10 MG TAB PO SCH (08:59)
[2020-08-08] MEDS: lisinopriL 20 MG TAB PO SCH (08:59)
[2020-08-08] MEDS: ATORVASTATIN 20 MG TAB PO SCH (08:59)
[2020-08-08] MEDS ORDERED: FLUBLOK(EGG FREE)(QUAD)INFLUENZA VACC 0.5ML SYRINGE 18YRS & OLDER IM ONE (09:00)
[2020-08-08] MEDS: HYDROmorphone 2 MG TAB PO PRN ×3 (09:00→19:33)
[2020-08-08 10:00] VITALS: BP 127/60
[2020-08-08] MEDS ORDERED: VANCOMYCIN HCL 1,000 MG, VIAL MATE ADAPTER 1 EACH in D5W 250 ML IV ONE (10:00)
[2020-08-08] MEDS ORDERED: MORPHINE 2 MG/ML 1ML VIAL (J2270) IV PRN (12:00)
[2020-08-08] MEDS ORDERED: VANCOMYCIN HCL 1,000 MG, VIAL MATE ADAPTER 1 EACH in D5W 250 ML IV SCH (12:00)
--- NOTE | 2020-08-08 13:10 | IPNPDOC ---
Text Note Date of Service The patient was seen on 08/08/20. NOTE Vascular surgery. Dr. Bailey. This is a very pleasant 50-year-old patient with a long-standing history of tobacco abuse, noncompliance, and a nonhealing wound of the left foot who is status post a femoral-femoral bypass that has failed. The patient is postoperative day 1 Bilateral redo groin exploration, Left femoral endarterectomy, Right to left femoral-femoral bypass thrombectomy and revision left femoral anastomosis to new patch angioplasty, Left below-knee amputation. The patient is resting in bed, the patient states his pain is controlled. The patient is afebrile. The left below-knee amputation wound dressing is removed, there is scant amount of drainage on the dressing. Fadia are intact. Sutures are intact. The incision is thoroughly cleaned. Xeroform is reapplied, fluffs, 4 x 4's, Kerlix, and Ted wrap. WBC 13.7 this morning. Groin culture is pending. Patient remains on IV vancomycin pending culture results. Continue with aspirin, Eliquis, statin. Continue with pain control. Encourage protein to help facilitate healing. PT/OT. Possibly consider ARU when medically stable. VS,Fishbone, I+O VS, Fishbone, I+O Laboratory Tests 08/08/20 05:22 Vital Signs Date Time Temp Pulse Resp B/P (MAP) Pulse Ox O2 Delivery O2 Flow Rate FiO2 08/08/20 11:51 20 Room Air 08/08/20 09:00 88 150/66 99 08/08/20 05:45 97.8 08/07/20 16:35 2 I&O- Last 24 Hours up to 6 AM0 08/08/20 06:00 Intake Total 2600 ml Output Total 700 ml Balance 1900 ml Josie Carvalho Aug 08, 2020 13:10
[2020-08-08 14:00] VITALS: BP 126/68
[2020-08-08] MEDS: VANCOMYCIN HCL 1,000 MG, VIAL MATE ADAPTER 1 EACH in D5W 250 ML IV SCH ×2 (15:01→21:41)
[2020-08-08] MEDS ORDERED: LIDOCAINE 1% MDV 20ML VIAL As Ordered ONE (15:09)
[2020-08-08] MEDS ORDERED: SODIUM CHLORIDE 0.9% INJ 10 ML SYR IV PRN (17:00)
[2020-08-08] MEDS: SODIUM CHLORIDE 0.9% INJ 10 ML SYR IV SCH (18:26)
--- NOTE | 2020-08-08 18:37 | SMCUROLCON ---
Urology Consultation General Date of Consultation 08/08/20 Reason For Consultation This patient is seen for Urinary retention History of Present Illness The patient is a 50-year-old male with a past medical history for vascular problems. He was recently admitted for fem-fem bypass and L BKA. Post operativel y, he could not void and a bryant was reinserted. There was a question as to the position of the bryant because he was leaking urine from around the catheter and urology was called to help with management. He denies any prior history of voiding problems. He admits to nocturia x 1-23 and daytime frequency of 5-6, but no problems with the flow or changes inhis voiding pattern. Family History Significant Family History: Diabetes Social History * Smoker: current smoker Alcohol: sober Drugs: prescription drugs Medications Current Medications Current Medications Medications (Trade) Dose Ordered Sig/Jessi Route PRN Reason Start Time Stop Time Status Last Admin Dose Admin Acetaminophen (Tylenol Tab) 650 mg Q4H PRN PO PAIN OR FEVER 08/07/20 17:45 Amlodipine Besylate (Norvasc) 10 mg DAILY PO 08/08/20 09:00 08/08/20 08:59 Apixaban (Eliquis) 5 mg BID@0700,2100 PO 08/08/20 07:00 08/08/20 06:22 Atorvastatin Calcium (Lipitor) 40 mg DAILY PO 08/08/20 09:00 08/08/20 08:59 Diazepam (Valium) 5 mg Q6HP PRN PO SEE COMMENTS 08/07/20 15:30 08/08/20 17:50 Docusate Sodium (Colace) 100 mg BID PO 08/07/20 21:00 08/08/20 08:57 Fentanyl Citrate (Sublimaze) 25 mcg Q5MP PRN IV PAIN LEVEL 5-10 08/07/20 15:45 08/07/20 16:01 DC 08/06/20 15:52 Fentanyl Citrate (Sublimaze) 25 mcg Q5MP PRN IV PAIN LEVEL 5-10 08/07/20 16:30 08/07/20 17:30 DC Furosemide (Lasix) 20 mg DAILY PO 08/08/20 09:00 08/08/20 08:58 Gabapentin (Neurontin) 600 mg TID PO 08/08/20 21:00 Heparin Sodium (Heparin (Flush)) 200 units ASDIRECTED PRN IV SEE LABEL COMMENTS 08/08/20 17:00 Heparin Sodium (Heparin (Flush)) 200 units PICC IV 08/08/20 18:00 Home Med (Med Rec Complete!) ASDIRECTED XX 08/07/20 17:30 08/07/20 17:30 DC Hydromorphone HCl (Dilaudid) 0.2 mg Q5MP PRN IV PAIN LEVEL 4-7 08/07/20 16:30 08/07/20 16:32 DC 08/07/20 16:15 Hydromorphone HCl (Dilaudid) 1 mg Q4HP PRN PO BREAKTHROUGH PAIN 08/07/20 15:30 08/08/20 15:02 Ketorolac Tromethamine (ToRADol) 30 mg ONCE PRN IV PAIN 08/07/20 16:30 08/07/20 17:30 DC Lactated Ringer's 1,000 ml @ 75 mls/hr [id number] IV 08/07/20 15:45 08/07/20 16:45 DC Lactated Ringer's 1,000 ml @ 100 mls/hr Q10H IV 08/07/20 07:00 08/07/20 15:33 DC 08/07/20 09:16 Lisinopril (Prinivil) 20 mg DAILY PO 08/08/20 09:00 08/08/20 08:59 Magnesium Hydroxide (Milk Of Magnesia) 30 ml DAILY PRN PO CONSTIPATION 08/07/20 17:45 Morphine Sulfate (Morphine Sulfate Inj) 1 mg Q6H PRN IV SEVERE PAIN (PS 8-10) 08/08/20 12:00 08/08/20 13:15 Ondansetron HCl (ZOFRAN INJection) 4 mg Q4HP PRN IV NAUSEA OR VOMITING 08/07/20 15:45 08/07/20 16:45 DC Ondansetron HCl (ZOFRAN INJection) 4 mg Q6HP PRN IV NAUSEA OR VOMITING 08/07/20 15:30 Oxycodone HCl (Roxicodone, Oxyir) 5 mg ASDIRECTED PRN PO PAIN LEVEL 1-4 08/07/20 15:45 08/07/20 16:45 DC 08/07/20 15:39 Oxycodone/ Acetaminophen (Percocet 5mg/ 325mg Tablet) 1 tab Q4HP PRN PO MILD/MODERATE PAIN (PS 1-7) 08/07/20 15:30 Oxycodone/ Acetaminophen (Percocet 5mg/ 325mg Tablet) 2 tab Q4HP PRN PO SEVERE PAIN (PS 8-10) 08/07/20 15:30 08/08/20 17:50 Sodium Chloride (Saline Lock Flush) 10 ml ASDIRECTED PRN IV SEE LABEL COMMENTS 08/08/20 17:00 Sodium Chloride (Saline Lock Flush) 10 ml PICC IV 08/08/20 18:00 Vancomycin HCl 1000 mg/IV Miscellaneous Supplies 1 each/ Dextrose 270 ml @ 270 mls/hr Q8H IV 08/08/20 12:00 08/08/20 13:16 DC Vancomycin HCl 1000 mg/IV Miscellaneous Supplies 1 each/ Dextrose 270 ml @ 270 mls/hr Q8H IV 08/08/20 13:00 08/08/20 15:01 Allergies Allergies: Coded Allergies: Penicillins (Verified Allergy, Severe, ANAPHYLAXIS, 07/07/20) pregabalin (Verified Adverse Reaction, Severe, seizures, 07/07/20) Review of Systems General: Reports: Normal Appetite; Denies: Fatigue, Malaise Constitutional: Denies: Fever, Chills, Sweats, Weakness, Malaise Eyes: Denies: Pain, Vision change ENT: Denies: Head Aches, Sore Throat, Epistaxis Skin: Denies: Rash, Lesions, Breakdown, Nail Changes Pulmonary: Denies: Dyspnea, Cough Gastrointestinal: Reports: Other Symptoms (IBS); Denies: Nausea, Vomiting, Abdominal Pain Genitourinary: Denies: Dysuria, Frequency, Incontinence, Hematuria Musculoskeletal: Reports: Leg Pain Physical Examination General Exam: Cooperative, Moderate Distress EYE EXAM: PERRLA, Conjunctiva & lids normal, EOMI; No: Sclera icteric Chest Exam: Clear to auscultation, Normal air movement Heart Exam: Rate Normal, Regular Rhythm, Normal S1, Normal S2; No: Murmurs, Rubs Abdomen Exam: Normal Bowel Sounds, Soft; No: Tenderness, Hepatospenomegaly Male Exam: Normal Genital Exam Vital Signs/I&O Vital Signs Date Time Temp Pulse Resp B/P (MAP) Pulse Ox O2 Delivery O2 Flow Rate FiO2 08/08/20 17:50 18 Room Air 08/08/20 16:34 88 100 08/08/20 15:43 98.8 08/08/20 14:00 126/68 (87) 08/07/20 16:35 2 I&O- Last 24 Hours up to 6 AM 08/08/20 06:00 Intake Total 2600 ml Output Total 700 ml Balance 1900 ml Laboratory Data 24H Labs Laboratory Tests 2 08/08/20 05:22: Immature Granulocyte % (Auto) 0.4, Neutrophils (%) (Auto) 82.2H, Lymphocytes (%) (Auto) 9.9L, Monocytes (%) (Auto) 7.2H, Eosinophils (%) (Auto) 0.1, Basophils (%) (Auto) 0.2, Neutrophils # (Auto) 11.3H, Lymphocytes # (Auto) 1.4L, Monocytes # (Auto) 1.0H, Eosinophils # (Auto) 0.0, Basophils # (Auto) 0.0, Nucleated Red Blood Cells % (auto) 0.0, Anion Gap 5L, Glomerular Filtration Rate > 60.0, Calcium Level 8.7, Magnesium Level 2.0, Total Bilirubin 0.4, Aspartate Amino Transf (AST/SGOT) 12, Alanine Aminotransferase (ALT/SGPT) 8L, Alkaline Phosphatase 86, Total Protein 7.0, Albumin 2.5L, Albumin/Globulin Ratio 0.6 CBC/BMP Laboratory Tests 08/08/20 05:22 Microbiology Microbiology 08/07/20 Gram Stain - Final, Resulted 08/07/20 Wound Culture, Resulted Pending 08/07/20 Anaerobic Culture, Resulted Pending Assessment At the time the patient was first seen he was lying in bed. He had no urge to void. Bladder scan showed about 400 cc in the bladder, but no palpable bladder mass or discomfort on suprapubic pressure. I decided to have the patient hydrate and, when I returned several hours later, he had been able to void several times in volumes of 600-700 cc's. I therefore did not attempt a bryant cath insertion. Plan Because the patient is now able to void on is own, I did not insert a bryant. His prior retention was likely due to his post op state and his pain at the time. This, combined with his immobility led to his having voiding issues. These seem to have now cleared. If he develops further voiding concerns, please contact me. Time Spent on Consult: Time Spent / Consult (Minutes): 65 RUSTY DING MD Aug 08, 2020 18:36
--- NOTE | 2020-08-08 19:51 | IPNPDOC ---
Date Seen The patient was seen on 08/08/20. Progress Note SUBJECTIVE: Pain uncontrolled after surgery despite gabapentin, dilaudid, oxycodone-acetaminophen PRN. Added and later increased IV morphine for breakthrough pain. Urinary retention earlier, attempted catheterization multiple times with no success. Urology consulted; however, when they came to place bryant, he had urinated on his own so bryant was not needed. He denies chest pain, SOB, fevers, chills, n/v/d, abdominal pain. OBJECTIVE: VITAL SIGNS: Please see below PHYSICAL EXAMINATION: VITAL SIGNS: please see below General: NAD, appears uncomfortable HEENT: PERRLA, EOMI, sclerae clear Neck: supple, normal ROM, no JVD Resp: lungs CTAB, no wheeze, no rales, no crackles CVS: RRR, normal S1, S2, no murmurs Abdo: soft, no masses, no hepatosplenomegaly, BS+, no rebound tenderness. Extremities: no edema in RLE MSK: L knee BKA, dressing clean dry intact Integumentary: Bilateral incision in groin areas, appear clean, tender, nonsuppurative, amanda present Neuro: no focal neuro deficits, moving all 4 extremities Psych: calm, cooperative, AAO x 3 LABORATORY DATA: See below. MICROBIOLOGY: Gram stain groin specimen: Neg. F/u Cx's ASSESSMENT: 50 yo M with severe PAD, HTN, extensive smoking hx, admitted post-op for L BKA, and fem fem bypass, as well as infectious work up. PLAN: # Atherosclerosis of the [place] arteries with thrombosed right to left femorofemoral bypass and nonviable left foot. POD #1 for: Bilateral redo groin exploration with exposure femoral vessels, left femoral endarterectomy with xenosure patch angioplasty, right to left femoral-femoral bypass thrombectomy and revision left femoral anastomosis to new patch angioplasty, left below-knee amputation - pain uncontrolled, added morphine IV for breakthrough. C/w dilaudid, gabapentin, oxycodone-acetaminophen, eliquis to [address] Bailey - PT/OT, will likely require pain management evaluation - Dr. Bailey (vascular surgery ) following #Possible stent infection - intraoperative cultures sent - Vancomycin was not scheduled as of this AM, restarted for antimicrobial ppx - f/u Cx #Urinary retention likely 2/2 to anesthesia -Retained >800 mL urine -Attempted catheterization but failed, later urinated on his own -Monitor u/o closely -urology available if needed HTN - Stable - C/w lisinopril 20 mg daily, amlodipine 10 mg daily #CATIA - untreated as patient is noncompliant with CPAP - refusing nocturnal CPAP # HLD - statin #GI ppx - pantoprazole 40 mg daily #DVT ppx - eliquis, JUSTUS, SCDs DISPOSITION: Currently inpatient status. Plan is discharge back to prior living situation when medically improved. F/u PT/OT suggestions. VS, I&O, 24H, Fishbone Vital Signs/I&O Vital Signs Date Time Temp Pulse Resp B/P (MAP) Pulse Ox O2 Delivery O2 Flow Rate FiO2 08/08/20 19:33 16 98 Room Air 08/08/20 16:34 88 08/08/20 15:43 98.8 08/08/20 14:00 126/68 (87) 08/07/20 16:35 2 I&O- Last 24 Hours up to 6 AM 08/08/20 05:59 Intake Total 2300 ml Output Total 700 ml Balance 1600 ml Laboratory Data 24H LABS Laboratory Tests 2 08/08/20 05:22: Immature Granulocyte % (Auto) 0.4, Neutrophils (%) (Auto) 82.2H, Lymphocytes (%) (Auto) 9.9L, Monocytes (%) (Auto) 7.2H, Eosinophils (%) (Auto) 0.1, Basophils (%) (Auto) 0.2, Neutrophils # (Auto) 11.3H, Lymphocytes # (Auto) 1.4L, Monocytes # (Auto) 1.0H, Eosinophils # (Auto) 0.0, Basophils # (Auto) 0.0, Nucleated Red Blood Cells % (auto) 0.0, Anion Gap 5L, Glomerular Filtration Rate > 60.0, Calcium Level 8.7, Magnesium Level 2.0, Total Bilirubin 0.4, Aspartate Amino Transf (AST/SGOT) 12, Alanine Aminotransferase (ALT/SGPT) 8L, Alkaline Phospha tase 86, Total Protein 7.0, Albumin 2.5L, Albumin/Globulin Ratio 0.6 CBC/BMP Laboratory Tests 08/08/20 05:22 Microbiology Microbiology 08/07/20 Gram Stain - Final, Resulted 08/07/20 Wound Culture, Resulted Pending 08/07/20 Anaerobic Culture, Resulted Pending Current Medications Current Medications Medications (Trade) Dose Ordered Sig/Jessi Route PRN Reason Start Time Stop Time Status Last Admin Dose Admin Acetaminophen (Tylenol Tab) 650 mg Q4H PRN PO PAIN OR FEVER 08/07/20 17:45 Amlodipine Besylate (Norvasc) 10 mg DAILY PO 08/08/20 09:00 08/08/20 08:59 Apixaban (Eliquis) 5 mg BID@0700,2100 PO 08/08/20 07:00 08/08/20 06:22 Atorvastatin Calcium (Lipitor) 40 mg DAILY PO 08/08/20 09:00 08/08/20 08:59 Diazepam (Valium) 5 mg Q6HP PRN PO SEE COMMENTS 08/07/20 15:30 08/08/20 17:50 Docusate Sodium (Colace) 100 mg BID PO 08/07/20 21:00 08/08/20 08:57 Fentanyl Citrate (Sublimaze) 25 mcg Q5MP PRN IV PAIN LEVEL 5-10 08/07/20 15:45 08/07/20 16:01 DC 08/06/20 15:52 Fentanyl Citrate (Sublimaze) 25 mcg Q5MP PRN IV PAIN LEVEL 5-10 08/07/20 16:30 08/07/20 17:30 DC Furosemide (Lasix) 20 mg DAILY PO 08/08/20 09:00 08/08/20 08:58 Gabapentin (Neurontin) 600 mg TID PO 08/08/20 21:00 Heparin Sodium (Heparin (Flush)) 200 units ASDIRECTED PRN IV SEE LABEL COMMENTS 08/08/20 17:00 Heparin Sodium (Heparin (Flush)) 200 units PICC IV 08/08/20 18:00 08/08/20 18:26 Home Med (Med Rec Complete!) ASDIRECTED XX 08/07/20 17:30 08/07/20 17:30 DC Hydromorphone HCl (Dilaudid) 0.2 mg Q5MP PRN IV PAIN LEVEL 4-7 08/07/20 16:30 08/07/20 16:32 DC 08/07/20 16:15 Hydromorphone HCl (Dilaudid) 1 mg Q4HP PRN PO BREAKTHROUGH PAIN 08/07/20 15:30 08/08/20 19:33 Ketorolac Tromethamine (ToRADol) 30 mg ONCE PRN IV PAIN 08/07/20 16:30 08/07/20 17:30 DC Lactated Ringer's 1,000 ml @ 75 mls/hr [id number] IV 08/07/20 15:45 08/07/20 16:45 DC Lactated Ringer's 1,000 ml @ 100 mls/hr Q10H IV 08/07/20 07:00 08/07/20 15:33 DC 08/07/20 09:16 Lisinopril (Prinivil) 20 mg DAILY PO 08/08/20 09:00 08/08/20 08:59 Magnesium Hydroxide (Milk Of Magnesia) 30 ml DAILY PRN PO CONSTIPATION 08/07/20 17:45 Morphine Sulfate (Morphine Sulfate Inj) 1 mg Q6H PRN IV SEVERE PAIN (PS 8-10) 08/08/20 12:00 08/08/20 19:42 DC 08/08/20 13:15 Morphine Sulfate (Morphine Sulfate Inj) 2 mg Q6H PRN IV SEVERE PAIN (PS 8-10) 08/09/20 00:00 Ondansetron HCl (ZOFRAN INJection) 4 mg Q4HP PRN IV NAUSEA OR VOMITING 08/07/20 15:45 08/07/20 16:45 DC Ondansetron HCl (ZOFRAN INJection) 4 mg Q6HP PRN IV NAUSEA OR VOMITING 08/07/20 15:30 Oxycodone HCl (Roxicodone, Oxyir) 5 mg ASDIRECTED PRN PO PAIN LEVEL 1-4 08/07/20 15:45 08/07/20 16:45 DC 08/07/20 15:39 Oxycodone/ Acetaminophen (Percocet 5mg/ 325mg Tablet) 1 tab Q4HP PRN PO MILD/MODERATE PAIN (PS 1-7) 08/07/20 15:30 Oxycodone/ Acetaminophen (Percocet 5mg/ 325mg Tablet) 2 tab Q4HP PRN PO SEVERE PAIN (PS 8-10) 08/07/20 15:30 08/08/20 17:50 Sodium Chloride (Saline Lock Flush) 10 ml ASDIRECTED PRN IV SEE LABEL COMMENTS 08/08/20 17:00 Sodium Chloride (Saline Lock Flush) 10 ml PICC IV 08/08/20 18:00 08/08/20 18:26 Vancomycin HCl 1000 mg/IV Miscellaneous Supplies 1 each/ Dextrose 270 ml @ 270 mls/hr Q8H IV 08/08/20 12:00 08/08/20 13:16 DC Vancomycin HCl 1000 mg/IV Miscellaneous Supplies 1 each/ Dextrose 270 ml @ 270 mls/hr Q8H IV 08/08/20 13:00 08/08/20 15:01 Allergies Coded Allergies: Penicillins (Verified Allergy, Severe, ANAPHYLAXIS, 07/07/20) pregabalin (Verified Adverse Reaction, Severe, seizures, 07/07/20) Ally Hall MD Aug 08, 2020 19:50
[2020-08-08] MEDS: MORPHINE 2 MG/ML 1ML VIAL (J2270) IV PRN (21:40)
[2020-08-08] MEDS: GABAPENTIN 300 MG CAP PO SCH (21:40)
[2020-08-08 22:00] VITALS: BP 164/82
[2020-08-09] VITALS (7 sets, daily range): BP systolic 117–163; BP diastolic 61–80
[2020-08-09] MEDS: diazePAM 5 MG TAB PO PRN ×2 (00:50→09:02)
[2020-08-09] MEDS: PERCOCET 5MG/325MG TAB PO PRN ×3 (00:51→13:53)
[2020-08-09] MEDS: MORPHINE 2 MG/ML 1ML VIAL (J2270) IV PRN (04:03)
[2020-08-09] MEDS: VANCOMYCIN HCL 1,000 MG, VIAL MATE ADAPTER 1 EACH in D5W 250 ML IV SCH (05:29)
[2020-08-09 06:17] LABS: BASO # 0.1 10^3/uL (0.0-0.2); BASO % 0.4 % (0.0-1.0); EOS # 0.5 10^3/uL (0.0-0.5); EOS % 3.8 % (0.0-3.0); HEMATOCRIT 30.5 % (42.0-52.0); HEMOGLOBIN 9.7 g/dl (13.5-17.5); LYMPH # 1.8 10^3/uL (1.5-5.0); LYMPH % 14.9 % (24.0-44.0); MEAN CORPUSCULAR HEMOGLOBIN 27.5 pg (27.0-33.0); MEAN CORPUSCULAR HGB CONC 31.8 g/dl (32.0-36.5); MEAN CORPUSCULAR VOLUME 86.4 fl (80.0-96.0); MONO # 0.9 10^3/uL (0.0-0.8); MONO % 7.1 % (0.0-5.0); NEUTROPHILS # 8.8 10^3/uL (1.5-8.5); NEUTROPHILS % 73.4 % (36.0-66.0); PLATELET COUNT, AUTOMATED 429 10^3/uL (150-450); RED BLOOD COUNT 3.53 10^6/uL (4.30-6.10); WHITE BLOOD COUNT 11.9 10^3/uL (4.0-10.0)
[2020-08-09] MEDS: APIXABAN 5 MG TAB (ELIQUIS) PO SCH ×2 (06:32→20:32)
[2020-08-09] MEDS: SODIUM CHLORIDE 0.9% INJ 10 ML SYR IV SCH ×2 (06:33→17:00)
[2020-08-09 06:41] LABS: ALBUMIN 2.4 GM/DL (3.2-5.2); ALT/SGPT 9 U/L (12-78); BILIRUBIN,TOTAL 0.5 MG/DL (0.2-1.0); BLOOD UREA NITROGEN 11 MG/DL (7-18); CALCIUM LEVEL 8.7 MG/DL (8.5-10.1); CARBON DIOXIDE LEVEL 28 MEQ/L (21-32); CHLORIDE LEVEL 105 MEQ/L (98-107); CREATININE FOR GFR 0.78 MG/DL (0.70-1.30); GLOMERULAR FILTRATION RATE > 60.0 (>56); GLUCOSE, FASTING 85 MG/DL (70-100); MAGNESIUM LEVEL 2.1 MG/DL (1.8-2.4); POTASSIUM SERUM 4.2 MEQ/L (3.5-5.1); SODIUM LEVEL 140 MEQ/L (136-145); TOTAL PROTEIN 7.1 GM/DL (6.4-8.2)
--- NOTE | 2020-08-09 08:37 | IPNPDOC ---
Text Note Date of Service The patient was seen on 08/09/20. NOTE Vascular surgery. Dr. Bailey. This is a very pleasant 50-year-old patient with a long-standing history of tobacco abuse, noncompliance, and a nonhealing wound of the left foot who is status post femoral-femoral bypass that has failed. The patient is POD2 Bilateral redo groin exploration, Left femoral endarterectomy, Right to left femoral-femoral bypass thrombectomy and revision left femoral anastomosis to new patch angioplasty, Left below-knee amputation. The patient is resting in bed, the patient states his pain has been reasonably controlled. He did not get out of bed yesterday however physical therapy is here this morning with plans for therapy this morning. He initially had some difficulty urinating however he states he is now urinating on his own. The patient is afebrile. The left below-knee amputation wound dressing is removed, no drainage or erythema. [place] are intact. Sutures are intact. The incision is thoroughly cleaned. Xeroform is reapplied, fluffs, 4 x 4's, Kerlix, and Ted wrap. WBC 11.9 this morning. Downtrending. Groin culture is pending. Patient remains on IV vancomycin pending culture results. Continue with aspirin, Eliquis, statin. Continue with pain control. Encourage protein to help facilitate healing. PT/OT. Possibly consider ARU when medically stable. VS,Fishbone, I+O VS, Fishbone, I+O Laboratory Tests 08/09/20 05:33 Vital Signs Date Time Temp Pulse Resp B/P (MAP) Pulse Ox O2 Delivery O2 Flow Rate FiO2 08/09/20 06:00 97.2 99 18 131/76 (94) 95 Room Air 08/07/20 16:35 2 I&O- Last 24 Hours up to 6 AM 08/09/20 05:59 Intake Total 1580 ml Output Total 5100 ml Balance -3520 ml Josie Carvalho Aug 09, 2020 08:37
[2020-08-09] MEDS: DOCUSATE SODIUM 100 MG CAP PO SCH ×2 (09:00→09:02)
[2020-08-09] MEDS: GABAPENTIN 300 MG CAP PO SCH ×3 (09:02→20:32)
[2020-08-09] MEDS: ATORVASTATIN 20 MG TAB PO SCH (09:03)
[2020-08-09] MEDS: FUROSEMIDE 20 MG TAB PO SCH (09:03)
[2020-08-09] MEDS: lisinopriL 20 MG TAB PO SCH (09:05)
[2020-08-09] MEDS: amLODIPine 10 MG TAB PO SCH (09:05)
[2020-08-09] MEDS ORDERED: VANCOMYCIN HCL 1,000 MG, VIAL MATE ADAPTER 1 EACH in D5W 250 ML IV SCH (15:00)
--- NOTE | 2020-08-09 16:10 | IPNPDOC ---
Date Seen The patient was seen on 08/09/20. Progress Note SUBJECTIVE: Pain better controlled today, cleared by PT/OT. Wound cultures from surgery neg for infection, Vancomycin d/ana. No need for bryant catheter as patient has been urinating on his own. He denies chest pain, SOB, fevers, chills, n/v/d, abdominal pain. OBJECTIVE: VITAL SIGNS: Please see below PHYSICAL EXAMINATION: VITAL SIGNS: please see below General: NAD, appears uncomfortable HEENT: PERRLA, EOMI, sclerae clear Neck: supple, normal ROM, no JVD Resp: lungs CTAB, no wheeze, no rales, no crackles CVS: RRR, normal S1, S2, no murmurs Abdo: soft, no masses, no hepatosplenomegaly, BS+, no rebound tenderness. Extremities: no edema in RLE, L knee BKA, dressing clean dry intact Integumentary: Bilateral incision in groin areas, appear clean, tender, nonsuppurative, amanda present Neuro: no focal neuro deficits, moving all 4 extremities Psych: calm, cooperative, AAO x 3 LABORATORY DATA: See below. MICROBIOLOGY: Gram stain groin specimen: NEg, no growth- final ASSESSMENT: 50 yo M with severe PAD, HTN, extensive smoking hx, admitted post-op for L BKA, and fem fem bypass. PLAN: # Atherosclerosis of the [place] arteries with thrombosed right to left femorofemoral bypass and nonviable left foot. POD #2 for: Bilateral redo groin exploration with exposure femoral vessels, left femoral endarterectomy with xenosure patch angioplasty, right to left femoral-femoral bypass thrombectomy and revision left femoral anastomosis to new patch angioplasty, left below-knee amputation - pain better controlled with current regimen; however, this is unrealistic to go home with. Discussed needing to de-escalate this regimen today and he is in agreement. - Groin GS and CX: NG - D/c vancomycin, dilaudid, diazepam and dose of breakthrough morphine to 1 mg IV Q8 hrs. - C/w gabapentin, oxycodone-acetaminophen PRN based on pain scale - PT/OT- cleared for home, to see if patient has what he needs prior to discharge. - Vascular surgery following #Urinary retention likely 2/2 to anesthesia- resolved. -urinating well on his own # HTN - Stable - C/w lisinopril 20 mg daily, amlodipine 10 mg daily #CATIA - untreated as patient is noncompliant with CPAP - refusing nocturnal CPAP # HLD - statin #GI ppx - pantoprazole 40 mg daily #DVT ppx - eliqukim, JUSTUS, SCDs DISPOSITION: Currently inpatient status. Plan is discharge back to prior living situation when pain regimen solidified and he has what he needs at home, PFS to see. VS, I&O, 24H, Fishbone Vital Signs/I&O Vital Signs Date Time Temp Pulse Resp B/P (MAP) Pulse Ox O2 Delivery O2 Flow Rate FiO2 08/09/20 14:23 18 08/09/20 14:00 98.6 89 132/74 (93) 98 Room Air 08/07/20 16:35 2 I&O- Last 24 Hours up to 6 AM 08/09/20 06:00 Intake Total 1380 ml Output Total 5350 ml Balance -3970 ml Laboratory Data 24H LABS Laboratory Tests 2 08/09/20 05:33: Immature Granulocyte % (Auto) 0.4, Neutrophils (%) (Auto) 73.4H, Lymphocytes (%) (Auto) 14.9L, Monocytes (%) (Auto) 7.1H, Eosinophils (%) (Auto) 3.8H, Basophils (%) (Auto) 0.4, Neutrophils # (Auto) 8.8H, Lymphocytes # (Auto) 1.8, Monocytes # (Auto) 0.9H, Eosinophils # (Auto) 0.5, Basophils # (Auto) 0.1, Nucleated Red Blood Cells % (auto) 0.0, Anion Gap 7L, Glomerular Filtration Rate > 60.0, Calcium Level 8.7, Magnesium Level 2.1, Total Bilirubin 0.5, Aspartate Amino Transf (AST/SGOT) 11, Alanine Aminotransferase (ALT/SGPT) 9L, Alkaline Phosphatase 86, Total Protein 7.1, Albumin 2.4L, Albumin/Globulin Ratio 0.5 08/09/20 12:04: Vancomycin Level Trough 21.6H CBC/BMP Laboratory Tests 08/09/20 05:33 Microbiology Microbiology 08/07/20 Gram Stain - Final, Complete 08/07/20 Wound Culture - Final, Complete 08/07/20 Anaerobic Culture - Final, Complete Current Medications Current Medications Medications (Trade) Dose Ordered Sig/Jessi Route PRN Reason Start Time Stop Time Status Last Admin Dose Admin Acetaminophen (Tylenol Tab) 650 mg Q4H PRN PO PAIN OR FEVER 08/07/20 17:45 Amlodipine Besylate (Norvasc) 10 mg DAILY PO 08/08/20 09:00 08/09/20 09:05 Apixaban (Eliquis) 5 mg BID@0700,2100 PO 08/08/20 07:00 08/09/20 06:32 Atorvastatin Calcium (Lipitor) 40 mg DAILY PO 08/08/20 09:00 08/09/20 09:03 Diazepam (Valium) 5 mg Q6HP PRN PO SEE COMMENTS 08/07/20 15:30 08/09/20 09:02 Docusate Sodium (Colace) 100 mg BID PO 08/07/20 21:00 08/08/20 21:40 Fentanyl Citrate (Sublimaze) 25 mcg Q5MP PRN IV PAIN LEVEL 5-10 08/07/20 15:45 08/07/20 16:01 DC 08/06/20 15:52 Fentanyl Citrate (Sublimaze) 25 mcg Q5MP PRN IV PAIN LEVEL 5-10 08/07/20 16:30 08/07/20 17:30 DC Furosemide (Lasix) 20 mg DAILY PO 08/08/20 09:00 08/09/20 09:03 Gabapentin (Neurontin) 600 mg TID PO 08/08/20 21:00 08/09/20 15:16 Heparin Sodium (Heparin (Flush)) 200 units ASDIRECTED PRN IV SEE LABEL COMMENTS 08/08/20 17:00 08/08/20 23:11 Heparin Sodium (Heparin (Flush)) 200 units PICC IV 08/08/20 18:00 08/09/20 06:33 Home Med (Med Rec Complete!) ASDIRECTED XX 08/07/20 17:30 08/07/20 17:30 DC Hydromorphone HCl (Dilaudid) 0.2 mg Q5MP PRN IV PAIN LEVEL 4-7 08/07/20 16:30 08/07/20 16:32 DC 08/07/20 16:15 Hydromorphone HCl (Dilaudid) 1 mg Q4HP PRN PO BREAKTHROUGH PAIN 08/07/20 15:30 08/08/20 19:33 Ketorolac Tromethamine (ToRADol) 30 mg ONCE PRN IV PAIN 08/07/20 16:30 08/07/20 17:30 DC Lactated Ringer's 1,000 ml @ 75 mls/hr [id number] IV 08/07/20 15:45 08/07/20 16:45 DC Lactated Ringer's 1,000 ml @ 100 mls/hr Q10H IV 08/07/20 07:00 08/07/20 15:33 DC 08/07/20 09:16 Lisinopril (Prinivil) 20 mg DAILY PO 08/08/20 09:00 08/09/20 09:05 Magnesium Hydroxide (Milk Of Magnesia) 30 ml DAILY PRN PO CONSTIPATION 08/07/20 17:45 Morphine Sulfate (Morphine Sulfate Inj) 1 mg Q6H PRN IV SEVERE PAIN (PS 8-10) 08/08/20 12:00 08/08/20 19:42 DC 08/08/20 13:15 Morphine Sulfate (Morphine Sulfate Inj) 2 mg Q6H PRN IV SEVERE PAIN (PS 8-10) 08/08/20 21:30 08/09/20 04:03 Morphine Sulfate (Morphine Sulfate Inj) 2 mg Q6H PRN IV SEVERE PAIN (PS 8-10) 08/09/20 00:00 08/08/20 21:32 DC Ondansetron HCl (ZOFRAN INJection) 4 mg Q4HP PRN IV NAUSEA OR VOMITING 08/07/20 15:45 08/07/20 16:45 DC Ondansetron HCl (ZOFRAN INJection) 4 mg Q6HP PRN IV NAUSEA OR VOMITING 08/07/20 15:30 Oxycodone HCl (Roxicodone, Oxyir) 5 mg ASDIRECTED PRN PO PAIN LEVEL 1-4 08/07/20 15:45 08/07/20 16:45 DC 08/07/20 15:39 Oxycodone/ Acetaminophen (Percocet 5mg/ 325mg Tablet) 1 tab Q4HP PRN PO MILD/MODERATE PAIN (PS 1-7) 08/07/20 15:30 Oxycodone/ Acetaminophen (Percocet 5mg/ 325mg Tablet) 2 tab Q4HP PRN PO SEVERE PAIN (PS 8-10) 08/07/20 15:30 08/09/20 13:53 Sodium Chloride (Saline Lock Flush) 10 ml ASDIRECTED PRN IV SEE LABEL COMMENTS 08/08/20 17:00 08/08/20 23:11 Sodium Chloride (Saline Lock Flush) 10 ml PICC IV 08/08/20 18:00 08/09/20 06:33 Vancomycin HCl 1000 mg/IV Miscellaneous Supplies 1 each/ Dextrose 270 ml @ 270 mls/hr Q8H IV 08/08/20 12:00 08/08/20 13:16 DC Vancomycin HCl 1000 mg/IV Miscellaneous Supplies 1 each/ Dextrose 270 ml @ 270 mls/hr Q8H IV 08/08/20 13:00 08/09/20 13:02 DC 08/09/20 05:29 Vancomycin HCl 1000 mg/IV Miscellaneous Supplies 1 each/ Dextrose 270 ml @ 270 mls/hr Q8H IV 08/09/20 15:00 08/09/20 15:16 Allergies Coded Allergies: Penicillins (Verified Allergy, Severe, ANAPHYLAXIS, 07/07/20) pregabalin (Verified Adverse Reaction, Severe, seizures, 07/07/20) Ally Hall MD Aug 09, 2020 16:10
[2020-08-09] MEDS ORDERED: MORPHINE 2 MG/ML 1ML VIAL (J2270) IV PRN ×2 (16:15)
[2020-08-10 02:00] VITALS: BP 149/82
[2020-08-10] MEDS: SODIUM CHLORIDE 0.9% INJ 10 ML SYR IV SCH ×2 (05:58→17:03)
[2020-08-10 06:00] VITALS: BP 159/87
[2020-08-10] MEDS: APIXABAN 5 MG TAB (ELIQUIS) PO SCH (06:01)
[2020-08-10 06:42] LABS: BASO # 0.1 10^3/uL (0.0-0.2); BASO % 0.4 % (0.0-1.0); EOS # 0.7 10^3/uL (0.0-0.5); EOS % 5.7 % (0.0-3.0); HEMATOCRIT 32.5 % (42.0-52.0); HEMOGLOBIN 10.4 g/dl (13.5-17.5); LYMPH # 1.8 10^3/uL (1.5-5.0); LYMPH % 15.6 % (24.0-44.0); MEAN CORPUSCULAR HEMOGLOBIN 27.3 pg (27.0-33.0); MEAN CORPUSCULAR VOLUME 85.3 fl (80.0-96.0); MONO # 0.8 10^3/uL (0.0-0.8); MONO % 6.8 % (0.0-5.0); NEUTROPHILS # 8.3 10^3/uL (1.5-8.5); NEUTROPHILS % 71.1 % (36.0-66.0); PLATELET COUNT, AUTOMATED 422 10^3/uL (150-450); RED BLOOD COUNT 3.81 10^6/uL (4.30-6.10); WHITE BLOOD COUNT 11.7 10^3/uL (4.0-10.0)
[2020-08-10 07:11] LABS: ALBUMIN 2.6 GM/DL (3.2-5.2); ALT/SGPT 12 U/L (12-78); BILIRUBIN,TOTAL 0.4 MG/DL (0.2-1.0); BLOOD UREA NITROGEN 13 MG/DL (7-18); CALCIUM LEVEL 9.1 MG/DL (8.5-10.1); CARBON DIOXIDE LEVEL 25 MEQ/L (21-32); CHLORIDE LEVEL 106 MEQ/L (98-107); CREATININE FOR GFR 0.79 MG/DL (0.70-1.30); GLOMERULAR FILTRATION RATE > 60.0 (>56); GLUCOSE, FASTING 85 MG/DL (70-100); MAGNESIUM LEVEL 2.2 MG/DL (1.8-2.4); POTASSIUM SERUM 4.2 MEQ/L (3.5-5.1); SODIUM LEVEL 140 MEQ/L (136-145); TOTAL PROTEIN 7.7 GM/DL (6.4-8.2)
--- NOTE | 2020-08-10 08:41 | IPNPDOC ---
Date Seen The patient was seen on 08/10/20. Progress Note Patient seen and examined postoperative day #3 status post redo left femoral endarterectomy with patch angioplasty, thrombectomy and revision right to left femorofemoral bypass, and left below-knee amputation. He is doing well today. His bilateral groin incisions are clean dry and intact, amanda intact, cleaned and redressed with dry gauze. His left AKA stump incision is clean dry and intact, amanda and sutures intact, and this was thoroughly cleaned and redressed. The patient tolerated both the groin and the stump dressing changes well without discomfort. He says his pain has been well controlled. He has been cleared by physical therapy to go home and wants to go home. I encouraged the patient to do a few days in rehabilitation, but he says he would prefer to go home. He is getting around well with crutches. He will need a shower chair at home and he will need to shower daily, and then placed dry dressings over the groins and the stump. Ted wrap over the dressings on the stump for compression. He will need a knee immobilizer/stump protector and we will consult prosthetists to arrange for this. He is doing well already extending his knee to prevent contracture and we are pleased with this. We have encouraged him to E plenty of protein to help with wound healing. We have again spent an less amounts of time on this admission discussing the need for smoking cessation. The patient is agreeable to quit, and we are hopeful he will stick to this. We plan to see him back in 1 week to check his incisions, 2 weeks to remove the amanda, 3 weeks to remove the mattress sutures in the left stump. His cultures are negative, and I do not believe he will need antibiotics at home. At this point, I think he is stable from vascular surgery standpoint for discharge. We appreciate the hospitalist's excellent care of this patient. VS, I&O, 24H, Fishbone Vital Signs/I&O Vital Signs Date Time Temp Pulse Resp B/P (MAP) Pulse Ox O2 Delivery O2 Flow Rate FiO2 08/10/20 06:28 16 Room Air 08/10/20 06:00 98.4 50 159/87 (111) 98 08/07/20 16:35 2 I&O- Last 24 Hours up to 6 AM 9/24/20 05:59 Intake Total 1170 ml Output Total 950 ml Balance 220 ml Laboratory Data 24H LABS Laboratory Tests 2 08/09/20 12:04: Vancomycin Level Trough 21.6H 08/10/20 05:31: Immature Granulocyte % (Auto) 0.4, Neutrophils (%) (Auto) 71.1H, Lymphocytes (%) (Auto) 15.6L, Monocytes (%) (Auto) 6.8H, Eosinophils (%) (Auto) 5.7H, Basophils (%) (Auto) 0.4, Neutrophils # (Auto) 8.3, Lymphocytes # (Auto) 1.8, Monocytes # (Auto) 0.8, Eosinophils # (Auto) 0.7H, Basophils # (Auto) 0.1, Nucleated Red Blood Cells % (auto) 0.0, Anion Gap 9, Glomerular Filtration Rate > 60.0, Calcium Level 9.1, Magnesium Level 2.2, Total Bilirubin 0.4, Aspartate Amino Transf (AST/SGOT) 10, Alanine Aminotransferase (ALT/SGPT) 12, Alkaline Phosphatase 89, Total Protein 7.7, Albumin 2.6L, Albumin/Globulin Ratio 0.5 CBC/BMP Laboratory Tests 08/10/20 05:31 Microbiology Microbiology 08/07/20 Gram Stain - Final, Complete 08/07/20 Wound Culture - Final, Complete 08/07/20 Anaerobic Culture - Final, Complete SEGUNDO LUNDY MD Aug 10, 2020 08:41
[2020-08-10 09:11] VITALS: BP 120/66
[2020-08-10] MEDS: amLODIPine 10 MG TAB PO SCH (09:11)
[2020-08-10] MEDS: ATORVASTATIN 20 MG TAB PO SCH (09:12)
[2020-08-10] MEDS: GABAPENTIN 300 MG CAP PO SCH ×2 (09:12→17:02)
[2020-08-10] MEDS: FUROSEMIDE 20 MG TAB PO SCH (09:12)
[2020-08-10] MEDS: lisinopriL 20 MG TAB PO SCH (09:12)
[2020-08-10 10:00] VITALS: BP 145/71
[2020-08-10] MEDS: PERCOCET 5MG/325MG TAB PO PRN (13:12)
[2020-08-10 14:00] VITALS: BP 131/66
[2020-08-10 16:00] VITALS: BP 132/81
--- NOTE | 2020-08-10 16:58 | IPNPDOC ---
Date Seen The patient was seen on 08/10/20. Progress Note SUBJECTIVE: Pain better controlled today only on oral pain regimen. Stump protector/knee immobilizer needs to be made by prosthetists and given to patient prior to discharge. Otherwise denies chest pain, SOB, fevers, chills, n/v/d, abdominal pain. OBJECTIVE: VITAL SIGNS: Please see below PHYSICAL EXAMINATION: VITAL SIGNS: please see below General: NAD, appears uncomfortable HEENT: PERRLA, EOMI, sclerae clear Neck: supple, normal ROM, no JVD Resp: lungs CTAB, no wheeze, no rales, no crackles CVS: RRR, normal S1, S2, no murmurs Abdo: soft, no masses, no hepatosplenomegaly, BS+, no rebound tenderness. Extremities: no edema in RLE, L knee BKA, dressing clean dry intact Integumentary: Bilateral incision in groin areas, appear clean, tender, nonsuppurative, amanda present Neuro: no focal neuro deficits, moving all 4 extremities Psych: calm, cooperative, AAO x 3 LABORATORY DATA: See below. MICROBIOLOGY: Gram stain groin specimen: NEg, no growth- final ASSESSMENT: 50 yo M with severe PAD, HTN, extensive smoking hx, admitted post-op for L BKA, and fem fem bypass. PLAN: # Atherosclerosis of the kaw arteries with thrombosed right to left femorofemoral bypass and nonviable left foot. POD #2 for: Bilateral redo groin exploration with exposure femoral vessels, left femoral endarterectomy with xenosure patch angioplasty, right to left femoral-femoral bypass thrombectomy and revision left femoral anastomosis to new patch angioplasty, left below-knee amputation - pain better controlled with current regimen; however, this is unrealistic to go home with. Discussed needing to de-escalate this regimen today and he is in agreement. - Groin GS and CX: NG - C/w gabapentin, oxycodone-acetaminophen PRN based on pain scale. Morphine IV for breakthrough pain-not had to use. - PT/OT- cleared for home, to see if patient has what he needs prior to discharge. - Awaiting stump protector/knee immobilizer for discharge, initiated consult today per vascular surgery - Vascular surgery following and recommend f/u in 1 week to check incisions, 2 weeks to remove amanda, 3 weeks to remove the mattress sutures in the left stump. #Urinary retention likely 2/2 to anesthesia- resolved. -urinating well on his own # HTN - Stable - C/w lisinopril 20 mg daily, amlodipine 10 mg daily #CATIA - untreated as patient is noncompliant with CPAP - refusing nocturnal CPAP # HLD - statin #GI ppx - pantoprazole 40 mg daily #DVT ppx - eliquis, JUSTUS, SCDs DISPOSITION: Currently inpatient status. Plan is discharge back to prior living situation when prosthesis arrives. VS, I&O, 24H, Fishbone Vital Signs/I&O Vital Signs Date Time Temp Pulse Resp B/P (MAP) Pulse Ox O2 Delivery O2 Flow Rate FiO2 08/10/20 13:45 16 Room Air 08/10/20 09:11 85 120/66 08/10/20 06:00 98.4 98 08/07/20 16:35 2 I&O- Last 24 Hours up to 6 AM 08/10/20 06:00 Intake Total 1130 ml Output Total 700 ml Balance 430 ml Laboratory Data 24H LABS Laboratory Tests 2 08/10/20 05:31: Immature Granulocyte % (Auto) 0.4, Neutrophils (%) (Auto) 71.1H, Lymphocytes (%) (Auto) 15.6L, Monocytes (%) (Auto) 6.8H, Eosinophils (%) (Auto) 5.7H, Basophils (%) (Auto) 0.4, Neutrophils # (Auto) 8.3, Lymphocytes # (Auto) 1.8, Monocytes # (Auto) 0.8, Eosinophils # (Auto) 0.7H, Basophils # (Auto) 0.1, Nucleated Red Bl ood Cells % (auto) 0.0, Anion Gap 9, Glomerular Filtration Rate > 60.0, Calcium Level 9.1, Magnesium Level 2.2, Total Bilirubin 0.4, Aspartate Amino Transf (AST/SGOT) 10, Alanine Aminotransferase (ALT/SGPT) 12, Alkaline Phosphatase 89, Total Protein 7.7, Albumin 2.6L, Albumin/Globulin Ratio 0.5 08/10/20 14:08: Vancomycin Level Trough 10.4 CBC/BMP Laboratory Tests 08/10/20 05:31 Microbiology Microbiology 08/07/20 Gram Stain - Final, Complete 08/07/20 Wound Culture - Final, Complete 08/07/20 Anaerobic Culture - Final, Complete Current Medications Current Medications Medications (Trade) Dose Ordered Sig/Jessi Route PRN Reason Start Time Stop Time Status Last Admin Dose Admin Acetaminophen (Tylenol Tab) 650 mg Q4H PRN PO PAIN OR FEVER 08/07/20 17:45 Amlodipine Besylate (Norvasc) 10 mg DAILY PO 08/08/20 09:00 08/10/20 09:11 Apixaban (Eliquis) 5 mg BID@0700,2100 PO 08/08/20 07:00 08/10/20 06:01 Atorvastatin Calcium (Lipitor) 40 mg DAILY PO 08/08/20 09:00 08/10/20 09:12 Diazepam (Valium) 5 mg Q6HP PRN PO SEE COMMENTS 08/07/20 15:30 08/09/20 16:04 DC 08/09/20 09:02 Docusate Sodium (Colace) 100 mg BID PO 08/07/20 21:00 08/09/20 17:01 DC 08/08/20 21:40 Fentanyl Citrate (Sublimaze) 25 mcg Q5MP PRN IV PAIN LEVEL 5-10 08/07/20 15:45 08/07/20 16:01 DC 08/06/20 15:52 Fentanyl Citrate (Sublimaze) 25 mcg Q5MP PRN IV PAIN LEVEL 5-10 08/07/20 16:30 08/07/20 17:30 DC Furosemide (Lasix) 20 mg DAILY PO 08/08/20 09:00 08/10/20 09:12 Gabapentin (Neurontin) 600 mg TID PO 08/08/20 21:00 08/10/20 09:12 Heparin Sodium (Heparin (Flush)) 200 units ASDIRECTED PRN IV SEE LABEL COMMENTS 08/08/20 17:00 08/08/20 23:11 Heparin Sodium (Heparin (Flush)) 200 units PICC IV 08/08/20 18:00 08/10/20 05:58 Home Med (Med Rec Complete!) ASDIRECTED XX 08/07/20 17:30 08/07/20 17:30 DC Hydromorphone HCl (Dilaudid) 0.2 mg Q5MP PRN IV PAIN LEVEL 4-7 08/07/20 16:30 08/07/20 16:32 DC 08/07/20 16:15 Hydromorphone HCl (Dilaudid) 1 mg Q4HP PRN PO BREAKTHROUGH PAIN 08/07/20 15:30 08/09/20 16:04 DC 08/08/20 19:33 Ketorolac Tromethamine (ToRADol) 30 mg ONCE PRN IV PAIN 08/07/20 16:30 08/07/20 17:30 DC Lactated Ringer's 1,000 ml @ 75 mls/hr [id number] IV 08/07/20 15:45 08/07/20 16:45 DC Lactated Ringer's 1,000 ml @ 100 mls/hr Q10H IV 08/07/20 07:00 08/07/20 15:33 DC 08/07/20 09:16 Lisinopril (Prinivil) 20 mg DAILY PO 08/08/20 09:00 08/10/20 09:12 Magnesium Hydroxide (Milk Of Magnesia) 30 ml DAILY PRN PO CONSTIPATION 08/07/20 17:45 Morphine Sulfate (Morphine Sulfate Inj) 1 mg Q6H PRN IV SEVERE PAIN (PS 8-10) 08/08/20 12:00 08/08/20 19:42 DC 08/08/20 13:15 Morphine Sulfate (Morphine Sulfate Inj) 1 mg Q8HP PRN IV SEVERE PAIN (PS 8-10) 08/09/20 16:15 Morphine Sulfate (Morphine Sulfate Inj) 2 mg Q6H PRN IV SEVERE PAIN (PS 8-10) 08/08/20 21:30 08/09/20 16:04 DC 08/09/20 04:03 Morphine Sulfate (Morphine Sulfate Inj) 2 mg Q6H PRN IV SEVERE PAIN (PS 8-10) 08/09/20 00:00 08/08/20 21:32 DC Ondansetron HCl (ZOFRAN INJection) 4 mg Q4HP PRN IV NAUSEA OR VOMITING 08/07/20 15:45 08/07/20 16:45 DC Ondansetron HCl (ZOFRAN INJection) 4 mg Q6HP PRN IV NAUSEA OR VOMITING 08/07/20 15:30 Oxycodone HCl (Roxicodone, Oxyir) 5 mg ASDIRECTED PRN PO PAIN LEVEL 1-4 08/07/20 15:45 08/07/20 16:45 DC 08/07/20 15:39 Oxycodone/ Acetaminophen (Percocet 5mg/ 325mg Tablet) 1 tab Q4HP PRN PO MILD/MODERATE PAIN (PS 1-7) 08/07/20 15:30 08/10/20 05:58 Oxycodone/ Acetaminophen (Percocet 5mg/ 325mg Tablet) 2 tab Q4HP PRN PO SEVERE PAIN (PS 8-10) 08/07/20 15:30 08/10/20 13:12 Sodium Chloride (Saline Lock Flush) 10 ml ASDIRECTED PRN IV SEE LABEL COMMENTS 08/08/20 17:00 08/08/20 23:11 Sodium Chloride (Saline Lock Flush) 10 ml PICC IV 08/08/20 18:00 08/10/20 05:58 Vancomycin HCl 1000 mg/IV Miscellaneous Supplies 1 each/ Dextrose 270 ml @ 270 mls/hr Q8H IV 08/08/20 12:00 08/08/20 13:16 DC Vancomycin HCl 1000 mg/IV Miscellaneous Supplies 1 each/ Dextrose 270 ml @ 270 mls/hr Q8H IV 08/08/20 13:00 08/09/20 13:02 DC 08/09/20 05:29 Vancomycin HCl 1000 mg/IV Miscellaneous Supplies 1 each/ Dextrose 270 ml @ 270 mls/hr Q8H IV 08/09/20 15:00 08/09/20 16:10 DC 08/09/20 15:16 Allergies Coded Allergies: Penicillins (Verified Allergy, Severe, ANAPHYLAXIS, 07/07/20) pregabalin (Verified Adverse Reaction, Severe, seizures, 07/07/20) Ally Hall MD Aug 10, 2020 16:58
[2020-08-10] MEDS ORDERED: MORPHINE 4 MG/ML 1ML VIAL/SYRINGE (J2270) IV ONE (19:00)
--- NOTE | 2020-08-17 11:39 | REP ---
PICC LINE INSERTION WITH SITE-RITE The procedure was performed by VERITO Ramey, under the direct supervision of Dr. Cali. The risks and benefits of the procedure were explained to the patient and informed consent was obtained both verbally and written. Directly prior to the start of the procedure, a formal time-out was completed in the procedure room. The left basilic vein was localized using ultrasound guidance. The skin was prepped and draped in a sterile fashion. Approximately 1 mL of 1% Lidocaine 10 mg/mL was used as a local anesthetic. Using ultrasound guidance, the basilic vein was cannulated and a 0.018 guidewire was inserted and advanced to the SVC using fluoroscopic guidance. The needle was removed and a 5.5 Macedonian dilator and Peel-Away sheath was inserted over the guidewire. A 5.5 Macedonian double-lumen catheter was cut to a length of 40 cm. The dilator was removed and the catheter was inserted over the guidewire with the tip ending in the SVC. The Peel-Away sheath was removed, and the catheter was flushed with heparinized saline as per hospital protocol. The catheter was affixed to the skin and a sterile dressing was applied. The patient tolerated this procedure well and there were no immediate complications. 0.1 minutes of fluoroscopy time was utilized for this procedure. This procedure has been dictated by VERITO Ramey, and Dr. Cali. LISA
== END 2020-08-10 19:31 | disposition left against medical advice (07) | DRG 241 ==
LOC: M OR 08-07 08:17 → M MSPAV 08-07 16:47
PROVIDERS: ADMIT Surgery Vascular Surgery; ATTEND Internal Medicine
PROC: 04UL0KZ Supplement Left Femoral Artery with Nonautologous Tissue Substitute, Open Approach (ICD-10-PCS; 2020-08-07)
PROC: 041K0JJ Bypass Right Femoral Artery to Left Femoral Artery with Synthetic Substitute, Open Approach (ICD-10-PCS; 2020-08-07)
PROC: 0Y6J0Z2 Detachment at Left Lower Leg, Mid, Open Approach (ICD-10-PCS; principal; 2020-08-07 09:30)
PROC: 04CL0ZZ Extirpation of Matter from Left Femoral Artery, Open Approach (ICD-10-PCS; 2020-08-07 09:30)
PROC: 02HV33Z Insertion of Infusion Device into Superior Vena Cava, Percutaneous Approach (ICD-10-PCS; 2020-08-08)
DX: T82.868A Thrombosis due to vascular prosthetic devices, implants and grafts, initial encounter (principal); Y83.1 Surgical operation with implant of artificial internal device as the cause of abnormal reaction of the patient, or of later complication, without mention of misadventure at the time of the procedure; I10 Essential (primary) hypertension; E78.5 Hyperlipidemia, unspecified; I70.203 Unspecified atherosclerosis of native arteries of extremities, bilateral legs; K58.9 Irritable bowel syndrome, unspecified; G47.33 Obstructive sleep apnea (adult) (pediatric); G43.909 Migraine, unspecified, not intractable, without status migrainosus; R33.9 Retention of urine, unspecified; F17.210 Nicotine dependence, cigarettes, uncomplicated; Z89.512 Acquired absence of left leg below knee; Z79.01 Long term (current) use of anticoagulants; Z79.899 Other long term (current) drug therapy; Z88.0 Allergy status to penicillin; Z95.820 Peripheral vascular angioplasty status with implants and grafts; Z88.8 Allergy status to other drugs, medicaments and biological substances; Z91.19 Patient's noncompliance with other medical treatment and regimen

== ENCOUNTER → 2020-08-02 | Outpatient (CLI) | payer MEDICARE, MEDICAID ==
[~2020-08-02] MED LIST changes: +AMLO10TA PO; +IBUP-1022 PO; +LIPI20TA PO
== END ==
LOC: M LABSMTC 09:37
PROVIDERS: ATTEND Anesthesiology
DX: Z01.818 Encounter for other preprocedural examination (principal); Z11.59 Encounter for screening for other viral diseases; Z20.828 Contact with and (suspected) exposure to other viral communicable diseases
CPT/HCPCS: C9803; U0003

== ENCOUNTER → 2020-11-15 | Outpatient (CLI) | payer MEDICARE, MEDICAID | LOC: M PT 14:51 | PROVIDERS: ATTEND Physician Assistant | DX: Z89.512 Acquired absence of left leg below knee (principal) ==

== ENCOUNTER → 2020-11-25 | Outpatient (CLI) | payer SELFPAY | LOC: M LABSMTC 12:07 | PROVIDERS: ATTEND Pediatrics | DX: Z20.822 Contact with and (suspected) exposure to COVID-19 (principal) ==

== ENCOUNTER → 2020-12-07 | Outpatient (REF) | payer MEDICARE, MEDICAID ==
[~2020-12-07] MED LIST changes: +GABA-282 PO; -GABA-843 PO
== END ==
LOC: M SFHCPLAZ 17:01
PROVIDERS: ATTEND Nurse Practitioner Adult Health
DX: R35.0 Frequency of micturition (principal)

== ENCOUNTER → 2020-12-11 | Outpatient (CLI) | payer MEDICARE, MEDICAID ==
[~2020-12-11] MED LIST changes: -LISI-538 PO; +LISI20TA33 PO
--- NOTE | 2020-12-11 16:54 | REP ---
INDICATION: CLAUDICATION. Below the knee amputation on the left. Peripheral vascular disease. COMPARISON: Comparison study June 14, 2020.. TECHNIQUE: Bilateral lower extremity arterial Doppler ultrasound. FINDINGS: Ankle brachial index is normal on the right measured 1.0. A right to left fem-fem crossover graft is seen and is felt to be patent. Reversed flow is observed in the external iliac artery on the left. Increased flow velocity is observed in the anastomosis of the graft to the right femoral artery, 254 cm/S. Velocities at mid graft level are 126, 124, and 94. At the distal anastomosis on the left, velocity in the graft is 128 cm/S. Monophasic arterial Doppler waveforms are noted throughout the lower extremities bilaterally. A right distal superficial femoral artery and popliteal artery occlusion is seen. The tibial-peroneal trunk is occluded on the right. The anterior tibial and posterior tibial arteries are patent. There is a patent right femoral-popliteal bypass graft. Proximal graft velocity 69 cm/S, mid graft 75, distal graft 77 cm/S. Right lower extremity arterial Doppler velocity chart: Right LOU PSV 38 cm/S Right EIA 143 FONDANT PUFF MAKER 199 Profundal 98 Proximal SFA 118 Mid SFA 85 Distal SFA occluded Popliteal occluded Proximal MINERVA 35 Tibial-peroneal trunk occluded Proximal WARPER CREELER 43 Distal WARPER CREELER 77 Distal MINERVA 61 Left lower extremity arterial Doppler velocity chart: Left FONDANT PUFF MAKER PSV 275 cm/S Profundal 71 Proximal SFA 93 Mid SFA 86 Distal SFA 77 Popliteal 48 Proximal MINERVA not seen Tibial-peroneal trunk 55 IMPRESSION: Atherosclerotic disease as above. Patent right to left fem-fem crossover graft. Right SFA occlusion. Monophasic arterial waveforms throughout. Patent right fem-pop bypass graft. <Electronically signed by Florentino Mendieta > 12/11/20 [id number]
== END ==
LOC: M RAD 14:00
PROVIDERS: ATTEND Physician Assistant
DX: I70.213 Atherosclerosis of native arteries of extremities with intermittent claudication, bilateral legs (principal); Z95.828 Presence of other vascular implants and grafts; Z89.512 Acquired absence of left leg below knee

== ENCOUNTER 2021-11-20 13:06 | Emergency (ER) | payer MEDICARE, MEDICAID ==
[~2021-11-20] VITALS: Ht 182.9 cm; Wt 106.1 kg
[~2021-11-20 13:06] MED LIST changes: +ASPI-569 PO; -ASPI81TAEC PO; +OMEP40CA4 PO; -OMEP40CA97 PO
[2021-11-20] MEDS ORDERED: NS 500 ML IV ONE (13:50)
[2021-11-20] MEDS ORDERED: ISOVUE-370 76% 100ML VIAL As Ordered ONE (14:38)
[2021-11-20 14:39] LABS: BASO # 0.1 10^3/uL (0.0-0.2); BASO % 0.3 % (0.0-1.0); EOS # 0.2 10^3/uL (0.0-0.5); EOS % 1.3 % (0.0-3.0); HEMATOCRIT 35.4 % (42.0-52.0); HEMOGLOBIN 11.9 g/dl (13.5-17.5); LYMPH # 3.7 10^3/uL (1.5-5.0); LYMPH % 22.6 % (24.0-44.0); MEAN CORPUSCULAR HEMOGLOBIN 30.8 pg (27.0-33.0); MEAN CORPUSCULAR HGB CONC 33.6 g/dl (32.0-36.5); MEAN CORPUSCULAR VOLUME 91.7 fl (80.0-96.0); MONO # 1.5 10^3/uL (0.0-0.8); NEUTROPHILS # 10.8 10^3/uL (1.5-8.5); NEUTROPHILS % 66.5 % (36.0-66.0); PLATELET COUNT, AUTOMATED 241 10^3/uL (150-450); RED BLOOD COUNT 3.86 10^6/uL (4.30-6.10); WHITE BLOOD COUNT 16.2 10^3/uL (4.0-10.0)
[2021-11-20 14:55] LABS: ALBUMIN 3.4 GM/DL (3.2-5.2); BILIRUBIN,DIRECT 0.1 MG/DL (0.0-0.2); BILIRUBIN,TOTAL 0.4 MG/DL (0.2-1.0); CALCIUM LEVEL 8.5 MG/DL (8.5-10.1); CK-MB VALUE MASS 6.5 NG/ML (<3.6); CREATININE FOR GFR 1.72 MG/DL (0.70-1.30); GLOMERULAR FILTRATION RATE 44.5 (>56); MB/CK RELATIVE INDEX 2.31 (< OR =4)
[2021-11-20 15:03] LABS: INR 1.12; PROTHROMBIN TIME 14.8 SECONDS (12.7-14.5)
[2021-11-20] MEDS ORDERED: ONDANSETRON 4MG/2ML VIAL IV ONE (15:15)
[2021-11-20] MEDS ORDERED: MORPHINE 4 MG/ML 1ML VIAL/SYRINGE (J2270) IV PRN (15:15)
[2021-11-20 16:48] LABS: RSV AMPLIFICATION NEGATIVE (NEGATIVE)
[2021-11-20] MEDS ORDERED: HYDR-3713 PO (18:47)
[2021-11-20 19:23] VITALS: BP 121/56
== END 2021-11-20 19:28 | disposition home or self-care (01) ==
LOC: M ED 13:06
DX: R10.30 Lower abdominal pain, unspecified (principal); T82.898A Other specified complication of vascular prosthetic devices, implants and grafts, initial encounter; R00.1 Bradycardia, unspecified; I10 Essential (primary) hypertension; K58.9 Irritable bowel syndrome, unspecified; G47.30 Sleep apnea, unspecified; Z89.512 Acquired absence of left leg below knee; Z91.19 Patient's noncompliance with other medical treatment and regimen; Z79.01 Long term (current) use of anticoagulants; F17.200 Nicotine dependence, unspecified, uncomplicated; Z79.899 Other long term (current) drug therapy; Z88.0 Allergy status to penicillin; Z88.8 Allergy status to other drugs, medicaments and biological substances
CPT/HCPCS: 36415; 71045; 75635; 80047; 80048; 80076; 82550; 82553; 83690; 83880; 84484; 85025; 85610; 87631; 93005; 93041; 94760; 96361; 96374; 96375; 99285; J2270; J2405; Q9967

== ENCOUNTER → 2022-01-16 | Outpatient (REF) | payer MEDICARE, MEDICAID ==
[~2022-01-16] MED LIST changes: -CEFD1CAP8 PO; +CEFD300C41 PO
[2022-01-16 18:50] LABS: APPEARANCE, URINE CLEAR (CLEAR); BACTERIA, URINE AUTO NEGATIVE (NEGATIVE); BILIRUBIN, URINE AUTO NEGATIVE (NEGATIVE); BLOOD, URINE BLOOD 2+ (NEGATIVE); COLOR, URINE STRAW (YELLOW); GLUCOSE, URINE (UA) AUTO NEGATIVE (NEGATIVE); KETONE, URINE AUTO NEGATIVE (NEGATIVE); LEUKOCYTE ESTERASE, URINE AUTO NEGATIVE (NEGATIVE); NITRITE, URINE AUTO NEGATIVE (NEGATIVE); PROTEIN, URINE AUTO NEGATIVE (NEGATIVE); RBC, URINE AUTO 1 /HPF (0-3); SPECIFIC GRAVITY URINE AUTO 1.003 (1.002-1.035); SQUAMOUS EPITHELIAL CELL UR AU 0 /HPF (0-6); UROBILINOGEN, URINE AUTO 0.2 mg/dL (0.0-2.0); WBC, URINE AUTO 0 /HPF (0-3)
== END ==
LOC: M SFHCPLAZ 16:44
PROVIDERS: ATTEND Physician Assistant
DX: R82.998 Other abnormal findings in urine (principal); R31.9 Hematuria, unspecified

== ENCOUNTER → 2022-01-21 | Outpatient (CLI) | payer MEDICARE, MEDICAID ==
[2022-01-21 13:44] LABS: HEMOGLOBIN A1c 5.4 %
[2022-01-21 13:46] LABS: ALBUMIN 3.5 GM/DL (3.2-5.2); ALT/SGPT 19 U/L (12-78); BILIRUBIN,TOTAL 0.8 MG/DL (0.2-1.0); BLOOD UREA NITROGEN 7 MG/DL (7-18); CALCIUM LEVEL 9.1 MG/DL (8.5-10.1); CARBON DIOXIDE LEVEL 30 MEQ/L (21-32); CHLORIDE LEVEL 107 MEQ/L (98-107); CHOLESTEROL LEVEL 138 MG/DL (<200); CHOLESTEROL RISK RATIO 3.209 (<5); CREATININE FOR GFR 0.86 MG/DL (0.70-1.30); GLOMERULAR FILTRATION RATE > 60.0 (>56); GLUCOSE, FASTING 99 MG/DL (70-100); HDL CHOLESTEROL 43 MG/DL (>40); LDL CHOLESTEROL 69 MG/DL (<100); NON-HDL-C 95 MG/DL; POTASSIUM SERUM 4.2 MEQ/L (3.5-5.1); SODIUM LEVEL 141 MEQ/L (136-145); TOTAL PROTEIN 7.1 GM/DL (6.4-8.2); TRIGLYCERIDES LEVEL 130 MG/DL (<150)
== END ==
LOC: M PLALAB 10:24
PROVIDERS: ATTEND Nurse Practitioner Adult Health
DX: R73.01 Impaired fasting glucose (principal); E78.00 Pure hypercholesterolemia, unspecified; R31.9 Hematuria, unspecified

== ENCOUNTER → 2022-01-21 | Outpatient (CLI) | payer MEDICARE, MEDICAID ==
[2022-01-21 13:11] LABS: BASO % 0.4 % (0.0-1.0); EOS # 0.3 10^3/uL (0.0-0.5); EOS % 2.9 % (0.0-3.0); HEMATOCRIT 39.4 % (42.0-52.0); HEMOGLOBIN 13.6 g/dl (13.5-17.5); LYMPH # 2.9 10^3/uL (1.5-5.0); LYMPH % 28.9 % (24.0-44.0); MEAN CORPUSCULAR HEMOGLOBIN 30.9 pg (27.0-33.0); MEAN CORPUSCULAR HGB CONC 34.5 g/dl (32.0-36.5); MEAN CORPUSCULAR VOLUME 89.5 fl (80.0-96.0); MONO # 0.7 10^3/uL (0.0-0.8); MONO % 6.7 % (2.0-8.0); NEUTROPHILS # 6.2 10^3/uL (1.5-8.5); NEUTROPHILS % 60.8 % (36.0-66.0); PLATELET COUNT, AUTOMATED 296 10^3/uL (150-450); WHITE BLOOD COUNT 10.2 10^3/uL (4.0-10.0)
== END ==
LOC: M PLALAB 10:27
PROVIDERS: ATTEND Physician Assistant
DX: R31.9 Hematuria, unspecified (principal)

== ENCOUNTER → 2024-08-04 | Outpatient (CLI) | payer OTHER ==
[~2024-08-04] MED LIST changes: +CEFD1CAP9 PO; -CEFD300C41 PO; +CLOP75TA99 PO; +GABA-1490 PO; -GABA600T4 PO; -PLAV1TAB2 PO
[2024-08-04 14:05] LABS: HEMATOCRIT 42.9 % (42.0-52.0); HEMOGLOBIN 14.4 g/dl (13.5-17.5); MEAN CORPUSCULAR HEMOGLOBIN 30.6 pg (27.0-33.0); MEAN CORPUSCULAR HGB CONC 33.6 g/dl (32.0-36.5); MEAN CORPUSCULAR VOLUME 91.1 fl (80.0-96.0); PLATELET COUNT, AUTOMATED 322 10^3/uL (150-450); RED BLOOD COUNT 4.71 10^6/uL (4.30-6.10); WHITE BLOOD COUNT 11.2 10^3/uL (4.0-10.0)
[2024-08-04 14:31] LABS: ALBUMIN 3.6 G/DL (3.2-5.2); ALKALINE PHOSPHATASE 130 U/L (46-116); ALT/SGPT 16 U/L (7.0-40); AST/SGOT 18 U/L (<34); BILIRUBIN,TOTAL 0.4 MG/DL (0.3-1.2); BLOOD UREA NITROGEN 8 MG/DL (9-23); CALCIUM LEVEL 8.5 MG/DL (8.5-10.1); CARBON DIOXIDE LEVEL 25 MMOL/L (20-31); CHLORIDE LEVEL 106 MMOL/L (98-107); CHOLESTEROL LEVEL 104 MG/DL (<200); CHOLESTEROL RISK RATIO 3.28 (<5); CREATININE FOR GFR 0.69 MG/DL (0.70-1.30); GLOMERULAR FILTRATION RATE > 60.0 (>56); GLUCOSE, FASTING 102 MG/DL (60-100); HDL CHOLESTEROL 31.7 MG/DL (>40); LDL CHOLESTEROL 55.5 MG/DL (<100); NON-HDL-C 72.3 MG/DL; POTASSIUM SERUM 4.5 MMOL/L (3.5-5.1); SODIUM LEVEL 136 MMOL/L (136-145); TOTAL PROTEIN 7.5 G/DL (5.7-8.2); TRIGLYCERIDES LEVEL 84 MG/DL (<150)
== END ==
LOC: M PLALAB 10:01
PROVIDERS: ATTEND Nurse Practitioner Adult Health
DX: I73.9 Peripheral vascular disease, unspecified (principal); R73.01 Impaired fasting glucose; E78.2 Mixed hyperlipidemia; R25.2 Cramp and spasm; K76.0 Fatty (change of) liver, not elsewhere classified; Z12.11 Encounter for screening for malignant neoplasm of colon

== ENCOUNTER → 2025-05-18 | Outpatient (CLI) | payer MEDICARE, MEDICAID ==
[~2025-05-18] MED LIST changes: +ALBU8.5H INH; +AMLO-751 PO; -AMLO10TA PO; +AZIT-12 PO; +COMBAER6 INH; +DOXY-440 PO; +ELIQ5TAB PO; +FLUT1BLS6 INH; +GABA-1172 PO; -GABA-282 PO; +METH10CO PO; +MORP-138 PO; -MORP15TASA PO; +NYST-38 SS; +OMEP40CA5 PO; +PRED20TA PO
== END ==
LOC: M RAD 14:32
PROVIDERS: ATTEND Nurse Practitioner Adult Health
DX: J18.1 Lobar pneumonia, unspecified organism (principal); R93.3 Abnormal findings on diagnostic imaging of other parts of digestive tract; R09.89 Other specified symptoms and signs involving the circulatory and respiratory systems; R13.19 Other dysphagia; R63.4 Abnormal weight loss; Z68.1 Body mass index [BMI] 19.9 or less, adult; R06.02 Shortness of breath

== ENCOUNTER → 2025-05-18 | Outpatient (REF) | payer MEDICARE, MEDICAID ==
[2025-05-18 15:14] LABS: PLATELET COUNT, AUTOMATED 295 10^3/uL (150-450)
[2025-05-18 15:35] LABS: ESTIMATED AVERAGE GLUCOSE 91.0 MG/DL (60-110)
[2025-05-18 15:42] LABS: ALT/SGPT 16.0 U/L (7.0-40); AST/SGOT 23.0 U/L (<34); CALCIUM LEVEL 9.2 MG/DL (8.5-10.1); CARBON DIOXIDE LEVEL 25.0 MMOL/L (20-31); CHLORIDE LEVEL 92.0 MMOL/L (98-107); CREATININE FOR GFR 1.58 MG/DL (0.70-1.30); GLOMERULAR FILTRATION RATE 51.0 (>56); POTASSIUM SERUM 3.9 MMOL/L (3.5-5.1); SODIUM LEVEL 132.0 MMOL/L (136-145)
== END ==
LOC: M LAB 14:37
PROVIDERS: ATTEND Nurse Practitioner Adult Health
DX: R09.89 Other specified symptoms and signs involving the circulatory and respiratory systems (principal); R73.01 Impaired fasting glucose

== ENCOUNTER 2025-05-19 09:55 | Inpatient (IN) | payer MEDICARE, MEDICAID ==
[~2025-05-19] VITALS: Ht 182.9 cm; Wt 58.2 kg
[~2025-05-19 09:55] MED LIST changes: -ALBU8.5H INH; -AZIT-12 PO; -COMBAER6 INH; -DOXY-440 PO; -ELIQ5TAB PO; -FLUT1BLS6 INH; -METH10CO PO; -NYST-38 SS; -OMEP40CA5 PO; -PRED20TA PO
[2025-05-19 10:36] LABS: VENOUS BASE EXCESS -4.1 (-2.0-2.0); VENOUS HCO3 21.5 MMOL/L (23.0-27.0); VENOUS O2 SATURATION 87.6 % (60.0-80.0); VENOUS PARTIAL PRESSURE CO2 40.9 mmHg (38.0-50.0); VENOUS PARTIAL PRESSURE O2 55.0 mmHg (30.0-50.0); VENOUS PH 7.338 UNITS (7.330-7.430); VENOUS STANDARD HCO3 20.9 MMOL/L; VENOUS TOTAL CO2 22.7 MMOL/L (24.0-28.0)
[2025-05-19 10:43] LABS: BASO # 0.0 10^3/uL (0.0-0.2); BASO % 0.1 % (0.0-1.0); EOS # 0.0 10^3/uL (0.0-0.5); EOS % 0.0 % (0.0-3.0); LYMPH # 1.1 10^3/uL (1.5-5.0); LYMPH % 5.3 % (24.0-44.0); MONO # 1.1 10^3/uL (0.0-0.8); MONO % 4.9 % (2.0-8.0); NEUTROPHILS # 19.0 10^3/uL (1.5-8.5); NEUTROPHILS % 89.2 % (36.0-66.0); PLATELET COUNT, AUTOMATED 297 10^3/uL (150-450)
[2025-05-19] MEDS: LevoFLOXacin IV 750 MG in IV 1 EA IV ONE (10:44)
[2025-05-19] MEDS: NS 0.9% IV ONE (10:44)
[2025-05-19] MEDS: [UNRECOGNIZED DRUG - OTHER] IV ONE (10:44)
[2025-05-19 10:54] LABS: INR 1.4
[2025-05-19 11:07] LABS: ALT/SGPT 18.0 U/L (7.0-40); AST/SGOT 30.0 U/L (<34); CALCIUM LEVEL 9.0 MG/DL (8.5-10.1); CARBON DIOXIDE LEVEL 24.0 MMOL/L (20-31); CHLORIDE LEVEL 95.0 MMOL/L (98-107); CREATININE FOR GFR 2.02 MG/DL (0.70-1.30); GLOMERULAR FILTRATION RATE 38.0 (>56); POTASSIUM SERUM 3.8 MMOL/L (3.5-5.1); SODIUM LEVEL 136.0 MMOL/L (136-145)
[2025-05-19 12:12] LABS: MAGNESIUM LEVEL 2.0 MG/DL (1.8-2.4)
[2025-05-19] MEDS ORDERED: ELIQ5TAB PO (12:30)
[2025-05-19] MEDS ORDERED: FLUT1BLS6 INH (12:31)
[2025-05-19] MEDS ORDERED: ALBU8.5H INH (12:31)
[2025-05-19] MEDS ORDERED: OMEP40CA5 PO (12:32)
[2025-05-19] MEDS ORDERED: HOME MED LIST COMPLETE! XX SCH (12:35)
[2025-05-19] MEDS ORDERED: NICOTINE POLACRILEX 2 MG GUM PO PRN (12:55)
[2025-05-19] MEDS: NS (Normal Saline) 0.9% 1,000 ML IV SCH (13:10)
[2025-05-19 14:53] LABS: APPEARANCE, URINE CLEAR (CLEAR); BACTERIA, URINE AUTO 1+ (NEGATIVE); BILIRUBIN, URINE AUTO NEGATIVE (NEGATIVE); BLOOD, URINE BLOOD 2+ (NEGATIVE); GLUCOSE, URINE (UA) AUTO 1+ mg/dL (NEGATIVE); KETONE, URINE AUTO TRACE mg/dL (NEGATIVE); LEUKOCYTE ESTERASE, URINE AUTO TRACE (NEGATIVE); NITRITE, URINE AUTO NEGATIVE (NEGATIVE); PROTEIN, URINE AUTO 1+ mg/dL (NEGATIVE); RBC, URINE AUTO 14 /HPF (0-3); SPECIFIC GRAVITY URINE AUTO 1.011 (1.002-1.035); SQUAMOUS EPITHELIAL CELL UR AU 0 /HPF (0-6); UROBILINOGEN, URINE AUTO 0.2 mg/dL (0.0-2.0); WBC, URINE AUTO 1 /HPF (0-3)
[2025-05-19] MEDS: GABAPENTIN 300 MG CAP PO SCH (16:00)
[2025-05-19 16:10] VITALS: BP 135/81; O2SAT 95
[2025-05-19 20:00] VITALS: BP 141/86; TEMP 97.2; O2SAT 94
[2025-05-19] MEDS: ADVAIR HFA 230/21 MCG INHALER INH SCH (20:00)
[2025-05-19] MEDS: APIXABAN 2.5 MG TAB PO SCH (20:19)
[2025-05-20] MEDS ORDERED: ONDANSETRON 4MG ORAL DISINTEGRATING TAB PO PRN (03:55)
[2025-05-20] MEDS ORDERED: DEXTROMETHORPHAN 60 MG/10 ML SUSP 90 ML BTL PO PRN (03:55)
[2025-05-20 04:00] VITALS: BP 110/67; TEMP 96.8; O2SAT 98
[2025-05-20 04:39] VITALS: TEMP 97.1
[2025-05-20 06:24] LABS: PLATELET COUNT, AUTOMATED 271 10^3/uL (150-450)
[2025-05-20 06:51] LABS: CALCIUM LEVEL 8.3 MG/DL (8.5-10.1); CARBON DIOXIDE LEVEL 28.0 MMOL/L (20-31); CHLORIDE LEVEL 101.0 MMOL/L (98-107); CREATININE FOR GFR 1.11 MG/DL (0.70-1.30); GLOMERULAR FILTRATION RATE 77.9 (>56); POTASSIUM SERUM 3.5 MMOL/L (3.5-5.1); SODIUM LEVEL 139.0 MMOL/L (136-145)
[2025-05-20] MEDS: LEVALBUTEROL 1.25 MG 0.5ML CONCENTRATE NEB INH SCH (08:25)
[2025-05-20] MEDS: OMEPRAZOLE 20MG CAP PO SCH (08:52)
[2025-05-20] MEDS: DEXTROSE 50% 50 ML SYRINGE IV STA (08:52)
[2025-05-20] MEDS: cefTRIAXone SOD 1 GM in DEXTROSE 5% (D5W) ADV/MINI-BAG 50 ML IV SCH (08:53)
[2025-05-20] MEDS: AZITHROMYCIN INJ 500 MG, VIAL MATE ADAPTER 1 EACH in NS 250 ML IV SCH (08:53)
[2025-05-20] MEDS: ATORVASTATIN 20 MG TAB PO SCH (08:53)
[2025-05-20] MEDS ORDERED: AZITHROMYCIN INJ 500 MG, VIAL MATE ADAPTER 1 EACH in NS 250 ML IV SCH (09:00)
[2025-05-20] MEDS: D5W/0.9% SODIUM CHLORIDE 1,000 ML IV SCH (09:12)
[2025-05-20 12:20] VITALS: BP 109/69; TEMP 98.6; O2SAT 94
[2025-05-20] MEDS: POTASSIUM CHLORIDE 10MEQ SR TABLET PO ONE (12:21)
[2025-05-20 19:40] VITALS: BP 94/76; TEMP 98.6; O2SAT 96
[2025-05-21 03:02] VITALS: BP 118/74; TEMP 98.2; O2SAT 96
[2025-05-21 06:06] LABS: PLATELET COUNT, AUTOMATED 230 10^3/uL (150-450)
[2025-05-21 06:36] LABS: IRON (FE) 23 UG/DL (65-175); PERCENT SATURATION 13.4 % (19.7-50.0)
[2025-05-21 06:44] LABS: CALCIUM LEVEL 7.7 MG/DL (8.5-10.1); CARBON DIOXIDE LEVEL 25 MMOL/L (20-31); CHLORIDE LEVEL 105 MMOL/L (98-107); CREATININE FOR GFR 0.73 MG/DL (0.70-1.30); GLOMERULAR FILTRATION RATE > 90.0 (>56); MAGNESIUM LEVEL 1.4 MG/DL (1.8-2.4); POTASSIUM SERUM 4.3 MMOL/L (3.5-5.1); SODIUM LEVEL 140 MMOL/L (136-145)
[2025-05-21 08:00] VITALS: BP 111/73; TEMP 98.1; O2SAT 98
[2025-05-21] MEDS ORDERED: AZITHROMYCIN 250 MG TABLET PO SCH (09:00)
[2025-05-21] MEDS ORDERED: METH10CO PO (09:23)
[2025-05-21] MEDS: MAG SULF 1GM/100ML (MAG RUN) 1 GM in IV 1 EA IV ONE ×2 (09:35→13:18)
[2025-05-21] MEDS: METHADONE 10 MG TAB PO SCH (10:47)
[2025-05-21] MEDS: AZITHROMYCIN SUSP 200 MG/5 ML 30 ML BOTTLE PO SCH (13:18)
[2025-05-21] MEDS: FERRIC CARBOXYMALTOSE INJ 750 MG, VIAL MATE ADAPTER 1 EACH in NS 100 ML IV ONE (14:33)
[2025-05-21 16:00] VITALS: BP 127/97; TEMP 97.4; O2SAT 97
[2025-05-21] MEDS ORDERED: MAGIC MOUTHWASH 5 ML ORAL SYRINGE SS PRN (17:20)
[2025-05-21 19:53] VITALS: BP 127/62; TEMP 98.2; O2SAT 96
[2025-05-21] MEDS: NYSTATIN 500,000 UNITS/5 ML SUSP UDC SS SCH (19:57)
[2025-05-21] MEDS: ALBUTEROL 90 MCG/ACT 8 GM HFA INHALER INH PRN (23:12)
[2025-05-22 03:45] VITALS: BP 112/78; TEMP 97.8; O2SAT 97
[2025-05-22 06:37] LABS: PLATELET COUNT, AUTOMATED 281 10^3/uL (150-450)
[2025-05-22 07:02] LABS: CALCIUM LEVEL 8.6 MG/DL (8.5-10.1); CARBON DIOXIDE LEVEL 28 MMOL/L (20-31); CHLORIDE LEVEL 101 MMOL/L (98-107); CREATININE FOR GFR 0.74 MG/DL (0.70-1.30); GLOMERULAR FILTRATION RATE > 90.0 (>56); MAGNESIUM LEVEL 1.4 MG/DL (1.8-2.4); POTASSIUM SERUM 4.0 MMOL/L (3.5-5.1); SODIUM LEVEL 141 MMOL/L (136-145)
[2025-05-22 09:24] VITALS: BP 113/69; TEMP 98.6
[2025-05-22] MEDS: ENOXAPARIN 40 MG/0.4 ML SYRINGE (J1650 PER 10MG) SC SCH (09:28)
[2025-05-22] MEDS: MAG SULF 1GM/100ML (MAG RUN) 1 GM in IV 1 EA IV SCH (09:30)
[2025-05-22 19:40] VITALS: BP 108/69; TEMP 96.9; O2SAT 100
[2025-05-22 22:24] VITALS: BP_SYST 106; BP_SYST 111; BP_DIAS 58; BP_DIAS 77; O2SAT 93
[2025-05-23 04:08] VITALS: BP 94/57; TEMP 97.1
[2025-05-23 07:53] VITALS: BP 99/62; TEMP 97.4; O2SAT 99
[2025-05-23 09:16] LABS: PLATELET COUNT, AUTOMATED 251 10^3/uL (150-450)
[2025-05-23 09:39] LABS: CALCIUM LEVEL 8.4 MG/DL (8.5-10.1); CARBON DIOXIDE LEVEL 28 MMOL/L (20-31); CHLORIDE LEVEL 100 MMOL/L (98-107); CREATININE FOR GFR 0.64 MG/DL (0.70-1.30); GLOMERULAR FILTRATION RATE > 90.0 (>56); MAGNESIUM LEVEL 1.4 MG/DL (1.8-2.4); POTASSIUM SERUM 4.2 MMOL/L (3.5-5.1); SODIUM LEVEL 138 MMOL/L (136-145)
[2025-05-23 10:47] LABS: PHOSPHORUS LEVEL 1.8 MG/DL (2.5-4.9)
[2025-05-23] MEDS: MAG SULF 1GM/100ML (MAG RUN) 1 GM in IV 1 EA IV SCH (11:21)
[2025-05-23] MEDS: SODIUM PHOSPHATE INJ 20 MMOL in D5W 250 ML IV ONE (15:54)
[2025-05-23 16:00] VITALS: BP 104/66; TEMP 97.1; O2SAT 98
[2025-05-23 19:42] VITALS: BP 103/72; TEMP 97.6; O2SAT 97
[2025-05-24 03:34] VITALS: BP 102/68; TEMP 96.8; O2SAT 98
[2025-05-24 07:45] LABS: BASO # 0.1 10^3/uL (0.0-0.2); BASO % 0.5 % (0.0-1.0); EOS # 0.2 10^3/uL (0.0-0.5); EOS % 1.5 % (0.0-3.0); LYMPH # 2.3 10^3/uL (1.5-5.0); LYMPH % 20.3 % (24.0-44.0); MONO # 0.8 10^3/uL (0.0-0.8); MONO % 6.5 % (2.0-8.0); NEUTROPHILS # 8.2 10^3/uL (1.5-8.5); NEUTROPHILS % 70.9 % (36.0-66.0); PLATELET COUNT, AUTOMATED 261 10^3/uL (150-450)
[2025-05-24 08:06] LABS: CALCIUM LEVEL 8.2 MG/DL (8.5-10.1); CARBON DIOXIDE LEVEL 29 MMOL/L (20-31); CHLORIDE LEVEL 102 MMOL/L (98-107); CREATININE FOR GFR 0.61 MG/DL (0.70-1.30); GLOMERULAR FILTRATION RATE > 90.0 (>56); MAGNESIUM LEVEL 1.8 MG/DL (1.8-2.4); PHOSPHORUS LEVEL 2.3 MG/DL (2.5-4.9); POTASSIUM SERUM 4.0 MMOL/L (3.5-5.1); SODIUM LEVEL 138 MMOL/L (136-145)
[2025-05-24 14:00] VITALS: BP 100/70; TEMP 98; O2SAT 96
[2025-05-24] MEDS ORDERED: PHENYLephrine 500MCG 5ML (100MCG/ML) SYRINGE As Ordered ONE (18:03)
[2025-05-24] MEDS: OXYMETAZOLINE 0.05% NASAL SPRAY As Ordered ONE (18:15)
[2025-05-24] MEDS ORDERED: dexAMETHasone 4 MG/ML 1 ML VIAL As Ordered ONE (18:18)
[2025-05-24] MEDS ORDERED: ACETAMINOPHEN 1000MG/100ML IV BAG As Ordered ONE (18:18)
[2025-05-24] MEDS ORDERED: ONDANSETRON 4MG 2ML VIAL As Ordered ONE (18:18)
[2025-05-24] MEDS ORDERED: ROCURONIUM BROMIDE 50MG/5ML VIAL As Ordered ONE (18:19)
[2025-05-24] MEDS ORDERED: SUGAMMADEX SODIUM 500 MG/5 ML VIAL As Ordered ONE (18:19)
[2025-05-24] MEDS ORDERED: ONDANSETRON 4MG 2ML VIAL IV PRN (18:30)
[2025-05-24 22:01] VITALS: BP 108/56; TEMP 97.5; O2SAT 96
[2025-05-25] MEDS ORDERED: E-Z-PAQUE 96% w/w SUSP 176 GM BTL As Ordered ONE (05:17)
[2025-05-25 06:00] VITALS: BP 105/59; TEMP 96.7; O2SAT 99
[2025-05-25 08:17] LABS: PLATELET COUNT, AUTOMATED 276 10^3/uL (150-450)
[2025-05-25 08:54] LABS: CALCIUM LEVEL 8.0 MG/DL (8.5-10.1); CARBON DIOXIDE LEVEL 30 MMOL/L (20-31); CHLORIDE LEVEL 100 MMOL/L (98-107); CREATININE FOR GFR 0.62 MG/DL (0.70-1.30); GLOMERULAR FILTRATION RATE > 90.0 (>56); POTASSIUM SERUM 4.7 MMOL/L (3.5-5.1); SODIUM LEVEL 138 MMOL/L (136-145)
[2025-05-25] MEDS ORDERED: VARIBAR NECTAR 40% w/v 240ML SUSP BTL ONE (09:44)
[2025-05-25 12:00] VITALS: BP 136/75; TEMP 97.2; O2SAT 99
[2025-05-25] MEDS ORDERED: NYST-38 SS (12:21)
[2025-05-25] MEDS ORDERED: DOXY-440 PO (12:21)
[2025-05-26] MEDS ORDERED: COMBAER6 INH (22:55)
[2025-05-26] MEDS ORDERED: PRED20TA PO (22:55)
[2025-05-26] MEDS ORDERED: AZIT-12 PO (22:59)
== END 2025-05-25 14:00 | disposition home or self-care (01) | DRG 871 ==
LOC: M ED 09:55 → M ED INP 12:15 → M MS4PR 16:09
PROVIDERS: ADMIT Internal Medicine; ATTEND Student in an Organized Health Care Education/Training Program
PROC: 0CBS8ZX Excision of Larynx, Via Natural or Artificial Opening Endoscopic, Diagnostic (ICD-10-PCS; principal; 2025-05-24 07:30)
DX: A41.9 Sepsis, unspecified organism (principal); J69.0 Pneumonitis due to inhalation of food and vomit; N17.9 Acute kidney failure, unspecified; J44.0 Chronic obstructive pulmonary disease with (acute) lower respiratory infection; E46 Unspecified protein-calorie malnutrition; B37.0 Candidal stomatitis; F17.210 Nicotine dependence, cigarettes, uncomplicated; I73.9 Peripheral vascular disease, unspecified; E78.5 Hyperlipidemia, unspecified; I10 Essential (primary) hypertension; K21.9 Gastro-esophageal reflux disease without esophagitis; R13.10 Dysphagia, unspecified; J38.7 Other diseases of larynx; E16.2 Hypoglycemia, unspecified; D53.9 Nutritional anemia, unspecified; E83.42 Hypomagnesemia; Z79.891 Long term (current) use of opiate analgesic; Z79.01 Long term (current) use of anticoagulants; Z79.899 Other long term (current) drug therapy; Z88.0 Allergy status to penicillin; Z89.512 Acquired absence of left leg below knee; Z88.8 Allergy status to other drugs, medicaments and biological substances

== ENCOUNTER 2025-05-26 18:10 | Emergency (ER) | payer MEDICARE, MEDICAID ==
[~2025-05-26] VITALS: Ht 180.3 cm; Wt 64.5 kg
[~2025-05-26 18:10] MED LIST changes: +ALBU8.5H INH; +DOXY-440 PO; +ELIQ5TAB PO; +FLUT1BLS6 INH; +METH10CO PO; +NYST-38 SS; +OMEP40CA5 PO
[2025-05-26 19:07] LABS: VENOUS BASE EXCESS -1.5 (-2.0-2.0); VENOUS HCO3 25.1 MMOL/L (23.0-27.0); VENOUS O2 SATURATION 47.3 % (60.0-80.0); VENOUS PARTIAL PRESSURE CO2 49.9 mmHg (38.0-50.0); VENOUS PARTIAL PRESSURE O2 25.4 mmHg (30.0-50.0); VENOUS PH 7.319 UNITS (7.330-7.430); VENOUS STANDARD HCO3 22.2 MMOL/L; VENOUS TOTAL CO2 26.6 MMOL/L (24.0-28.0)
[2025-05-26 19:41] LABS: CK-MB VALUE MASS 11.1 NG/ML (<3.6)
[2025-05-26 19:43] LABS: ALT/SGPT 27 U/L (7.0-40); AST/SGOT 27 U/L (<34); CALCIUM LEVEL 8.7 MG/DL (8.5-10.1); CARBON DIOXIDE LEVEL 28 MMOL/L (20-31); CHLORIDE LEVEL 102 MMOL/L (98-107); CREATININE FOR GFR 0.77 MG/DL (0.70-1.30); GLOMERULAR FILTRATION RATE > 90.0 (>56); POTASSIUM SERUM 4.8 MMOL/L (3.5-5.1); SODIUM LEVEL 141 MMOL/L (136-145)
[2025-05-26 19:45] LABS: BASO # 0.1 10^3/uL (0.0-0.2); BASO % 0.5 % (0.0-1.0); EOS # 0.1 10^3/uL (0.0-0.5); EOS % 0.8 % (0.0-3.0); LYMPH # 2.5 10^3/uL (1.5-5.0); LYMPH % 19.0 % (24.0-44.0); MONO # 0.8 10^3/uL (0.0-0.8); MONO % 5.7 % (2.0-8.0); NEUTROPHILS # 9.8 10^3/uL (1.5-8.5); NEUTROPHILS % 73.8 % (36.0-66.0); PLATELET COUNT, AUTOMATED 362 10^3/uL (150-450)
[2025-05-26 19:46] LABS: CPK CREATINE PHOSPHOKINASE 112 U/L (46-171); MB/CK RELATIVE INDEX 9.91 (< OR =4)
[2025-05-26] MEDS: IPRATROPIUM 0.5 MG/ALBUTEROL 2.5 MG INH SOL UD 3 ML NEB ONE ×2 (21:03→21:04)
[2025-05-26] MEDS ORDERED: COMBAER6 INH (22:55)
[2025-05-26] MEDS ORDERED: PRED20TA PO (22:55)
[2025-05-26] MEDS ORDERED: AZIT-12 PO (22:59)
[2025-05-26] MEDS: AZITHROMYCIN INJ 500 MG, VIAL MATE ADAPTER 1 EACH in NS 250 ML IV ONE (23:37)
[2025-05-27 01:08] VITALS: BP 164/80; TEMP 98.2; O2SAT 97
== END 2025-05-27 01:16 | disposition home or self-care (01) ==
LOC: M ED 18:10
DX: J44.1 Chronic obstructive pulmonary disease with (acute) exacerbation (principal); R00.0 Tachycardia, unspecified; I10 Essential (primary) hypertension; K21.9 Gastro-esophageal reflux disease without esophagitis; E78.5 Hyperlipidemia, unspecified; Z88.0 Allergy status to penicillin; Z88.8 Allergy status to other drugs, medicaments and biological substances; Z79.51 Long term (current) use of inhaled steroids; Z79.01 Long term (current) use of anticoagulants; Z79.899 Other long term (current) drug therapy; Z79.52 Long term (current) use of systemic steroids
CPT/HCPCS: 71045; 80048; 80076; 82550; 82553; 82803; 83880; 84484; 85025; 87486; 87581; 87633; 87798; 93005; 93041; 94640; 94760; 96365; 96366; 96375; 99285; J0456; J1100

== ENCOUNTER → 2025-06-13 | Outpatient (CLI) | payer MEDICARE, MEDICAID ==
[~2025-06-13] MED LIST changes: +AZIT-12 PO; +COMBAER6 INH; +FLUC100T3 PO; +OXYC1SOL3 PO; +PRED20TA PO
== END ==
LOC: M ONCR 09:49
PROVIDERS: ATTEND General Practice
DX: C32.1 Malignant neoplasm of supraglottis (principal); R64 Cachexia; Z71.6 Tobacco abuse counseling; F17.218 Nicotine dependence, cigarettes, with other nicotine-induced disorders; Z88.0 Allergy status to penicillin; Z88.8 Allergy status to other drugs, medicaments and biological substances; Z79.01 Long term (current) use of anticoagulants; Z79.891 Long term (current) use of opiate analgesic; Z79.899 Other long term (current) drug therapy
CPT/HCPCS: 31575; 99406; G0463

== ENCOUNTER → 2025-06-14 | Outpatient (CLI) | payer MEDICARE, MEDICAID | LOC: M PLARAD 11:20 | PROVIDERS: ATTEND Physician Assistant Medical | DX: C32.1 Malignant neoplasm of supraglottis (principal) | CPT/HCPCS: 78815; A9552 ==

== ENCOUNTER 2025-06-28 19:06 | Inpatient (IN) | payer MEDICARE, MEDICAID ==
[~2025-06-28] VITALS: Ht 177.8 cm; Wt 59.0 kg
[~2025-06-28 19:06] MED LIST changes: -IBUP-1022 PO; +IBUP600T42 PO
[2025-06-28 22:37] LABS: BASO # 0.0 10^3/uL (0.0-0.2); BASO % 0.3 % (0.0-1.0); EOS # 0.1 10^3/uL (0.0-0.5); EOS % 0.7 % (0.0-3.0); LYMPH # 2.8 10^3/uL (1.5-5.0); LYMPH % 20.9 % (24.0-44.0); MONO # 0.9 10^3/uL (0.0-0.8); MONO % 6.8 % (2.0-8.0); NEUTROPHILS # 9.7 10^3/uL (1.5-8.5); NEUTROPHILS % 71.1 % (36.0-66.0); PLATELET COUNT, AUTOMATED 301 10^3/uL (150-450)
[2025-06-28 22:51] LABS: CK-MB VALUE MASS 9.2 NG/ML (<3.6)
[2025-06-28 22:53] LABS: ALT/SGPT 39 U/L (7.0-40); AST/SGOT 40 U/L (<34); CALCIUM LEVEL 8.3 MG/DL (8.5-10.1); CARBON DIOXIDE LEVEL 30 MMOL/L (20-31); CHLORIDE LEVEL 104 MMOL/L (98-107); CREATININE FOR GFR 0.77 MG/DL (0.70-1.30); GLOMERULAR FILTRATION RATE > 90.0 (>56); POTASSIUM SERUM 4.4 MMOL/L (3.5-5.1); SODIUM LEVEL 141 MMOL/L (136-145)
[2025-06-28 22:58] LABS: CPK CREATINE PHOSPHOKINASE 183 U/L (46-171); MB/CK RELATIVE INDEX 5.02 (< OR =4)
[2025-06-29] MEDS: NS (Normal Saline) 0.9% 1,000 ML IV SCH (04:50)
[2025-06-29] MEDS ORDERED: ACETAMINOPHEN 325 MG TAB PO PRN (09:25)
[2025-06-29] MEDS ORDERED: ONDA-84 PO (09:40)
[2025-06-29] MEDS ORDERED: MIRT1TAB PO (09:40)
[2025-06-29] MEDS ORDERED: OXYC1SOL3 PO (09:40)
[2025-06-29] MEDS ORDERED: COMBAER6 INH (09:40)
[2025-06-29] MEDS ORDERED: LACT10SO94 PO (09:40)
[2025-06-29] MEDS ORDERED: HOME MED LIST COMPLETE! XX SCH (09:45)
[2025-06-29] MEDS: PANTOPRAZOLE 40MG VIAL IV SCH (10:29)
[2025-06-29] MEDS: D5W/0.45% SODIUM CHLORIDE 1,000 ML IV SCH (10:30)
[2025-06-29 11:26] LABS: LDH LACTATE DEHYDROGENASE 241.0 U/L (120-246)
[2025-06-29 11:27] LABS: C REACTIVE PROTEIN QUANTITATIV 4.1 MG/DL (<1.0)
[2025-06-29 12:15] VITALS: BP 103/51; TEMP 97.5; O2SAT 97
[2025-06-29] MEDS ORDERED: IPRATROPIUM 0.5 MG/ALBUTEROL 2.5 MG INH SOL UD 3 ML NEB PRN (14:55)
[2025-06-29] MEDS: METHADONE 10 MG TAB PO SCH (17:30)
[2025-06-29] MEDS: GABAPENTIN 300 MG CAP PO SCH (17:32)
[2025-06-29 18:18] LABS: BASO # 0.0 10^3/uL (0.0-0.2); BASO % 0.4 % (0.0-1.0); EOS # 0.2 10^3/uL (0.0-0.5); EOS % 1.7 % (0.0-3.0); LYMPH # 2.2 10^3/uL (1.5-5.0); LYMPH % 24.3 % (24.0-44.0); MONO # 0.6 10^3/uL (0.0-0.8); MONO % 6.4 % (2.0-8.0); NEUTROPHILS # 5.9 10^3/uL (1.5-8.5); NEUTROPHILS % 66.8 % (36.0-66.0); PLATELET COUNT, AUTOMATED 246 10^3/uL (150-450)
[2025-06-29 18:39] LABS: CALCIUM LEVEL 7.6 MG/DL (8.5-10.1); CARBON DIOXIDE LEVEL 27 MMOL/L (20-31); CHLORIDE LEVEL 104 MMOL/L (98-107); CREATININE FOR GFR 0.57 MG/DL (0.70-1.30); GLOMERULAR FILTRATION RATE > 90.0 (>56); POTASSIUM SERUM 4.2 MMOL/L (3.5-5.1); SODIUM LEVEL 139 MMOL/L (136-145)
[2025-06-29 19:33] LABS: MAGNESIUM LEVEL 1.5 MG/DL (1.8-2.4)
[2025-06-29] MEDS: ADVAIR HFA 230/21 MCG INHALER INH SCH (20:15)
[2025-06-29] MEDS: MIRTAZAPINE 7.5 MG PER 1/2 TABLET PO SCH (20:18)
[2025-06-29] MEDS: MAG SULF 1GM/100ML (MAG RUN) 1 GM in IV 1 EA IV SCH (20:18)
[2025-06-29] MEDS: ENOXAPARIN 40 MG/0.4 ML SYRINGE (J1650 PER 10MG) SC SCH (20:19)
[2025-06-29 20:30] VITALS: BP 119/67; TEMP 92.2; TEMP 95.2; O2SAT 96
[2025-06-30] VITALS (7 sets, daily range): BP systolic 92–110; BP diastolic 48–67; TEMP 97.5; O2SAT 89–98
[2025-06-30 06:37] LABS: BASO # 0.0 10^3/uL (0.0-0.2); BASO % 0.2 % (0.0-1.0); EOS # 0.1 10^3/uL (0.0-0.5); EOS % 1.2 % (0.0-3.0); LYMPH # 1.8 10^3/uL (1.5-5.0); LYMPH % 21.7 % (24.0-44.0); MONO # 0.5 10^3/uL (0.0-0.8); MONO % 5.5 % (2.0-8.0); NEUTROPHILS # 5.8 10^3/uL (1.5-8.5); NEUTROPHILS % 71.2 % (36.0-66.0); PLATELET COUNT, AUTOMATED 264 10^3/uL (150-450)
[2025-06-30 07:08] LABS: CALCIUM LEVEL 7.5 MG/DL (8.5-10.1); CARBON DIOXIDE LEVEL 28 MMOL/L (20-31); CHLORIDE LEVEL 105 MMOL/L (98-107); CREATININE FOR GFR 0.58 MG/DL (0.70-1.30); GLOMERULAR FILTRATION RATE > 90.0 (>56); MAGNESIUM LEVEL 1.9 MG/DL (1.8-2.4); POTASSIUM SERUM 3.7 MMOL/L (3.5-5.1); SODIUM LEVEL 141 MMOL/L (136-145)
[2025-06-30] MEDS: ATORVASTATIN 20 MG TAB PO SCH (08:18)
[2025-06-30] MEDS: ONDANSETRON 4MG 2ML VIAL IV PRN (09:02)
[2025-06-30] MEDS: TAMSULOSIN 0.4 MG CAP PO SCH (20:55)
[2025-06-30] MEDS: READI-CAT 2 NG ONE (22:00)
[2025-07-01] VITALS (14 sets, daily range): BP systolic 85–106; BP diastolic 46–66; TEMP 96.8–98.1; O2SAT 17–98
[2025-07-01 06:15] LABS: BASO # 0.0 10^3/uL (0.0-0.2); BASO % 0.3 % (0.0-1.0); EOS # 0.1 10^3/uL (0.0-0.5); EOS % 0.5 % (0.0-3.0); LYMPH # 1.2 10^3/uL (1.5-5.0); LYMPH % 10.0 % (24.0-44.0); MONO # 0.6 10^3/uL (0.0-0.8); MONO % 4.7 % (2.0-8.0); NEUTROPHILS # 9.9 10^3/uL (1.5-8.5); NEUTROPHILS % 84.2 % (36.0-66.0); PLATELET COUNT, AUTOMATED 215 10^3/uL (150-450)
[2025-07-01 06:27] LABS: INR 1.05
[2025-07-01 06:43] LABS: CALCIUM LEVEL 7.4 MG/DL (8.5-10.1); CARBON DIOXIDE LEVEL 28 MMOL/L (20-31); CHLORIDE LEVEL 109 MMOL/L (98-107); CREATININE FOR GFR 0.56 MG/DL (0.70-1.30); GLOMERULAR FILTRATION RATE > 90.0 (>56); MAGNESIUM LEVEL 1.7 MG/DL (1.8-2.4); POTASSIUM SERUM 4.0 MMOL/L (3.5-5.1); SODIUM LEVEL 144 MMOL/L (136-145)
[2025-07-01] MEDS: MAG SULF 1GM/100ML (MAG RUN) 1 GM in IV 1 EA IV SCH (07:45)
[2025-07-01] MEDS: ceFAZolin SODIUM 2 GM in DEXTROSE 5% (D5W) ADV/MINI-BAG 50 ML IV ONE (11:15)
[2025-07-01] MEDS: NS 300 ML IV ONE (11:50)
[2025-07-01] MEDS ORDERED: KETAMINE HCL 200 MG/20 ML VIAL As Ordered ONE (12:23)
[2025-07-01] MEDS ORDERED: MIDAZOLAM INJ 2 MG/2 ML VIAL As Ordered ONE (12:25)
[2025-07-01] MEDS ORDERED: PHENYLephrine 500MCG 5ML (100MCG/ML) SYRINGE As Ordered ONE (12:57)
[2025-07-01] MEDS: ISOVUE-300 61% 100 ML VIAL IV SCH (13:12)
[2025-07-01] MEDS: LIDOCAINE 1% MDV 20 ML VIAL SC SCH (13:12)
[2025-07-01] MEDS: GLUCAGON INJ 1 MG VIAL IV SCH (13:13)
[2025-07-01] MEDS: SODIUM CHLORIDE 0.9% 1000 ML XX SCH (13:13)
[2025-07-01] MEDS: LIDOCAINE 2% JELLY 6 ML SYRINGE TOP SCH (13:14)
[2025-07-01] MEDS ORDERED: MORPHINE 2 MG/ML 1 ML VIAL IV PRN (13:15)
[2025-07-01] MEDS: LR 1,000 ML IV SCH (17:34)
[2025-07-02 06:15] VITALS: BP 94/55; TEMP 97.7; O2SAT 94
[2025-07-02 06:46] LABS: BASO # 0.1 10^3/uL (0.0-0.2); BASO % 0.5 % (0.0-1.0); EOS # 0.1 10^3/uL (0.0-0.5); EOS % 0.8 % (0.0-3.0); LYMPH # 1.5 10^3/uL (1.5-5.0); LYMPH % 14.0 % (24.0-44.0); MONO # 0.5 10^3/uL (0.0-0.8); MONO % 4.8 % (2.0-8.0); NEUTROPHILS # 8.6 10^3/uL (1.5-8.5); NEUTROPHILS % 79.7 % (36.0-66.0); PLATELET COUNT, AUTOMATED 203 10^3/uL (150-450)
[2025-07-02 07:11] LABS: ALT/SGPT 18 U/L (7.0-40); AST/SGOT 18 U/L (<34); C REACTIVE PROTEIN QUANTITATIV 6.36 MG/DL (<1.0); CALCIUM LEVEL 7.8 MG/DL (8.5-10.1); CARBON DIOXIDE LEVEL 29 MMOL/L (20-31); CHLORIDE LEVEL 105 MMOL/L (98-107); CREATININE FOR GFR 0.52 MG/DL (0.70-1.30); GLOMERULAR FILTRATION RATE > 90.0 (>56); MAGNESIUM LEVEL 1.6 MG/DL (1.8-2.4); POTASSIUM SERUM 4.2 MMOL/L (3.5-5.1); SODIUM LEVEL 142 MMOL/L (136-145)
[2025-07-02 07:41] LABS: HIV 1&2 SCREEN NEGATIVE (NEGATIVE)
[2025-07-02] MEDS: MAG SULF 1GM/100ML (MAG RUN) 1 GM in IV 1 EA IV SCH (10:57)
[2025-07-02 11:51] VITALS: BP 89/53; TEMP 97.7; O2SAT 94
[2025-07-02 20:16] VITALS: BP 105/72; TEMP 97.3; O2SAT 96
[2025-07-03 04:52] VITALS: BP 87/58; TEMP 97.3; O2SAT 95
[2025-07-03] MEDS ORDERED: NALOXONE INJ 0.4 MG/1 ML VIAL IV PRN (05:15)
[2025-07-03] MEDS: MORPHINE 2 MG/ML 1 ML VIAL IV ONE (06:05)
[2025-07-03 09:26] LABS: BASO # 0.0 10^3/uL (0.0-0.2); BASO % 0.3 % (0.0-1.0); EOS # 0.0 10^3/uL (0.0-0.5); EOS % 0.3 % (0.0-3.0); LYMPH # 1.3 10^3/uL (1.5-5.0); LYMPH % 12.1 % (24.0-44.0); MONO # 0.8 10^3/uL (0.0-0.8); MONO % 7.8 % (2.0-8.0); NEUTROPHILS # 8.2 10^3/uL (1.5-8.5); NEUTROPHILS % 79.2 % (36.0-66.0); PLATELET COUNT, AUTOMATED 189 10^3/uL (150-450)
[2025-07-03 09:45] LABS: CALCIUM LEVEL 7.0 MG/DL (8.5-10.1); CARBON DIOXIDE LEVEL 30 MMOL/L (20-31); CHLORIDE LEVEL 103 MMOL/L (98-107); CREATININE FOR GFR 0.51 MG/DL (0.70-1.30); GLOMERULAR FILTRATION RATE > 90.0 (>56); MAGNESIUM LEVEL 1.6 MG/DL (1.8-2.4); POTASSIUM SERUM 3.7 MMOL/L (3.5-5.1); SODIUM LEVEL 141 MMOL/L (136-145)
[2025-07-03 09:46] LABS: ALT/SGPT 17 U/L (7.0-40); AST/SGOT 15 U/L (<34); C REACTIVE PROTEIN QUANTITATIV 9.47 MG/DL (<1.0); CALCIUM LEVEL 7.3 MG/DL (8.5-10.1); CARBON DIOXIDE LEVEL 30 MMOL/L (20-31); CHLORIDE LEVEL 102 MMOL/L (98-107); CREATININE FOR GFR 0.50 MG/DL (0.70-1.30); GLOMERULAR FILTRATION RATE > 90.0 (>56); POTASSIUM SERUM 3.6 MMOL/L (3.5-5.1); SODIUM LEVEL 138 MMOL/L (136-145)
[2025-07-03 12:04] VITALS: BP 88/58; TEMP 97.3; O2SAT 94
[2025-07-03] MEDS: MORPHINE 2 MG/ML 1 ML VIAL IV PRN (18:42)
[2025-07-03] MEDS: GASTROGRAFIN SOLUTION 30 ML GT ONE (18:55)
[2025-07-03 20:00] VITALS: BP 96/60; TEMP 97.9; O2SAT 98
[2025-07-03] MEDS: MAG SULF 1GM/100ML (MAG RUN) 1 GM in IV 1 EA IV ONE (20:14)
[2025-07-04 03:50] VITALS: BP 95/58; TEMP 97.5; O2SAT 95
[2025-07-04 06:05] LABS: BASO # 0.0 10^3/uL (0.0-0.2); BASO % 0.4 % (0.0-1.0); EOS # 0.1 10^3/uL (0.0-0.5); EOS % 0.7 % (0.0-3.0); LYMPH # 1.5 10^3/uL (1.5-5.0); LYMPH % 17.6 % (24.0-44.0); MONO # 0.8 10^3/uL (0.0-0.8); MONO % 9.1 % (2.0-8.0); NEUTROPHILS # 6.0 10^3/uL (1.5-8.5); NEUTROPHILS % 72.0 % (36.0-66.0); PLATELET COUNT, AUTOMATED 195 10^3/uL (150-450)
[2025-07-04 06:36] LABS: CALCIUM LEVEL 6.9 MG/DL (8.5-10.1); CARBON DIOXIDE LEVEL 30 MMOL/L (20-31); CHLORIDE LEVEL 102 MMOL/L (98-107); CREATININE FOR GFR 0.48 MG/DL (0.70-1.30); GLOMERULAR FILTRATION RATE > 90.0 (>56); MAGNESIUM LEVEL 1.5 MG/DL (1.8-2.4); PHOSPHORUS LEVEL 3.1 MG/DL (2.5-4.9); POTASSIUM SERUM 4.2 MMOL/L (3.5-5.1); SODIUM LEVEL 140 MMOL/L (136-145)
[2025-07-04 12:00] VITALS: BP 97/60; TEMP 97.5; O2SAT 97
[2025-07-04 19:56] VITALS: BP 97/59; TEMP 97.7; O2SAT 97
[2025-07-05 03:28] VITALS: BP 95/58; TEMP 97.7; O2SAT 96
[2025-07-05 06:42] LABS: PLATELET COUNT, AUTOMATED 191 10^3/uL (150-450)
[2025-07-05 07:06] LABS: C REACTIVE PROTEIN QUANTITATIV 8.64 MG/DL (<1.0); CALCIUM LEVEL 7.6 MG/DL (8.5-10.1); CARBON DIOXIDE LEVEL 29 MMOL/L (20-31); CHLORIDE LEVEL 105 MMOL/L (98-107); CREATININE FOR GFR 0.51 MG/DL (0.70-1.30); GLOMERULAR FILTRATION RATE > 90.0 (>56); MAGNESIUM LEVEL 1.4 MG/DL (1.8-2.4); PHOSPHORUS LEVEL 3.6 MG/DL (2.5-4.9); POTASSIUM SERUM 4.2 MMOL/L (3.5-5.1); SODIUM LEVEL 141 MMOL/L (136-145)
[2025-07-05 10:34] VITALS: BP 93/54
[2025-07-05] MEDS: MAG SULF 1GM/100ML (MAG RUN) 1 GM in IV 1 EA IV ONE (11:47)
[2025-07-05] MEDS: LACTULOSE 20 GM/30 ML SYRUP UDC PO PRN (14:35)
[2025-07-05 18:37] VITALS: BP 98/60
[2025-07-05 20:00] VITALS: BP 96/59; TEMP 97.5; O2SAT 98
[2025-07-06 04:00] VITALS: BP 108/72; TEMP 98.7
[2025-07-06 06:30] LABS: BASO # 0.0 10^3/uL (0.0-0.2); BASO % 0.4 % (0.0-1.0); EOS # 0.2 10^3/uL (0.0-0.5); EOS % 3.5 % (0.0-3.0); LYMPH # 1.8 10^3/uL (1.5-5.0); LYMPH % 26.7 % (24.0-44.0); MONO # 0.5 10^3/uL (0.0-0.8); MONO % 7.9 % (2.0-8.0); NEUTROPHILS # 4.2 10^3/uL (1.5-8.5); NEUTROPHILS % 61.2 % (36.0-66.0); PLATELET COUNT, AUTOMATED 218 10^3/uL (150-450)
[2025-07-06 06:55] LABS: CALCIUM LEVEL 7.6 MG/DL (8.5-10.1); CARBON DIOXIDE LEVEL 30 MMOL/L (20-31); CHLORIDE LEVEL 103 MMOL/L (98-107); CREATININE FOR GFR 0.51 MG/DL (0.70-1.30); GLOMERULAR FILTRATION RATE > 90.0 (>56); MAGNESIUM LEVEL 1.5 MG/DL (1.8-2.4); POTASSIUM SERUM 4.0 MMOL/L (3.5-5.1); SODIUM LEVEL 141 MMOL/L (136-145)
[2025-07-06 11:43] VITALS: BP 105/62; TEMP 97.7; O2SAT 93
[2025-07-06 20:00] VITALS: BP 103/63; TEMP 97.7; O2SAT 94
[2025-07-06] MEDS: MIRALAX *UNIT DOSE* 17 GM PACKET PO PRN (20:46)
[2025-07-06] MEDS ORDERED: BISACODYL 10 MG SUPP PR PRN (21:45)
[2025-07-06] MEDS: FLEET ENEMA PR ONE (22:00)
[2025-07-07] VITALS (7 sets, daily range): BP systolic 86–137; BP diastolic 48–87; TEMP 97.3–97.7; O2SAT 95–99
[2025-07-07] MEDS: NS 500 ML IV ONE (06:44)
[2025-07-07] MEDS: LACTATED RINGER'S 1000 ML IV ONE (07:32)
[2025-07-07] MEDS: MAG SULF 1GM/100ML (MAG RUN) 1 GM in IV 1 EA IV ONE (08:32)
[2025-07-07] MEDS ORDERED: SENN8.6T28 PO (16:20)
[2025-07-07] MEDS ORDERED: COLA100C5 PO (16:21)
[2025-07-11] MEDS ORDERED: DIFL40SU PO (15:44)
== END 2025-07-07 17:17 | disposition home or self-care (01) | DRG 391 ==
LOC: M ED 19:06 → M ED INP 06-29 09:24 → M MSPAV 06-29 12:08
PROVIDERS: ADMIT Internal Medicine; ATTEND Student in an Organized Health Care Education/Training Program
PROC: 0DH67UZ Insertion of Feeding Device into Stomach, Via Natural or Artificial Opening (ICD-10-PCS; principal; 2025-07-01 13:00)
DX: R13.10 Dysphagia, unspecified (principal); E43 Unspecified severe protein-calorie malnutrition; R64 Cachexia; S22.41XA Multiple fractures of ribs, right side, initial encounter for closed fracture; J90 Pleural effusion, not elsewhere classified; F11.20 Opioid dependence, uncomplicated; I10 Essential (primary) hypertension; I73.9 Peripheral vascular disease, unspecified; E78.5 Hyperlipidemia, unspecified; C13.1 Malignant neoplasm of aryepiglottic fold, hypopharyngeal aspect; Z89.512 Acquired absence of left leg below knee; K58.9 Irritable bowel syndrome, unspecified; F17.210 Nicotine dependence, cigarettes, uncomplicated; E83.42 Hypomagnesemia; T87.89 Other complications of amputation stump; L89.899 Pressure ulcer of other site, unspecified stage; W05.0XXA Fall from non-moving wheelchair, initial encounter; Y92.018 Other place in single-family (private) house as the place of occurrence of the external cause; Y93.89 Activity, other specified; Y99.8 Other external cause status; D64.9 Anemia, unspecified; K59.00 Constipation, unspecified; R41.82 Altered mental status, unspecified; R53.1 Weakness; R26.89 Other abnormalities of gait and mobility; R29.6 Repeated falls; J44.9 Chronic obstructive pulmonary disease, unspecified; I25.10 Atherosclerotic heart disease of native coronary artery without angina pectoris; K21.9 Gastro-esophageal reflux disease without esophagitis; R33.9 Retention of urine, unspecified; N40.1 Benign prostatic hyperplasia with lower urinary tract symptoms; Z98.62 Peripheral vascular angioplasty status; Z88.0 Allergy status to penicillin; Z88.8 Allergy status to other drugs, medicaments and biological substances; Z79.01 Long term (current) use of anticoagulants; Z79.52 Long term (current) use of systemic steroids; Z79.899 Other long term (current) drug therapy

== ENCOUNTER 2025-07-15 15:18 | Outpatient (RCR) | payer MEDICARE, MEDICAID ==
[2025-06-17 14:50] LABS: BASO # 0.1 10^3/uL (0.0-0.2); BASO % 0.4 % (0.0-1.0); EOS # 0.1 10^3/uL (0.0-0.5); EOS % 0.6 % (0.0-3.0); LYMPH # 2.2 10^3/uL (1.5-5.0); LYMPH % 15.4 % (24.0-44.0); MONO # 0.9 10^3/uL (0.0-0.8); MONO % 6.0 % (2.0-8.0); NEUTROPHILS # 11.0 10^3/uL (1.5-8.5); NEUTROPHILS % 77.3 % (36.0-66.0); PLATELET COUNT, AUTOMATED 210 10^3/uL (150-450)
[2025-06-17 15:09] LABS: ALT/SGPT 39 U/L (7.0-40); AST/SGOT 47 U/L (<34); CALCIUM LEVEL 8.5 MG/DL (8.5-10.1); CARBON DIOXIDE LEVEL 27 MMOL/L (20-31); CHLORIDE LEVEL 105 MMOL/L (98-107); CREATININE FOR GFR 0.82 MG/DL (0.70-1.30); GLOMERULAR FILTRATION RATE > 90.0 (>56); POTASSIUM SERUM 3.9 MMOL/L (3.5-5.1); SODIUM LEVEL 142 MMOL/L (136-145)
[~2025-07-15 15:18] MED LIST changes: +COLA100C5 PO; +DIFL40SU PO; +LACT10SO94 PO; +MIRT1TAB PO; +ONDA-84 PO; +SENN8.6T28 PO
== END 2025-07-17 ==
LOC: M ONCR 15:18
PROVIDERS: ATTEND General Practice
DX: Z51.0 Encounter for antineoplastic radiation therapy (principal); C32.1 Malignant neoplasm of supraglottis

== ENCOUNTER 2025-08-12 15:20 | Outpatient (RCR) | payer MEDICARE, MEDICAID ==
[2025-08-17] MEDS ORDERED: GUAI100L6 PO (16:24)
[2025-08-17] MEDS ORDERED: DIPH12.529 PO (16:27)
== END 2025-08-16 ==
LOC: M ONCR 15:20
PROVIDERS: ATTEND General Practice
DX: Z51.0 Encounter for antineoplastic radiation therapy (principal); C32.1 Malignant neoplasm of supraglottis

== ENCOUNTER 2025-08-29 15:25 | Outpatient (RCR) | payer MEDICARE, MEDICAID ==
[~2025-08-29 15:25] MED LIST changes: +DIPH12.529 PO; +GUAI100L6 PO
[2025-09-20] MEDS ORDERED: OXYC1SOL3 PO ×2 (15:07→15:09)
== END 2025-09-16 ==
LOC: M ONCR 15:25
PROVIDERS: ATTEND General Practice
DX: Z51.0 Encounter for antineoplastic radiation therapy (principal); C32.1 Malignant neoplasm of supraglottis

== ENCOUNTER → 2025-09-13 | Outpatient (CLI) | payer MEDICARE, MEDICAID | LOC: M ONCR 15:17 | PROVIDERS: ATTEND General Practice | DX: C32.1 Malignant neoplasm of supraglottis (principal); Z92.3 Personal history of irradiation ==

== ENCOUNTER → 2025-09-30 | Outpatient (CLI) | payer MEDICARE, MEDICAID | LOC: M ONCR 13:23 | PROVIDERS: ATTEND Radiology Radiation Oncology | DX: C32.1 Malignant neoplasm of supraglottis (principal); Z89.512 Acquired absence of left leg below knee; Z86.79 Personal history of other diseases of the circulatory system; Z93.1 Gastrostomy status; F17.210 Nicotine dependence, cigarettes, uncomplicated; Z88.0 Allergy status to penicillin; Z88.1 Allergy status to other antibiotic agents; Z88.8 Allergy status to other drugs, medicaments and biological substances; Z79.01 Long term (current) use of anticoagulants; Z79.51 Long term (current) use of inhaled steroids; Z79.899 Other long term (current) drug therapy ==

== ENCOUNTER 2025-10-24 16:54 | Observation (INO) | payer MEDICARE, MEDICAID ==
[~2025-10-24] VITALS: Ht 182.9 cm; Wt 51.7 kg
[2025-10-24 22:03] LABS: BASO # 0.0 10^3/uL (0.0-0.2); BASO % 0.3 % (0.0-1.0); EOS # 0.0 10^3/uL (0.0-0.5); EOS % 0.2 % (0.0-3.0); LYMPH # 1.0 10^3/uL (1.5-5.0); LYMPH % 8.7 % (24.0-44.0); MONO # 0.9 10^3/uL (0.0-0.8); MONO % 7.1 % (2.0-8.0); NEUTROPHILS # 10.0 10^3/uL (1.5-8.5); NEUTROPHILS % 83.4 % (36.0-66.0); PLATELET COUNT, AUTOMATED 207 10^3/uL (150-450)
[2025-10-24 22:32] LABS: ALT/SGPT 48 U/L (7.0-40); AST/SGOT 109 U/L (<34); CALCIUM LEVEL 8.4 MG/DL (8.5-10.1); CARBON DIOXIDE LEVEL 29 MMOL/L (20-31); CHLORIDE LEVEL 100 MMOL/L (98-107); CREATININE FOR GFR 0.54 MG/DL (0.70-1.30); GLOMERULAR FILTRATION RATE > 90.0 (>56); POTASSIUM SERUM 3.5 MMOL/L (3.5-5.1); SODIUM LEVEL 135 MMOL/L (136-145)
[2025-10-24] MEDS ORDERED: NYST-38 PO (23:40)
[2025-10-24] MEDS ORDERED: DOCU100C17 PO (23:41)
[2025-10-24] MEDS ORDERED: HOME MED LIST COMPLETE! XX SCH (23:45)
[2025-10-25] MEDS ORDERED: ALBUTEROL 90 MCG/ACT 8 GM HFA INHALER INH PRN
[2025-10-25] MEDS ORDERED: ONDANSETRON 4MG TAB PO PRN
[2025-10-25] MEDS ORDERED: DOCUSATE SODIUM 100 MG CAPSULE PO PRN
[2025-10-25] MEDS ORDERED: ACETAMINOPHEN 325 MG TAB PO PRN
[2025-10-25] MEDS: MIRTAZAPINE 7.5 MG PER 1/2 TABLET PO SCH (00:55)
[2025-10-25] MEDS: GABAPENTIN 300 MG CAP PO SCH (00:55)
[2025-10-25] MEDS: SENNA 8.6 MG TAB PO SCH (00:56)
[2025-10-25] MEDS: ATORVASTATIN 20 MG TAB PO SCH (08:33)
[2025-10-25] MEDS: COMBIVENT RESPIMAT 100-20 MCG INHALER 4 GM INH SCH (08:36)
[2025-10-25 09:33] VITALS: BP 116/63; TEMP 98.4; O2SAT 96
[2025-10-25] MEDS: LIDOCAINE 1% MDV 20 ML VIAL SC SCH (09:50)
[2025-10-25] MEDS: NS (Normal Saline) 0.9% 1,000 ML IV SCH (09:50)
[2025-10-25] MEDS: GLUCAGON INJ 1 MG VIAL IV SCH (09:50)
[2025-10-25] MEDS: ceFAZolin SODIUM 2 GM in DEXTROSE 5% (D5W) ADV/MINI-BAG 50 ML IV ONE (09:50)
[2025-10-25] MEDS: ISOVUE-300 61% 100 ML VIAL IV SCH (09:50)
[2025-10-25] MEDS: SODIUM CHLORIDE 0.9% 1000 ML XX SCH (09:50)
[2025-10-25] MEDS: LIDOCAINE 2% JELLY 6 ML SYRINGE TOP SCH (09:50)
[2025-10-25] MEDS ORDERED: MIDAZOLAM INJ 2 MG/2 ML VIAL IV PRN (09:50)
[2025-10-25 10:16] LABS: PLATELET COUNT, AUTOMATED 197 10^3/uL (150-450)
[2025-10-25 11:05] LABS: CALCIUM LEVEL 8.4 MG/DL (8.5-10.1); CARBON DIOXIDE LEVEL 30 MMOL/L (20-31); CHLORIDE LEVEL 99 MMOL/L (98-107); CREATININE FOR GFR 0.48 MG/DL (0.70-1.30); GLOMERULAR FILTRATION RATE > 90.0 (>56); POTASSIUM SERUM 3.6 MMOL/L (3.5-5.1); SODIUM LEVEL 135 MMOL/L (136-145)
[2025-10-25 12:45] VITALS: BP 121/67; TEMP 98.7; O2SAT 96
== END 2025-10-25 15:43 | disposition home or self-care (01) ==
LOC: M ED 16:54 → M ED INP 16:55 → M MS4PR 10-25 09:33
PROVIDERS: ADMIT Student in an Organized Health Care Education/Training Program; ATTEND Student in an Organized Health Care Education/Training Program
DX: K94.23 Gastrostomy malfunction (principal); Y73.2 Prosthetic and other implants, materials and accessory gastroenterology and urology devices associated with adverse incidents; E43 Unspecified severe protein-calorie malnutrition; Z89.512 Acquired absence of left leg below knee; I73.9 Peripheral vascular disease, unspecified; Z95.828 Presence of other vascular implants and grafts; I10 Essential (primary) hypertension; K58.9 Irritable bowel syndrome, unspecified; E78.5 Hyperlipidemia, unspecified; F17.200 Nicotine dependence, unspecified, uncomplicated; F11.11 Opioid abuse, in remission; Z79.899 Other long term (current) drug therapy; Z79.01 Long term (current) use of anticoagulants; Z88.0 Allergy status to penicillin; Z88.8 Allergy status to other drugs, medicaments and biological substances
CPT/HCPCS: 36415; 49450; 80048; 80053; 85025; 85027; 94640; 99285; C1887; G0378; J0688; Q9967

== ENCOUNTER 2025-11-02 12:56 | Inpatient (IN) | payer MEDICARE, MEDICAID ==
[~2025-11-02] VITALS: Ht 180.3 cm; Wt 55.3 kg
[~2025-11-02 12:56] MED LIST changes: +APIXABAN 5 MG TAB PO SCH; +DOCU100C17 PO; +NYST-38 PO
[2025-11-02] MEDS ORDERED: ISOVUE-370 76% 100 ML VIAL As Ordered ONE (15:04)
[2025-11-02 15:15] LABS: BASO # 0.1 10^3/uL (0.0-0.2); BASO % 0.2 % (0.0-1.0); EOS # 0.0 10^3/uL (0.0-0.5); EOS % 0.0 % (0.0-3.0); LYMPH # 0.9 10^3/uL (1.5-5.0); LYMPH % 3.5 % (24.0-44.0); MONO # 1.3 10^3/uL (0.0-0.8); MONO % 5.3 % (2.0-8.0); NEUTROPHILS # 21.9 10^3/uL (1.5-8.5); NEUTROPHILS % 90.1 % (36.0-66.0); PLATELET COUNT, AUTOMATED 387 10^3/uL (150-450)
[2025-11-02 15:47] LABS: CALCIUM LEVEL 8.3 MG/DL (8.5-10.1); CARBON DIOXIDE LEVEL 28 MMOL/L (20-31); CHLORIDE LEVEL 96 MMOL/L (98-107); CREATININE FOR GFR 0.66 MG/DL (0.70-1.30); GLOMERULAR FILTRATION RATE > 90.0 (>56); POTASSIUM SERUM 3.9 MMOL/L (3.5-5.1); SODIUM LEVEL 134 MMOL/L (136-145)
[2025-11-02] MEDS: IPRATROPIUM 0.5 MG/ALBUTEROL 2.5 MG INH SOL UD 3 ML NEB ONE ×2 (16:10→18:59)
[2025-11-02] MEDS ORDERED: ACETAMINOPHEN 325 MG TAB PO PRN (19:50)
[2025-11-02] MEDS ORDERED: MOM 30 ML SUSPENSION UDC PO PRN (19:50)
[2025-11-02] MEDS ORDERED: IPRATROPIUM 0.5 MG/ALBUTEROL 2.5 MG INH SOL UD 3 ML NEB PRN (19:55)
[2025-11-02] MEDS: AZITHROMYCIN 250 MG TABLET PO SCH (20:08)
[2025-11-02] MEDS: cefTRIAXone SOD 1 GM in DEXTROSE 5% (D5W) ADV/MINI-BAG 50 ML IV SCH (20:08)
[2025-11-02 20:10] LABS: ALT/SGPT 23 U/L (7.0-40); AST/SGOT 29 U/L (<34)
[2025-11-02] MEDS: NS (Normal Saline) 0.9% 1,000 ML IV SCH (23:27)
[2025-11-02] MEDS: NS 500 ML IV ONE (23:50)
[2025-11-02 23:53] LABS: ABG BASE EXCESS 2.3 (-2.0-2.0); ABG HCO3 27.8 MMOL/L (22.0-26.0); ABG O2 SATURATION 92.2 % (95.0-99.0); ABG PARTIAL PRESSURE CO2 46.9 mmHg (35.0-45.0); ABG PARTIAL PRESSURE O2 66.1 mmHg (75.0-100.0); ABG STANDARD HCO3 26.4 MMOL/L. (22.0-26.0); ABG TOTAL CO2 29.2 MMOL/L (22.0-29.0); ABG pH (ARTERIAL) 7.390 UNITS (7.350-7.450)
[2025-11-03 01:10] LABS: APPEARANCE, URINE CLEAR (CLEAR); BACTERIA, URINE AUTO NEGATIVE (NEGATIVE); BILIRUBIN, URINE AUTO NEGATIVE (NEGATIVE); BLOOD, URINE BLOOD NEGATIVE (NEGATIVE); GLUCOSE, URINE (UA) AUTO NEGATIVE (NEGATIVE); KETONE, URINE AUTO TRACE mg/dL (NEGATIVE); LEUKOCYTE ESTERASE, URINE AUTO NEGATIVE (NEGATIVE); NITRITE, URINE AUTO NEGATIVE (NEGATIVE); PROTEIN, URINE AUTO NEGATIVE (NEGATIVE); RBC, URINE AUTO 1 /HPF (0-3); SPECIFIC GRAVITY URINE AUTO 1.033 (1.002-1.035); SQUAMOUS EPITHELIAL CELL UR AU 0 /HPF (0-6); UROBILINOGEN, URINE AUTO 2.0 mg/dL (0.0-2.0); WBC, URINE AUTO 1 /HPF (0-3)
[2025-11-03] MEDS: IPRATROPIUM 0.5 MG/ALBUTEROL 2.5 MG INH SOL UD 3 ML NEB SCH ×2 (01:26→06:06)
[2025-11-03 01:33] LABS: AMPHETAMINES LEVEL URINE NEGATIVE (NEGATIVE); BARBITURATES URINE NEGATIVE (NEGATIVE); BENZODIAZEPINES URINE NEGATIVE (NEGATIVE)
[2025-11-03 01:34] LABS: COCAINE METABOLITE URINE NEGATIVE (NEGATIVE); OPIATES URINE NEGATIVE (NEGATIVE); PHENCYCLIDINE URINE NEGATIVE (NEGATIVE)
[2025-11-03 01:36] LABS: CANNABINOIDS URINE POSITIVE (NEGATIVE); METHADONE URINE POSITIVE (NEGATIVE)
[2025-11-03 03:15] VITALS: BP 134/74; TEMP 98.4; O2SAT 94
[2025-11-03 06:50] LABS: PLATELET COUNT, AUTOMATED 352 10^3/uL (150-450)
[2025-11-03 07:04] LABS: CALCIUM LEVEL 8.1 MG/DL (8.5-10.1); CARBON DIOXIDE LEVEL 28 MMOL/L (20-31); CHLORIDE LEVEL 100 MMOL/L (98-107); CREATININE FOR GFR 0.51 MG/DL (0.70-1.30); GLOMERULAR FILTRATION RATE > 90.0 (>56); POTASSIUM SERUM 4.3 MMOL/L (3.5-5.1); SODIUM LEVEL 134 MMOL/L (136-145)
[2025-11-03] MEDS: SYMBICORT 160/4.5MCG INHALER 6GM INH SCH (08:00)
[2025-11-03] MEDS: predniSONE 20 MG TAB PO SCH (09:12)
[2025-11-03] MEDS ORDERED: SENN-188 PO (09:38)
[2025-11-03] MEDS ORDERED: HOME MED LIST COMPLETE! XX SCH (09:40)
[2025-11-03] MEDS ORDERED: ONDANSETRON 4MG TAB PO PRN (10:05)
[2025-11-03] MEDS ORDERED: LACTULOSE 20 GM/30 ML SYRUP UDC PO PRN (10:05)
[2025-11-03] MEDS ORDERED: NYSTATIN 500,000 UNITS/5 ML SUSP UDC PO PRN (10:05)
[2025-11-03] MEDS ORDERED: SENNA 8.6 MG TAB PO PRN (10:05)
[2025-11-03] MEDS ORDERED: diphenhydrAMINE 12.5 MG/5 ML ELIXIR UDC PO PRN (10:05)
[2025-11-03] MEDS: DOCUSATE SODIUM 100 MG CAPSULE PO PRN (11:58)
[2025-11-03] MEDS: ATORVASTATIN 20 MG TAB PO SCH (11:58)
[2025-11-03] MEDS: METHADONE 10 MG TAB PO ONE (11:58)
[2025-11-03 12:00] VITALS: BP 134/64; TEMP 96.5; O2SAT 97
[2025-11-03] MEDS: OMEPRAZOLE 20MG CAP PO SCH (12:00)
[2025-11-03] MEDS ORDERED: VARIBAR NECTAR 40% w/v 240ML SUSP BTL As Ordered ONE (13:22)
[2025-11-03] MEDS ORDERED: BARIUM SULFATE 700 MG TABLET As Ordered ONE (13:22)
[2025-11-03] MEDS ORDERED: VARIBAR PUDDING 40% w/v 230ML TUBE As Ordered ONE (13:22)
[2025-11-03] MEDS ORDERED: E-Z-PAQUE 96% w/w SUSP 176 GM BTL As Ordered ONE (13:22)
[2025-11-03] MEDS: APIXABAN 5 MG TAB PO SCH (14:01)
[2025-11-03] MEDS: GABAPENTIN 300 MG CAP PO SCH (16:11)
[2025-11-03 20:42] VITALS: BP 139/71; TEMP 97.8; O2SAT 98
[2025-11-03] MEDS: MIRTAZAPINE 7.5 MG PER 1/2 TABLET PO SCH (22:09)
[2025-11-04] MEDS ORDERED: PILL CUTTER 1 EACH XX PRN (02:15)
[2025-11-04] MEDS: HYDROmorphone 2 MG TAB PO ONE (02:22)
[2025-11-04 04:18] VITALS: BP 132/72; TEMP 98.3; O2SAT 93
[2025-11-04 07:17] LABS: BASO # 0.0 10^3/uL (0.0-0.2); BASO % 0.1 % (0.0-1.0); EOS # 0.0 10^3/uL (0.0-0.5); EOS % 0.1 % (0.0-3.0); LYMPH # 0.9 10^3/uL (1.5-5.0); LYMPH % 5.0 % (24.0-44.0); MONO # 0.9 10^3/uL (0.0-0.8); MONO % 5.1 % (2.0-8.0); NEUTROPHILS # 16.6 10^3/uL (1.5-8.5); NEUTROPHILS % 88.9 % (36.0-66.0); PLATELET COUNT, AUTOMATED 351 10^3/uL (150-450)
[2025-11-04 07:33] LABS: ALT/SGPT 23 U/L (7.0-40); AST/SGOT 21 U/L (<34); CALCIUM LEVEL 7.7 MG/DL (8.5-10.1); CARBON DIOXIDE LEVEL 28 MMOL/L (20-31); CHLORIDE LEVEL 106 MMOL/L (98-107); CREATININE FOR GFR 0.49 MG/DL (0.70-1.30); GLOMERULAR FILTRATION RATE > 90.0 (>56); MAGNESIUM LEVEL 1.7 MG/DL (1.8-2.4); POTASSIUM SERUM 3.9 MMOL/L (3.5-5.1); SODIUM LEVEL 139 MMOL/L (136-145)
[2025-11-04] MEDS: METHADONE 10 MG TAB PO SCH (08:45)
[2025-11-04 12:33] VITALS: BP 130/71; TEMP 98.4; O2SAT 94
[2025-11-04 20:05] VITALS: BP 120/61; TEMP 97.6; O2SAT 96
[2025-11-04] MEDS: CHLORASEPTIC SPRAY MT PRN (22:19)
[2025-11-05 04:01] VITALS: BP 124/62; TEMP 98.5; O2SAT 97
[2025-11-05 07:03] LABS: BASO # 0.0 10^3/uL (0.0-0.2); BASO % 0.1 % (0.0-1.0); EOS # 0.0 10^3/uL (0.0-0.5); EOS % 0.1 % (0.0-3.0); LYMPH # 1.3 10^3/uL (1.5-5.0); LYMPH % 14.0 % (24.0-44.0); MONO # 0.6 10^3/uL (0.0-0.8); MONO % 6.5 % (2.0-8.0); NEUTROPHILS # 7.2 10^3/uL (1.5-8.5); NEUTROPHILS % 79.1 % (36.0-66.0); PLATELET COUNT, AUTOMATED 345 10^3/uL (150-450)
[2025-11-05 07:30] LABS: CALCIUM LEVEL 7.6 MG/DL (8.5-10.1); CARBON DIOXIDE LEVEL 30 MMOL/L (20-31); CHLORIDE LEVEL 104 MMOL/L (98-107); CREATININE FOR GFR 0.48 MG/DL (0.70-1.30); GLOMERULAR FILTRATION RATE > 90.0 (>56); MAGNESIUM LEVEL 1.6 MG/DL (1.8-2.4); POTASSIUM SERUM 3.9 MMOL/L (3.5-5.1); SODIUM LEVEL 140 MMOL/L (136-145)
[2025-11-05] MEDS: MAG SULF 1GM/100ML (MAG RUN) 1 GM in IV 1 EA IV SCH (10:08)
[2025-11-05 11:43] VITALS: BP 147/82; TEMP 98.5; O2SAT 95
[2025-11-05 20:09] VITALS: BP 137/67; TEMP 98.7; O2SAT 97
[2025-11-06 03:55] VITALS: BP 134/72; TEMP 98.1; O2SAT 97
[2025-11-06 06:31] LABS: PLATELET COUNT, AUTOMATED 374 10^3/uL (150-450)
[2025-11-06 06:52] LABS: ALT/SGPT 31 U/L (7.0-40); AST/SGOT 25 U/L (<34); CALCIUM LEVEL 8.0 MG/DL (8.5-10.1); CARBON DIOXIDE LEVEL 30 MMOL/L (20-31); CHLORIDE LEVEL 100 MMOL/L (98-107); CREATININE FOR GFR 0.54 MG/DL (0.70-1.30); GLOMERULAR FILTRATION RATE > 90.0 (>56); MAGNESIUM LEVEL 1.9 MG/DL (1.8-2.4); POTASSIUM SERUM 3.9 MMOL/L (3.5-5.1); SODIUM LEVEL 138 MMOL/L (136-145)
[2025-11-06 12:00] VITALS: BP 139/78; TEMP 98.2; O2SAT 96
[2025-11-06 19:55] VITALS: BP 118/56; TEMP 98.7; O2SAT 95
[2025-11-07 04:32] VITALS: BP 136/68; TEMP 98.9; O2SAT 96
[2025-11-07 06:22] LABS: PLATELET COUNT, AUTOMATED 394 10^3/uL (150-450)
[2025-11-07 06:42] LABS: ALT/SGPT 30 U/L (7.0-40); AST/SGOT 19 U/L (<34); CALCIUM LEVEL 8.3 MG/DL (8.5-10.1); CARBON DIOXIDE LEVEL 32 MMOL/L (20-31); CHLORIDE LEVEL 100 MMOL/L (98-107); CREATININE FOR GFR 0.59 MG/DL (0.70-1.30); GLOMERULAR FILTRATION RATE > 90.0 (>56); MAGNESIUM LEVEL 1.8 MG/DL (1.8-2.4); POTASSIUM SERUM 4.1 MMOL/L (3.5-5.1); SODIUM LEVEL 138 MMOL/L (136-145)
[2025-11-07 11:58] VITALS: BP 140/74; TEMP 98.1; O2SAT 96
[2025-11-07] MEDS ORDERED: NYST-38 SS (12:56)
== END 2025-11-07 12:41 | disposition home or self-care (01) | DRG 871 ==
LOC: M ED 12:56 → M ED INP 12:57 → M MSPAV 22:44 → OBSVTOIN 11-03 10:31
PROVIDERS: ADMIT Student in an Organized Health Care Education/Training Program; ATTEND Family Medicine
DX: A41.9 Sepsis, unspecified organism (principal); J18.9 Pneumonia, unspecified organism; G93.41 Metabolic encephalopathy; E43 Unspecified severe protein-calorie malnutrition; E87.29 Other acidosis; J44.0 Chronic obstructive pulmonary disease with (acute) lower respiratory infection; J44.1 Chronic obstructive pulmonary disease with (acute) exacerbation; R64 Cachexia; I73.9 Peripheral vascular disease, unspecified; I10 Essential (primary) hypertension; E78.5 Hyperlipidemia, unspecified; K58.9 Irritable bowel syndrome, unspecified; F17.200 Nicotine dependence, unspecified, uncomplicated; R13.10 Dysphagia, unspecified; R53.1 Weakness; R33.9 Retention of urine, unspecified; T87.89 Other complications of amputation stump; G89.29 Other chronic pain; Z93.1 Gastrostomy status; Z98.62 Peripheral vascular angioplasty status; Z88.8 Allergy status to other drugs, medicaments and biological substances; Z89.512 Acquired absence of left leg below knee; Z79.01 Long term (current) use of anticoagulants; Z79.899 Other long term (current) drug therapy; Z88.0 Allergy status to penicillin

== ENCOUNTER 2025-11-13 11:40 | Emergency (ER) | payer MEDICARE, MEDICAID ==
[~2025-11-13] VITALS: Ht 182.9 cm; Wt 60.7 kg
[~2025-11-13 11:40] MED LIST changes: -APIXABAN 5 MG TAB PO SCH; +SENN-188 PO
[2025-11-13 12:31] LABS: BASO # 0.1 10^3/uL (0.0-0.2); BASO % 0.5 % (0.0-1.0); EOS # 0.1 10^3/uL (0.0-0.5); EOS % 0.3 % (0.0-3.0); LYMPH # 0.8 10^3/uL (1.5-5.0); LYMPH % 5.6 % (24.0-44.0); MONO # 0.8 10^3/uL (0.0-0.8); MONO % 5.4 % (2.0-8.0); NEUTROPHILS # 13.1 10^3/uL (1.5-8.5); NEUTROPHILS % 87.7 % (36.0-66.0); PLATELET COUNT, AUTOMATED 334 10^3/uL (150-450)
[2025-11-13 12:57] LABS: ALT/SGPT 27 U/L (7.0-40); AST/SGOT 26 U/L (<34); CALCIUM LEVEL 8.6 MG/DL (8.5-10.1); CARBON DIOXIDE LEVEL 31 MMOL/L (20-31); CHLORIDE LEVEL 99 MMOL/L (98-107); CREATININE FOR GFR 0.68 MG/DL (0.70-1.30); GLOMERULAR FILTRATION RATE > 90.0 (>56); POTASSIUM SERUM 4.8 MMOL/L (3.5-5.1); SODIUM LEVEL 135 MMOL/L (136-145)
[2025-11-13] MEDS ORDERED: ISOVUE-370 76% 100 ML VIAL As Ordered ONE (13:06)
[2025-11-13] MEDS: IPRATROPIUM 0.5 MG/ALBUTEROL 2.5 MG INH SOL UD 3 ML NEB PRN (15:59)
[2025-11-13] MEDS ORDERED: PRED10TA2 PO (17:22)
[2025-11-13] MEDS ORDERED: AERO1MIS XX (17:22)
[2025-11-13] MEDS ORDERED: MOXI1TAB PO (17:22)
[2025-11-13 18:22] VITALS: BP 124/73; TEMP 97.5; O2SAT 93
== END 2025-11-13 18:24 | disposition home or self-care (01) ==
LOC: M ED 11:40
DX: J44.1 Chronic obstructive pulmonary disease with (acute) exacerbation (principal); I10 Essential (primary) hypertension; K21.9 Gastro-esophageal reflux disease without esophagitis; K58.9 Irritable bowel syndrome, unspecified; E78.5 Hyperlipidemia, unspecified; F17.210 Nicotine dependence, cigarettes, uncomplicated; Z93.1 Gastrostomy status; Z88.0 Allergy status to penicillin; Z88.8 Allergy status to other drugs, medicaments and biological substances; Z79.51 Long term (current) use of inhaled steroids; Z79.899 Other long term (current) drug therapy; Z79.52 Long term (current) use of systemic steroids
CPT/HCPCS: 71045; 71260; 80048; 80076; 83605; 84145; 85025; 87486; 87581; 87633; 87798; 93005; 93041; 94640; 94760; 96374; 99285; J1100; Q9967